=== PATIENT | male | born 1975 | race Two or more races ===

== ENCOUNTER 2020-05-06 01:51 | Inpatient (IN) | payer SELFPAY ==
[~2020-05-06] VITALS: Ht 172.7 cm; Wt 103.8 kg
[2020-05-06] VITALS (12 sets, daily range): BP systolic 104–133; BP diastolic 65–79
[2020-05-06 02:47] LABS: BASO % 0 % (0-3); EOS % 0 % (0-3); HEMATOCRIT 43.1 % (39.0-53.0); HEMOGLOBIN 14.8 g/dL (13.0-17.5); LYMPH % 6 % (24-48); MEAN CORPUSCULAR HEMOGLOBIN 30 pg (25-35); MEAN CORPUSCULAR HGB CONC 34 g/dL (31-37); MEAN CORPUSCULAR VOLUME 86 fL (79-100); MONO # 0.6 x10^3/uL (0.0-1.1); MONO % 3 % (0-9); NEUT # 15.9 x10^3/uL (1.8-7.7); NEUT % 91 % (31-73); PLATELET COUNT 344 x10^3/uL (140-400); RED BLOOD COUNT 5.02 x10^6/uL (4.30-5.70); WHITE BLOOD COUNT 17.5 x10^3/uL (4.0-11.0)
--- NOTE | 2020-05-06 02:52 | RAD ---
AP chest. HISTORY: Short of breath AP view was taken of the chest. There are bilateral hazy diffuse infiltrates. Heart is within normal limits in size. There is no definite effusion. IMPRESSION: 1. Bilateral infiltrates. Electronically signed by: Lamberto Mueller MD (05/06/2020 2:49 AM) [id number]
[2020-05-06 02:56] LABS: CALCIUM 7.9 mg/dL (8.5-10.1); CREATININE 1.2 mg/dL (0.7-1.3); GFR 65.5; POTASSIUM 4.2 mmol/L (3.5-5.1)
[2020-05-06] MEDS ORDERED: IV NORMAL SALINE 1000ML BAG 1,000 ML IV ONE (03:00)
[2020-05-06] MEDS ORDERED: AZITHRMYCN 500MG IVPB FOR OMNI 250 ML IV ONE (03:00)
[2020-05-06] MEDS ORDERED: ACETAMINOPHEN 325 MG TABLET. PO ONE (03:00)
[2020-05-06] MEDS ORDERED: cefTRIAXone IV Push 1 GM VIAL. IVP ONE (03:00)
[2020-05-06 03:01] LABS: ALBUMIN 2.5 g/dL (3.4-5.0); ALBUMIN/GLOBULIN RATIO 0.6 (1.0-1.7); TOTAL BILIRUBIN 0.4 mg/dL (0.2-1.0); TOTAL PROTEIN 6.7 g/dL (6.4-8.2)
--- NOTE | 2020-05-06 04:13 | PHYS DOC ---
General Adult EDM: Chief Complaint: SHORTNESS OF BREATH HPI: HPI: Patient is a 45 year old with no past medical history presents with a chief complaint of shortness of breath with some chest discomfort for the last several days. On arrival patient was febrile with a temperature of 100.4 he was also tachycardic with a heart rate of 104 and his oxygen saturation was in the 70s on room air. Patient is alert and oriented x4. Patient states he suspected Covid and has self isolated over the last several days. Associated cough. Fever on and off over the last several days. Patient has been taking tylenol and ibuprofen with improvement. Review of Systems: Review of Systems: Constitutional: positive fever Eyes: Denies change in visual acuity. [] HENT: Denies nasal congestion or sore throat. [] Respiratory: positive cough and shortness of breath. [] Cardiovascular: denies chest pain or edema. [] GI: Denies abdominal pain, nausea, vomiting, bloody stools or diarrhea. [] : Denies dysuria. [] Musculoskeletal: Denies back pain or joint pain. [] Integument: Denies rash. [] Neurologic: Denies headache, focal weakness or sensory changes. [] Endocrine: Denies polyuria or polydipsia. [] Lymphatic: Denies swollen glands. [] Psychiatric: Denies depression or anxiety. [] Heart Score: Risk Factors: Risk Factors: DM, Current or recent (<one month) smoker, HTN, HLP, family history of CAD, obesity. Risk Scores: Score 0 - 3: 2.5% MACE over next 6 weeks - Discharge Home Score 4 - 6: 20.3% MACE over next 6 weeks - Admit for Clinical Observation Score 7 - 10: 72.7% MACE over next 6 weeks - Early Invasive Strategies Current Medications: Current Medications Medications (Trade) Dose Ordered Sig/Shira Start Time Stop Time Status Last Admin Dose Admin Acetaminophen (Tylenol) 650 mg 1X ONCE 05/06/20 03:00 05/06/20 03:01 DC 05/06/20 03:54 650 MG Azithromycin 250 ml @ 250 mls/hr 1X ONCE 05/06/20 03:00 05/06/20 03:59 DC 05/06/20 03:00 250 MLS/HR Ceftriaxone Sodium (Rocephin) 1 gm 1X ONCE 05/06/20 03:00 05/06/20 03:01 DC 05/06/20 03:54 1 GM Sodium Chloride 1,000 ml @ 1,000 mls/hr 1X ONCE 05/06/20 03:00 05/06/20 03:59 DC 05/06/20 03:53 1,000 MLS/HR Allergies: Allergies: Allergies Coded Allergies Type Severity Reaction Last Updated Verified Unable to Assess 05/06/20 No Physical Exam: PE: Constitutional: Well developed, well nourished, no acute distress, non-toxic appearance. [] HENT: Normocephalic, atraumatic, bilateral external ears normal, oropharynx moist, no oral exudates, nose normal. [] Eyes: PERRLA, EOMI, conjunctiva normal, no discharge. [] Neck: Normal range of motion, no tenderness, supple, no stridor. [] Cardiovascular:Heart rate regular rhythm, no murmur [] Lungs & Thorax: Bilateral breath sounds clear to auscultation [] Abdomen: Bowel sounds normal, soft, no tenderness, no masses, no pulsatile masses. [] Skin: Warm, dry, no erythema, no rash. [] Back: No tenderness, no CVA tenderness. [] Extremities: No tenderness, no cyanosis, no clubbing, ROM intact, no edema. [] Neurologic: Alert and oriented X 3, normal motor function, normal sensory function, no focal deficits noted. [] Psychologic: Affect normal, judgement normal, mood normal. [] Current Patient Data: Labs: Laboratory Tests Test 05/06/20 02:30 White Blood Count 17.5 x10^3/uL (4.0-11.0) H Red Blood Count 5.02 x10^6/uL (4.30-5.70) Hemoglobin 14.8 g/dL (13.0-17.5) Hematocrit 43.1 % (39.0-53.0) Mean Corpuscular Volume 86 fL (79-100) Mean Corpuscular Hemoglobin 30 pg (25-35) Mean Corpuscular Hemoglobin Concent 34 g/dL (31-37) Red Cell Distribution Width 14.0 % (11.5-14.5) Platelet Count 344 x10^3/uL (140-400) Neutrophils (%) (Auto) 91 % (31-73) H Lymphocytes (%) (Auto) 6 % (24-48) L Monocytes (%) (Auto) 3 % (0-9) Eosinophils (%) (Auto) 0 % (0-3) Basophils (%) (Auto) 0 % (0-3) Neutrophils # (Auto) 15.9 x10^3/uL (1.8-7.7) H Lymphocytes # (Auto) 1.0 x10^3/uL (1.0-4.8) Monocytes # (Auto) 0.6 x10^3/uL (0.0-1.1) Eosinophils # (Auto) 0.0 x10^3/uL (0.0-0.7) Basophils # (Auto) 0.0 x10^3/uL (0.0-0.2) Sodium Level 141 mmol/L (136-145) Potassium Level 4.2 mmol/L (3.5-5.1) Chloride Level 102 mmol/L (98-107) Carbon Dioxide Level 30 mmol/L (21-32) Anion Gap 9 (6-14) Blood Urea Nitrogen 10 mg/dL (8-26) Creatinine 1.2 mg/dL (0.7-1.3) Estimated GFR (Cockcroft-Gault) 65.5 BUN/Creatinine Ratio 8 (6-20) Glucose Level 132 mg/dL (70-99) H Lactic Acid Level 1.4 mmol/L (0.4-2.0) Calcium Level 7.9 mg/dL (8.5-10.1) L Total Bilirubin 0.4 mg/dL (0.2-1.0) Aspartate Amino Transferase (AST) 26 U/L (15-37) Alanine Aminotransferase (ALT) 16 U/L (16-63) Alkaline Phosphatase 63 U/L (46-116) Troponin I Quantitative < 0.017 ng/mL (0.000-0.055) Total Protein 6.7 g/dL (6.4-8.2) Albumin 2.5 g/dL (3.4-5.0) L Albumin/Globulin Ratio 0.6 (1.0-1.7) L Laboratory Tests 05/06/20 02:30 Laboratory Tests 05/06/20 02:30 EKG: EKG: [] Radiology/Procedures: Radiology/Procedures: [] Impression: CXR Bilateral infiltrates Course & Med Decision Making: Course & Med Decision Making Pertinent Labs and Imaging studies reviewed. (See chart for details) [] Patient was evaluated for chief complaint. Work-up consisted of laboratory analysis and radiologic imaging. Results reviewed. Chest x-ray bilateral infiltrates. COVID test pending. Treatment included Rocephin and Zithromax. Patient was placed on 15 L nonrebreather with improvement ox saturations to the mid 90s. Patient is admitted to the hospitalist for further evaluation and treatment. Dragon Disclaimer: Dragon Disclaimer: This electronic medical record was generated, in whole or in part, using a voice recognition dictation system. Departure Departure Impression: Primary Impression: Person under investigation for COVID-19 Additional Impressions: Fever Pneumonia Disposition: ADMITTED INPATIENT Admitting Physician: KULWANT Condition: STABLE Justicifation of Admission Dx: Justifications for Admission: Justification of Admission Dx: Yes Comminuty Aquired Pneumonia: Hypoxemia SARABJIT JAY DO May 06, 2020 04:13
[2020-05-06 05:21] LABS: % BANDS 36 % (0-9); % LYMPHS 6 % (24-48); % MONOS 2 % (0-10); % SEGS 56 % (35-66); PLT ESTIMATE ADEQUATE (ADEQUATE)
[2020-05-06] MEDS ORDERED: hydrALAZINE 25 MG TABLET PO PRN (07:30)
[2020-05-06] MEDS ORDERED: NICOTINE 21MG PATCH. TD PRN (08:30)
--- NOTE | 2020-05-06 09:20 | NUR ---
Pt was escorted by this RN and Kathleen DWYER to ICU via bed, gave report to Tania, updated family.
[2020-05-06] MEDS: ACETAMINOPHEN 325 MG TABLET. PO PRN ×2 (09:30→15:51)
--- NOTE | 2020-05-06 09:30 | NUR ---
Pulmonary was consulted by this RN
[2020-05-06 09:47] LABS: C-REACTIVE PROTEIN 402.3 mg/L (0-3.3)
--- NOTE | 2020-05-06 10:00 | NUR ---
Pt transferred to ICU rm 112 via 2 floor nurses, bed, for increasing o2 requirements. Pt on 15L NRB, 02 sat 95%, does not appear to be in any acute distress, alert and following commands. Pt is primarly welsh speaking- Dr. Ventura at bedside translating, obtained PMH, confirmed pt understanding need for transfer. Assessment completed, 101.2 temp axillary- PO Tylenol given, otherwise all VSS. Pt in airborne precautions for pending Covid, will monitor
--- NOTE | 2020-05-06 10:45 | PDOC ---
PULMONARY PROGRESS NOTES Subjective full note dictated #[id number] Vitals Vital Signs Date Time Temp Pulse Resp B/P (MAP) Pulse Ox O2 Delivery O2 Flow Rate FiO2 05/06/20 08:00 Non-Rebreather 15.0 05/06/20 07:23 98.8 95 20 104/65 (78) 93 98.8 Labs Laboratory Tests Test 05/06/20 02:30 White Blood Count 17.5 x10^3/uL (4.0-11.0) Red Blood Count 5.02 x10^6/uL (4.30-5.70) Hemoglobin 14.8 g/dL (13.0-17.5) Hematocrit 43.1 % (39.0-53.0) Mean Corpuscular Volume 86 fL (79-100) Mean Corpuscular Hemoglobin 30 pg (25-35) Mean Corpuscular Hemoglobin Concent 34 g/dL (31-37) Red Cell Distribution Width 14.0 % (11.5-14.5) Platelet Count 344 x10^3/uL (140-400) Neutrophils (%) (Auto) 91 % (31-73) Lymphocytes (%) (Auto) 6 % (24-48) Monocytes (%) (Auto) 3 % (0-9) Eosinophils (%) (Auto) 0 % (0-3) Basophils (%) (Auto) 0 % (0-3) Neutrophils # (Auto) 15.9 x10^3/uL (1.8-7.7) Lymphocytes # (Auto) 1.0 x10^3/uL (1.0-4.8) Monocytes # (Auto) 0.6 x10^3/uL (0.0-1.1) Eosinophils # (Auto) 0.0 x10^3/uL (0.0-0.7) Basophils # (Auto) 0.0 x10^3/uL (0.0-0.2) Segmented Neutrophils % 56 % (35-66) Band Neutrophils % 36 % (0-9) Lymphocytes % 6 % (24-48) Monocytes % 2 % (0-10) Platelet Estimate Adequate (ADEQUATE) D-Dimer (Daphney) 0.99 ug/mlFEU (0.00-0.50) Sodium Level 141 mmol/L (136-145) Potassium Level 4.2 mmol/L (3.5-5.1) Chloride Level 102 mmol/L (98-107) Carbon Dioxide Level 30 mmol/L (21-32) Anion Gap 9 (6-14) Blood Urea Nitrogen 10 mg/dL (8-26) Creatinine 1.2 mg/dL (0.7-1.3) Estimated GFR (Cockcroft-Gault) 65.5 BUN/Creatinine Ratio 8 (6-20) Glucose Level 132 mg/dL (70-99) Lactic Acid Level 1.4 mmol/L (0.4-2.0) Calcium Level 7.9 mg/dL (8.5-10.1) Ferritin 1853 ng/mL (26-388) Total Bilirubin 0.4 mg/dL (0.2-1.0) Aspartate Amino Transf (AST/SGOT) 26 U/L (15-37) Alanine Aminotransferase (ALT/SGPT) 16 U/L (16-63) Alkaline Phosphatase 63 U/L (46-116) Troponin I Quantitative < 0.017 ng/mL (0.000-0.055) C-Reactive Protein, Quantitative 402.3 mg/L (0-3.3) Total Protein 6.7 g/dL (6.4-8.2) Albumin 2.5 g/dL (3.4-5.0) Albumin/Globulin Ratio 0.6 (1.0-1.7) Laboratory Tests Test 05/06/20 02:30 White Blood Count 17.5 x10^3/uL (4.0-11.0) Red Blood Count 5.02 x10^6/uL (4.30-5.70) Hemoglobin 14.8 g/dL (13.0-17.5) Hematocrit 43.1 % (39.0-53.0) Mean Corpuscular Volume 86 fL (79-100) Mean Corpuscular Hemoglobin 30 pg (25-35) Mean Corpuscular Hemoglobin Concent 34 g/dL (31-37) Red Cell Distribution Width 14.0 % (11.5-14.5) Platelet Count 344 x10^3/uL (140-400) Neutrophils (%) (Auto) 91 % (31-73) Lymphocytes (%) (Auto) 6 % (24-48) Monocytes (%) (Auto) 3 % (0-9) Eosinophils (%) (Auto) 0 % (0-3) Basophils (%) (Auto) 0 % (0-3) Neutrophils # (Auto) 15.9 x10^3/uL (1.8-7.7) Lymphocytes # (Auto) 1.0 x10^3/uL (1.0-4.8) Monocytes # (Auto) 0.6 x10^3/uL (0.0-1.1) Eosinophils # (Auto) 0.0 x10^3/uL (0.0-0.7) Basophils # (Auto) 0.0 x10^3/uL (0.0-0.2) Segmented Neutrophils % 56 % (35-66) Band Neutrophils % 36 % (0-9) Lymphocytes % 6 % (24-48) Monocytes % 2 % (0-10) Platelet Estimate Adequate (ADEQUATE) D-Dimer (Daphney) 0.99 ug/mlFEU (0.00-0.50) Sodium Level 141 mmol/L (136-145) Potassium Level 4.2 mmol/L (3.5-5.1) Chloride Level 102 mmol/L (98-107) Carbon Dioxide Level 30 mmol/L (21-32) Anion Gap 9 (6-14) Blood Urea Nitrogen 10 mg/dL (8-26) Creatinine 1.2 mg/dL (0.7-1.3) Estimated GFR (Cockcroft-Gault) 65.5 BUN/Creatinine Ratio 8 (6-20) Glucose Level 132 mg/dL (70-99) Lactic Acid Level 1.4 mmol/L (0.4-2.0) Calcium Level 7.9 mg/dL (8.5-10.1) Ferritin 1853 ng/mL (26-388) Total Bilirubin 0.4 mg/dL (0.2-1.0) Aspartate Amino Transf (AST/SGOT) 26 U/L (15-37) Alanine Aminotransferase (ALT/SGPT) 16 U/L (16-63) Alkaline Phosphatase 63 U/L (46-116) Troponin I Quantitative < 0.017 ng/mL (0.000-0.055) C-Reactive Protein, Quantitative 402.3 mg/L (0-3.3) Total Protein 6.7 g/dL (6.4-8.2) Albumin 2.5 g/dL (3.4-5.0) Albumin/Globulin Ratio 0.6 (1.0-1.7) Comments IMPRESSION: 1. Bilateral infiltrates. Impression . 1. Acute Hypoxic Respiratory Failure 2. Fever 3. Pneumonia, CXR positive for Bilateral patch infiltrates consistent with COV ID-19 4. elevated d-dimer 5. Tachycardia 6. Elevated CRP and ferrtin also consistent with COVID-19 infection Plan . 1. Continue supplemental oxygen to keep sats above 94%, NRB at this time obtain ABG, Vapotherm if needed 2. Tylenol for fever 3. Continue ABX 4. Monitor CXR and clinical course 5. COVID-19 test pending, continue isolation precautions-- convalescent plasma and Remdesivir 6. IV steroids 7. trend inflammatory markers DVT/GI PPX: lovenox/ pepcid D/W RN CODE:FULL CC time 55 minutes reviewing images, obtaining history and discussing case with care team. YARELY PAULSON MD May 06, 2020 10:45
--- NOTE | 2020-05-06 10:47 | PDOC1 ---
History and Physical Date of Admission Date of Admission DATE: 05/06/20 TIME: 10:36 Identification/Chief Complaint Chief Complaint cough, sob, fever Problems: (1) Person under investigation for COVID-19 (2) Pneumonia (3) Fever Source Source: Chart review, Patient History of Present Illness History of Present Illness 45 year old Male with no significant PMHx who presents with SOB, cough and intermittent fevers since 5 days. reports chest pain when he coughs. has been alternating tylenol and motrin for fever. denies any sick contacts. came to ED bc of worsening symptoms. noted fever of 100.4 in ED. also noted to be tachy. saturations 70% on RA. placed on NRB and sent to floor. chest xray shows: Bilateral infiltrates. patient admitted for further work up. Past Medical History Past Medical History none Past Surgical History Past Surgical History none Family History Family History reviewed and denies Social History Smoke: No ALCOHOL: none Drugs: None Current Medications Current Medications Current Medications Acetaminophen (Tylenol) 650 mg 1X ONCE PO Last administered on 05/06/20at 03:54; Start 05/06/20 at 03:00; Stop 05/06/20 at 03:01; Status DC Sodium Chloride 1,000 ml @ 1,000 mls/hr 1X ONCE IV Last administered on 05/06/20at 03:53; Start 05/06/20 at 03:00; Stop 05/06/20 at 03:59; Status DC Ceftriaxone Sodium (Rocephin) 1 gm 1X ONCE IVP Last administered on 05/06/20at 03:54; Start 05/06/20 at 03:00; Stop 05/06/20 at 03:01; Status DC Azithromycin 250 ml @ 250 mls/hr 1X ONCE IV Last administered on 05/06/20at 03:00; Start 05/06/20 at 03:00; Stop 05/06/20 at 03:59; Status DC Hydralazine HCl (Apresoline) 25 mg PRN TID PRN PO for SBP greater than 180; Start 05/06/20 at 07:30 Enoxaparin Sodium (Lovenox Per Pharmacy Prophylaxis Dosing) 1 each PRN DAILY PRN MC SEE COMMENTS; Start 05/06/20 at 07:30 Ceftriaxone Sodium (Rocephin) 1 gm Q24H IVP ; Start 05/07/20 at 04:00 Acetaminophen (Tylenol) 650 mg PRN Q6HRS PRN PO fever Last administered on 05/06/20at 09:30; Start 05/06/20 at 07:30 Azithromycin 500 mg/Sodium Chloride 250 ml @ 250 mls/hr Q24H IV ; Start 05/07/20 at 04:00 Enoxaparin Sodium (Lovenox 60mg Syringe) 60 mg Q12HR SQ ; Start 05/06/20 at 09:00 Nicotine (Nicoderm Cq 21mg) 1 patch PRN DAILY PRN TD SMOKING CESSATION; Start 05/06/20 at 08:30 Allergies Allergies: Coded Allergies: No Known Drug Allergies (Unverified , 05/06/20) ROS Review of System CONSTITUTIONAL: No fever or chills EYES: No recent changes SKIN: No rash or itching CARDIOVASCULAR: No chest pain, syncope, palpitations, or edema RESPIRATORY: No SOB or cough GASTROINTESTINAL: No nausea, vomiting or abdominal pain NEUROLOGICAL: No headaches or weakness ENDOCRINE: No cold or heat intolerance GENITOURINARY: No urgency or frequency of urination MUSCULOSKELETAL: No back pain or joint pain LYMPHATICS: No enlarged lymph nodes PSYCHIATRIC: No anxiety or depression Physical Exam Physical Exam GENERAL: No apparent distress. Alert and oriented. HEENT: Head normocephalic, atraumatic. NECK: Supple LUNGS: Clear to auscultation. HEART: RRR, S1, S2 present, pulses intact ABDOMEN: Soft, positive bowel sounds. EXTREMITIES: No cyanosis or edema. NEUROLOGIC: Normal speech, normal tone PSYCHIATRIC: Normal affect, normal mood. SKIN: No ulceration. Vitals Vitals Vital Signs Date Time Temp Pulse Resp B/P (MAP) Pulse Ox O2 Delivery O2 Flow Rate FiO2 05/06/20 08:00 Non-Rebreather 15.0 05/06/20 07:23 98.8 95 20 104/65 (78) 93 98.8 Labs Labs Laboratory Tests Test 05/06/20 02:30 White Blood Count 17.5 x10^3/uL (4.0-11.0) Red Blood Count 5.02 x10^6/uL (4.30-5.70) Hemoglobin 14.8 g/dL (13.0-17.5) Hematocrit 43.1 % (39.0-53.0) Mean Corpuscular Volume 86 fL (79-100) Mean Corpuscular Hemoglobin 30 pg (25-35) Mean Corpuscular Hemoglobin Concent 34 g/dL (31-37) Red Cell Distribution Width 14.0 % (11.5-14.5) Platelet Count 344 x10^3/uL (140-400) Neutrophils (%) (Auto) 91 % (31-73) Lymphocytes (%) (Auto) 6 % (24-48) Monocytes (%) (Auto) 3 % (0-9) Eosinophils (%) (Auto) 0 % (0-3) Basophils (%) (Auto) 0 % (0-3) Neutrophils # (Auto) 15.9 x10^3/uL (1.8-7.7) Lymphocytes # (Auto) 1.0 x10^3/uL (1.0-4.8) Monocytes # (Auto) 0.6 x10^3/uL (0.0-1.1) Eosinophils # (Auto) 0.0 x10^3/uL (0.0-0.7) Basophils # (Auto) 0.0 x10^3/uL (0.0-0.2) Segmented Neutrophils % 56 % (35-66) Band Neutrophils % 36 % (0-9) Lymphocytes % 6 % (24-48) Monocytes % 2 % (0-10) Platelet Estimate Adequate (ADEQUATE) D-Dimer (Daphney) 0.99 ug/mlFEU (0.00-0.50) Sodium Level 141 mmol/L (136-145) Potassium Level 4.2 mmol/L (3.5-5.1) Chloride Level 102 mmol/L (98-107) Carbon Dioxide Level 30 mmol/L (21-32) Anion Gap 9 (6-14) Blood Urea Nitrogen 10 mg/dL (8-26) Creatinine 1.2 mg/dL (0.7-1.3) Estimated GFR (Cockcroft-Gault) 65.5 BUN/Creatinine Ratio 8 (6-20) Glucose Level 132 mg/dL (70-99) Lactic Acid Level 1.4 mmol/L (0.4-2.0) Calcium Level 7.9 mg/dL (8.5-10.1) Ferritin 1853 ng/mL (26-388) Total Bilirubin 0.4 mg/dL (0.2-1.0) Aspartate Amino Transf (AST/SGOT) 26 U/L (15-37) Alanine Aminotransferase (ALT/SGPT) 16 U/L (16-63) Alkaline Phosphatase 63 U/L (46-116) Troponin I Quantitative < 0.017 ng/mL (0.000-0.055) C-Reactive Protein, Quantitative 402.3 mg/L (0-3.3) Total Protein 6.7 g/dL (6.4-8.2) Albumin 2.5 g/dL (3.4-5.0) Albumin/Globulin Ratio 0.6 (1.0-1.7) Laboratory Tests Test 05/06/20 02:30 White Blood Count 17.5 x10^3/uL (4.0-11.0) Red Blood Count 5.02 x10^6/uL (4.30-5.70) Hemoglobin 14.8 g/dL (13.0-17.5) Hematocrit 43.1 % (39.0-53.0) Mean Corpuscular Volume 86 fL (79-100) Mean Corpuscular Hemoglobin 30 pg (25-35) Mean Corpuscular Hemoglobin Concent 34 g/dL (31-37) Red Cell Distribution Width 14.0 % (11.5-14.5) Platelet Count 344 x10^3/uL (140-400) Neutrophils (%) (Auto) 91 % (31-73) Lymphocytes (%) (Auto) 6 % (24-48) Monocytes (%) (Auto) 3 % (0-9) Eosinophils (%) (Auto) 0 % (0-3) Basophils (%) (Auto) 0 % (0-3) Neutrophils # (Auto) 15.9 x10^3/uL (1.8-7.7) Lymphocytes # (Auto) 1.0 x10^3/uL (1.0-4.8) Monocytes # (Auto) 0.6 x10^3/uL (0.0-1.1) Eosinophils # (Auto) 0.0 x10^3/uL (0.0-0.7) Basophils # (Auto) 0.0 x10^3/uL (0.0-0.2) Segmented Neutrophils % 56 % (35-66) Band Neutrophils % 36 % (0-9) Lymphocytes % 6 % (24-48) Monocytes % 2 % (0-10) Platelet Estimate Adequate (ADEQUATE) D-Dimer (Daphney) 0.99 ug/mlFEU (0.00-0.50) Sodium Level 141 mmol/L (136-145) Potassium Level 4.2 mmol/L (3.5-5.1) Chloride Level 102 mmol/L (98-107) Carbon Dioxide Level 30 mmol/L (21-32) Anion Gap 9 (6-14) Blood Urea Nitrogen 10 mg/dL (8-26) Creatinine 1.2 mg/dL (0.7-1.3) Estimated GFR (Cockcroft-Gault) 65.5 BUN/Creatinine Ratio 8 (6-20) Glucose Level 132 mg/dL (70-99) Lactic Acid Level 1.4 mmol/L (0.4-2.0) Calcium Level 7.9 mg/dL (8.5-10.1) Ferritin 1853 ng/mL (26-388) Total Bilirubin 0.4 mg/dL (0.2-1.0) Aspartate Amino Transf (AST/SGOT) 26 U/L (15-37) Alanine Aminotransferase (ALT/SGPT) 16 U/L (16-63) Alkaline Phosphatase 63 U/L (46-116) Troponin I Quantitative < 0.017 ng/mL (0.000-0.055) C-Reactive Protein, Quantitative 402.3 mg/L (0-3.3) Total Protein 6.7 g/dL (6.4-8.2) Albumin 2.5 g/dL (3.4-5.0) Albumin/Globulin Ratio 0.6 (1.0-1.7) VTE Prophylaxis Ordered VTE Prophylaxis Devices: Yes VTE Pharmacological Prophylaxi: Yes Assessment/Plan Assessment/Plan ASSESSMENT Acute Hypoxic Resp Failure secondary to Suspected COVID-19 Bilateral Infiltrates on cxr elevated D dimer elevated inflammatory markers Leukocytosis PLAN transfer to ICU given 02 requirements ABG stat continue Rocephin and Azithro CTA chest given elevated d dimer and hypoxia, rule out PE follow cultures and covid screen dvt ppx: lovenox full code consider dex/remdesevir/ plasma if covid + pulm eval Justicifation of Admission Dx: Justifications for Admission: Justification of Admission Dx: Yes Comminuty Aquired Pneumonia: Hypoxemia MARILYN CONTRERAS MD May 06, 2020 10:47
[2020-05-06 11:34] LABS: BASE EXCESS ABG 3 mmol/L (-3-3); HCO3 ABG 27 mmol/L (21-28); PCO2 ABG 38 mmHg (35-46); PO2 ABG 74 mmHg (75-108); SAT O2 ABG 95 % (92-99)
--- NOTE | 2020-05-06 11:45 | CONS ---
DATE OF CONSULTATION: PULMONARY CONSULTATION ATTENDING PHYSICIAN: Dr. Crane. REASON FOR CONSULTATION: Acute hypoxic respiratory failure/suspected COVID-19 infection. HISTORY OF PRESENT ILLNESS: This is a 45-year-old male who presents to the Emergency Department overnight with complaints of shortness of breath, fever, chills for the last 4-5 days. He reports that he has been self-isolating at home and treating his fevers with Tylenol and ibuprofen without any improvement of his symptoms. Upon arrival to the Emergency Department, he was found to be hypoxic with oxygen saturations of 70%. He was placed on 15 liters nonrebreather and was admitted to the hospital for further medical evaluation and treatment. He was treated with Rocephin and azithromycin in the Emergency Department and was tested for COVID-19. No ABG was obtained in the Emergency Department. This morning, he experienced hypoxia on the nursing unit and was transferred to the intensive care unit and a Pulmonary consultation was requested at that point in time. PAST MEDICAL HISTORY: The patient denies any past medical history or chronic medication use. PAST SURGICAL HISTORY: He reports a right knee surgery for cartilage infection. SOCIAL HISTORY: He is a former smoker with a 15-plus pack-year smoking history. He is not currently smoking. He quit smoking 3 years ago. He denies any alcohol use and denies any drug use. ALLERGIES: No known drug allergies. CURRENT MEDICATIONS: Reviewed as listed in the [facility]. REVIEW OF SYSTEMS: A 12-point review of systems was reviewed with the patient that is negative except for pertinent positives discussed in the HPI. FAMILY HISTORY: Noncontributory to the respiratory system. PHYSICAL EXAMINATION: GENERAL: He is awake and alert and following commands. VITAL SIGNS: Temperature is 98.8, heart rate is 100, respiratory rate is 20, blood pressure is 104/65, pulse oximetry is 93% on 15 liters nonrebreather mask. HEENT: Sclerae nonicteric. NECK: Supple. LUNGS: Diminished throughout with some rhonchi. CARDIOVASCULAR: Regular rate and rhythm; however, noted to be tachycardic on telemetry. ABDOMEN: Soft. EXTREMITIES: Negative for cyanosis, clubbing or pitting edema. LABORATORY DATA: White blood cell count is 17.5, hemoglobin 14.8, hematocrit of 43.1, platelet count 344. D-dimer 0.99. Sodium 141, potassium 4.2, BUN of 10, creatinine of 1.2. Lactic acid of 1.4. Ferritin level of 1853. C-reactive protein is 402.3, albumin is 2.5. IMPRESSION: 1. Acute hypoxic respiratory failure, likely secondary to COVID-19 infection. 2. Fever. 3. Pneumonia. Chest x-ray positive for bilateral infiltrates consistent with COVID-19 infection. 4. Elevated D-dimer. 5. Tachycardia. 6. Elevated CRP and ferritin also consistent with COVID-19 infection. PLAN: 1. Continue supplemental oxygen to keep oxygen saturations greater than 94%, currently on nonrebreather. Awaiting ABG results. May use Vapotherm as needed for this patient. 2. Tylenol for fever. 3. Continue antibiotics, currently on Rocephin and azithromycin. 4. Monitor chest x-ray and clinical course. 5. We will add IV steroids. 6. COVID-19 test pending. Continue isolation precautions. If COVID-19 tested positive, we will proceed with convalescent plasma and remdesivir. 7. DVT and GI prophylaxis. 8. Monitor CRP, ferritin, D-dimer and sed rate. Thank you for your consultation on this patient. We will follow along. Critical care time 55 minutes reviewing images, obtaining history and discussing case with the care team. YARELY PAULSON MD DR: MARCELINA/brien JOB#: [id number] / [id number]
[2020-05-06] MEDS: methylPREDNISolone SOD SUCC PF 125 MG/2 ML VIAL. IV SCH ×2 (13:48→21:00)
[2020-05-06] MEDS: FAMOTIDINE 20 MG/2 ML VIAL IVP SCH (21:00)
[2020-05-06] MEDS ORDERED: STERILE WATER for RESP 1,000 ML BAG. INH PRN (23:30)
--- NOTE | 2020-05-06 23:40 | NUR ---
Call to respiratory. Pt sats remaining in the mid 80's. Pt laying in bed with mild shortness of breath. Vapotherm at fio2 100%. 2345 Rt here to do abgs. Will continue to monitor.
[2020-05-07] VITALS (24 sets, daily range): BP systolic 82–147; BP diastolic 46–82
[2020-05-07] MEDS ORDERED: PROPOFOL 100 ML IV PRN (00:15)
[2020-05-07] MEDS ORDERED: SUCCINYLCHOLINE 200 MG/10 ML VIAL. IV ONE (00:45)
[2020-05-07] MEDS: MIDAZOLAM 100mg/100ml NS BAG 100 ML IV PRN ×3 (00:51→10:41)
[2020-05-07] MEDS ORDERED: ETOMIDATE 20 MG/10 ML VIAL. IV ONE (00:57)
[2020-05-07] MEDS ORDERED: SUCCINYLCHOLINE 200 MG/10 ML VIAL. ONE (01:00)
[2020-05-07] MEDS ORDERED: VECURONIUM BOLUS 10 MG VIAL. IV ONE (01:15)
--- NOTE | 2020-05-07 01:40 | RAD ---
Chest one view, abdomen one view. HISTORY: Intubated CHEST: AP view was taken of the chest. Endotracheal tube is at the level the clavicles. There are diffuse bilateral infiltrates. Heart is normal in size. On the chest x-ray the NG tube extends into the stomach. Stomach is distended. ABDOMEN: Supine view was taken of the abdomen. On the abdominal film which was taken before the chest x-ray the NG tube stops near the GE junction. Stomach is distended. There is respiratory motion. IMPRESSION: 1. Endotracheal tube at the level the clavicles. 2. NG tube extends into the stomach on the chest x-ray. 3. Diffuse bilateral infiltrates. 4. Gastric distention. Electronically signed by: Lamberto Mueller MD (05/07/2020 1:37 AM) [id number]
--- NOTE | 2020-05-07 02:00 | NUR ---
Dr Lora ordered pharmacy to dose Rendesivir IV; per Vimal, pharmacist, med will be started once Covid results are back.
[2020-05-07] MEDS: NOREPINEPHRINE VIAL 8 MG in IV DEXTROSE 5% 250 ML IV PRN (02:37)
[2020-05-07 02:47] LABS: HCO3 ABG 25 mmol/L (21-28)
[2020-05-07 02:49] LABS: BASE EXCESS ABG 1 mmol/L (-3-3); HCO3 ABG 25 mmol/L (21-28); PCO2 ABG 38 mmHg (35-46); PO2 ABG 81 mmHg (75-108); SAT O2 ABG 96 % (92-99)
[2020-05-07 02:59] LABS: BASE EXCESS ABG 2 mmol/L (-3-3); FIO2 ABG 100; PCO2 ABG 36 mmHg (35-46); PO2 ABG 51 mmHg (75-108); SAT O2 ABG 87 % (92-99)
[2020-05-07 03:00] LABS: FIO2 ABG 100
[2020-05-07] MEDS: cefTRIAXone IV Push 1 GM VIAL. IVP SCH (04:08)
[2020-05-07] MEDS: AZITHROMYCIN 500 MG in IV NORMAL SALINE 250ML 250 ML IV SCH (04:08)
--- NOTE | 2020-05-07 04:41 | NUR ---
AT 0130- Noted a decrease in 02Stats. RTT here to draw ABG. ICU charge nurse called results to Dr. Lora. Orders for intubation and Sedation.
[2020-05-07 05:52] LABS: BASO % 0 % (0-3); EOS % 0 % (0-3); HEMATOCRIT 39.6 % (39.0-53.0); HEMOGLOBIN 13.3 g/dL (13.0-17.5); LYMPH # 0.6 x10^3/uL (1.0-4.8); LYMPH % 4 % (24-48); MEAN CORPUSCULAR HEMOGLOBIN 29 pg (25-35); MEAN CORPUSCULAR HGB CONC 34 g/dL (31-37); MEAN CORPUSCULAR VOLUME 87 fL (79-100); MONO # 0.8 x10^3/uL (0.0-1.1); MONO % 5 % (0-9); NEUT # 13.8 x10^3/uL (1.8-7.7); NEUT % 91 % (31-73); PLATELET COUNT 433 x10^3/uL (140-400); RED BLOOD COUNT 4.56 x10^6/uL (4.30-5.70); RED CELL DISTRIBUTION WIDTH 14.1 % (11.5-14.5); WHITE BLOOD COUNT 15.2 x10^3/uL (4.0-11.0)
[2020-05-07 05:56] LABS: CALCIUM 8.6 mg/dL (8.5-10.1); CREATININE 1.2 mg/dL (0.7-1.3); DIRECT BILIRUBIN 0.2 mg/dL (0.0-0.2); GFR 65.5; POTASSIUM 3.7 mmol/L (3.5-5.1); TOTAL BILIRUBIN 0.3 mg/dL (0.2-1.0)
[2020-05-07] MEDS: methylPREDNISolone SOD SUCC PF 125 MG/2 ML VIAL. IV SCH ×2 (06:07→14:25)
[2020-05-07 08:01] LABS: BASE EXCESS ABG -1 mmol/L (-3-3); HCO3 ABG 23 mmol/L (21-28); PCO2 ABG 38 mmHg (35-46); PO2 ABG 83 mmHg (75-108); SAT O2 ABG 96 % (92-99)
[2020-05-07 08:03] LABS: FIO2 ABG 100
[2020-05-07] MEDS ORDERED: CHLORHEXIDINE 0.12% 15 ML MOUTHWASH. MM SCH (09:00)
--- NOTE | 2020-05-07 09:20 | PDOC ---
PROGRESS NOTES History of Present Illness History of Present Illness VTE Prophylaxis Ordered VTE Prophylaxis Devices: Yes VTE Pharmacological Prophylaxi: Yes IMPRESSION FEVER PRESENT ON ADMIT Acute Hypoxic Resp Failure secondary to Suspected COVID-19 Bilateral Infiltrates on cxr elevated D dimer// elevated inflammatory markers Leukocytosis ELEVATED FERRITIN // Elevated CRP and ferrtin also consistent with COVID-19 infection PLAN VENT SUPPORT continue Rocephin and Azithro CTA chest REVIEWED follow cultures and covid screen dvt ppx: lovenox full code COVID-19 test pending, continue isolation precautions-- convalescent plasma and Remdesivir IV steroids pulm FOLLOWING The patient was evaluated during the global COVID-19 pandemic, and that diagnosis was suspected/considered upon their initial presentation. Their evaluation, treatment and testing was consistent with current guidelines for patients who present with complaints or symptoms that may be related to COVID- 19. 33 MIN CC TIME Justicifation of Admission Dx: Justicifation of Admission Dx: Justifications for Admission: Justification of Admission Dx: Yes Comminuty Aquired Pneumonia: Hypoxemia Vitals Vitals Vital Signs Date Time Temp Pulse Resp B/P (MAP) Pulse Ox O2 Delivery O2 Flow Rate FiO2 05/07/20 07:24 100 Ventilator 05/07/20 06:09 86 24 133/72 (92) 05/07/20 04:00 99.1 99.1 05/07/20 01:48 40.0 Physical Exam Physical Exam GENERAL: INTUBATED ON VENT, SEDATED HEENT: Head normocephalic, atraumatic. NECK: Supple LUNGS: Clear to auscultation. HEART: RRR, S1, S2 present, pulses intact ABDOMEN: Soft, positive bowel sounds. EXTREMITIES: No cyanosis or edema. SKIN: No ulceration. Abdomen: Soft Extremities: No cyanosis Labs LABS SPEC #: [id number] JOSEPH: 05/06/20 STATUS: RES REQ #: [id number] RECD: 05/06/[address]: SARABJIT JAY DO SOURCE: BLOOD ENTR: 05/06/20 [facility] : ANIKET: ORDERED: BCULT Procedure Result BLOOD CULTURE Preliminary NO GROWTH AFTER 1 DAY Chest one view, abdomen one view. HISTORY: Intubated CHEST: AP view was taken of the chest. Endotracheal tube is at the level the clavicles. There are diffuse bilateral infiltrates. Heart is normal in size. On the chest x-ray the NG tube extends into the stomach. Stomach is distended. ABDOMEN: Supine view was taken of the abdomen. On the abdominal film which was taken before the chest x-ray the NG tube stops near the GE junction. Stomach is distended. There is respiratory motion. IMPRESSION: 1. Endotracheal tube at the level the clavicles. 2. NG tube extends into the stomach on the chest x-ray. 3. Diffuse bilateral infiltrates. 4. Gastric distention. Electronically signed by: Lamberto Mueller MD (05/07/2020 1:37 AM) [id number] DICTATED and SIGNED BY: LAMBERTO MUELLER MD DATE: 05/07/20 0137 Laboratory Tests Test 05/06/20 11:18 05/06/20 23:44 05/07/20 02:44 05/07/20 04:45 O2 Saturation 95 % (92-99) 87 % (92-99) 96 % (92-99) Arterial Blood pH 7.46 (7.35-7.45) 7.46 (7.35-7.45) 7.44 (7.35-7.45) Arterial Blood pCO2 at Patient Temp 38 mmHg (35-46) 36 mmHg (35-46) 38 mmHg (35-46) Arterial Blood pO2 at Patient Temp 74 mmHg (75-108) 51 mmHg (75-108) 81 mmHg (75-108) Arterial Blood HCO3 27 mmol/L (21-28) 25 mmol/L (21-28) 25 mmol/L (21-28) Arterial Blood Base Excess 3 mmol/L (-3-3) 2 mmol/L (-3-3) 1 mmol/L (-3-3) FiO2 100 nrm 100 100 White Blood Count 15.2 x10^3/uL (4.0-11.0) Red Blood Count 4.56 x10^6/uL (4.30-5.70) Hemoglobin 13.3 g/dL (13.0-17.5) Hematocrit 39.6 % (39.0-53.0) Mean Corpuscular Volume 87 fL (79-100) Mean Corpuscular Hemoglobin 29 pg (25-35) Mean Corpuscular Hemoglobin Concent 34 g/dL (31-37) Red Cell Distribution Width 14.1 % (11.5-14.5) Platelet Count 433 x10^3/uL (140-400) Neutrophils (%) (Auto) 91 % (31-73) Lymphocytes (%) (Auto) 4 % (24-48) Monocytes (%) (Auto) 5 % (0-9) Eosinophils (%) (Auto) 0 % (0-3) Basophils (%) (Auto) 0 % (0-3) Neutrophils # (Auto) 13.8 x10^3/uL (1.8-7.7) Lymphocytes # (Auto) 0.6 x10^3/uL (1.0-4.8) Monocytes # (Auto) 0.8 x10^3/uL (0.0-1.1) Eosinophils # (Auto) 0.0 x10^3/uL (0.0-0.7) Basophils # (Auto) 0.0 x10^3/uL (0.0-0.2) Sodium Level 140 mmol/L (136-145) Potassium Level 3.7 mmol/L (3.5-5.1) Chloride Level 102 mmol/L (98-107) Carbon Dioxide Level 25 mmol/L (21-32) Anion Gap 13 (6-14) Blood Urea Nitrogen 20 mg/dL (8-26) Creatinine 1.2 mg/dL (0.7-1.3) Estimated GFR (Cockcroft-Gault) 65.5 Glucose Level 168 mg/dL (70-99) Calcium Level 8.6 mg/dL (8.5-10.1) Total Bilirubin 0.3 mg/dL (0.2-1.0) Direct Bilirubin 0.2 mg/dL (0.0-0.2) Aspartate Amino Transf (AST/SGOT) 30 U/L (15-37) Alanine Aminotransferase (ALT/SGPT) 9 U/L (16-63) Alkaline Phosphatase 64 U/L (46-116) Total Protein 7.0 g/dL (6.4-8.2) Albumin 2.0 g/dL (3.4-5.0) Test 05/07/20 07:58 O2 Saturation 96 % (92-99) Arterial Blood pH 7.41 (7.35-7.45) Arterial Blood pCO2 at Patient Temp 38 mmHg (35-46) Arterial Blood pO2 at Patient Temp 83 mmHg (75-108) Arterial Blood HCO3 23 mmol/L (21-28) Arterial Blood Base Excess -1 mmol/L (-3-3) FiO2 100 Comment Review of Relevant I have reviewed the following items laura (where applicable) has been applied. Labs Laboratory Tests Test 05/06/20 02:30 05/06/20 11:18 05/06/20 23:44 05/07/20 02:44 White Blood Count 17.5 x10^3/uL (4.0-11.0) Red Blood Count 5.02 x10^6/uL (4.30-5.70) Hemoglobin 14.8 g/dL (13.0-17.5) Hematocrit 43.1 % (39.0-53.0) Mean Corpuscular Volume 86 fL (79-100) Mean Corpuscular Hemoglobin 30 pg (25-35) Mean Corpuscular Hemoglobin Concent 34 g/dL (31-37) Red Cell Distribution Width 14.0 % (11.5-14.5) Platelet Count 344 x10^3/uL (140-400) Neutrophils (%) (Auto) 91 % (31-73) Lymphocytes (%) (Auto) 6 % (24-48) Monocytes (%) (Auto) 3 % (0-9) Eosinophils (%) (Auto) 0 % (0-3) Basophils (%) (Auto) 0 % (0-3) Neutrophils # (Auto) 15.9 x10^3/uL (1.8-7.7) Lymphocytes # (Auto) 1.0 x10^3/uL (1.0-4.8) Monocytes # (Auto) 0.6 x10^3/uL (0.0-1.1) Eosinophils # (Auto) 0.0 x10^3/uL (0.0-0.7) Basophils # (Auto) 0.0 x10^3/uL (0.0-0.2) Segmented Neutrophils % 56 % (35-66) Band Neutrophils % 36 % (0-9) Lymphocytes % 6 % (24-48) Monocytes % 2 % (0-10) Platelet Estimate Adequate (ADEQUATE) D-Dimer (Daphney) 0.99 ug/mlFEU (0.00-0.50) Sodium Level 141 mmol/L (136-145) Potassium Level 4.2 mmol/L (3.5-5.1) Chloride Level 102 mmol/L (98-107) Carbon Dioxide Level 30 mmol/L (21-32) Anion Gap 9 (6-14) Blood Urea Nitrogen 10 mg/dL (8-26) Creatinine 1.2 mg/dL (0.7-1.3) Estimated GFR (Cockcroft-Gault) 65.5 BUN/Creatinine Ratio 8 (6-20) Glucose Level 132 mg/dL (70-99) Lactic Acid Level 1.4 mmol/L (0.4-2.0) Calcium Level 7.9 mg/dL (8.5-10.1) Ferritin 1853 ng/mL (26-388) Total Bilirubin 0.4 mg/dL (0.2-1.0) Aspartate Amino Transf (AST/SGOT) 26 U/L (15-37) Alanine Aminotransferase (ALT/SGPT) 16 U/L (16-63) Alkaline Phosphatase 63 U/L (46-116) Troponin I Quantitative < 0.017 ng/mL (0.000-0.055) C-Reactive Protein, Quantitative 402.3 mg/L (0-3.3) Total Protein 6.7 g/dL (6.4-8.2) Albumin 2.5 g/dL (3.4-5.0) Albumin/Globulin Ratio 0.6 (1.0-1.7) O2 Saturation 95 % (92-99) 87 % (92-99) 96 % (92-99) Arterial Blood pH 7.46 (7.35-7.45) 7.46 (7.35-7.45) 7.44 (7.35-7.45) Arterial Blood pCO2 at Patient Temp 38 mmHg (35-46) 36 mmHg (35-46) 38 mmHg (35-46) Arterial Blood pO2 at Patient Temp 74 mmHg (75-108) 51 mmHg (75-108) 81 mmHg (75-108) Arterial Blood HCO3 27 mmol/L (21-28) 25 mmol/L (21-28) 25 mmol/L (21-28) Arterial Blood Base Excess 3 mmol/L (-3-3) 2 mmol/L (-3-3) 1 mmol/L (-3-3) FiO2 100 nrm 100 100 Test 05/07/20 04:45 05/07/20 07:58 White Blood Count 15.2 x10^3/uL (4.0-11.0) Red Blood Count 4.56 x10^6/uL (4.30-5.70) Hemoglobin 13.3 g/dL (13.0-17.5) Hematocrit 39.6 % (39.0-53.0) Mean Corpuscular Volume 87 fL (79-100) Mean Corpuscular Hemoglobin 29 pg (25-35) Mean Corpuscular Hemoglobin Concent 34 g/dL (31-37) Red Cell Distribution Width 14.1 % (11.5-14.5) Platelet Count 433 x10^3/uL (140-400) Neutrophils (%) (Auto) 91 % (31-73) Lymphocytes (%) (Auto) 4 % (24-48) Monocytes (%) (Auto) 5 % (0-9) Eosinophils (%) (Auto) 0 % (0-3) Basophils (%) (Auto) 0 % (0-3) Neutrophils # (Auto) 13.8 x10^3/uL (1.8-7.7) Lymphocytes # (Auto) 0.6 x10^3/uL (1.0-4.8) Monocytes # (Auto) 0.8 x10^3/uL (0.0-1.1) Eosinophils # (Auto) 0.0 x10^3/uL (0.0-0.7) Basophils # (Auto) 0.0 x10^3/uL (0.0-0.2) Sodium Level 140 mmol/L (136-145) Potassium Level 3.7 mmol/L (3.5-5.1) Chloride Level 102 mmol/L (98-107) Carbon Dioxide Level 25 mmol/L (21-32) Anion Gap 13 (6-14) Blood Urea Nitrogen 20 mg/dL (8-26) Creatinine 1.2 mg/dL (0.7-1.3) Estimated GFR (Cockcroft-Gault) 65.5 Glucose Level 168 mg/dL (70-99) Calcium Level 8.6 mg/dL (8.5-10.1) Total Bilirubin 0.3 mg/dL (0.2-1.0) Direct Bilirubin 0.2 mg/dL (0.0-0.2) Aspartate Amino Transf (AST/SGOT) 30 U/L (15-37) Alanine Aminotransferase (ALT/SGPT) 9 U/L (16-63) Alkaline Phosphatase 64 U/L (46-116) Total Protein 7.0 g/dL (6.4-8.2) Albumin 2.0 g/dL (3.4-5.0) O2 Saturation 96 % (92-99) Arterial Blood pH 7.41 (7.35-7.45) Arterial Blood pCO2 at Patient Temp 38 mmHg (35-46) Arterial Blood pO2 at Patient Temp 83 mmHg (75-108) Arterial Blood HCO3 23 mmol/L (21-28) Arterial Blood Base Excess -1 mmol/L (-3-3) FiO2 100 Laboratory Tests Test 05/06/20 11:18 05/06/20 23:44 05/07/20 02:44 05/07/20 04:45 O2 Saturation 95 % (92-99) 87 % (92-99) 96 % (92-99) Arterial Blood pH 7.46 (7.35-7.45) 7.46 (7.35-7.45) 7.44 (7.35-7.45) Arterial Blood pCO2 at Patient Temp 38 mmHg (35-46) 36 mmHg (35-46) 38 mmHg (35-46) Arterial Blood pO2 at Patient Temp 74 mmHg (75-108) 51 mmHg (75-108) 81 mmHg (75-108) Arterial Blood HCO3 27 mmol/L (21-28) 25 mmol/L (21-28) 25 mmol/L (21-28) Arterial Blood Base Excess 3 mmol/L (-3-3) 2 mmol/L (-3-3) 1 mmol/L (-3-3) FiO2 100 nrm 100 100 White Blood Count 15.2 x10^3/uL (4.0-11.0) Red Blood Count 4.56 x10^6/uL (4.30-5.70) Hemoglobin 13.3 g/dL (13.0-17.5) Hematocrit 39.6 % (39.0-53.0) Mean Corpuscular Volume 87 fL (79-100) Mean Corpuscular Hemoglobin 29 pg (25-35) Mean Corpuscular Hemoglobin Concent 34 g/dL (31-37) Red Cell Distribution Width 14.1 % (11.5-14.5) Platelet Count 433 x10^3/uL (140-400) Neutrophils (%) (Auto) 91 % (31-73) Lymphocytes (%) (Auto) 4 % (24-48) Monocytes (%) (Auto) 5 % (0-9) Eosinophils (%) (Auto) 0 % (0-3) Basophils (%) (Auto) 0 % (0-3) Neutrophils # (Auto) 13.8 x10^3/uL (1.8-7.7) Lymphocytes # (Auto) 0.6 x10^3/uL (1.0-4.8) Monocytes # (Auto) 0.8 x10^3/uL (0.0-1.1) Eosinophils # (Auto) 0.0 x10^3/uL (0.0-0.7) Basophils # (Auto) 0.0 x10^3/uL (0.0-0.2) Sodium Level 140 mmol/L (136-145) Potassium Level 3.7 mmol/L (3.5-5.1) Chloride Level 102 mmol/L (98-107) Carbon Dioxide Level 25 mmol/L (21-32) Anion Gap 13 (6-14) Blood Urea Nitrogen 20 mg/dL (8-26) Creatinine 1.2 mg/dL (0.7-1.3) Estimated GFR (Cockcroft-Gault) 65.5 Glucose Level 168 mg/dL (70-99) Calcium Level 8.6 mg/dL (8.5-10.1) Total Bilirubin 0.3 mg/dL (0.2-1.0) Direct Bilirubin 0.2 mg/dL (0.0-0.2) Aspartate Amino Transf (AST/SGOT) 30 U/L (15-37) Alanine Aminotransferase (ALT/SGPT) 9 U/L (16-63) Alkaline Phosphatase 64 U/L (46-116) Total Protein 7.0 g/dL (6.4-8.2) Albumin 2.0 g/dL (3.4-5.0) Test 05/07/20 07:58 O2 Saturation 96 % (92-99) Arterial Blood pH 7.41 (7.35-7.45) Arterial Blood pCO2 at Patient Temp 38 mmHg (35-46) Arterial Blood pO2 at Patient Temp 83 mmHg (75-108) Arterial Blood HCO3 23 mmol/L (21-28) Arterial Blood Base Excess -1 mmol/L (-3-3) FiO2 100 Microbiology 05/06/20 Blood Culture - Preliminary, Resulted NO GROWTH AFTER 1 DAY Medications Current Medications Acetaminophen (Tylenol) 650 mg 1X ONCE PO Last administered on 05/06/20at 03:54; Start 05/06/20 at 03:00; Stop 05/06/20 at 03:01; Status DC Sodium Chloride 1,000 ml @ 1,000 mls/hr 1X ONCE IV Last administered on 05/06/20at 03:53; Start 05/06/20 at 03:00; Stop 05/06/20 at 03:59; Status DC Ceftriaxone Sodium (Rocephin) 1 gm 1X ONCE IVP Last administered on 05/06/20at 03:54; Start 05/06/20 at 03:00; Stop 05/06/20 at 03:01; Status DC Azithromycin 250 ml @ 250 mls/hr 1X ONCE IV Last administered on 05/06/20at 03:00; Start 05/06/20 at 03:00; Stop 05/06/20 at 03:59; Status DC Hydralazine HCl (Apresoline) 25 mg PRN TID PRN PO for SBP greater than 180; Start 05/06/20 at 07:30 Enoxaparin Sodium (Lovenox Per Pharmacy Prophylaxis Dosing) 1 each PRN DAILY PRN MC SEE COMMENTS; Start 05/06/20 at 07:30 Ceftriaxone Sodium (Rocephin) 1 gm Q24H IVP Last administered on 05/07/20at 04:08; Start 05/07/20 at 04:00 Acetaminophen (Tylenol) 650 mg PRN Q6HRS PRN PO fever Last administered on 05/06/20at 15:51; Start 05/06/20 at 07:30 Azithromycin 500 mg/Sodium Chloride 250 ml @ 250 mls/hr Q24H IV Last administered on 05/07/20at 04:08; Start 05/07/20 at 04:00 Enoxaparin Sodium (Lovenox 60mg Syringe) 60 mg Q12HR SQ Last administered on 05/06/20at 21:01; Start 05/06/20 at 09:00 Nicotine (Nicoderm Cq 21mg) 1 patch PRN DAILY PRN TD SMOKING CESSATION; Start 05/06/20 at 08:30 Methylprednisolone Sodium Succinate (SOLU-Medrol 125MG VIAL) 60 mg Q8HRS IV Last administered on 05/07/20at 06:07; Start 05/06/20 at 14:00 Famotidine (Pepcid Vial) 20 mg BID IVP Last administered on 05/06/20at 21:00; Start 05/06/20 at 21:00 Sterile Water (WATER for RESP) 1,000 ml CONT PRN INH VIA VAPOTHERM DEVICE; Start 05/06/20 at 23:30 Fentanyl Citrate 30 ml @ 0 mls/hr CONT PRN IV SEE PROTOCOL Last administered on 05/07/20at 01:01; Start 05/07/20 at 00:30 Propofol 100 ml @ 0 mls/hr CONT PRN IV SEE PROTOCOL; Start 05/07/20 at 00:15 Chlorhexidine Gluconate (Peridex) 15 ml BID MM ; Start 05/07/20 at 09:00; Stop 05/07/20 at 07:33; Status DC Midazolam HCl 100 ml @ 0 mls/hr CONT PRN IV SEE PROTOCOL Last administered on 05/07/20at 04:46; Start 05/07/20 at 00:30 Succinylcholine Chloride (Anectine) 200 mg 1X ONCE IV Last administered on 05/07/20at 00:37; Start 05/07/20 at 00:45; Stop 05/07/20 at 00:46; Status DC Etomidate (Amidate) 20 mg STK-MED ONCE IV ; Start 05/07/20 at 00:57; Stop 05/07/20 at 00:57; Status DC Vecuronium [place] (Norcuron Bolus) 10 mg 1X ONCE IV ; Start 05/07/20 at 01:15; Stop 05/07/20 at 01:16; Status DC Norepinephrine Bitartrate 8 mg/ Dextrose 258 ml @ 19.756 mls/ hr CONT PRN IV PER PROTOCOL Last administered on 05/07/20at 02:37; Start 05/07/20 at 02:15 Succinylcholine Chloride (Anectine) 200 mg STK-MED ONCE .ROUTE ; Start 05/07/20 at 01:00; Stop 05/07/20 at 08:46; Status DC Vitals/I & O Vital Sign - Last 24 Hours 05/06/20 05/06/20 05/06/20 05/06/20 10:00 10:15 10:30 10:45 Temp 101.2 101.2 Pulse 104 108 108 106 Resp 22 22 22 26 B/P (MAP) 113/76 (88) 111/76 (88) 114/69 (84) 114/75 (88) Pulse Ox 95 95 94 95 O2 Delivery NonRebreather Mask NonRebreather Mask NonRebreather Mask NonRebreather Mask O2 Flow Rate 15.0 15.0 15.0 15.0 05/06/20 05/06/20 05/06/20 05/06/20 11:00 11:00 13:04 15:08 Temp 101.4 101.4 Pulse 104 106 Resp 24 24 B/P (MAP) 110/76 (87) 117/75 (89) Pulse Ox 94 92 O2 Delivery Non-Rebreather NonRebreather Mask Non-Rebreather NonRebreather Mask O2 Flow Rate 15.0 15.0 15.0 15.0 05/06/20 05/06/20 05/06/20 05/06/20 17:25 19:00 19:45 20:05 Temp 98.9 98.9 Pulse 100 92 Resp 20 20 B/P (MAP) 112/72 (85) 133/77 (95) Pulse Ox 92 93 91 O2 Delivery VAPOTHERM vapotherm vapotherm O2 Flow Rate 30.0 35.0 35.0 05/06/20 05/06/20 05/06/20 05/06/20 20:10 20:15 20:31 21:00 Pulse 92 B/P (MAP) 116/71 (86) Pulse Ox 87 91 93 91 O2 Delivery VAPOTHERM VAPOTHERM O2 Flow Rate 35.0 40.0 40.0 40.0 05/06/20 05/06/20 05/07/20 05/07/20 22:00 23:11 01:00 01:00 Temp 98.4 101.1 98.4 101.1 Pulse 90 95 95 Resp 25 B/P (MAP) 109/70 (83) 111/79 (90) 119/78 (92) Pulse Ox 94 91 100 O2 Delivery Ventilator Mechanical Ventilator O2 Flow Rate 40.0 40.0 05/07/20 05/07/20 05/07/20 05/07/20 01:01 01:06 01:48 02:00 Pulse 84 Resp 20 24 B/P (MAP) 85/46 (59) Pulse Ox 95 95 100 O2 Delivery Ventilator Ventilator Ventilator O2 Flow Rate 40.0 05/07/20 05/07/20 05/07/20 05/07/20 02:30 03:00 04:00 04:00 Temp 99.1 99.1 Pulse 90 82 84 Resp 24 24 24 B/P (MAP) 82/51 (61) 108/62 (77) 114/63 (80) Pulse Ox 100 100 100 O2 Delivery Ventilator Ventilator Ventilator Mechanical Ventilator 05/07/20 05/07/20 05/07/20 05/07/20 04:33 05:00 06:09 07:24 Pulse 84 86 Resp 22 24 B/P (MAP) 136/76 (96) 133/72 (92) Pulse Ox 95 100 100 100 O2 Delivery Ventilator Ventilator Ventilator Ventilator Intake and Output 05/06/20 05/06/20 05/07/20 15:00 23:00 07:00 Intake Total 0 ml 384 ml Output Total 400 ml 450 ml 675 ml Balance -400 ml -450 ml -291 ml BRAD DEL CASTILLO MD May 07, 2020 09:20
[2020-05-07] MEDS: FAMOTIDINE 20 MG/2 ML VIAL IVP SCH ×2 (09:48→21:01)
--- NOTE | 2020-05-07 11:02 | NUR ---
SS following for discharge planning. SS reviewed pt chart and discussed with pt RN. Pt is self pay pt. Pt is from home with spouse and is currently on the vent. Pt on IV Rocephin and Azithromycin. Pt COVID19 pending. SS will continue to follow for discharge planning.
--- NOTE | 2020-05-07 12:24 | PDOC ---
PULMONARY PROGRESS NOTES Subjective Patient worsened overnight intubated now on 100% FiO2 Vitals Vital Signs Date Time Temp Pulse Resp B/P (MAP) Pulse Ox O2 Delivery O2 Flow Rate FiO2 05/07/20 11:47 100 Ventilator 05/07/20 10:15 20 05/07/20 10:00 76 147/82 (103) 05/07/20 08:00 98.7 98.7 05/07/20 01:48 40.0 Cardiovascular: S1, S2 Abdomen: Soft Extremities: No Edema Skin: Warm Labs Laboratory Tests Test 05/06/20 02:30 05/06/20 11:18 05/06/20 23:44 05/07/20 02:44 White Blood Count 17.5 x10^3/uL (4.0-11.0) Red Blood Count 5.02 x10^6/uL (4.30-5.70) Hemoglobin 14.8 g/dL (13.0-17.5) Hematocrit 43.1 % (39.0-53.0) Mean Corpuscular Volume 86 fL (79-100) Mean Corpuscular Hemoglobin 30 pg (25-35) Mean Corpuscular Hemoglobin Concent 34 g/dL (31-37) Red Cell Distribution Width 14.0 % (11.5-14.5) Platelet Count 344 x10^3/uL (140-400) Neutrophils (%) (Auto) 91 % (31-73) Lymphocytes (%) (Auto) 6 % (24-48) Monocytes (%) (Auto) 3 % (0-9) Eosinophils (%) (Auto) 0 % (0-3) Basophils (%) (Auto) 0 % (0-3) Neutrophils # (Auto) 15.9 x10^3/uL (1.8-7.7) Lymphocytes # (Auto) 1.0 x10^3/uL (1.0-4.8) Monocytes # (Auto) 0.6 x10^3/uL (0.0-1.1) Eosinophils # (Auto) 0.0 x10^3/uL (0.0-0.7) Basophils # (Auto) 0.0 x10^3/uL (0.0-0.2) Segmented Neutrophils % 56 % (35-66) Band Neutrophils % 36 % (0-9) Lymphocytes % 6 % (24-48) Monocytes % 2 % (0-10) Platelet Estimate Adequate (ADEQUATE) D-Dimer (Daphney) 0.99 ug/mlFEU (0.00-0.50) Sodium Level 141 mmol/L (136-145) Potassium Level 4.2 mmol/L (3.5-5.1) Chloride Level 102 mmol/L (98-107) Carbon Dioxide Level 30 mmol/L (21-32) Anion Gap 9 (6-14) Blood Urea Nitrogen 10 mg/dL (8-26) Creatinine 1.2 mg/dL (0.7-1.3) Estimated GFR (Cockcroft-Gault) 65.5 BUN/Creatinine Ratio 8 (6-20) Glucose Level 132 mg/dL (70-99) Lactic Acid Level 1.4 mmol/L (0.4-2.0) Calcium Level 7.9 mg/dL (8.5-10.1) Ferritin 1853 ng/mL (26-388) Total Bilirubin 0.4 mg/dL (0.2-1.0) Aspartate Amino Transf (AST/SGOT) 26 U/L (15-37) Alanine Aminotransferase (ALT/SGPT) 16 U/L (16-63) Alkaline Phosphatase 63 U/L (46-116) Troponin I Quantitative < 0.017 ng/mL (0.000-0.055) C-Reactive Protein, Quantitative 402.3 mg/L (0-3.3) Total Protein 6.7 g/dL (6.4-8.2) Albumin 2.5 g/dL (3.4-5.0) Albumin/Globulin Ratio 0.6 (1.0-1.7) O2 Saturation 95 % (92-99) 87 % (92-99) 96 % (92-99) Arterial Blood pH 7.46 (7.35-7.45) 7.46 (7.35-7.45) 7.44 (7.35-7.45) Arterial Blood pCO2 at Patient Temp 38 mmHg (35-46) 36 mmHg (35-46) 38 mmHg (35-46) Arterial Blood pO2 at Patient Temp 74 mmHg (75-108) 51 mmHg (75-108) 81 mmHg (75-108) Arterial Blood HCO3 27 mmol/L (21-28) 25 mmol/L (21-28) 25 mmol/L (21-28) Arterial Blood Base Excess 3 mmol/L (-3-3) 2 mmol/L (-3-3) 1 mmol/L (-3-3) FiO2 100 nrm 100 100 Test 05/07/20 04:45 05/07/20 07:58 White Blood Count 15.2 x10^3/uL (4.0-11.0) Red Blood Count 4.56 x10^6/uL (4.30-5.70) Hemoglobin 13.3 g/dL (13.0-17.5) Hematocrit 39.6 % (39.0-53.0) Mean Corpuscular Volume 87 fL (79-100) Mean Corpuscular Hemoglobin 29 pg (25-35) Mean Corpuscular Hemoglobin Concent 34 g/dL (31-37) Red Cell Distribution Width 14.1 % (11.5-14.5) Platelet Count 433 x10^3/uL (140-400) Neutrophils (%) (Auto) 91 % (31-73) Lymphocytes (%) (Auto) 4 % (24-48) Monocytes (%) (Auto) 5 % (0-9) Eosinophils (%) (Auto) 0 % (0-3) Basophils (%) (Auto) 0 % (0-3) Neutrophils # (Auto) 13.8 x10^3/uL (1.8-7.7) Lymphocytes # (Auto) 0.6 x10^3/uL (1.0-4.8) Monocytes # (Auto) 0.8 x10^3/uL (0.0-1.1) Eosinophils # (Auto) 0.0 x10^3/uL (0.0-0.7) Basophils # (Auto) 0.0 x10^3/uL (0.0-0.2) Sodium Level 140 mmol/L (136-145) Potassium Level 3.7 mmol/L (3.5-5.1) Chloride Level 102 mmol/L (98-107) Carbon Dioxide Level 25 mmol/L (21-32) Anion Gap 13 (6-14) Blood Urea Nitrogen 20 mg/dL (8-26) Creatinine 1.2 mg/dL (0.7-1.3) Estimated GFR (Cockcroft-Gault) 65.5 Glucose Level 168 mg/dL (70-99) Calcium Level 8.6 mg/dL (8.5-10.1) Total Bilirubin 0.3 mg/dL (0.2-1.0) Direct Bilirubin 0.2 mg/dL (0.0-0.2) Aspartate Amino Transf (AST/SGOT) 30 U/L (15-37) Alanine Aminotransferase (ALT/SGPT) 9 U/L (16-63) Alkaline Phosphatase 64 U/L (46-116) Total Protein 7.0 g/dL (6.4-8.2) Albumin 2.0 g/dL (3.4-5.0) O2 Saturation 96 % (92-99) Arterial Blood pH 7.41 (7.35-7.45) Arterial Blood pCO2 at Patient Temp 38 mmHg (35-46) Arterial Blood pO2 at Patient Temp 83 mmHg (75-108) Arterial Blood HCO3 23 mmol/L (21-28) Arterial Blood Base Excess -1 mmol/L (-3-3) FiO2 100 Laboratory Tests Test 05/06/20 23:44 05/07/20 02:44 05/07/20 04:45 05/07/20 07:58 O2 Saturation 87 % (92-99) 96 % (92-99) 96 % (92-99) Arterial Blood pH 7.46 (7.35-7.45) 7.44 (7.35-7.45) 7.41 (7.35-7.45) Arterial Blood pCO2 at Patient Temp 36 mmHg (35-46) 38 mmHg (35-46) 38 mmHg (35-46) Arterial Blood pO2 at Patient Temp 51 mmHg (75-108) 81 mmHg (75-108) 83 mmHg (75-108) Arterial Blood HCO3 25 mmol/L (21-28) 25 mmol/L (21-28) 23 mmol/L (21-28) Arterial Blood Base Excess 2 mmol/L (-3-3) 1 mmol/L (-3-3) -1 mmol/L (-3-3) FiO2 100 100 100 White Blood Count 15.2 x10^3/uL (4.0-11.0) Red Blood Count 4.56 x10^6/uL (4.30-5.70) Hemoglobin 13.3 g/dL (13.0-17.5) Hematocrit 39.6 % (39.0-53.0) Mean Corpuscular Volume 87 fL (79-100) Mean Corpuscular Hemoglobin 29 pg (25-35) Mean Corpuscular Hemoglobin Concent 34 g/dL (31-37) Red Cell Distribution Width 14.1 % (11.5-14.5) Platelet Count 433 x10^3/uL (140-400) Neutrophils (%) (Auto) 91 % (31-73) Lymphocytes (%) (Auto) 4 % (24-48) Monocytes (%) (Auto) 5 % (0-9) Eosinophils (%) (Auto) 0 % (0-3) Basophils (%) (Auto) 0 % (0-3) Neutrophils # (Auto) 13.8 x10^3/uL (1.8-7.7) Lymphocytes # (Auto) 0.6 x10^3/uL (1.0-4.8) Monocytes # (Auto) 0.8 x10^3/uL (0.0-1.1) Eosinophils # (Auto) 0.0 x10^3/uL (0.0-0.7) Basophils # (Auto) 0.0 x10^3/uL (0.0-0.2) Sodium Level 140 mmol/L (136-145) Potassium Level 3.7 mmol/L (3.5-5.1) Chloride Level 102 mmol/L (98-107) Carbon Dioxide Level 25 mmol/L (21-32) Anion Gap 13 (6-14) Blood Urea Nitrogen 20 mg/dL (8-26) Creatinine 1.2 mg/dL (0.7-1.3) Estimated GFR (Cockcroft-Gault) 65.5 Glucose Level 168 mg/dL (70-99) Calcium Level 8.6 mg/dL (8.5-10.1) Total Bilirubin 0.3 mg/dL (0.2-1.0) Direct Bilirubin 0.2 mg/dL (0.0-0.2) Aspartate Amino Transf (AST/SGOT) 30 U/L (15-37) Alanine Aminotransferase (ALT/SGPT) 9 U/L (16-63) Alkaline Phosphatase 64 U/L (46-116) Total Protein 7.0 g/dL (6.4-8.2) Albumin 2.0 g/dL (3.4-5.0) Comments IMPRESSION: 1. Bilateral infiltrates. Impression . 1. Acute Hypoxic Respiratory Failure 2. Fever 3. Pneumonia, CXR positive for Bilateral patch infiltrates consistent with COVID-19 4. elevated d-dimer, will repeat 5. Tachycardia 6. Elevated CRP and ferrtin also consistent with COVID-19 infection 7. COVID-19 viral pneumonia Plan . Patient intubated continue assist control ventilation Initiate Remdesivir Follow-up on SARS-CoV-2 Steroids DVT prophylaxis Initiate tube feeding Total cumulative critical care time of 35 minutes reviewing data, labs, chest x- ray, spoke with pharmacy YARELY PAULSON MD May 07, 2020 12:23
[2020-05-07] MEDS ORDERED: NON FORMULARY ITEM 1 EA in IV NORMAL SALINE 250ML 210 ML IV ONE (15:00)
--- NOTE | 2020-05-07 16:00 | NUR ---
Spoke with brother, Anthony Tipton for consent to give patient convalescent plasma if COVID results come back as positive. Brother is in agreeance with administering the plasma.
[2020-05-08] VITALS (27 sets, daily range): BP systolic 91–114; BP diastolic 51–71
[2020-05-08] MEDS: methylPREDNISolone SOD SUCC PF 125 MG/2 ML VIAL. IV SCH ×4 (00:45→21:13)
[2020-05-08] MEDS: MIDAZOLAM 100mg/100ml NS BAG 100 ML IV PRN ×2 (00:47→13:30)
[2020-05-08] MEDS: cefTRIAXone IV Push 1 GM VIAL. IVP SCH (03:44)
[2020-05-08] MEDS: AZITHROMYCIN 500 MG in IV NORMAL SALINE 250ML 250 ML IV SCH (03:45)
[2020-05-08 06:09] LABS: BASO % 0 % (0-3); EOS % 0 % (0-3); HEMATOCRIT 38.2 % (39.0-53.0); LYMPH # 0.8 x10^3/uL (1.0-4.8); LYMPH % 7 % (24-48); MEAN CORPUSCULAR HEMOGLOBIN 30 pg (25-35); MEAN CORPUSCULAR HGB CONC 34 g/dL (31-37); MEAN CORPUSCULAR VOLUME 87 fL (79-100); MONO # 0.7 x10^3/uL (0.0-1.1); MONO % 6 % (0-9); NEUT # 10.1 x10^3/uL (1.8-7.7); NEUT % 87 % (31-73); PLATELET COUNT 423 x10^3/uL (140-400); RED CELL DISTRIBUTION WIDTH 13.8 % (11.5-14.5); WHITE BLOOD COUNT 11.7 x10^3/uL (4.0-11.0)
[2020-05-08 06:29] LABS: ALBUMIN 1.8 g/dL (3.4-5.0); ALBUMIN/GLOBULIN RATIO 0.4 (1.0-1.7); CALCIUM 8.7 mg/dL (8.5-10.1); CREATININE 0.9 mg/dL (0.7-1.3); GFR 91.3; POTASSIUM 3.9 mmol/L (3.5-5.1); TOTAL BILIRUBIN 0.2 mg/dL (0.2-1.0); TOTAL PROTEIN 6.4 g/dL (6.4-8.2)
--- NOTE | 2020-05-08 06:52 | NUR ---
CHANGES NOTED IN EKG. OFF LEVOPHED. BRADYCARDIA WITH ADEQUATE BP. TROPONIN AND EKG ORDERED TO RULE OUT POSSIBLE STEMI. WILL CONTINUE TO MONITOR.
--- NOTE | 2020-05-08 08:11 | PDOC ---
PULMONARY PROGRESS NOTES Subjective Patient worsened overnight intubated now on 90% FiO2 Vitals Vital Signs Date Time Temp Pulse Resp B/P (MAP) Pulse Ox O2 Delivery O2 Flow Rate FiO2 05/08/20 07:30 100 Ventilator 05/08/20 06:00 50 20 97/63 (74) 05/08/20 04:46 40.0 05/08/20 04:00 98.2 98.2 Cardiovascular: S1, S2 Abdomen: Soft Extremities: No Edema Skin: Warm Labs Laboratory Tests Test 05/06/20 11:18 05/06/20 23:44 05/07/20 02:44 05/07/20 04:45 O2 Saturation 95 % (92-99) 87 % (92-99) 96 % (92-99) Arterial Blood pH 7.46 (7.35-7.45) 7.46 (7.35-7.45) 7.44 (7.35-7.45) Arterial Blood pCO2 at Patient Temp 38 mmHg (35-46) 36 mmHg (35-46) 38 mmHg (35-46) Arterial Blood pO2 at Patient Temp 74 mmHg (75-108) 51 mmHg (75-108) 81 mmHg (75-108) Arterial Blood HCO3 27 mmol/L (21-28) 25 mmol/L (21-28) 25 mmol/L (21-28) Arterial Blood Base Excess 3 mmol/L (-3-3) 2 mmol/L (-3-3) 1 mmol/L (-3-3) FiO2 100 nrm 100 100 White Blood Count 15.2 x10^3/uL (4.0-11.0) Red Blood Count 4.56 x10^6/uL (4.30-5.70) Hemoglobin 13.3 g/dL (13.0-17.5) Hematocrit 39.6 % (39.0-53.0) Mean Corpuscular Volume 87 fL (79-100) Mean Corpuscular Hemoglobin 29 pg (25-35) Mean Corpuscular Hemoglobin Concent 34 g/dL (31-37) Red Cell Distribution Width 14.1 % (11.5-14.5) Platelet Count 433 x10^3/uL (140-400) Neutrophils (%) (Auto) 91 % (31-73) Lymphocytes (%) (Auto) 4 % (24-48) Monocytes (%) (Auto) 5 % (0-9) Eosinophils (%) (Auto) 0 % (0-3) Basophils (%) (Auto) 0 % (0-3) Neutrophils # (Auto) 13.8 x10^3/uL (1.8-7.7) Lymphocytes # (Auto) 0.6 x10^3/uL (1.0-4.8) Monocytes # (Auto) 0.8 x10^3/uL (0.0-1.1) Eosinophils # (Auto) 0.0 x10^3/uL (0.0-0.7) Basophils # (Auto) 0.0 x10^3/uL (0.0-0.2) Sodium Level 140 mmol/L (136-145) Potassium Level 3.7 mmol/L (3.5-5.1) Chloride Level 102 mmol/L (98-107) Carbon Dioxide Level 25 mmol/L (21-32) Anion Gap 13 (6-14) Blood Urea Nitrogen 20 mg/dL (8-26) Creatinine 1.2 mg/dL (0.7-1.3) Estimated GFR (Cockcroft-Gault) 65.5 Glucose Level 168 mg/dL (70-99) Calcium Level 8.6 mg/dL (8.5-10.1) Total Bilirubin 0.3 mg/dL (0.2-1.0) Direct Bilirubin 0.2 mg/dL (0.0-0.2) Aspartate Amino Transf (AST/SGOT) 30 U/L (15-37) Alanine Aminotransferase (ALT/SGPT) 9 U/L (16-63) Alkaline Phosphatase 64 U/L (46-116) Total Protein 7.0 g/dL (6.4-8.2) Albumin 2.0 g/dL (3.4-5.0) Test 05/07/20 07:58 05/07/20 15:40 05/07/20 15:42 05/08/20 05:20 O2 Saturation 96 % (92-99) Arterial Blood pH 7.41 (7.35-7.45) Arterial Blood pCO2 at Patient Temp 38 mmHg (35-46) Arterial Blood pO2 at Patient Temp 83 mmHg (75-108) Arterial Blood HCO3 23 mmol/L (21-28) Arterial Blood Base Excess -1 mmol/L (-3-3) FiO2 100 Ferritin 2194 ng/mL (26-388) D-Dimer (Daphney) 0.63 ug/mlFEU (0.00-0.50) 0.75 ug/mlFEU (0.00-0.50) White Blood Count 11.7 x10^3/uL (4.0-11.0) Red Blood Count 4.40 x10^6/uL (4.30-5.70) Hemoglobin 13.0 g/dL (13.0-17.5) Hematocrit 38.2 % (39.0-53.0) Mean Corpuscular Volume 87 fL (79-100) Mean Corpuscular Hemoglobin 30 pg (25-35) Mean Corpuscular Hemoglobin Concent 34 g/dL (31-37) Red Cell Distribution Width 13.8 % (11.5-14.5) Platelet Count 423 x10^3/uL (140-400) Neutrophils (%) (Auto) 87 % (31-73) Lymphocytes (%) (Auto) 7 % (24-48) Monocytes (%) (Auto) 6 % (0-9) Eosinophils (%) (Auto) 0 % (0-3) Basophils (%) (Auto) 0 % (0-3) Neutrophils # (Auto) 10.1 x10^3/uL (1.8-7.7) Lymphocytes # (Auto) 0.8 x10^3/uL (1.0-4.8) Monocytes # (Auto) 0.7 x10^3/uL (0.0-1.1) Eosinophils # (Auto) 0.0 x10^3/uL (0.0-0.7) Basophils # (Auto) 0.0 x10^3/uL (0.0-0.2) Sodium Level 146 mmol/L (136-145) Potassium Level 3.9 mmol/L (3.5-5.1) Chloride Level 109 mmol/L (98-107) Carbon Dioxide Level 28 mmol/L (21-32) Anion Gap 9 (6-14) Blood Urea Nitrogen 26 mg/dL (8-26) Creatinine 0.9 mg/dL (0.7-1.3) Estimated GFR (Cockcroft-Gault) 91.3 BUN/Creatinine Ratio 29 (6-20) Glucose Level 182 mg/dL (70-99) Calcium Level 8.7 mg/dL (8.5-10.1) Total Bilirubin 0.2 mg/dL (0.2-1.0) Aspartate Amino Transf (AST/SGOT) 16 U/L (15-37) Alanine Aminotransferase (ALT/SGPT) 8 U/L (16-63) Alkaline Phosphatase 78 U/L (46-116) Troponin I Quantitative < 0.017 ng/mL (0.000-0.055) Total Protein 6.4 g/dL (6.4-8.2) Albumin 1.8 g/dL (3.4-5.0) Albumin/Globulin Ratio 0.4 (1.0-1.7) Laboratory Tests Test 05/07/20 15:40 05/07/20 15:42 05/08/20 05:20 Ferritin 2194 ng/mL (26-388) D-Dimer (Daphney) 0.63 ug/mlFEU (0.00-0.50) 0.75 ug/mlFEU (0.00-0.50) White Blood Count 11.7 x10^3/uL (4.0-11.0) Red Blood Count 4.40 x10^6/uL (4.30-5.70) Hemoglobin 13.0 g/dL (13.0-17.5) Hematocrit 38.2 % (39.0-53.0) Mean Corpuscular Volume 87 fL (79-100) Mean Corpuscular Hemoglobin 30 pg (25-35) Mean Corpuscular Hemoglobin Concent 34 g/dL (31-37) Red Cell Distribution Width 13.8 % (11.5-14.5) Platelet Count 423 x10^3/uL (140-400) Neutrophils (%) (Auto) 87 % (31-73) Lymphocytes (%) (Auto) 7 % (24-48) Monocytes (%) (Auto) 6 % (0-9) Eosinophils (%) (Auto) 0 % (0-3) Basophils (%) (Auto) 0 % (0-3) Neutrophils # (Auto) 10.1 x10^3/uL (1.8-7.7) Lymphocytes # (Auto) 0.8 x10^3/uL (1.0-4.8) Monocytes # (Auto) 0.7 x10^3/uL (0.0-1.1) Eosinophils # (Auto) 0.0 x10^3/uL (0.0-0.7) Basophils # (Auto) 0.0 x10^3/uL (0.0-0.2) Sodium Level 146 mmol/L (136-145) Potassium Level 3.9 mmol/L (3.5-5.1) Chloride Level 109 mmol/L (98-107) Carbon Dioxide Level 28 mmol/L (21-32) Anion Gap 9 (6-14) Blood Urea Nitrogen 26 mg/dL (8-26) Creatinine 0.9 mg/dL (0.7-1.3) Estimated GFR (Cockcroft-Gault) 91.3 BUN/Creatinine Ratio 29 (6-20) Glucose Level 182 mg/dL (70-99) Calcium Level 8.7 mg/dL (8.5-10.1) Total Bilirubin 0.2 mg/dL (0.2-1.0) Aspartate Amino Transf (AST/SGOT) 16 U/L (15-37) Alanine Aminotransferase (ALT/SGPT) 8 U/L (16-63) Alkaline Phosphatase 78 U/L (46-116) Troponin I Quantitative < 0.017 ng/mL (0.000-0.055) Total Protein 6.4 g/dL (6.4-8.2) Albumin 1.8 g/dL (3.4-5.0) Albumin/Globulin Ratio 0.4 (1.0-1.7) Comments IMPRESSION: 1. Bilateral infiltrates. Impression . 1. Acute Hypoxic Respiratory Failure 2. Fever 3. Pneumonia, CXR positive for Bilateral patch infiltrates consistent with COVID-19 4. elevated d-dimer, will repeat 5. Tachycardia 6. Elevated CRP and ferrtin also consistent with COVID-19 infection 7. COVID-19 viral pneumonia 8. COVID-19 sepsis Plan . Status post convalescent serum Patient intubated continue assist control ventilation Initiate Remdesivir Follow-up on SARS-CoV-2, positive Steroids DVT prophylaxis Initiate tube feeding Total cumulative critical care time of 35 minutes reviewing data, labs, chest x- ray, spoke with pharmacy YARELY PAULSON MD May 08, 2020 08:11
[2020-05-08 08:12] LABS: BASE EXCESS ABG 2 mmol/L (-3-3); HCO3 ABG 26 mmol/L (21-28); PCO2 ABG 39 mmHg (35-46); PO2 ABG 93 mmHg (75-108); SAT O2 ABG 97 % (92-99)
[2020-05-08 08:14] LABS: FIO2 ABG 100% + PEEP 10
[2020-05-08] MEDS: FAMOTIDINE 20 MG/2 ML VIAL IVP SCH ×2 (08:15→21:13)
[2020-05-08 08:16] LABS: C-REACTIVE PROTEIN 179.4 mg/L (0-3.3)
--- NOTE | 2020-05-08 09:30 | RAD ---
Examination: PORTABLE CHEST 1V History: Reason: ETT PLACEMENT / Spl. Instructions: / History: Comparison/Correlation: 05/07/2020 portable frontal view of the chest Findings: Tracheal tube terminates 2.5 cm from the mattie. Enteric tube is in place. Heart size normal. Pulmonary vasculature is congested. Decreased interstitial edema and infiltrates and interval noted. No pneumothorax identified. Right upper quadrant surgical clips noted. Impression: Decreased gallbladder vasculature congestion. Improved pulmonary aeration with decrease in interstitial edema and/or infiltrates. Electronically signed by: Andrew Plascencia MD (05/08/2020 9:27 AM) [id number]
[2020-05-08] MEDS: NON FORMULARY ITEM 1 EA in IV NORMAL SALINE 250ML 230 ML IV SCH (09:32)
--- NOTE | 2020-05-08 09:36 | NUR ---
Spoke with brother this AM. Updated on pt condition. Decreased FiO2 to 90%. Will give plasma later today once verified. All questions answered.
--- NOTE | 2020-05-08 09:38 | PDOC ---
PROGRESS NOTES History of Present Illness History of Present Illness VTE Prophylaxis Ordered VTE Prophylaxis Devices: Yes VTE Pharmacological Prophylaxi: Yes IMPRESSION FEVER PRESENT ON ADMIT Acute Hypoxic Resp Failure secondary to Suspected COVID-19 Bilateral Infiltrates on cxr elevated D dimer// elevated inflammatory markers Leukocytosis ELEVATED FERRITIN // Elevated CRP and ferrtin also consistent with COVID-19 infection mild hypernatremia Procedure Result BLOOD CULTURE Preliminary NO GROWTH AFTER 2 DAYS PLAN VENT SUPPORT continue Rocephin and Azithro CTA chest REVIEWED follow cultures and covid screen dvt ppx: lovenox full code COVID-19 test pending, continue isolation precautions-- convalescent plasma and Remdesivir IV steroids pulm FOLLOWING d51/4 ns at 75 cc/hr The patient was evaluated during the global COVID-19 pandemic, and that diagnosis was suspected/considered upon their initial presentation. Their evaluation, treatment and testing was consistent with current guidelines for patients who present with complaints or symptoms that may be related to COVID- 19. 37 MIN CC TIME Justicifation of Admission Dx: Justicifation of Admission Dx: Justifications for Admission: Justification of Admission Dx: Yes Comminuty Aquired Pneumonia: Hypoxemia Vitals Vitals Vital Signs Date Time Temp Pulse Resp B/P (MAP) Pulse Ox O2 Delivery O2 Flow Rate FiO2 05/08/20 08:00 97.5 50 20 102/67 (79) 100 97.5 05/08/20 07:30 Ventilator 05/08/20 04:46 40.0 Physical Exam Physical Exam GENERAL: INTUBATED ON VENT, SEDATED HEENT: Head normocephalic, atraumatic. NECK: Supple LUNGS: Clear to auscultation. HEART: RRR, S1, S2 present, pulses intact ABDOMEN: Soft, positive bowel sounds. EXTREMITIES: No cyanosis or edema. SKIN: No ulceration. General: No acute distress Abdomen: Soft Extremities: No cyanosis Labs LABS Chest one view, abdomen one view. HISTORY: Intubated CHEST: AP view was taken of the chest. Endotracheal tube is at the level the clavicles. There are diffuse bilateral infiltrates. Heart is normal in size. On the chest x-ray the NG tube extends into the stomach. Stomach is distended. ABDOMEN: Supine view was taken of the abdomen. On the abdominal film which was taken before the chest x-ray the NG tube stops near the GE junction. Stomach is distended. There is respiratory motion. IMPRESSION: 1. Endotracheal tube at the level the clavicles. 2. NG tube extends into the stomach on the chest x-ray. 3. Diffuse bilateral infiltrates. 4. Gastric distention. Electronically signed by: Lamberto Mueller MD (05/07/2020 1:37 AM) [id number] Procedure Result BLOOD CULTURE Preliminary NO GROWTH AFTER 2 DAYS Examination: PORTABLE CHEST 1V History: Reason: ETT PLACEMENT / Spl. Instructions: / History: Comparison/Correlation: 05/07/2020 portable frontal view of the chest Findings: Tracheal tube terminates 2.5 cm from the mattie. Enteric tube is in place. Heart size normal. Pulmonary vasculature is congested. Decreased interstitial edema and infiltrates and interval noted. No pneumothorax identified. Right upper quadrant surgical clips noted. Impression: Decreased pulmonary vasculature congestion. Improved pulmonary aeration with decrease in interstitial edema and/or infiltrates. Electronically signed by: Andrew Plascencia MD (05/08/2020 9:27 AM) [id number] Laboratory Tests Test 05/07/20 15:40 05/07/20 15:42 05/08/20 05:20 05/08/20 08:10 Ferritin 2194 ng/mL (26-388) 1993 ng/mL (26-388) D-Dimer (Daphney) 0.63 ug/mlFEU (0.00-0.50) 0.75 ug/mlFEU (0.00-0.50) White Blood Count 11.7 x10^3/uL (4.0-11.0) Red Blood Count 4.40 x10^6/uL (4.30-5.70) Hemoglobin 13.0 g/dL (13.0-17.5) Hematocrit 38.2 % (39.0-53.0) Mean Corpuscular Volume 87 fL (79-100) Mean Corpuscular Hemoglobin 30 pg (25-35) Mean Corpuscular Hemoglobin Concent 34 g/dL (31-37) Red Cell Distribution Width 13.8 % (11.5-14.5) Platelet Count 423 x10^3/uL (140-400) Neutrophils (%) (Auto) 87 % (31-73) Lymphocytes (%) (Auto) 7 % (24-48) Monocytes (%) (Auto) 6 % (0-9) Eosinophils (%) (Auto) 0 % (0-3) Basophils (%) (Auto) 0 % (0-3) Neutrophils # (Auto) 10.1 x10^3/uL (1.8-7.7) Lymphocytes # (Auto) 0.8 x10^3/uL (1.0-4.8) Monocytes # (Auto) 0.7 x10^3/uL (0.0-1.1) Eosinophils # (Auto) 0.0 x10^3/uL (0.0-0.7) Basophils # (Auto) 0.0 x10^3/uL (0.0-0.2) Sodium Level 146 mmol/L (136-145) Potassium Level 3.9 mmol/L (3.5-5.1) Chloride Level 109 mmol/L (98-107) Carbon Dioxide Level 28 mmol/L (21-32) Anion Gap 9 (6-14) Blood Urea Nitrogen 26 mg/dL (8-26) Creatinine 0.9 mg/dL (0.7-1.3) Estimated GFR (Cockcroft-Gault) 91.3 BUN/Creatinine Ratio 29 (6-20) Glucose Level 182 mg/dL (70-99) Calcium Level 8.7 mg/dL (8.5-10.1) Total Bilirubin 0.2 mg/dL (0.2-1.0) Aspartate Amino Transf (AST/SGOT) 16 U/L (15-37) Alanine Aminotransferase (ALT/SGPT) 8 U/L (16-63) Alkaline Phosphatase 78 U/L (46-116) Troponin I Quantitative < 0.017 ng/mL (0.000-0.055) C-Reactive Protein, Quantitative 179.4 mg/L (0-3.3) Total Protein 6.4 g/dL (6.4-8.2) Albumin 1.8 g/dL (3.4-5.0) Albumin/Globulin Ratio 0.4 (1.0-1.7) O2 Saturation 97 % (92-99) Arterial Blood pH 7.44 (7.35-7.45) Arterial Blood pCO2 at Patient Temp 39 mmHg (35-46) Arterial Blood pO2 at Patient Temp 93 mmHg (75-108) Arterial Blood HCO3 26 mmol/L (21-28) Arterial Blood Base Excess 2 mmol/L (-3-3) FiO2 100% + peep 10 Comment Review of Relevant I have reviewed the following items laura (where applicable) has been applied. Labs Laboratory Tests Test 05/06/20 11:18 05/06/20 23:44 05/07/20 02:44 05/07/20 04:45 O2 Saturation 95 % (92-99) 87 % (92-99) 96 % (92-99) Arterial Blood pH 7.46 (7.35-7.45) 7.46 (7.35-7.45) 7.44 (7.35-7.45) Arterial Blood pCO2 at Patient Temp 38 mmHg (35-46) 36 mmHg (35-46) 38 mmHg (35-46) Arterial Blood pO2 at Patient Temp 74 mmHg (75-108) 51 mmHg (75-108) 81 mmHg (75-108) Arterial Blood HCO3 27 mmol/L (21-28) 25 mmol/L (21-28) 25 mmol/L (21-28) Arterial Blood Base Excess 3 mmol/L (-3-3) 2 mmol/L (-3-3) 1 mmol/L (-3-3) FiO2 100 nrm 100 100 White Blood Count 15.2 x10^3/uL (4.0-11.0) Red Blood Count 4.56 x10^6/uL (4.30-5.70) Hemoglobin 13.3 g/dL (13.0-17.5) Hematocrit 39.6 % (39.0-53.0) Mean Corpuscular Volume 87 fL (79-100) Mean Corpuscular Hemoglobin 29 pg (25-35) Mean Corpuscular Hemoglobin Concent 34 g/dL (31-37) Red Cell Distribution Width 14.1 % (11.5-14.5) Platelet Count 433 x10^3/uL (140-400) Neutrophils (%) (Auto) 91 % (31-73) Lymphocytes (%) (Auto) 4 % (24-48) Monocytes (%) (Auto) 5 % (0-9) Eosinophils (%) (Auto) 0 % (0-3) Basophils (%) (Auto) 0 % (0-3) Neutrophils # (Auto) 13.8 x10^3/uL (1.8-7.7) Lymphocytes # (Auto) 0.6 x10^3/uL (1.0-4.8) Monocytes # (Auto) 0.8 x10^3/uL (0.0-1.1) Eosinophils # (Auto) 0.0 x10^3/uL (0.0-0.7) Basophils # (Auto) 0.0 x10^3/uL (0.0-0.2) Sodium Level 140 mmol/L (136-145) Potassium Level 3.7 mmol/L (3.5-5.1) Chloride Level 102 mmol/L (98-107) Carbon Dioxide Level 25 mmol/L (21-32) Anion Gap 13 (6-14) Blood Urea Nitrogen 20 mg/dL (8-26) Creatinine 1.2 mg/dL (0.7-1.3) Estimated GFR (Cockcroft-Gault) 65.5 Glucose Level 168 mg/dL (70-99) Calcium Level 8.6 mg/dL (8.5-10.1) Total Bilirubin 0.3 mg/dL (0.2-1.0) Direct Bilirubin 0.2 mg/dL (0.0-0.2) Aspartate Amino Transf (AST/SGOT) 30 U/L (15-37) Alanine Aminotransferase (ALT/SGPT) 9 U/L (16-63) Alkaline Phosphatase 64 U/L (46-116) Total Protein 7.0 g/dL (6.4-8.2) Albumin 2.0 g/dL (3.4-5.0) Test 05/07/20 07:58 05/07/20 15:40 05/07/20 15:42 05/08/20 05:20 O2 Saturation 96 % (92-99) Arterial Blood pH 7.41 (7.35-7.45) Arterial Blood pCO2 at Patient Temp 38 mmHg (35-46) Arterial Blood pO2 at Patient Temp 83 mmHg (75-108) Arterial Blood HCO3 23 mmol/L (21-28) Arterial Blood Base Excess -1 mmol/L (-3-3) FiO2 100 Ferritin 2194 ng/mL (26-388) 1993 ng/mL (26-388) D-Dimer (Daphney) 0.63 ug/mlFEU (0.00-0.50) 0.75 ug/mlFEU (0.00-0.50) White Blood Count 11.7 x10^3/uL (4.0-11.0) Red Blood Count 4.40 x10^6/uL (4.30-5.70) Hemoglobin 13.0 g/dL (13.0-17.5) Hematocrit 38.2 % (39.0-53.0) Mean Corpuscular Volume 87 fL (79-100) Mean Corpuscular Hemoglobin 30 pg (25-35) Mean Corpuscular Hemoglobin Concent 34 g/dL (31-37) Red Cell Distribution Width 13.8 % (11.5-14.5) Platelet Count 423 x10^3/uL (140-400) Neutrophils (%) (Auto) 87 % (31-73) Lymphocytes (%) (Auto) 7 % (24-48) Monocytes (%) (Auto) 6 % (0-9) Eosinophils (%) (Auto) 0 % (0-3) Basophils (%) (Auto) 0 % (0-3) Neutrophils # (Auto) 10.1 x10^3/uL (1.8-7.7) Lymphocytes # (Auto) 0.8 x10^3/uL (1.0-4.8) Monocytes # (Auto) 0.7 x10^3/uL (0.0-1.1) Eosinophils # (Auto) 0.0 x10^3/uL (0.0-0.7) Basophils # (Auto) 0.0 x10^3/uL (0.0-0.2) Sodium Level 146 mmol/L (136-145) Potassium Level 3.9 mmol/L (3.5-5.1) Chloride Level 109 mmol/L (98-107) Carbon Dioxide Level 28 mmol/L (21-32) Anion Gap 9 (6-14) Blood Urea Nitrogen 26 mg/dL (8-26) Creatinine 0.9 mg/dL (0.7-1.3) Estimated GFR (Cockcroft-Gault) 91.3 BUN/Creatinine Ratio 29 (6-20) Glucose Level 182 mg/dL (70-99) Calcium Level 8.7 mg/dL (8.5-10.1) Total Bilirubin 0.2 mg/dL (0.2-1.0) Aspartate Amino Transf (AST/SGOT) 16 U/L (15-37) Alanine Aminotransferase (ALT/SGPT) 8 U/L (16-63) Alkaline Phosphatase 78 U/L (46-116) Troponin I Quantitative < 0.017 ng/mL (0.000-0.055) C-Reactive Protein, Quantitative 179.4 mg/L (0-3.3) Total Protein 6.4 g/dL (6.4-8.2) Albumin 1.8 g/dL (3.4-5.0) Albumin/Globulin Ratio 0.4 (1.0-1.7) Test 05/08/20 08:10 O2 Saturation 97 % (92-99) Arterial Blood pH 7.44 (7.35-7.45) Arterial Blood pCO2 at Patient Temp 39 mmHg (35-46) Arterial Blood pO2 at Patient Temp 93 mmHg (75-108) Arterial Blood HCO3 26 mmol/L (21-28) Arterial Blood Base Excess 2 mmol/L (-3-3) FiO2 100% + peep 10 Laboratory Tests Test 05/07/20 15:40 05/07/20 15:42 05/08/20 05:20 05/08/20 08:10 Ferritin 2194 ng/mL (26-388) 1993 ng/mL (26-388) D-Dimer (Daphney) 0.63 ug/mlFEU (0.00-0.50) 0.75 ug/mlFEU (0.00-0.50) White Blood Count 11.7 x10^3/uL (4.0-11.0) Red Blood Count 4.40 x10^6/uL (4.30-5.70) Hemoglobin 13.0 g/dL (13.0-17.5) Hematocrit 38.2 % (39.0-53.0) Mean Corpuscular Volume 87 fL (79-100) Mean Corpuscular Hemoglobin 30 pg (25-35) Mean Corpuscular Hemoglobin Concent 34 g/dL (31-37) Red Cell Distribution Width 13.8 % (11.5-14.5) Platelet Count 423 x10^3/uL (140-400) Neutrophils (%) (Auto) 87 % (31-73) Lymphocytes (%) (Auto) 7 % (24-48) Monocytes (%) (Auto) 6 % (0-9) Eosinophils (%) (Auto) 0 % (0-3) Basophils (%) (Auto) 0 % (0-3) Neutrophils # (Auto) 10.1 x10^3/uL (1.8-7.7) Lymphocytes # (Auto) 0.8 x10^3/uL (1.0-4.8) Monocytes # (Auto) 0.7 x10^3/uL (0.0-1.1) Eosinophils # (Auto) 0.0 x10^3/uL (0.0-0.7) Basophils # (Auto) 0.0 x10^3/uL (0.0-0.2) Sodium Level 146 mmol/L (136-145) Potassium Level 3.9 mmol/L (3.5-5.1) Chloride Level 109 mmol/L (98-107) Carbon Dioxide Level 28 mmol/L (21-32) Anion Gap 9 (6-14) Blood Urea Nitrogen 26 mg/dL (8-26) Creatinine 0.9 mg/dL (0.7-1.3) Estimated GFR (Cockcroft-Gault) 91.3 BUN/Creatinine Ratio 29 (6-20) Glucose Level 182 mg/dL (70-99) Calcium Level 8.7 mg/dL (8.5-10.1) Total Bilirubin 0.2 mg/dL (0.2-1.0) Aspartate Amino Transf (AST/SGOT) 16 U/L (15-37) Alanine Aminotransferase (ALT/SGPT) 8 U/L (16-63) Alkaline Phosphatase 78 U/L (46-116) Troponin I Quantitative < 0.017 ng/mL (0.000-0.055) C-Reactive Protein, Quantitative 179.4 mg/L (0-3.3) Total Protein 6.4 g/dL (6.4-8.2) Albumin 1.8 g/dL (3.4-5.0) Albumin/Globulin Ratio 0.4 (1.0-1.7) O2 Saturation 97 % (92-99) Arterial Blood pH 7.44 (7.35-7.45) Arterial Blood pCO2 at Patient Temp 39 mmHg (35-46) Arterial Blood pO2 at Patient Temp 93 mmHg (75-108) Arterial Blood HCO3 26 mmol/L (21-28) Arterial Blood Base Excess 2 mmol/L (-3-3) FiO2 100% + peep 10 Microbiology 05/06/20 Blood Culture - Preliminary, Resulted NO GROWTH AFTER 2 DAYS Medications Current Medications Acetaminophen (Tylenol) 650 mg 1X ONCE PO Last administered on 05/06/20at 03:54; Start 05/06/20 at 03:00; Stop 05/06/20 at 03:01; Status DC Sodium Chloride 1,000 ml @ 1,000 mls/hr 1X ONCE IV Last administered on 05/06/20at 03:53; Start 05/06/20 at 03:00; Stop 05/06/20 at 03:59; Status DC Ceftriaxone Sodium (Rocephin) 1 gm 1X ONCE IVP Last administered on 05/06/20at 03:54; Start 05/06/20 at 03:00; Stop 05/06/20 at 03:01; Status DC Azithromycin 250 ml @ 250 mls/hr 1X ONCE IV Last administered on 05/06/20at 03:00; Start 05/06/20 at 03:00; Stop 05/06/20 at 03:59; Status DC Hydralazine HCl (Apresoline) 25 mg PRN TID PRN PO for SBP greater than 180; Start 05/06/20 at 07:30 Enoxaparin Sodium (Lovenox Per Pharmacy Prophylaxis Dosing) 1 each PRN DAILY PRN MC SEE COMMENTS; Start 05/06/20 at 07:30 Ceftriaxone Sodium (Rocephin) 1 gm Q24H IVP Last administered on 05/08/20at 03:44; Start 05/07/20 at 04:00 Acetaminophen (Tylenol) 650 mg PRN Q6HRS PRN PO fever Last administered on 05/06/20at 15:51; Start 05/06/20 at 07:30 Azithromycin 500 mg/Sodium Chloride 250 ml @ 250 mls/hr Q24H IV Last administered on 05/08/20at 03:45; Start 05/07/20 at 04:00 Enoxaparin Sodium (Lovenox 60mg Syringe) 60 mg Q12HR SQ Last administered on 05/08/20at 08:16; Start 05/06/20 at 09:00 Nicotine (Nicoderm Cq 21mg) 1 patch PRN DAILY PRN TD SMOKING CESSATION; Start 05/06/20 at 08:30 Methylprednisolone Sodium Succinate (SOLU-Medrol 125MG VIAL) 60 mg Q8HRS IV Last administered on 05/08/20at 06:32; Start 05/06/20 at 14:00 Famotidine (Pepcid Vial) 20 mg BID IVP Last administered on 05/08/20at 08:15; Start 05/06/20 at 21:00 Sterile Water (WATER for RESP) 1,000 ml CONT PRN INH VIA VAPOTHERM DEVICE; Start 05/06/20 at 23:30; Stop 05/07/20 at 11:27; Status DC Fentanyl Citrate 30 ml @ 0 mls/hr CONT PRN IV SEE PROTOCOL Last administered on 05/08/20at 04:16; Start 05/07/20 at 00:30 Propofol 100 ml @ 0 mls/hr CONT PRN IV SEE PROTOCOL; Start 05/07/20 at 00:15 Chlorhexidine Gluconate (Peridex) 15 ml BID MM ; Start 05/07/20 at 09:00; Stop 05/07/20 at 07:33; Status DC Midazolam HCl 100 ml @ 0 mls/hr CONT PRN IV SEE PROTOCOL Last administered on 05/08/20at 00:47; Start 05/07/20 at 00:30 Succinylcholine Chloride (Anectine) 200 mg 1X ONCE IV Last administered on 05/07/20at 00:37; Start 05/07/20 at 00:45; Stop 05/07/20 at 00:46; Status DC Etomidate (Amidate) 20 mg STK-MED ONCE IV ; Start 05/07/20 at 00:57; Stop 05/07/20 at 00:57; Status DC Vecuronium Sunspot (Norcuron Bolus) 10 mg 1X ONCE IV ; Start 05/07/20 at 01:15; Stop 05/07/20 at 01:16; Status DC Norepinephrine Bitartrate 8 mg/ Dextrose 258 ml @ 19.756 mls/ hr CONT PRN IV PER PROTOCOL Last administered on 05/07/20at 02:37; Start 05/07/20 at 02:15 Succinylcholine Chloride (Anectine) 200 mg STK-MED ONCE .ROUTE ; Start 05/07/20 at 01:00; Stop 05/07/20 at 08:46; Status DC Non-Formulary Medication 1 ea/ Sodium Chloride 210 ml @ 420 mls/hr 1X ONCE IV Last administered on 05/07/20at 15:07; Start 05/07/20 at 15:00; Stop 05/07/20 at 15:29; Status DC Non-Formulary Medication 1 ea/ Sodium Chloride 230 ml @ 460 mls/hr Q24H IV Last administered on 05/08/20at 09:32; Start 05/08/20 at 09:00; Stop 05/16/20 at 09:29 Vitals/I & O Vital Sign - Last 24 Hours 05/07/20 05/07/20 05/07/20 05/07/20 09:45 10:00 10:15 11:00 Pulse 76 72 Resp 20 20 20 20 B/P (MAP) 147/82 (103) 131/75 (93) Pulse Ox 100 100 O2 Delivery Ventilator Ventilator Ventilator Ventilator 05/07/20 05/07/20 05/07/20 05/07/20 11:47 12:00 12:00 13:00 Temp 98.7 98.7 Pulse 70 70 Resp 20 20 B/P (MAP) 131/73 (92) 122/71 (88) Pulse Ox 100 100 100 O2 Delivery Ventilator Ventilator Mechanical Ventilator Ventilator 05/07/20 05/07/20 05/07/20 05/07/20 14:00 15:00 15:56 16:00 Temp 98.4 98.4 Pulse 68 72 68 Resp 20 20 20 B/P (MAP) 130/72 (91) 105/54 (71) 84/53 (63) Pulse Ox 100 100 100 100 O2 Delivery Ventilator Ventilator Ventilator Ventilator 05/07/20 05/07/20 05/07/20 05/07/20 16:00 17:00 18:00 19:00 Pulse 65 65 65 Resp 20 20 20 B/P (MAP) 101/64 (76) 100/61 (74) 99/62 (74) Pulse Ox 100 100 100 O2 Delivery Mechanical Ventilator Ventilator Ventilator Ventilator 05/07/20 05/07/20 05/07/20/29/20 19:00 20:00 20:05 21:00 Temp 98.3 98.3 Pulse 65 64 Resp 20 20 B/P (MAP) 96/60 (72) 97/60 (72) Pulse Ox 100 100 100 O2 Delivery Mechanical Ventilator Ventilator Ventilator Ventilator 05/07/20 05/07/20 05/07/20 05/07/20 21:04 21:34 22:00 23:00 Pulse 64 63 Resp 20 20 20 20 B/P (MAP) 91/61 (71) 114/70 (85) Pulse Ox 100 100 100 100 O2 Delivery Ventilator Ventilator Ventilator Ventilator O2 Flow Rate 40.0 40.0 05/07/20 05/07/20 05/08/20 05/08/20 23:47 23:59 00:01 01:00 Temp 98.7 98.7 Pulse 60 60 Resp 20 20 B/P (MAP) 111/71 (84) 110/68 (82) Pulse Ox 100 100 100 O2 Delivery Ventilator Mechanical Ventilator Ventilator Ventilator 05/08/20 05/08/20 05/08/20 05/08/20 02:00 03:00 04:00 04:00 Temp 98.2 98.2 Pulse 56 55 52 Resp 20 20 20 B/P (MAP) 99/62 (74) 105/68 (80) 103/66 (78) Pulse Ox 99 100 100 O2 Delivery Ventilator Ventilator Ventilator Mechanical Ventilator 05/08/20 05/08/20 05/08/20 05/08/20 04:03 04:16 04:46 05:00 Pulse 53 Resp 20 20 B/P (MAP) 100/67 (78) Pulse Ox 100 100 100 100 O2 Delivery Ventilator Ventilator Ventilator O2 Flow Rate 40.0 40.0 05/08/20 05/08/20 05/08/20 06:00 07:30 08:00 Temp 97.5 97.5 Pulse 50 50 Resp 20 20 B/P (MAP) 97/63 (74) 102/67 (79) Pulse Ox 100 100 100 O2 Delivery Ventilator Ventilator Intake and Output 05/07/20 05/07/20 05/08/20 15:00 23:00 07:00 Intake Total 0 ml 612.72 ml 428.5 ml Output Total 600 ml 630 ml 350 ml Balance -600 ml -17.28 ml 78.5 ml BRAD DEL CASTILLO MD May 08, 2020 09:38
--- NOTE | 2020-05-08 11:26 | NUR ---
SS following up with discharge planning. SS reviewed pt chart and discussed with RNYael. Pt COVID19 positive and remains on the vent at this time. Pt on IV Azithromycin and Rocephin. SS will continue to follow for discharge planning.
--- NOTE | 2020-05-08 12:15 | EKG ---
[facility] [address] [place] [address] Test Date: 2020-05-08 Test Time: 12:07:26 Pat Name: OMAR SOW Department: Room: 112 1 Gender: M Singing Messenger: PRAKASH : 1975 Requested By: UMESH MORENO Order Number: [id number] Reading MD: Measurements Intervals [place] Rate: 55 P: 29 NH: 166 QRS: 20 QRSD: 78 T: -7 QT: 454 QTc: 437 Interpretive Statements SINUS RHYTHM ST & T ABNORMALITY, CONSIDER RECENT INFERIOR MYOCARDIAL OR PERICARDIAL DAMAGE ABNORMAL ECG RI6.02 No previous ECG available for comparison
[2020-05-08] MEDS ORDERED: DEXTROSE 50% 25 GM / 50ML DISP.SYRIN. IV PRN (12:45)
[2020-05-08] MEDS: IV DEXTROSE 5 %-0.2 % NACL 1,000 ML IV SCH (13:04)
[2020-05-08 13:39] LABS: BILIRUBIN,URINE NEGATIVE (NEG); CLARITY,URINE CLOUDY; COLOR,URINE YELLOW; NITRITE,URINE NEGATIVE (NEG); PH,URINE 5.5 (<5.0-8.0); PROTEIN,URINE NEGATIVE (NEG-TRACE); UROBILINOGEN,URINE 0.2 mg/dL (0.2 mg/dL)
[2020-05-08 13:46] LABS: AMPHETAMINE/METHAMPHETAMINE NEG (NEG); BARBITURATES NEG (NEG); BENZODIAZEPINES POS (NEG); CANNABINOIDS NEG (NEG); COCAINE NEG (NEG); METHADONE NEG (NEG); OPIATES NEG (NEG); PHENCYCLIDINE NEG (NEG)
[2020-05-08 13:59] LABS: SQUAMOUS EPITHELIAL CELL,UR FEW /LPF
[2020-05-08 14:00] LABS: AMORPHOUS SEDIMENT,UR PRESENT /HPF; BACTERIA,URINE FEW /HPF (0-FEW)
--- NOTE | 2020-05-08 14:24 | PDOC2 ---
CARDIAC CONSULT DATE OF CONSULT Date of Consult DATE: 05/08/20 TIME: 14:07 REASON FOR CONSULT Reason for Consult: Abnormal EKG REFERRING PHYSICIAN Referring Physician: Fullbright SOURCE Source: Chart review HISTORY OF PRESENT ILLNESS HISTORY OF PRESENT ILLNESS This is a 45 yo male admitted for complains of shortness of breath. He has been having fever and have been tachycardic. Further tests confirmed that he has Covi d-19 and currently on a ventilator. Has been started on remdesivir and s/p convalescent plasma. Consult is for abnormal EKG. Trop is nml. No prior complains of chest pain but notable for CHF. Per chart review no hx of CAD or any arrhythmias. PAST MEDICAL HISTORY Past Medical History No pertinent history PAST SURGICAL HISTORY Past Surgical History: Arthroscopy (knee) FAMILY HISTORY Family History: Family History Unknown SOCIAL HISTORY Smoke: Quit ALCOHOL: none Drugs: None Lives: with Family CURRENT MEDICATIONS CURRENT MEDICATIONS Current Medications Medications (Trade) Dose Ordered Sig/Shira Route PRN Reason Start Time Stop Time Status Last Admin Dose Admin Non-Formulary Medication 1 ea/ Sodium Chloride 210 ml @ 420 mls/hr 1X ONCE IV 05/07/20 15:00 05/07/20 15:29 DC 05/07/20 15:07 Non-Formulary Medication 1 ea/ Sodium Chloride 230 ml @ 460 mls/hr Q24H IV 05/08/20 09:00 05/16/20 09:29 05/08/20 09:32 Dextrose/Sodium Chloride 1,000 ml @ 75 mls/hr [id number] IV 05/08/20 12:30 05/08/20 13:04 ALLERGIES ALLERGIES: Coded Allergies: No Known Drug Allergies (Unverified , 05/06/20) ROS Review of System unobtainable, on vent PHYSICAL EXAM General: Other (sedated) HEENT: Atraumatic Lungs: Other (intubated with vent) Abdomen: Other (obese) Extremities: No cyanosis Skin: No breakdown Psych/Mental Status: Other (edated) MUSCULOSKELETAL: Osteoarthritic changes both hands VITALS/I&O VITALS/I&O: Vital Signs Date Time Temp Pulse Resp B/P (MAP) Pulse Ox O2 Delivery O2 Flow Rate FiO2 05/08/20 13:00 54 19 91/57 (68) 100 Ventilator 05/08/20 12:00 97.6 97.6 05/08/20 04:46 40.0 I & O 05/07/20 05/07/20 05/08/20 15:00 23:00 07:00 Intake Total 0 ml 612.72 ml 428.5 ml Output Total 600 ml 630 ml 350 ml Balance -600 ml -17.28 ml 78.5 ml LABS Lab: Laboratory Tests Test 05/07/20 15:40 05/07/20 15:42 05/08/20 05:20 05/08/20 08:10 Ferritin 2194 ng/mL (26-388) H 1993 ng/mL (26-388) H D-Dimer (Daphney) 0.63 ug/mlFEU (0.00-0.50) H 0.75 ug/mlFEU (0.00-0.50) H White Blood Count 11.7 x10^3/uL (4.0-11.0) H Red Blood Count 4.40 x10^6/uL (4.30-5.70) Hemoglobin 13.0 g/dL (13.0-17.5) Hematocrit 38.2 % (39.0-53.0) L Mean Corpuscular Volume 87 fL (79-100) Mean Corpuscular Hemoglobin 30 pg (25-35) Mean Corpuscular Hemoglobin Concent 34 g/dL (31-37) Red Cell Distribution Width 13.8 % (11.5-14.5) Platelet Count 423 x10^3/uL (140-400) H Neutrophils (%) (Auto) 87 % (31-73) H Lymphocytes (%) (Auto) 7 % (24-48) L Monocytes (%) (Auto) 6 % (0-9) Eosinophils (%) (Auto) 0 % (0-3) Basophils (%) (Auto) 0 % (0-3) Neutrophils # (Auto) 10.1 x10^3/uL (1.8-7.7) H Lymphocytes # (Auto) 0.8 x10^3/uL (1.0-4.8) L Monocytes # (Auto) 0.7 x10^3/uL (0.0-1.1) Eosinophils # (Auto) 0.0 x10^3/uL (0.0-0.7) Basophils # (Auto) 0.0 x10^3/uL (0.0-0.2) Sodium Level 146 mmol/L (136-145) H Potassium Level 3.9 mmol/L (3.5-5.1) Chloride Level 109 mmol/L (98-107) H Carbon Dioxide Level 28 mmol/L (21-32) Anion Gap 9 (6-14) Blood Urea Nitrogen 26 mg/dL (8-26) Creatinine 0.9 mg/dL (0.7-1.3) Estimated GFR (Cockcroft-Gault) 91.3 BUN/Creatinine Ratio 29 (6-20) H Glucose Level 182 mg/dL (70-99) H Calcium Level 8.7 mg/dL (8.5-10.1) Total Bilirubin 0.2 mg/dL (0.2-1.0) Aspartate Amino Transferase (AST) 16 U/L (15-37) Alanine Aminotransferase (ALT) 8 U/L (16-63) L Alkaline Phosphatase 78 U/L (46-116) Troponin I Quantitative < 0.017 ng/mL (0.000-0.055) C-Reactive Protein, Quantitative 179.4 mg/L (0-3.3) H Total Protein 6.4 g/dL (6.4-8.2) Albumin 1.8 g/dL (3.4-5.0) L Albumin/Globulin Ratio 0.4 (1.0-1.7) L O2 Saturation 97 % (92-99) Arterial Blood pH 7.44 (7.35-7.45) Arterial Blood pCO2 at Patient Temp 39 mmHg (35-46) Arterial Blood pO2 at Patient Temp 93 mmHg (75-108) Arterial Blood HCO3 26 mmol/L (21-28) Arterial Blood Base Excess 2 mmol/L (-3-3) FiO2 100% + peep 10 Test 05/08/20 13:00 Urine Collection Type U cath Urine Color Yellow Urine Clarity Cloudy Urine pH 5.5 (<5.0-8.0) Urine Specific [place] >=1.030 (1.000-1.030) Urine Protein Negative mg/dL (NEG-TRACE) Urine Glucose (UA) Negative mg/dL (NEG) Urine Ketones (Stick) Negative mg/dL (NEG) Urine Blood Negative (NEG) Urine Nitrite Negative (NEG) Urine Bilirubin Negative (NEG) Urine Urobilinogen Dipstick 0.2 mg/dL (0.2 mg/dL) Urine Leukocyte Esterase Negative (NEG) Urine RBC 1-2 /HPF (0-2) Urine WBC 5-10 /HPF (0-4) Urine Squamous Epithelial Cells Few /LPF Urine Amorphous Sediment Present /HPF Urine Bacteria Few /HPF (0-FEW) Urine Mucus Marked /LPF Urine Opiates Screen Neg (NEG) Urine Methadone Screen Neg (NEG) Urine Barbiturates Neg (NEG) Urine Phencyclidine Screen Neg (NEG) Urine Amphetamine/Methamphetamine Neg (NEG) Urine Benzodiazepines Screen Pos (NEG) Urine Cocaine Screen Neg (NEG) Urine Cannabinoids Screen Neg (NEG) Urine Ethyl Alcohol Neg (NEG) Laboratory Tests 05/08/20 05:20 Laboratory Tests 05/08/20 05:20 ASSESSMENT/PLAN ASSESSMENT/PLAN 1. Acute hypoxic respiratory failure with Covid-19 PNA and CHF. Intubated 2. Acute diastolic CHF: due to above 3. Abnormal EKG: possible pericarditis QTc 437. trop nml 4. Sinus bradycardia: BP stable. lowest mid40, no pauses Recommendations 1. Repeat EKG. No AV nelly blocking agents 2. Continue COvid-19 regimen per pulmonary 3. Currently on solumedrol 4. Renal function stabe, good UOP. Lasix PRN. Supportive care TATIANA EVANS [employer]IENT [employer]UTIONS MANAGER May 08, 2020 14:24
[2020-05-08 15:21] LABS: CHOLESTEROL/HDL RATIO 7.1
--- NOTE | 2020-05-08 16:52 | EKG ---
[facility] [address] [place] [address] Test Date: 2020-05-08 Test Time: 16:44:35 Pat Name: OMAR SOW Department: Room: 112 1 Gender: M [employer] Operator: PRAKASH : 1975 Requested By: TATIANA EVANS Order Number: [id number] Reading MD: Measurements Intervals [place] Rate: 54 P: 36 AL: 160 QRS: 22 QRSD: 80 T: -4 QT: 440 QTc: 419 Interpretive Statements SINUS RHYTHM OTHERWISE NORMAL ECG RI6.02 Compared to ECG 05/08/2020 12:07:26 T-wave abnormality no longer present
[2020-05-08] MEDS: INSULIN LISPRO 300 UNITS/3 ML VIAL. SQ SCH ×2 (18:02→23:54)
[2020-05-08] MEDS: ENOXAPARIN 40 MG/0.4 ML SYRINGE. SQ SCH (21:13)
[2020-05-09] VITALS (23 sets, daily range): BP systolic 105–123; BP diastolic 58–72
[2020-05-09] MEDS: IV DEXTROSE 5 %-0.2 % NACL 1,000 ML IV SCH ×2 (00:40→18:25)
[2020-05-09] MEDS: MIDAZOLAM 100mg/100ml NS BAG 100 ML IV PRN ×2 (01:13→16:13)
[2020-05-09 03:02] LABS: BASO % 0 % (0-3); EOS % 0 % (0-3); HEMOGLOBIN 12.6 g/dL (13.0-17.5); LYMPH # 0.6 x10^3/uL (1.0-4.8); LYMPH % 5 % (24-48); MEAN CORPUSCULAR HEMOGLOBIN 29 pg (25-35); MEAN CORPUSCULAR HGB CONC 33 g/dL (31-37); MEAN CORPUSCULAR VOLUME 87 fL (79-100); MONO % 9 % (0-9); NEUT # 9.8 x10^3/uL (1.8-7.7); NEUT % 86 % (31-73); PLATELET COUNT 425 x10^3/uL (140-400); RED BLOOD COUNT 4.35 x10^6/uL (4.30-5.70); RED CELL DISTRIBUTION WIDTH 14.2 % (11.5-14.5); WHITE BLOOD COUNT 11.3 x10^3/uL (4.0-11.0)
[2020-05-09 03:37] LABS: ALBUMIN 1.9 g/dL (3.4-5.0); ALBUMIN/GLOBULIN RATIO 0.5 (1.0-1.7); CALCIUM 8.6 mg/dL (8.5-10.1); CREATININE 0.9 mg/dL (0.7-1.3); GFR 91.3; TOTAL BILIRUBIN 0.2 mg/dL (0.2-1.0)
[2020-05-09] MEDS: AZITHROMYCIN 500 MG in IV NORMAL SALINE 250ML 250 ML IV SCH (03:51)
[2020-05-09] MEDS: cefTRIAXone IV Push 1 GM VIAL. IVP SCH (03:52)
[2020-05-09] MEDS: methylPREDNISolone SOD SUCC PF 125 MG/2 ML VIAL. IV SCH ×3 (06:05→21:47)
[2020-05-09] MEDS: INSULIN LISPRO 300 UNITS/3 ML VIAL. SQ SCH ×4 (06:09→23:45)
[2020-05-09 08:26] LABS: BASE EXCESS ABG 2 mmol/L (-3-3); HCO3 ABG 27 mmol/L (21-28); PCO2 ABG 40 mmHg (35-46); PO2 ABG 105 mmHg (75-108); SAT O2 ABG 97 % (92-99)
[2020-05-09 08:29] LABS: FIO2 ABG 90% +10 PEEP
--- NOTE | 2020-05-09 08:35 | PDOC ---
PULMONARY PROGRESS NOTES Subjective Assist-control ventilation with high PEEP Vitals Vital Signs Date Time Temp Pulse Resp B/P (MAP) Pulse Ox O2 Delivery O2 Flow Rate FiO2 05/09/20 08:04 100 Ventilator 05/09/20 07:00 62 20 119/65 (83) 05/09/20 04:52 40.0 05/09/20 04:00 98.5 98.5 Comments Patient seen doing the pandemic, visual examination no respiratory distress in sync with the ventilator no significant edema Labs Laboratory Tests Test 05/07/20 15:40 05/07/20 15:42 05/08/20 05:20 05/08/20 08:10 Ferritin 2194 ng/mL (26-388) 1993 ng/mL (26-388) D-Dimer (Daphney) 0.63 ug/mlFEU (0.00-0.50) 0.75 ug/mlFEU (0.00-0.50) White Blood Count 11.7 x10^3/uL (4.0-11.0) Red Blood Count 4.40 x10^6/uL (4.30-5.70) Hemoglobin 13.0 g/dL (13.0-17.5) Hematocrit 38.2 % (39.0-53.0) Mean Corpuscular Volume 87 fL (79-100) Mean Corpuscular Hemoglobin 30 pg (25-35) Mean Corpuscular Hemoglobin Concent 34 g/dL (31-37) Red Cell Distribution Width 13.8 % (11.5-14.5) Platelet Count 423 x10^3/uL (140-400) Neutrophils (%) (Auto) 87 % (31-73) Lymphocytes (%) (Auto) 7 % (24-48) Monocytes (%) (Auto) 6 % (0-9) Eosinophils (%) (Auto) 0 % (0-3) Basophils (%) (Auto) 0 % (0-3) Neutrophils # (Auto) 10.1 x10^3/uL (1.8-7.7) Lymphocytes # (Auto) 0.8 x10^3/uL (1.0-4.8) Monocytes # (Auto) 0.7 x10^3/uL (0.0-1.1) Eosinophils # (Auto) 0.0 x10^3/uL (0.0-0.7) Basophils # (Auto) 0.0 x10^3/uL (0.0-0.2) Sodium Level 146 mmol/L (136-145) Potassium Level 3.9 mmol/L (3.5-5.1) Chloride Level 109 mmol/L (98-107) Carbon Dioxide Level 28 mmol/L (21-32) Anion Gap 9 (6-14) Blood Urea Nitrogen 26 mg/dL (8-26) Creatinine 0.9 mg/dL (0.7-1.3) Estimated GFR (Cockcroft-Gault) 91.3 BUN/Creatinine Ratio 29 (6-20) Glucose Level 182 mg/dL (70-99) Calcium Level 8.7 mg/dL (8.5-10.1) Total Bilirubin 0.2 mg/dL (0.2-1.0) Aspartate Amino Transf (AST/SGOT) 16 U/L (15-37) Alanine Aminotransferase (ALT/SGPT) 8 U/L (16-63) Alkaline Phosphatase 78 U/L (46-116) Troponin I Quantitative < 0.017 ng/mL (0.000-0.055) C-Reactive Protein, Quantitative 179.4 mg/L (0-3.3) Total Protein 6.4 g/dL (6.4-8.2) Albumin 1.8 g/dL (3.4-5.0) Albumin/Globulin Ratio 0.4 (1.0-1.7) Triglycerides Level 170 mg/dL (0-150) Cholesterol Level 127 mg/dL (0-200) LDL Cholesterol, Calculated 75 mg/dL (0-100) VLDL Cholesterol, Calculated 34 mg/dL (0-40) Non-HDL Cholesterol Calculated 109 mg/dL (0-129) HDL Cholesterol 18 mg/dL (40-60) Cholesterol/HDL Ratio 7.1 O2 Saturation 97 % (92-99) Arterial Blood pH 7.44 (7.35-7.45) Arterial Blood pCO2 at Patient Temp 39 mmHg (35-46) Arterial Blood pO2 at Patient Temp 93 mmHg (75-108) Arterial Blood HCO3 26 mmol/L (21-28) Arterial Blood Base Excess 2 mmol/L (-3-3) FiO2 100% + peep 10 Test 05/08/20 13:00 05/08/20 17:54 05/08/20 23:46 05/09/20 02:52 Urine Collection Type U cath Urine Color Yellow Urine Clarity Cloudy Urine pH 5.5 (<5.0-8.0) Urine Specific [place] >=1.030 (1.000-1.030) Urine Protein Negative mg/dL (NEG-TRACE) Urine Glucose (UA) Negative mg/dL (NEG) Urine Ketones (Stick) Negative mg/dL (NEG) Urine Blood Negative (NEG) Urine Nitrite Negative (NEG) Urine Bilirubin Negative (NEG) Urine Urobilinogen Dipstick 0.2 mg/dL (0.2 mg/dL) Urine Leukocyte Esterase Negative (NEG) Urine RBC 1-2 /HPF (0-2) Urine WBC 5-10 /HPF (0-4) Urine Squamous Epithelial Cells Few /LPF Urine Amorphous Sediment Present /HPF Urine Bacteria Few /HPF (0-FEW) Urine Mucus Marked /LPF Urine Opiates Screen Neg (NEG) Urine Methadone Screen Neg (NEG) Urine Barbiturates Neg (NEG) Urine Phencyclidine Screen Neg (NEG) Urine Amphetamine/Methamphetamine Neg (NEG) Urine Benzodiazepines Screen Pos (NEG) Urine Cocaine Screen Neg (NEG) Urine Cannabinoids Screen Neg (NEG) Urine Ethyl Alcohol Neg (NEG) Glucose (Fingerstick) 170 mg/dL (70-99) 182 mg/dL (70-99) White Blood Count 11.3 x10^3/uL (4.0-11.0) Red Blood Count 4.35 x10^6/uL (4.30-5.70) Hemoglobin 12.6 g/dL (13.0-17.5) Hematocrit 38.0 % (39.0-53.0) Mean Corpuscular Volume 87 fL (79-100) Mean Corpuscular Hemoglobin 29 pg (25-35) Mean Corpuscular Hemoglobin Concent 33 g/dL (31-37) Red Cell Distribution Width 14.2 % (11.5-14.5) Platelet Count 425 x10^3/uL (140-400) Neutrophils (%) (Auto) 86 % (31-73) Lymphocytes (%) (Auto) 5 % (24-48) Monocytes (%) (Auto) 9 % (0-9) Eosinophils (%) (Auto) 0 % (0-3) Basophils (%) (Auto) 0 % (0-3) Neutrophils # (Auto) 9.8 x10^3/uL (1.8-7.7) Lymphocytes # (Auto) 0.6 x10^3/uL (1.0-4.8) Monocytes # (Auto) 1.0 x10^3/uL (0.0-1.1) Eosinophils # (Auto) 0.0 x10^3/uL (0.0-0.7) Basophils # (Auto) 0.0 x10^3/uL (0.0-0.2) Sodium Level 146 mmol/L (136-145) Potassium Level 4.0 mmol/L (3.5-5.1) Chloride Level 110 mmol/L (98-107) Carbon Dioxide Level 29 mmol/L (21-32) Anion Gap 7 (6-14) Blood Urea Nitrogen 29 mg/dL (8-26) Creatinine 0.9 mg/dL (0.7-1.3) Estimated GFR (Cockcroft-Gault) 91.3 BUN/Creatinine Ratio 32 (6-20) Glucose Level 192 mg/dL (70-99) Calcium Level 8.6 mg/dL (8.5-10.1) Total Bilirubin 0.2 mg/dL (0.2-1.0) Aspartate Amino Transf (AST/SGOT) 10 U/L (15-37) Alanine Aminotransferase (ALT/SGPT) 7 U/L (16-63) Alkaline Phosphatase 44 U/L (46-116) Total Protein 6.0 g/dL (6.4-8.2) Albumin 1.9 g/dL (3.4-5.0) Albumin/Globulin Ratio 0.5 (1.0-1.7) Test 05/09/20 06:07 05/09/20 08:15 Glucose (Fingerstick) 181 mg/dL (70-99) O2 Saturation 97 % (92-99) Arterial Blood pH 7.44 (7.35-7.45) Arterial Blood pCO2 at Patient Temp 40 mmHg (35-46) Arterial Blood pO2 at Patient Temp 105 mmHg (75-108) Arterial Blood HCO3 27 mmol/L (21-28) Arterial Blood Base Excess 2 mmol/L (-3-3) FiO2 90% +10 peep Laboratory Tests Test 05/08/20 13:00 6/30/20 17:54 05/08/20 23:46 05/09/20 02:52 Urine Collection Type U cath Urine Color Yellow Urine Clarity Cloudy Urine pH 5.5 (<5.0-8.0) Urine Specific [place] >=1.030 (1.000-1.030) Urine Protein Negative mg/dL (NEG-TRACE) Urine Glucose (UA) Negative mg/dL (NEG) Urine Ketones (Stick) Negative mg/dL (NEG) Urine Blood Negative (NEG) Urine Nitrite Negative (NEG) Urine Bilirubin Negative (NEG) Urine Urobilinogen Dipstick 0.2 mg/dL (0.2 mg/dL) Urine Leukocyte Esterase Negative (NEG) Urine RBC 1-2 /HPF (0-2) Urine WBC 5-10 /HPF (0-4) Urine Squamous Epithelial Cells Few /LPF Urine Amorphous Sediment Present /HPF Urine Bacteria Few /HPF (0-FEW) Urine Mucus Marked /LPF Urine Opiates Screen Neg (NEG) Urine Methadone Screen Neg (NEG) Urine Barbiturates Neg (NEG) Urine Phencyclidine Screen Neg (NEG) Urine Amphetamine/Methamphetamine Neg (NEG) Urine Benzodiazepines Screen Pos (NEG) Urine Cocaine Screen Neg (NEG) Urine Cannabinoids Screen Neg (NEG) Urine Ethyl Alcohol Neg (NEG) Glucose (Fingerstick) 170 mg/dL (70-99) 182 mg/dL (70-99) White Blood Count 11.3 x10^3/uL (4.0-11.0) Red Blood Count 4.35 x10^6/uL (4.30-5.70) Hemoglobin 12.6 g/dL (13.0-17.5) Hematocrit 38.0 % (39.0-53.0) Mean Corpuscular Volume 87 fL (79-100) Mean Corpuscular Hemoglobin 29 pg (25-35) Mean Corpuscular Hemoglobin Concent 33 g/dL (31-37) Red Cell Distribution Width 14.2 % (11.5-14.5) Platelet Count 425 x10^3/uL (140-400) Neutrophils (%) (Auto) 86 % (31-73) Lymphocytes (%) (Auto) 5 % (24-48) Monocytes (%) (Auto) 9 % (0-9) Eosinophils (%) (Auto) 0 % (0-3) Basophils (%) (Auto) 0 % (0-3) Neutrophils # (Auto) 9.8 x10^3/uL (1.8-7.7) Lymphocytes # (Auto) 0.6 x10^3/uL (1.0-4.8) Monocytes # (Auto) 1.0 x10^3/uL (0.0-1.1) Eosinophils # (Auto) 0.0 x10^3/uL (0.0-0.7) Basophils # (Auto) 0.0 x10^3/uL (0.0-0.2) Sodium Level 146 mmol/L (136-145) Potassium Level 4.0 mmol/L (3.5-5.1) Chloride Level 110 mmol/L (98-107) Carbon Dioxide Level 29 mmol/L (21-32) Anion Gap 7 (6-14) Blood Urea Nitrogen 29 mg/dL (8-26) Creatinine 0.9 mg/dL (0.7-1.3) Estimated GFR (Cockcroft-Gault) 91.3 BUN/Creatinine Ratio 32 (6-20) Glucose Level 192 mg/dL (70-99) Calcium Level 8.6 mg/dL (8.5-10.1) Total Bilirubin 0.2 mg/dL (0.2-1.0) Aspartate Amino Transf (AST/SGOT) 10 U/L (15-37) Alanine Aminotransferase (ALT/SGPT) 7 U/L (16-63) Alkaline Phosphatase 44 U/L (46-116) Total Protein 6.0 g/dL (6.4-8.2) Albumin 1.9 g/dL (3.4-5.0) Albumin/Globulin Ratio 0.5 (1.0-1.7) Test 05/09/20 06:07 05/09/20 08:15 Glucose (Fingerstick) 181 mg/dL (70-99) O2 Saturation 97 % (92-99) Arterial Blood pH 7.44 (7.35-7.45) Arterial Blood pCO2 at Patient Temp 40 mmHg (35-46) Arterial Blood pO2 at Patient Temp 105 mmHg (75-108) Arterial Blood HCO3 27 mmol/L (21-28) Arterial Blood Base Excess 2 mmol/L (-3-3) FiO2 90% +10 peep Comments IMPRESSION: 1. Bilateral infiltrates. Impression . 1. Acute Hypoxic Respiratory Failure 2. Fever 3. Pneumonia, CXR positive for Bilateral patch infiltrates consistent with COVI D-19 4. elevated d-dimer, will repeat 5. Tachycardia 6. Elevated CRP and ferrtin also consistent with COVID-19 infection 7. COVID-19 viral pneumonia 8. COVID-19 sepsis Plan . Appears to be oxygenating better, I am hopeful that he will recover Status post convalescent serum Patient intubated continue assist control ventilation Initiate Remdesivir Follow-up on SARS-CoV-2, positive Steroids DVT prophylaxis Initiate tube feeding Total cumulative critical care time of 35 minutes reviewing data, labs, chest x- ray, spoke with pharmacy YARELY PAULSON MD May 09, 2020 08:35
[2020-05-09] MEDS: ENOXAPARIN 40 MG/0.4 ML SYRINGE. SQ SCH ×2 (08:44→21:47)
[2020-05-09] MEDS: FAMOTIDINE 20 MG/2 ML VIAL IVP SCH ×2 (08:44→21:46)
[2020-05-09] MEDS: NON FORMULARY ITEM 1 EA in IV NORMAL SALINE 250ML 230 ML IV SCH (09:24)
--- NOTE | 2020-05-09 14:16 | PDOC ---
CARDIO Progress Notes Date and Time Date of Service 05/09/2020 Time of Evaluation 1145 Subjective Subjective: Other (intubated) Vitals Vitals Vital Signs Date Time Temp Pulse Resp B/P (MAP) Pulse Ox O2 Delivery O2 Flow Rate FiO2 05/09/20 12:20 100 Ventilator 05/09/20 11:00 61 20 123/69 (87) 05/09/20 08:00 98.6 98.6 05/09/20 04:52 40.0 Weight Weight [ ] Input and Output Intake and Output l Intake and Output 05/09/20 07:00 Intake Total 4278 ml Output Total 1717 ml Balance 2561 ml IV Total 1876 ml Tube Feeding 1827 ml Blood Product IV Normal Saline Flush 50 ml Other 525 ml Output Urine Total 1697 ml Gastric Drainage Total 20 ml Laboratory Labs Laboratory Tests Test 05/08/20 17:54 05/08/20 23:46 05/09/20 02:52 05/09/20 06:07 Glucose (Fingerstick) 170 mg/dL (70-99) 182 mg/dL (70-99) 181 mg/dL (70-99) White Blood Count 11.3 x10^3/uL (4.0-11.0) Red Blood Count 4.35 x10^6/uL (4.30-5.70) Hemoglobin 12.6 g/dL (13.0-17.5) Hematocrit 38.0 % (39.0-53.0) Mean Corpuscular Volume 87 fL (79-100) Mean Corpuscular Hemoglobin 29 pg (25-35) Mean Corpuscular Hemoglobin Concent 33 g/dL (31-37) Red Cell Distribution Width 14.2 % (11.5-14.5) Platelet Count 425 x10^3/uL (140-400) Neutrophils (%) (Auto) 86 % (31-73) Lymphocytes (%) (Auto) 5 % (24-48) Monocytes (%) (Auto) 9 % (0-9) Eosinophils (%) (Auto) 0 % (0-3) Basophils (%) (Auto) 0 % (0-3) Neutrophils # (Auto) 9.8 x10^3/uL (1.8-7.7) Lymphocytes # (Auto) 0.6 x10^3/uL (1.0-4.8) Monocytes # (Auto) 1.0 x10^3/uL (0.0-1.1) Eosinophils # (Auto) 0.0 x10^3/uL (0.0-0.7) Basophils # (Auto) 0.0 x10^3/uL (0.0-0.2) Sodium Level 146 mmol/L (136-145) Potassium Level 4.0 mmol/L (3.5-5.1) Chloride Level 110 mmol/L (98-107) Carbon Dioxide Level 29 mmol/L (21-32) Anion Gap 7 (6-14) Blood Urea Nitrogen 29 mg/dL (8-26) Creatinine 0.9 mg/dL (0.7-1.3) Estimated GFR (Cockcroft-Gault) 91.3 BUN/Creatinine Ratio 32 (6-20) Glucose Level 192 mg/dL (70-99) Calcium Level 8.6 mg/dL (8.5-10.1) Total Bilirubin 0.2 mg/dL (0.2-1.0) Aspartate Amino Transf (AST/SGOT) 10 U/L (15-37) Alanine Aminotransferase (ALT/SGPT) 7 U/L (16-63) Alkaline Phosphatase 44 U/L (46-116) Total Protein 6.0 g/dL (6.4-8.2) Albumin 1.9 g/dL (3.4-5.0) Albumin/Globulin Ratio 0.5 (1.0-1.7) Test 05/09/20 08:15 05/09/20 12:45 O2 Saturation 97 % (92-99) Arterial Blood pH 7.44 (7.35-7.45) Arterial Blood pCO2 at Patient Temp 40 mmHg (35-46) Arterial Blood pO2 at Patient Temp 105 mmHg (75-108) Arterial Blood HCO3 27 mmol/L (21-28) Arterial Blood Base Excess 2 mmol/L (-3-3) FiO2 90% +10 peep Glucose (Fingerstick) 172 mg/dL (70-99) Microbiology Micro Microbiology 05/08/20 Urine Culture - Final, Complete 05/06/20 Blood Culture - Preliminary, Resulted NO GROWTH AFTER 3 DAYS Physical Exam Chest: Symmetric LUNGS: Other (intubated with vent) Heart: RRR (SR) Neurology: other (sedated) Other Exams visual exam, discussed with RN, good UOP Assessment Assessment 1. Acute hypoxic respiratory failure with Covid-19 PNA and CHF. Intubated 2. Acute diastolic CHF: due to above 3. Abnormal EKG: possible pericarditis QTc 437. trop nml 4. Sinus bradycardia: BP stable. lowest mid40, no pause. No further bradycardia overnight mean at 60s Recommendations 1. No AV nelly blocking agents 2. Continue COvid-19 regimen per pulmonary 3. Currently on solumedrol 4. Renal function stabe, good UOP. Lasix PRN. Supportive care Justicifation of Admission Dx: Justifications for Admission: Justification of Admission Dx: Yes Comminuty Aquired Pneumonia: Hypoxemia TATIANA EVANS [employer] May 09, 2020 14:16
--- NOTE | 2020-05-09 14:19 | PDOC ---
PROGRESS NOTES Chief Complaint Chief Complaint Acute Hypoxic Resp Failure secondary to Suspected COVID-19 Bilateral Infiltrates on cxr elevated D dimer// elevated inflammatory markers Leukocytosis ELEVATED FERRITIN // Elevated CRP and ferrtin also consistent with COVID-19 infection mild hypernatremia History of Present Illness History of Present Illness cont on VENT SUPPORT IV Rocephin and Azithro CTA chest REVIEWED follow cultures and covid screen dvt ppx: lovenox full code COVID-19 test pending, continue isolation precautions-- convalescent plasma and Remdesivir IV steroids pulm FOLLOWING d51/4 ns at 75 cc/hr The patient was evaluated during the global COVID-19 pandemic, and that diagnosis was suspected/considered upon their initial presentation. Vitals Vitals Vital Signs Date Time Temp Pulse Resp B/P (MAP) Pulse Ox O2 Delivery O2 Flow Rate FiO2 05/09/20 12:20 100 Ventilator 05/09/20 11:00 61 20 123/69 (87) 05/09/20 08:00 98.6 98.6 05/09/20 04:52 40.0 Physical Exam Physical Exam GENERAL: INTUBATED ON VENT, SEDATED HEENT: Head normocephalic, atraumatic. NECK: Supple LUNGS: Clear to auscultation. HEART: RRR, S1, S2 present, pulses intact ABDOMEN: Soft, positive bowel sounds. EXTREMITIES: No cyanosis or edema. SKIN: No ulceration. General: Other (sedated) Abdomen: Other (obese) Extremities: No cyanosis Skin: No breakdown Labs LABS Laboratory Tests Test 05/08/20 17:54 05/08/20 23:46 05/09/20 02:52 05/09/20 06:07 Glucose (Fingerstick) 170 mg/dL (70-99) 182 mg/dL (70-99) 181 mg/dL (70-99) White Blood Count 11.3 x10^3/uL (4.0-11.0) Red Blood Count 4.35 x10^6/uL (4.30-5.70) Hemoglobin 12.6 g/dL (13.0-17.5) Hematocrit 38.0 % (39.0-53.0) Mean Corpuscular Volume 87 fL (79-100) Mean Corpuscular Hemoglobin 29 pg (25-35) Mean Corpuscular Hemoglobin Concent 33 g/dL (31-37) Red Cell Distribution Width 14.2 % (11.5-14.5) Platelet Count 425 x10^3/uL (140-400) Neutrophils (%) (Auto) 86 % (31-73) Lymphocytes (%) (Auto) 5 % (24-48) Monocytes (%) (Auto) 9 % (0-9) Eosinophils (%) (Auto) 0 % (0-3) Basophils (%) (Auto) 0 % (0-3) Neutrophils # (Auto) 9.8 x10^3/uL (1.8-7.7) Lymphocytes # (Auto) 0.6 x10^3/uL (1.0-4.8) Monocytes # (Auto) 1.0 x10^3/uL (0.0-1.1) Eosinophils # (Auto) 0.0 x10^3/uL (0.0-0.7) Basophils # (Auto) 0.0 x10^3/uL (0.0-0.2) Sodium Level 146 mmol/L (136-145) Potassium Level 4.0 mmol/L (3.5-5.1) Chloride Level 110 mmol/L (98-107) Carbon Dioxide Level 29 mmol/L (21-32) Anion Gap 7 (6-14) Blood Urea Nitrogen 29 mg/dL (8-26) Creatinine 0.9 mg/dL (0.7-1.3) Estimated GFR (Cockcroft-Gault) 91.3 BUN/Creatinine Ratio 32 (6-20) Glucose Level 192 mg/dL (70-99) Calcium Level 8.6 mg/dL (8.5-10.1) Total Bilirubin 0.2 mg/dL (0.2-1.0) Aspartate Amino Transf (AST/SGOT) 10 U/L (15-37) Alanine Aminotransferase (ALT/SGPT) 7 U/L (16-63) Alkaline Phosphatase 44 U/L (46-116) Total Protein 6.0 g/dL (6.4-8.2) Albumin 1.9 g/dL (3.4-5.0) Albumin/Globulin Ratio 0.5 (1.0-1.7) Test 05/09/20 08:15 05/09/20 12:45 O2 Saturation 97 % (92-99) Arterial Blood pH 7.44 (7.35-7.45) Arterial Blood pCO2 at Patient Temp 40 mmHg (35-46) Arterial Blood pO2 at Patient Temp 105 mmHg (75-108) Arterial Blood HCO3 27 mmol/L (21-28) Arterial Blood Base Excess 2 mmol/L (-3-3) FiO2 90% +10 peep Glucose (Fingerstick) 172 mg/dL (70-99) Comment Review of Relevant I have reviewed the following items laura (where applicable) has been applied. Labs Laboratory Tests Test 05/07/20 15:40 05/07/20 15:42 05/08/20 05:20 05/08/20 08:10 Ferritin 2194 ng/mL (26-388) 1993 ng/mL (26-388) D-Dimer (Daphney) 0.63 ug/mlFEU (0.00-0.50) 0.75 ug/mlFEU (0.00-0.50) White Blood Count 11.7 x10^3/uL (4.0-11.0) Red Blood Count 4.40 x10^6/uL (4.30-5.70) Hemoglobin 13.0 g/dL (13.0-17.5) Hematocrit 38.2 % (39.0-53.0) Mean Corpuscular Volume 87 fL (79-100) Mean Corpuscular Hemoglobin 30 pg (25-35) Mean Corpuscular Hemoglobin Concent 34 g/dL (31-37) Red Cell Distribution Width 13.8 % (11.5-14.5) Platelet Count 423 x10^3/uL (140-400) Neutrophils (%) (Auto) 87 % (31-73) Lymphocytes (%) (Auto) 7 % (24-48) Monocytes (%) (Auto) 6 % (0-9) Eosinophils (%) (Auto) 0 % (0-3) Basophils (%) (Auto) 0 % (0-3) Neutrophils # (Auto) 10.1 x10^3/uL (1.8-7.7) Lymphocytes # (Auto) 0.8 x10^3/uL (1.0-4.8) Monocytes # (Auto) 0.7 x10^3/uL (0.0-1.1) Eosinophils # (Auto) 0.0 x10^3/uL (0.0-0.7) Basophils # (Auto) 0.0 x10^3/uL (0.0-0.2) Sodium Level 146 mmol/L (136-145) Potassium Level 3.9 mmol/L (3.5-5.1) Chloride Level 109 mmol/L (98-107) Carbon Dioxide Level 28 mmol/L (21-32) Anion Gap 9 (6-14) Blood Urea Nitrogen 26 mg/dL (8-26) Creatinine 0.9 mg/dL (0.7-1.3) Estimated GFR (Cockcroft-Gault) 91.3 BUN/Creatinine Ratio 29 (6-20) Glucose Level 182 mg/dL (70-99) Calcium Level 8.7 mg/dL (8.5-10.1) Total Bilirubin 0.2 mg/dL (0.2-1.0) Aspartate Amino Transf (AST/SGOT) 16 U/L (15-37) Alanine Aminotransferase (ALT/SGPT) 8 U/L (16-63) Alkaline Phosphatase 78 U/L (46-116) Troponin I Quantitative < 0.017 ng/mL (0.000-0.055) C-Reactive Protein, Quantitative 179.4 mg/L (0-3.3) Total Protein 6.4 g/dL (6.4-8.2) Albumin 1.8 g/dL (3.4-5.0) Albumin/Globulin Ratio 0.4 (1.0-1.7) Triglycerides Level 170 mg/dL (0-150) Cholesterol Level 127 mg/dL (0-200) LDL Cholesterol, Calculated 75 mg/dL (0-100) VLDL Cholesterol, Calculated 34 mg/dL (0-40) Non-HDL Cholesterol Calculated 109 mg/dL (0-129) HDL Cholesterol 18 mg/dL (40-60) Cholesterol/HDL Ratio 7.1 O2 Saturation 97 % (92-99) Arterial Blood pH 7.44 (7.35-7.45) Arterial Blood pCO2 at Patient Temp 39 mmHg (35-46) Arterial Blood pO2 at Patient Temp 93 mmHg (75-108) Arterial Blood HCO3 26 mmol/L (21-28) Arterial Blood Base Excess 2 mmol/L (-3-3) FiO2 100% + peep 10 Test 05/08/20 13:00 05/08/20 17:54 05/08/20 23:46 05/09/20 02:52 Urine Collection Type U cath Urine Color Yellow Urine Clarity Cloudy Urine pH 5.5 (<5.0-8.0) Urine Specific [place] >=1.030 (1.000-1.030) Urine Protein Negative mg/dL (NEG-TRACE) Urine Glucose (UA) Negative mg/dL (NEG) Urine Ketones (Stick) Negative mg/dL (NEG) Urine Blood Negative (NEG) Urine Nitrite Negative (NEG) Urine Bilirubin Negative (NEG) Urine Urobilinogen Dipstick 0.2 mg/dL (0.2 mg/dL) Urine Leukocyte Esterase Negative (NEG) Urine RBC 1-2 /HPF (0-2) Urine WBC 5-10 /HPF (0-4) Urine Squamous Epithelial Cells Few /LPF Urine Amorphous Sediment Present /HPF Urine Bacteria Few /HPF (0-FEW) Urine Mucus Marked /LPF Urine Opiates Screen Neg (NEG) Urine Methadone Screen Neg (NEG) Urine Barbiturates Neg (NEG) Urine Phencyclidine Screen Neg (NEG) Urine Amphetamine/Methamphetamine Neg (NEG) Urine Benzodiazepines Screen Pos (NEG) Urine Cocaine Screen Neg (NEG) Urine Cannabinoids Screen Neg (NEG) Urine Ethyl Alcohol Neg (NEG) Glucose (Fingerstick) 170 mg/dL (70-99) 182 mg/dL (70-99) White Blood Count 11.3 x10^3/uL (4.0-11.0) Red Blood Count 4.35 x10^6/uL (4.30-5.70) Hemoglobin 12.6 g/dL (13.0-17.5) Hematocrit 38.0 % (39.0-53.0) Mean Corpuscular Volume 87 fL (79-100) Mean Corpuscular Hemoglobin 29 pg (25-35) Mean Corpuscular Hemoglobin Concent 33 g/dL (31-37) Red Cell Distribution Width 14.2 % (11.5-14.5) Platelet Count 425 x10^3/uL (140-400) Neutrophils (%) (Auto) 86 % (31-73) Lymphocytes (%) (Auto) 5 % (24-48) Monocytes (%) (Auto) 9 % (0-9) Eosinophils (%) (Auto) 0 % (0-3) Basophils (%) (Auto) 0 % (0-3) Neutrophils # (Auto) 9.8 x10^3/uL (1.8-7.7) Lymphocytes # (Auto) 0.6 x10^3/uL (1.0-4.8) Monocytes # (Auto) 1.0 x10^3/uL (0.0-1.1) Eosinophils # (Auto) 0.0 x10^3/uL (0.0-0.7) Basophils # (Auto) 0.0 x10^3/uL (0.0-0.2) Sodium Level 146 mmol/L (136-145) Potassium Level 4.0 mmol/L (3.5-5.1) Chloride Level 110 mmol/L (98-107) Carbon Dioxide Level 29 mmol/L (21-32) Anion Gap 7 (6-14) Blood Urea Nitrogen 29 mg/dL (8-26) Creatinine 0.9 mg/dL (0.7-1.3) Estimated GFR (Cockcroft-Gault) 91.3 BUN/Creatinine Ratio 32 (6-20) Glucose Level 192 mg/dL (70-99) Calcium Level 8.6 mg/dL (8.5-10.1) Total Bilirubin 0.2 mg/dL (0.2-1.0) Aspartate Amino Transf (AST/SGOT) 10 U/L (15-37) Alanine Aminotransferase (ALT/SGPT) 7 U/L (16-63) Alkaline Phosphatase 44 U/L (46-116) Total Protein 6.0 g/dL (6.4-8.2) Albumin 1.9 g/dL (3.4-5.0) Albumin/Globulin Ratio 0.5 (1.0-1.7) Test 05/09/20 06:07 05/09/20 08:15 05/09/20 12:45 Glucose (Fingerstick) 181 mg/dL (70-99) 172 mg/dL (70-99) O2 Saturation 97 % (92-99) Arterial Blood pH 7.44 (7.35-7.45) Arterial Blood pCO2 at Patient Temp 40 mmHg (35-46) Arterial Blood pO2 at Patient Temp 105 mmHg (75-108) Arterial Blood HCO3 27 mmol/L (21-28) Arterial Blood Base Excess 2 mmol/L (-3-3) FiO2 90% +10 peep Laboratory Tests Test 05/08/20 17:54 05/08/20 23:46 05/09/20 02:52 05/09/20 06:07 Glucose (Fingerstick) 170 mg/dL (70-99) 182 mg/dL (70-99) 181 mg/dL (70-99) White Blood Count 11.3 x10^3/uL (4.0-11.0) Red Blood Count 4.35 x10^6/uL (4.30-5.70) Hemoglobin 12.6 g/dL (13.0-17.5) Hematocrit 38.0 % (39.0-53.0) Mean Corpuscular Volume 87 fL (79-100) Mean Corpuscular Hemoglobin 29 pg (25-35) Mean Corpuscular Hemoglobin Concent 33 g/dL (31-37) Red Cell Distribution Width 14.2 % (11.5-14.5) Platelet Count 425 x10^3/uL (140-400) Neutrophils (%) (Auto) 86 % (31-73) Lymphocytes (%) (Auto) 5 % (24-48) Monocytes (%) (Auto) 9 % (0-9) Eosinophils (%) (Auto) 0 % (0-3) Basophils (%) (Auto) 0 % (0-3) Neutrophils # (Auto) 9.8 x10^3/uL (1.8-7.7) Lymphocytes # (Auto) 0.6 x10^3/uL (1.0-4.8) Monocytes # (Auto) 1.0 x10^3/uL (0.0-1.1) Eosinophils # (Auto) 0.0 x10^3/uL (0.0-0.7) Basophils # (Auto) 0.0 x10^3/uL (0.0-0.2) Sodium Level 146 mmol/L (136-145) Potassium Level 4.0 mmol/L (3.5-5.1) Chloride Level 110 mmol/L (98-107) Carbon Dioxide Level 29 mmol/L (21-32) Anion Gap 7 (6-14) Blood Urea Nitrogen 29 mg/dL (8-26) Creatinine 0.9 mg/dL (0.7-1.3) Estimated GFR (Cockcroft-Gault) 91.3 BUN/Creatinine Ratio 32 (-20) Glucose Level 192 mg/dL (70-99) Calcium Level 8.6 mg/dL (8.5-10.1) Total Bilirubin 0.2 mg/dL (0.2-1.0) Aspartate Amino Transf (AST/SGOT) 10 U/L (15-37) Alanine Aminotransferase (ALT/SGPT) 7 U/L (16-63) Alkaline Phosphatase 44 U/L (46-116) Total Protein 6.0 g/dL (6.4-8.2) Albumin 1.9 g/dL (3.4-5.0) Albumin/Globulin Ratio 0.5 (1.0-1.7) Test 05/09/20 08:15 05/09/20 12:45 O2 Saturation 97 % (92-99) Arterial Blood pH 7.44 (7.35-7.45) Arterial Blood pCO2 at Patient Temp 40 mmHg (35-46) Arterial Blood pO2 at Patient Temp 105 mmHg (75-108) Arterial Blood HCO3 27 mmol/L (21-28) Arterial Blood Base Excess 2 mmol/L (-3-3) FiO2 90% +10 peep Glucose (Fingerstick) 172 mg/dL (70-99) Microbiology 05/08/20 Urine Culture - Final, Complete 05/06/20 Blood Culture - Preliminary, Resulted NO GROWTH AFTER 3 DAYS Medications Current Medications Acetaminophen (Tylenol) 650 mg 1X ONCE PO Last administered on 05/06/20at 03:54; Start 05/06/20 at 03:00; Stop 05/06/20 at 03:01; Status DC Sodium Chloride 1,000 ml @ 1,000 mls/hr 1X ONCE IV Last administered on 05/06/20at 03:53; Start 05/06/20 at 03:00; Stop 05/06/20 at 03:59; Status DC Ceftriaxone Sodium (Rocephin) 1 gm 1X ONCE IVP Last administered on 05/06/20at 03:54; Start 05/06/20 at 03:00; Stop 05/06/20 at 03:01; Status DC Azithromycin 250 ml @ 250 mls/hr 1X ONCE IV Last administered on 05/06/20at 03:00; Start 05/06/20 at 03:00; Stop 05/06/20 at 03:59; Status DC Hydralazine HCl (Apresoline) 25 mg PRN TID PRN PO for SBP greater than 180; Start 05/06/20 at 07:30 Enoxaparin Sodium (Lovenox Per Pharmacy Prophylaxis Dosing) 1 each PRN DAILY PRN MC SEE COMMENTS; Start 05/06/20 at 07:30 Ceftriaxone Sodium (Rocephin) 1 gm Q24H IVP Last administered on 05/09/20at 03:52; Start 05/07/20 at 04:00 Acetaminophen (Tylenol) 650 mg PRN Q6HRS PRN PO fever Last administered on 05/06/20at 15:51; Start 05/06/20 at 07:30 Azithromycin 500 mg/Sodium Chloride 250 ml @ 250 mls/hr Q24H IV Last administered on 05/09/20at 03:51; Start 05/07/20 at 04:00 Enoxaparin Sodium (Lovenox 60mg Syringe) 60 mg Q12HR SQ Last administered on 05/08/20at 08:16; Start 05/06/20 at 09:00; Stop 05/08/20 at 14:36; Status DC Nicotine (Nicoderm Cq 21mg) 1 patch PRN DAILY PRN TD SMOKING CESSATION; Start 05/06/20 at 08:30 Methylprednisolone Sodium Succinate (SOLU-Medrol 125MG VIAL) 60 mg Q8HRS IV Last administered on 05/09/20at 06:05; Start 05/06/20 at 14:00 Famotidine (Pepcid Vial) 20 mg BID IVP Last administered on 05/08/20at 08:15; Start 05/06/20 at 21:00; Stop 05/08/20 at 12:35; Status DC Sterile Water (WATER for RESP) 1,000 ml CONT PRN INH VIA VAPOTHERM DEVICE; Start 05/06/20 at 23:30; Stop 05/07/20 at 11:27; Status DC Fentanyl Citrate 30 ml @ 0 mls/hr CONT PRN IV SEE PROTOCOL Last administered on 05/09/20at 12:20; Start 05/07/20 at 00:30 Propofol 100 ml @ 0 mls/hr CONT PRN IV SEE PROTOCOL; Start 05/07/20 at 00:15 Chlorhexidine Gluconate (Peridex) 15 ml BID MM ; Start 05/07/20 at 09:00; Stop 05/07/20 at 07:33; Status DC Midazolam HCl 100 ml @ 0 mls/hr CONT PRN IV SEE PROTOCOL Last administered on 05/09/20at 01:13; Start 05/07/20 at 00:30 Succinylcholine Chloride (Anectine) 200 mg 1X ONCE IV Last administered on 05/07/20at 00:37; Start 05/07/20 at 00:45; Stop 05/07/20 at 00:46; Status DC Etomidate (Amidate) 20 mg STK-MED ONCE IV ; Start 05/07/20 at 00:57; Stop 05/07/20 at 00:57; Status DC Vecuronium [place] (Norcuron Bolus) 10 mg 1X ONCE IV ; Start 05/07/20 at 01:15; Stop 05/07/20 at 01:16; Status DC Norepinephrine Bitartrate 8 mg/ Dextrose 258 ml @ 19.756 mls/ hr CONT PRN IV PER PROTOCOL Last administered on 05/07/20at 02:37; Start 05/07/20 at 02:15 Succinylcholine Chloride (Anectine) 200 mg STK-MED ONCE .ROUTE ; Start 05/07/20 at 01:00; Stop 05/07/20 at 08:46; Status DC Non-Formulary Medication 1 ea/ Sodium Chloride 210 ml @ 420 mls/hr 1X ONCE IV Last administered on 05/07/20at 15:07; Start 05/07/20 at 15:00; Stop 05/07/20 at 15:29; Status DC Non-Formulary Medication 1 ea/ Sodium Chloride 230 ml @ 460 mls/hr Q24H IV Last administered on 05/09/20at 09:24; Start 05/08/20 at 09:00; Stop 05/16/20 at 09:29 Dextrose/Sodium Chloride 1,000 ml @ 75 mls/hr [id number] IV Last administered on 05/09/20at 00:40; Start 05/08/20 at 12:30 Famotidine (Pepcid Vial) 20 mg BID IVP Last administered on 05/09/20at 08:44; Start 05/08/20 at 21:00 Insulin Human Lispro (HumaLOG) 0-5 UNITS Q6HRS SQ Last administered on 05/09/20at 12:51; Start 05/08/20 at 18:00 Dextrose (Dextrose 50%-Water Syringe) 12.5 gm PRN Q15MIN PRN IV SEE COMMENTS; Start 05/08/20 at 12:45 Enoxaparin Sodium (Lovenox 40mg Syringe) 40 mg BID SQ Last administered on 05/09/20at 08:44; Start 05/08/20 at 21:00 Vitals/I & O Vital Sign - Last 24 Hours 05/08/20 05/08/20 05/08/20 05/08/20 15:00 15:31 16:00 16:00 Temp 98.0 98.0 Pulse 56 54 Resp 20 20 B/P (MAP) 98/60 (73) 92/52 (65) Pulse Ox 100 100 99 O2 Delivery Ventilator Ventilator Ventilator Mechanical Ventilator 05/08/20 05/08/20 05/08/20 05/08/20 17:00 18:00 19:00 19:25 Pulse 54 55 57 Resp 21 20 19 B/P (MAP) 92/51 (65) 104/60 (75) 103/59 (74) Pulse Ox 99 99 98 99 O2 Delivery Ventilator Ventilator Ventilator O2 Flow Rate 40.0 05/08/20 05/08/20 05/08/20 05/08/20 20:00 20:00 20:01 21:00 Temp 98.1 98.1 Pulse 62 59 Resp 19 19 B/P (MAP) 105/60 (75) 103/58 (73) Pulse Ox 98 98 98 O2 Delivery Mechanical Ventilator Ventilator Ventilator Ventilator 05/08/20 05/08/20 05/08/20 05/08/20 21:12 22:00 22:15 23:00 Pulse 56 60 Resp 22 19 B/P (MAP) 114/55 (74) 106/61 (76) Pulse Ox 98 98 99 100 O2 Delivery Ventilator Ventilator Ventilator O2 Flow Rate 40.0 05/08/20 05/08/20 05/09/20 05/09/20 23:59 23:59 00:55 01:00 Temp 98.1 98.1 Pulse 58 59 Resp 19 20 B/P (MAP) 100/58 (72) 108/60 (76) Pulse Ox 100 100 100 O2 Delivery Ventilator Mechanical Ventilator Ventilator Ventilator 7/1/05/09/20 05/09/20 05/09/20 02:00 03:00 03:00 03:57 Pulse 67 59 Resp 20 B/P (MAP) 108/65 (79) 105/64 (78) Pulse Ox 100 100 100 100 O2 Delivery Ventilator Ventilator Ventilator O2 Flow Rate 40.0 05/09/20 05/09/20 05/09/20 05/09/20 04:00 04:00 04:52 05:00 Temp 98.5 98.5 Pulse 59 62 Resp 20 19 B/P (MAP) 115/64 (81) 117/59 (78) Pulse Ox 100 100 100 O2 Delivery Ventilator Mechanical Ventilator Ventilator O2 Flow Rate 40.0 05/09/20 05/09/20 05/09/20 05/09/20 06:09 07:00 08:00 08:00 Temp 98.6 98.6 Pulse 61 62 60 Resp 20 20 B/P (MAP) 118/63 (81) 119/65 (83) 120/66 (84) Pulse Ox 100 100 100 O2 Delivery Ventilator Ventilator Ventilator Mechanical Ventilator 05/09/20 05/09/20 05/09/20 05/09/20 08:04 09:00 10:00 11:00 Pulse 62 61 61 Resp 20 20 B/P (MAP) 118/66 (83) 120/67 (84) 123/69 (87) Pulse Ox 100 99 100 100 O2 Delivery Ventilator Ventilator Ventilator Ventilator 05/09/20 05/09/20 11:56 12:20 Pulse Ox 100 100 O2 Delivery Ventilator Ventilator Intake and Output 05/08/20 05/08/20 05/09/20 15:00 23:00 07:00 Intake Total 630 ml 1199 ml 2449 ml Output Total 532 ml 575 ml 610 ml Balance 98 ml 624 ml 1839 ml GAUTAM FRITZ MD May 09, 2020 14:19
--- NOTE | 2020-05-09 14:32 | NUR ---
SS following up with discharge planning. SS reviewed pt chart and discussed with RN. No new changes today. Pt COVID19 positive and remains on the vent at this time. Pt on IV Azithromycin and Rocephin. SS will continue to follow for discharge planning.
[2020-05-10] VITALS (24 sets, daily range): BP systolic 85–122; BP diastolic 44–72
[2020-05-10] MEDS: AZITHROMYCIN 500 MG in IV NORMAL SALINE 250ML 250 ML IV SCH (03:45)
[2020-05-10] MEDS: cefTRIAXone IV Push 1 GM VIAL. IVP SCH (03:49)
[2020-05-10] MEDS: MIDAZOLAM 100mg/100ml NS BAG 100 ML IV PRN ×2 (04:19→18:05)
[2020-05-10 04:46] LABS: ALBUMIN 1.8 g/dL (3.4-5.0); ALBUMIN/GLOBULIN RATIO 0.5 (1.0-1.7); CALCIUM 8.6 mg/dL (8.5-10.1); CREATININE 0.9 mg/dL (0.7-1.3); GFR 91.3; POTASSIUM 3.7 mmol/L (3.5-5.1); TOTAL BILIRUBIN 0.4 mg/dL (0.2-1.0); TOTAL PROTEIN 5.8 g/dL (6.4-8.2)
[2020-05-10] MEDS: methylPREDNISolone SOD SUCC PF 125 MG/2 ML VIAL. IV SCH ×3 (05:36→21:23)
[2020-05-10] MEDS: INSULIN LISPRO 300 UNITS/3 ML VIAL. SQ SCH ×3 (05:38→16:54)
[2020-05-10 08:07] LABS: BASE EXCESS ABG 4 mmol/L (-3-3); HCO3 ABG 28 mmol/L (21-28); PCO2 ABG 43 mmHg (35-46); PO2 ABG 85 mmHg (75-108); SAT O2 ABG 96 % (92-99)
[2020-05-10 08:10] LABS: FIO2 ABG 70
[2020-05-10] MEDS: FAMOTIDINE 20 MG/2 ML VIAL IVP SCH ×2 (08:50→21:22)
[2020-05-10] MEDS: ENOXAPARIN 40 MG/0.4 ML SYRINGE. SQ SCH (08:50)
[2020-05-10] MEDS: IV DEXTROSE 5 %-0.2 % NACL 1,000 ML IV SCH ×3 (08:50→21:45)
--- NOTE | 2020-05-10 09:32 | PDOC ---
PULMONARY PROGRESS NOTES Subjective Assist-control ventilation with high PEEP Vitals Vital Signs Date Time Temp Pulse Resp B/P (MAP) Pulse Ox O2 Delivery O2 Flow Rate FiO2 05/10/20 09:28 99 Ventilator 05/10/20 09:00 68 20 120/65 (83) 05/10/20 08:00 98.8 98.8 Comments Patient seen doing the pandemic, visual examination no respiratory distress in sync with the ventilator no significant edema Labs Laboratory Tests Test 05/08/20 13:00 05/08/20 17:54 05/08/20 23:46 05/09/20 02:52 Urine Collection Type U cath Urine Color Yellow Urine Clarity Cloudy Urine pH 5.5 (<5.0-8.0) Urine Specific [place] >=1.030 (1.000-1.030) Urine Protein Negative mg/dL (NEG-TRACE) Urine Glucose (UA) Negative mg/dL (NEG) Urine Ketones (Stick) Negative mg/dL (NEG) Urine Blood Negative (NEG) Urine Nitrite Negative (NEG) Urine Bilirubin Negative (NEG) Urine Urobilinogen Dipstick 0.2 mg/dL (0.2 mg/dL) Urine Leukocyte Esterase Negative (NEG) Urine RBC 1-2 /HPF (0-2) Urine WBC 5-10 /HPF (0-4) Urine Squamous Epithelial Cells Few /LPF Urine Amorphous Sediment Present /HPF Urine Bacteria Few /HPF (0-FEW) Urine Mucus Marked /LPF Urine Opiates Screen Neg (NEG) Urine Methadone Screen Neg (NEG) Urine Barbiturates Neg (NEG) Urine Phencyclidine Screen Neg (NEG) Urine Amphetamine/Methamphetamine Neg (NEG) Urine Benzodiazepines Screen Pos (NEG) Urine Cocaine Screen Neg (NEG) Urine Cannabinoids Screen Neg (NEG) Urine Ethyl Alcohol Neg (NEG) Glucose (Fingerstick) 170 mg/dL (70-99) 182 mg/dL (70-99) White Blood Count 11.3 x10^3/uL (4.0-11.0) Red Blood Count 4.35 x10^6/uL (4.30-5.70) Hemoglobin 12.6 g/dL (13.0-17.5) Hematocrit 38.0 % (39.0-53.0) Mean Corpuscular Volume 87 fL (79-100) Mean Corpuscular Hemoglobin 29 pg (25-35) Mean Corpuscular Hemoglobin Concent 33 g/dL (31-37) Red Cell Distribution Width 14.2 % (11.5-14.5) Platelet Count 425 x10^3/uL (140-400) Neutrophils (%) (Auto) 86 % (31-73) Lymphocytes (%) (Auto) 5 % (24-48) Monocytes (%) (Auto) 9 % (0-9) Eosinophils (%) (Auto) 0 % (0-3) Basophils (%) (Auto) 0 % (0-3) Neutrophils # (Auto) 9.8 x10^3/uL (1.8-7.7) Lymphocytes # (Auto) 0.6 x10^3/uL (1.0-4.8) Monocytes # (Auto) 1.0 x10^3/uL (0.0-1.1) Eosinophils # (Auto) 0.0 x10^3/uL (0.0-0.7) Basophils # (Auto) 0.0 x10^3/uL (0.0-0.2) Sodium Level 146 mmol/L (136-145) Potassium Level 4.0 mmol/L (3.5-5.1) Chloride Level 110 mmol/L (98-107) Carbon Dioxide Level 29 mmol/L (21-32) Anion Gap 7 (6-14) Blood Urea Nitrogen 29 mg/dL (8-26) Creatinine 0.9 mg/dL (0.7-1.3) Estimated GFR (Cockcroft-Gault) 91.3 BUN/Creatinine Ratio 32 (6-20) Glucose Level 192 mg/dL (70-99) Calcium Level 8.6 mg/dL (8.5-10.1) Total Bilirubin 0.2 mg/dL (0.2-1.0) Aspartate Amino Transf (AST/SGOT) 10 U/L (15-37) Alanine Aminotransferase (ALT/SGPT) 7 U/L (16-63) Alkaline Phosphatase 44 U/L (46-116) Total Protein 6.0 g/dL (6.4-8.2) Albumin 1.9 g/dL (3.4-5.0) Albumin/Globulin Ratio 0.5 (1.0-1.7) Test 05/09/20 06:07 05/09/20 08:15 05/09/20 12:45 05/09/20 18:06 Glucose (Fingerstick) 181 mg/dL (70-99) 172 mg/dL (70-99) 180 mg/dL (70-99) O2 Saturation 97 % (92-99) Arterial Blood pH 7.44 (7.35-7.45) Arterial Blood pCO2 at Patient Temp 40 mmHg (35-46) Arterial Blood pO2 at Patient Temp 105 mmHg (75-108) Arterial Blood HCO3 27 mmol/L (21-28) Arterial Blood Base Excess 2 mmol/L (-3-3) FiO2 90% +10 peep Test 05/09/20 23:41 05/10/20 03:55 05/10/20 08:00 Glucose (Fingerstick) 181 mg/dL (70-99) Sodium Level 143 mmol/L (136-145) Potassium Level 3.7 mmol/L (3.5-5.1) Chloride Level 108 mmol/L (98-107) Carbon Dioxide Level 31 mmol/L (21-32) Anion Gap 4 (6-14) Blood Urea Nitrogen 25 mg/dL (8-26) Creatinine 0.9 mg/dL (0.7-1.3) Estimated GFR (Cockcroft-Gault) 91.3 BUN/Creatinine Ratio 28 (6-20) Glucose Level 227 mg/dL (70-99) Calcium Level 8.6 mg/dL (8.5-10.1) Total Bilirubin 0.4 mg/dL (0.2-1.0) Aspartate Amino Transf (AST/SGOT) 36 U/L (15-37) Alanine Aminotransferase (ALT/SGPT) 28 U/L (16-63) Alkaline Phosphatase 45 U/L (46-116) Total Protein 5.8 g/dL (6.4-8.2) Albumin 1.8 g/dL (3.4-5.0) Albumin/Globulin Ratio 0.5 (1.0-1.7) O2 Saturation 96 % (92-99) Arterial Blood pH 7.43 (7.35-7.45) Arterial Blood pCO2 at Patient Temp 43 mmHg (35-46) Arterial Blood pO2 at Patient Temp 85 mmHg (75-108) Arterial Blood HCO3 28 mmol/L (21-28) Arterial Blood Base Excess 4 mmol/L (-3-3) FiO2 70 Laboratory Tests Test 05/09/20 12:45 05/09/20 18:06 05/09/20 23:41 05/10/20 03:55 Glucose (Fingerstick) 172 mg/dL (70-99) 180 mg/dL (70-99) 181 mg/dL (70-99) Sodium Level 143 mmol/L (136-145) Potassium Level 3.7 mmol/L (3.5-5.1) Chloride Level 108 mmol/L (98-107) Carbon Dioxide Level 31 mmol/L (21-32) Anion Gap 4 (6-14) Blood Urea Nitrogen 25 mg/dL (8-26) Creatinine 0.9 mg/dL (0.7-1.3) Estimated GFR (Cockcroft-Gault) 91.3 BUN/Creatinine Ratio 28 (6-20) Glucose Level 227 mg/dL (70-99) Calcium Level 8.6 mg/dL (8.5-10.1) Total Bilirubin 0.4 mg/dL (0.2-1.0) Aspartate Amino Transf (AST/SGOT) 36 U/L (15-37) Alanine Aminotransferase (ALT/SGPT) 28 U/L (16-63) Alkaline Phosphatase 45 U/L (46-116) Total Protein 5.8 g/dL (6.4-8.2) Albumin 1.8 g/dL (3.4-5.0) Albumin/Globulin Ratio 0.5 (1.0-1.7) Test 05/10/20 08:00 O2 Saturation 96 % (92-99) Arterial Blood pH 7.43 (7.35-7.45) Arterial Blood pCO2 at Patient Temp 43 mmHg (35-46) Arterial Blood pO2 at Patient Temp 85 mmHg (75-108) Arterial Blood HCO3 28 mmol/L (21-28) Arterial Blood Base Excess 4 mmol/L (-3-3) FiO2 70 Comments IMPRESSION: 1. Bilateral infiltrates. Impression . 1. Acute Hypoxic Respiratory Failure 2. Fever 3. Pneumonia, CXR positive for Bilateral patch infiltrates consistent with COVID-19 4. elevated d-dimer, will repeat 5. Tachycardia 6. Elevated CRP and ferrtin also consistent with COVID-19 infection 7. COVID-19 viral pneumonia 8. COVID-19 sepsis Plan . Appears to be oxygenating better, I am hopeful that he will recover, currently on 70% FiO2 Status post convalescent serum Patient intubated continue assist control ventilation Initiate Remdesivir Follow-up on SARS-CoV-2, positive Steroids DVT prophylaxis Initiate tube feeding Total cumulative critical care time of 35 minutes reviewing data, labs, chest x-ray, spoke with pharmacy YARELY PAULSON MD May 10, 2020 09:32
--- NOTE | 2020-05-10 10:30 | NUR ---
SS following up with discharge planning. SS reviewed pt chart and discussed with pt RN. No new changes today. Pt COVID19 positive. Pt remains on the vent at this time. Pt on IV Azithromycin and Rocephin. Pt COVID19 positive. SS will continue to follow for discharge planning.
[2020-05-10] MEDS: NON FORMULARY ITEM 1 EA in IV NORMAL SALINE 250ML 230 ML IV SCH (12:13)
--- NOTE | 2020-05-10 15:44 | PDOC ---
PROGRESS NOTES Chief Complaint Chief Complaint Acute Hypoxic Resp Failure secondary to Suspected COVID-19 Bilateral Infiltrates on cxr elevated D dimer// elevated inflammatory markers Leukocytosis ELEVATED FERRITIN // Elevated CRP and ferrtin also consistent with COVID-19 infection mild hypernatremia History of Present Illness History of Present Illness cont on VENT SUPPORT IV Rocephin and Azithro CTA chest REVIEWED follow cultures and covid screen dvt ppx: lovenox full code COVID-19 test pending, continue isolation precautions-- convalescent plasma and Remdesivir IV steroids pulm FOLLOWING d51/4 ns at 75 cc/hr The patient was evaluated during the global COVID-19 pandemic, and that diagnosis was suspected/considered upon their initial presentation. Vitals Vitals Vital Signs Date Time Temp Pulse Resp B/P (MAP) Pulse Ox O2 Delivery O2 Flow Rate FiO2 05/10/20 15:00 63 20 104/58 (73) 100 Ventilator 05/10/20 12:44 40.0 05/10/20 12:00 98.9 98.9 Physical Exam Physical Exam GENERAL: INTUBATED ON VENT, SEDATED HEENT: Head normocephalic, atraumatic. NECK: Supple LUNGS: Clear to auscultation. HEART: RRR, S1, S2 present, pulses intact ABDOMEN: Soft, positive bowel sounds. EXTREMITIES: No cyanosis or edema. SKIN: No ulceration. General: Other (sedated) Abdomen: Other (obese) Extremities: No cyanosis Skin: No breakdown Labs LABS Laboratory Tests Test 05/09/20 18:06 05/09/20 23:41 05/10/20 03:55 05/10/20 08:00 Glucose (Fingerstick) 180 mg/dL (70-99) 181 mg/dL (70-99) Sodium Level 143 mmol/L (136-145) Potassium Level 3.7 mmol/L (3.5-5.1) Chloride Level 108 mmol/L (98-107) Carbon Dioxide Level 31 mmol/L (21-32) Anion Gap 4 (6-14) Blood Urea Nitrogen 25 mg/dL (8-26) Creatinine 0.9 mg/dL (0.7-1.3) Estimated GFR (Cockcroft-Gault) 91.3 BUN/Creatinine Ratio 28 (6-20) Glucose Level 227 mg/dL (70-99) Calcium Level 8.6 mg/dL (8.5-10.1) Total Bilirubin 0.4 mg/dL (0.2-1.0) Aspartate Amino Transf (AST/SGOT) 36 U/L (15-37) Alanine Aminotransferase (ALT/SGPT) 28 U/L (16-63) Alkaline Phosphatase 45 U/L (46-116) Total Protein 5.8 g/dL (6.4-8.2) Albumin 1.8 g/dL (3.4-5.0) Albumin/Globulin Ratio 0.5 (1.0-1.7) O2 Saturation 96 % (92-99) Arterial Blood pH 7.43 (7.35-7.45) Arterial Blood pCO2 at Patient Temp 43 mmHg (35-46) Arterial Blood pO2 at Patient Temp 85 mmHg (75-108) Arterial Blood HCO3 28 mmol/L (21-28) Arterial Blood Base Excess 4 mmol/L (-3-3) FiO2 70 Test 05/10/20 14:45 D-Dimer (Daphney) 2.51 ug/mlFEU (0.00-0.50) Comment Review of Relevant I have reviewed the following items laura (where applicable) has been applied. Labs Laboratory Tests Test 05/08/20 17:54 05/08/20 23:46 05/09/20 02:52 05/09/20 06:07 Glucose (Fingerstick) 170 mg/dL (70-99) 182 mg/dL (70-99) 181 mg/dL (70-99) White Blood Count 11.3 x10^3/uL (4.0-11.0) Red Blood Count 4.35 x10^6/uL (4.30-5.70) Hemoglobin 12.6 g/dL (13.0-17.5) Hematocrit 38.0 % (39.0-53.0) Mean Corpuscular Volume 87 fL (79-100) Mean Corpuscular Hemoglobin 29 pg (25-35) Mean Corpuscular Hemoglobin Concent 33 g/dL (31-37) Red Cell Distribution Width 14.2 % (11.5-14.5) Platelet Count 425 x10^3/uL (140-400) Neutrophils (%) (Auto) 86 % (31-73) Lymphocytes (%) (Auto) 5 % (24-48) Monocytes (%) (Auto) 9 % (0-9) Eosinophils (%) (Auto) 0 % (0-3) Basophils (%) (Auto) 0 % (0-3) Neutrophils # (Auto) 9.8 x10^3/uL (1.8-7.7) Lymphocytes # (Auto) 0.6 x10^3/uL (1.0-4.8) Monocytes # (Auto) 1.0 x10^3/uL (0.0-1.1) Eosinophils # (Auto) 0.0 x10^3/uL (0.0-0.7) Basophils # (Auto) 0.0 x10^3/uL (0.0-0.2) Sodium Level 146 mmol/L (136-145) Potassium Level 4.0 mmol/L (3.5-5.1) Chloride Level 110 mmol/L (98-107) Carbon Dioxide Level 29 mmol/L (21-32) Anion Gap 7 (6-14) Blood Urea Nitrogen 29 mg/dL (8-26) Creatinine 0.9 mg/dL (0.7-1.3) Estimated GFR (Cockcroft-Gault) 91.3 BUN/Creatinine Ratio 32 (6-20) Glucose Level 192 mg/dL (70-99) Calcium Level 8.6 mg/dL (8.5-10.1) Total Bilirubin 0.2 mg/dL (0.2-1.0) Aspartate Amino Transf (AST/SGOT) 10 U/L (15-37) Alanine Aminotransferase (ALT/SGPT) 7 U/L (16-63) Alkaline Phosphatase 44 U/L (46-116) Total Protein 6.0 g/dL (6.4-8.2) Albumin 1.9 g/dL (3.4-5.0) Albumin/Globulin Ratio 0.5 (1.0-1.7) Test 05/09/20 08:15 05/09/20 12:45 05/09/20 18:06 05/09/20 23:41 O2 Saturation 97 % (92-99) Arterial Blood pH 7.44 (7.35-7.45) Arterial Blood pCO2 at Patient Temp 40 mmHg (35-46) Arterial Blood pO2 at Patient Temp 105 mmHg (75-108) Arterial Blood HCO3 27 mmol/L (21-28) Arterial Blood Base Excess 2 mmol/L (-3-3) FiO2 90% +10 peep Glucose (Fingerstick) 172 mg/dL (70-99) 180 mg/dL (70-99) 181 mg/dL (70-99) Test 05/10/20 03:55 05/10/20 08:00 05/10/20 14:45 Sodium Level 143 mmol/L (136-145) Potassium Level 3.7 mmol/L (3.5-5.1) Chloride Level 108 mmol/L (98-107) Carbon Dioxide Level 31 mmol/L (21-32) Anion Gap 4 (6-14) Blood Urea Nitrogen 25 mg/dL (8-26) Creatinine 0.9 mg/dL (0.7-1.3) Estimated GFR (Cockcroft-Gault) 91.3 BUN/Creatinine Ratio 28 (6-20) Glucose Level 227 mg/dL (70-99) Calcium Level 8.6 mg/dL (8.5-10.1) Total Bilirubin 0.4 mg/dL (0.2-1.0) Aspartate Amino Transf (AST/SGOT) 36 U/L (15-37) Alanine Aminotransferase (ALT/SGPT) 28 U/L (16-63) Alkaline Phosphatase 45 U/L (46-116) Total Protein 5.8 g/dL (6.4-8.2) Albumin 1.8 g/dL (3.4-5.0) Albumin/Globulin Ratio 0.5 (1.0-1.7) O2 Saturation 96 % (92-99) Arterial Blood pH 7.43 (7.35-7.45) Arterial Blood pCO2 at Patient Temp 43 mmHg (35-46) Arterial Blood pO2 at Patient Temp 85 mmHg (75-108) Arterial Blood HCO3 28 mmol/L (21-28) Arterial Blood Base Excess 4 mmol/L (-3-3) FiO2 70 D-Dimer (Daphney) 2.51 ug/mlFEU (0.00-0.50) Laboratory Tests Test 05/09/20 18:06 05/09/20 23:41 05/10/20 03:55 05/10/20 08:00 Glucose (Fingerstick) 180 mg/dL (70-99) 181 mg/dL (70-99) Sodium Level 143 mmol/L (136-145) Potassium Level 3.7 mmol/L (3.5-5.1) Chloride Level 108 mmol/L (98-107) Carbon Dioxide Level 31 mmol/L (21-32) Anion Gap 4 (6-14) Blood Urea Nitrogen 25 mg/dL (8-26) Creatinine 0.9 mg/dL (0.7-1.3) Estimated GFR (Cockcroft-Gault) 91.3 BUN/Creatinine Ratio 28 (6-20) Glucose Level 227 mg/dL (70-99) Calcium Level 8.6 mg/dL (8.5-10.1) Total Bilirubin 0.4 mg/dL (0.2-1.0) Aspartate Amino Transf (AST/SGOT) 36 U/L (15-37) Alanine Aminotransferase (ALT/SGPT) 28 U/L (16-63) Alkaline Phosphatase 45 U/L (46-116) Total Protein 5.8 g/dL (6.4-8.2) Albumin 1.8 g/dL (3.4-5.0) Albumin/Globulin Ratio 0.5 (1.0-1.7) O2 Saturation 96 % (92-99) Arterial Blood pH 7.43 (7.35-7.45) Arterial Blood pCO2 at Patient Temp 43 mmHg (35-46) Arterial Blood pO2 at Patient Temp 85 mmHg (75-108) Arterial Blood HCO3 28 mmol/L (21-28) Arterial Blood Base Excess 4 mmol/L (-3-3) FiO2 70 Test 05/10/20 14:45 D-Dimer (Daphney) 2.51 ug/mlFEU (0.00-0.50) Microbiology 05/08/20 Urine Culture - Final, Complete 05/06/20 Blood Culture - Preliminary, Resulted NO GROWTH AFTER 4 DAYS Medications Current Medications Acetaminophen (Tylenol) 650 mg 1X ONCE PO Last administered on 05/06/20at 03:54; Start 05/06/20 at 03:00; Stop 05/06/20 at 03:01; Status DC Sodium Chloride 1,000 ml @ 1,000 mls/hr 1X ONCE IV Last administered on 05/06at 03:53; Start 05/06/20 at 03:00; Stop 05/06/20 at 03:59; Status DC Ceftriaxone Sodium (Rocephin) 1 gm 1X ONCE IVP Last administered on 05/06/20at 03:54; Start 05/06/20 at 03:00; Stop 05/06/20 at 03:01; Status DC Azithromycin 250 ml @ 250 mls/hr 1X ONCE IV Last administered on 05/06/20at 03:00; Start 05/06/20 at 03:00; Stop 05/06/20 at 03:59; Status DC Hydralazine HCl (Apresoline) 25 mg PRN TID PRN PO for SBP greater than 180; Start 05/06/20 at 07:30 Enoxaparin Sodium (Lovenox Per Pharmacy Prophylaxis Dosing) 1 each PRN DAILY PRN MC SEE COMMENTS; Start 05/06/20 at 07:30 Ceftriaxone Sodium (Rocephin) 1 gm Q24H IVP Last administered on 05/10/20at 03:49; Start 05/07/20 at 04:00 Acetaminophen (Tylenol) 650 mg PRN Q6HRS PRN PO fever Last administered on 05/06/20at 15:51; Start 05/06/20 at 07:30 Azithromycin 500 mg/Sodium Chloride 250 ml @ 250 mls/hr Q24H IV Last administered on 05/10/20at 03:45; Start 05/07/20 at 04:00 Enoxaparin Sodium (Lovenox 60mg Syringe) 60 mg Q12HR SQ Last administered on 05/08/20at 08:16; Start 05/06/20 at 09:00; Stop 05/08/20 at 14:36; Status DC Nicotine (Nicoderm Cq 21mg) 1 patch PRN DAILY PRN TD SMOKING CESSATION; Start 05/06/20 at 08:30 Methylprednisolone Sodium Succinate (SOLU-Medrol 125MG VIAL) 60 mg Q8HRS IV Last administered on 05/10/20at 15:35; Start 05/06/20 at 14:00 Famotidine (Pepcid Vial) 20 mg BID IVP Last administered on 05/08/20at 08:15; Start 05/06/20 at 21:00; Stop 05/08/20 at 12:35; Status DC Sterile Water (WATER for RESP) 1,000 ml CONT PRN INH VIA VAPOTHERM DEVICE; Start 05/06/20 at 23:30; Stop 05/07/20 at 11:27; Status DC Fentanyl Citrate 30 ml @ 0 mls/hr CONT PRN IV SEE PROTOCOL Last administered on 05/10/20at 12:14; Start 05/07/20 at 00:30 Propofol 100 ml @ 0 mls/hr CONT PRN IV SEE PROTOCOL; Start 05/07/20 at 00:15 Chlorhexidine Gluconate (Peridex) 15 ml BID MM ; Start 05/07/20 at 09:00; Stop 05/07/20 at 07:33; Status DC Midazolam HCl 100 ml @ 0 mls/hr CONT PRN IV SEE PROTOCOL Last administered on 05/10/20at 04:19; Start 05/07/20 at 00:30 Succinylcholine Chloride (Anectine) 200 mg 1X ONCE IV Last administered on 05/07/20at 00:37; Start 05/07/20 at 00:45; Stop 05/07/20 at 00:46; Status DC Etomidate (Amidate) 20 mg STK-MED ONCE IV ; Start 05/07/20 at 00:57; Stop 05/07/20 at 00:57; Status DC Vecuronium [place] (Norcuron Bolus) 10 mg 1X ONCE IV ; Start 05/07/20 at 01:15; Stop 05/07/20 at 01:16; Status DC Norepinephrine Bitartrate 8 mg/ Dextrose 258 ml @ 19.756 mls/ hr CONT PRN IV PER PROTOCOL Last administered on 05/07/20at 02:37; Start 05/07/20 at 02:15 Succinylcholine Chloride (Anectine) 200 mg STK-MED ONCE .ROUTE ; Start 05/07/20 at 01:00; Stop 05/07/20 at 08:46; Status DC Non-Formulary Medication 1 ea/ Sodium Chloride 210 ml @ 420 mls/hr 1X ONCE IV Last administered on 05/07/20at 15:07; Start 05/07/20 at 15:00; Stop 05/07/20 at 15:29; Status DC Non-Formulary Medication 1 ea/ Sodium Chloride 230 ml @ 460 mls/hr Q24H IV Last administered on 05/10/20at 12:13; Start 05/08/20 at 09:00; Stop 05/16/20 at 09:29 Dextrose/Sodium Chloride 1,000 ml @ 75 mls/hr [id number] IV Last administered on 05/10/20at 08:50; Start 05/08/20 at 12:30 Famotidine (Pepcid Vial) 20 mg BID IVP Last administered on 05/10/20at 08:50; Start 05/08/20 at 21:00 Insulin Human Lispro (HumaLOG) 0-5 UNITS Q6HRS SQ Last administered on 05/10/20at 12:00; Start 05/08/20 at 18:00 Dextrose (Dextrose 50%-Water Syringe) 12.5 gm PRN Q15MIN PRN IV SEE COMMENTS; Start 05/08/20 at 12:45 Enoxaparin Sodium (Lovenox 40mg Syringe) 40 mg BID SQ Last administered on 05/10/20at 08:50; Start 05/08/20 at 21:00 Vitals/I & O Vital Sign - Last 24 Hours 05/09/20 05/09/20 05/09/20 05/09/20 16:00 16:00 16:01 17:00 Temp 98.5 98.5 Pulse 64 63 Resp 20 20 B/P (MAP) 121/67 (85) 118/67 (84) Pulse Ox 97 100 96 O2 Delivery Mechanical Ventilator Ventilator Ventilator Ventilator 05/09/20 05/09/20 05/09/20 05/09/20 18:00 19:00 20:00 20:00 Temp 98.6 98.6 Pulse 69 66 68 Resp 20 20 20 B/P (MAP) 112/61 (78) 116/64 (81) 116/66 (83) Pulse Ox 97 98 98 O2 Delivery Ventilator Ventilator Mechanical Ventilator Ventilator 05/09/20 05/09/20 05/09/20 05/09/20 20:30 20:41 21:00 21:15 Pulse 66 Resp 20 20 20 B/P (MAP) 118/62 (80) Pulse Ox 100 97 O2 Delivery Ventilator Ventilator Ventilator Ventilator 05/09/20 05/09/20 05/09/20 05/10/20 22:00 23:00 23:08 00:00 Pulse 68 65 Resp 20 20 B/P (MAP) 113/58 (76) 112/60 (77) Pulse Ox 97 98 98 O2 Delivery Ventilator Ventilator Ventilator Mechanical Ventilator 05/10/20 05/10/20 05/10/20 05/10/20 00:00 01:00 02:00 03:00 Temp 98.4 98.4 Pulse 64 61 60 64 Resp 20 20 20 20 B/P (MAP) 120/70 (87) 118/68 (85) 119/72 (88) 121/69 (86) Pulse Ox 99 99 100 100 O2 Delivery Ventilator Ventilator Ventilator Ventilator 05/10/20 05/10/20 05/10/20 05/10/20 03:50 04:00 04:00 04:21 Temp 98.3 98.3 Pulse 64 Resp 20 20 B/P (MAP) 118/71 (87) Pulse Ox 98 100 O2 Delivery Ventilator Ventilator Mechanical Ventilator Ventilator 05/10/20 05/10/20 05/10/20 05/10/20 05:00 05:00 06:00 07:00 Pulse 71 66 67 Resp 20 20 20 20 B/P (MAP) 118/67 (84) 118/67 (84) 115/64 (81) Pulse Ox 100 99 99 O2 Delivery Ventilator Ventilator Ventilator Ventilator 05/10/20 05/10/20 05/10/20 05/10/20 07:45 08:00 08:00 09:00 Temp 98.8 98.8 Pulse 66 68 Resp 20 20 B/P (MAP) 114/64 (81) 120/65 (83) Pulse Ox 99 100 99 O2 Delivery Ventilator Ventilator Mechanical Ventilator Ventilator 05/10/20 05/10/20 05/10/20 05/10/20 09:28 10:00 11:00 11:16 Pulse 63 62 Resp 20 20 B/P (MAP) 120/63 (82) 122/64 (83) Pulse Ox 99 99 99 100 O2 Delivery Ventilator Ventilator Ventilator Ventilator 05/10/20 05/10/20 05/10/20 05/10/20 12:00 12:00 12:14 12:27 Temp 98.9 98.9 Pulse 67 Resp 20 B/P (MAP) 114/59 (77) Pulse Ox 99 100 99 O2 Delivery Ventilator Mechanical Ventilator Ventilator O2 Flow Rate 40.0 05/10/20 05/10/20 05/10/20 05/10/20 12:44 13:00 14:00 15:00 Pulse 74 63 63 Resp 20 20 20 B/P (MAP) 85/44 (58) 106/58 (74) 104/58 (73) Pulse Ox 100 100 100 100 O2 Delivery Ventilator Ventilator Ventilator O2 Flow Rate 40.0 Intake and Output 05/09/20 05/09/20 05/10/20 15:00 23:00 07:00 Intake Total 350 ml 2561 ml 2665 ml Output Total 510 ml 590 ml 565 ml Balance -160 ml 1971 ml 2100 ml Justicifation of Admission Dx: Justifications for Admission: Justification of Admission Dx: Yes Comminuty Aquired Pneumonia: Hypoxemia GAUTAM FRITZ MD May 10, 2020 15:44
[2020-05-10] MEDS ORDERED: HEPARIN for IV BOLUS 10,000 UNIT/10 ML VIAL. IV PRN ×2 (21:00)
[2020-05-10] MEDS ORDERED: HEPARIN for IV BOLUS 10,000 UNIT/10 ML VIAL. IV ONE (21:00)
[2020-05-10] MEDS: HEPARIN 25,000UTS/250ML PREMIX 250 ML IV PRN (21:23)
[2020-05-10 21:43] LABS: PROTHROMBIN TIME PATIENT 15.1 SEC (11.7-14.0)
[2020-05-11] VITALS (24 sets, daily range): BP systolic 102–144; BP diastolic 61–81
[2020-05-11] MEDS: INSULIN LISPRO 300 UNITS/3 ML VIAL. SQ SCH ×4 (00:34→16:53)
[2020-05-11 03:46] LABS: ALBUMIN 1.7 g/dL (3.4-5.0); ALBUMIN/GLOBULIN RATIO 0.4 (1.0-1.7); CALCIUM 8.1 mg/dL (8.5-10.1); CREATININE 0.9 mg/dL (0.7-1.3); GFR 91.3; POTASSIUM 3.7 mmol/L (3.5-5.1); TOTAL BILIRUBIN 0.4 mg/dL (0.2-1.0); TOTAL PROTEIN 5.6 g/dL (6.4-8.2)
[2020-05-11] MEDS: cefTRIAXone IV Push 1 GM VIAL. IVP SCH (04:08)
[2020-05-11] MEDS: AZITHROMYCIN 500 MG in IV NORMAL SALINE 250ML 250 ML IV SCH (04:08)
--- NOTE | 2020-05-11 05:38 | RAD ---
AP chest. HISTORY: NG placement, congestion AP view was taken of the chest. There is an NG tube looped at the fundus of the stomach. Endotracheal tube is unchanged. There are bilateral hazy infiltrates with little change. IMPRESSION: 1. NG tube extends into the stomach. 2. Endotracheal tube remains in good position. 3. Persistent infiltrates. Electronically signed by: Lamberto Mueller MD (05/11/2020 5:35 AM) [id number]
[2020-05-11] MEDS: methylPREDNISolone SOD SUCC PF 125 MG/2 ML VIAL. IV SCH ×3 (06:12→22:23)
[2020-05-11] MEDS: MIDAZOLAM 100mg/100ml NS BAG 100 ML IV PRN ×2 (08:21→18:20)
[2020-05-11 08:36] LABS: BASE EXCESS ABG 1 mmol/L (-3-3); HCO3 ABG 26 mmol/L (21-28); PCO2 ABG 40 mmHg (35-46); PO2 ABG 80 mmHg (75-108); SAT O2 ABG 95 % (92-99)
[2020-05-11 08:41] LABS: FIO2 ABG 70
[2020-05-11] MEDS: FAMOTIDINE 20 MG/2 ML VIAL IVP SCH ×2 (08:41→21:24)
--- NOTE | 2020-05-11 08:57 | PDOC ---
PULMONARY PROGRESS NOTES Subjective Assist-control ventilation with high PEEP Vitals Vital Signs Date Time Temp Pulse Resp B/P (MAP) Pulse Ox O2 Delivery O2 Flow Rate FiO2 05/11/20 08:21 100 Ventilator 05/11/20 07:00 48 20 113/68 (83) 05/11/20 04:00 97.3 97.3 05/10/20 12:44 40.0 Comments Patient seen doing the , visual examination no respiratory distress in sync with the ventilator no significant edema Labs Laboratory Tests Test 05/09/20 12:45 05/09/20 18:06 05/09/20 23:41 05/10/20 03:55 Glucose (Fingerstick) 172 mg/dL (70-99) 180 mg/dL (70-99) 181 mg/dL (70-99) Sodium Level 143 mmol/L (136-145) Potassium Level 3.7 mmol/L (3.5-5.1) Chloride Level 108 mmol/L (98-107) Carbon Dioxide Level 31 mmol/L (21-32) Anion Gap 4 (6-14) Blood Urea Nitrogen 25 mg/dL (8-26) Creatinine 0.9 mg/dL (0.7-1.3) Estimated GFR (Cockcroft-Gault) 91.3 BUN/Creatinine Ratio 28 (6-20) Glucose Level 227 mg/dL (70-99) Calcium Level 8.6 mg/dL (8.5-10.1) Total Bilirubin 0.4 mg/dL (0.2-1.0) Aspartate Amino Transf (AST/SGOT) 36 U/L (15-37) Alanine Aminotransferase (ALT/SGPT) 28 U/L (16-63) Alkaline Phosphatase 45 U/L (46-116) Total Protein 5.8 g/dL (6.4-8.2) Albumin 1.8 g/dL (3.4-5.0) Albumin/Globulin Ratio 0.5 (1.0-1.7) Test 05/10/20 08:00 05/10/20 12:24 05/10/20 14:45 05/10/20 16:34 O2 Saturation 96 % (92-99) Arterial Blood pH 7.43 (7.35-7.45) Arterial Blood pCO2 at Patient Temp 43 mmHg (35-46) Arterial Blood pO2 at Patient Temp 85 mmHg (75-108) Arterial Blood HCO3 28 mmol/L (21-28) Arterial Blood Base Excess 4 mmol/L (-3-3) FiO2 70 Glucose (Fingerstick) 196 mg/dL (70-99) 188 mg/dL (70-99) D-Dimer (Daphney) 2.51 ug/mlFEU (0.00-0.50) Test 05/10/20 21:15 05/11/20 00:21 05/11/20 03:25 05/11/20 05:47 Prothrombin Time 15.1 SEC (11.7-14.0) Prothromb Time International Ratio 1.2 (0.8-1.1) Activated Partial Thromboplast Time 25 SEC (24-38) Glucose (Fingerstick) 235 mg/dL (70-99) 191 mg/dL (70-99) Heparin Anti-Xa Act, Unfractionated > 1.10 IU/mL (0.30-0.70) Sodium Level 138 mmol/L (136-145) Potassium Level 3.7 mmol/L (3.5-5.1) Chloride Level 103 mmol/L (98-107) Carbon Dioxide Level 31 mmol/L (21-32) Anion Gap 4 (6-14) Blood Urea Nitrogen 20 mg/dL (8-26) Creatinine 0.9 mg/dL (0.7-1.3) Estimated GFR (Cockcroft-Gault) 91.3 BUN/Creatinine Ratio 22 (6-20) Glucose Level 272 mg/dL (70-99) Calcium Level 8.1 mg/dL (8.5-10.1) Magnesium Level 2.2 mg/dL (1.8-2.4) Total Bilirubin 0.4 mg/dL (0.2-1.0) Aspartate Amino Transf (AST/SGOT) 20 U/L (15-37) Alanine Aminotransferase (ALT/SGPT) 29 U/L (16-63) Alkaline Phosphatase 50 U/L (46-116) Total Protein 5.6 g/dL (6.4-8.2) Albumin 1.7 g/dL (3.4-5.0) Albumin/Globulin Ratio 0.4 (1.0-1.7) Test 05/11/20 08:30 O2 Saturation 95 % (92-99) Arterial Blood pH 7.42 (7.35-7.45) Arterial Blood pCO2 at Patient Temp 40 mmHg (35-46) Arterial Blood pO2 at Patient Temp 80 mmHg (75-108) Arterial Blood HCO3 26 mmol/L (21-28) Arterial Blood Base Excess 1 mmol/L (-3-3) FiO2 70 Laboratory Tests Test 05/10/20 12:24 05/10/20 14:45 05/10/20 16:34 05/10/20 21:15 Glucose (Fingerstick) 196 mg/dL (70-99) 188 mg/dL (70-99) D-Dimer (Daphney) 2.51 ug/mlFEU (0.00-0.50) Prothrombin Time 15.1 SEC (11.7-14.0) Prothromb Time International Ratio 1.2 (0.8-1.1) Activated Partial Thromboplast Time 25 SEC (24-38) Test 05/11/20 00:21 05/11/20 03:25 05/11/20 05:47 05/11/20 08:30 Glucose (Fingerstick) 235 mg/dL (70-99) 191 mg/dL (70-99) Heparin Anti-Xa Act, Unfractionated > 1.10 IU/mL (0.30-0.70) Sodium Level 138 mmol/L (136-145) Potassium Level 3.7 mmol/L (3.5-5.1) Chloride Level 103 mmol/L (98-107) Carbon Dioxide Level 31 mmol/L (21-32) Anion Gap 4 (6-14) Blood Urea Nitrogen 20 mg/dL (8-26) Creatinine 0.9 mg/dL (0.7-1.3) Estimated GFR (Cockcroft-Gault) 91.3 BUN/Creatinine Ratio 22 (6-20) Glucose Level 272 mg/dL (70-99) Calcium Level 8.1 mg/dL (8.5-10.1) Magnesium Level 2.2 mg/dL (1.8-2.4) Total Bilirubin 0.4 mg/dL (0.2-1.0) Aspartate Amino Transf (AST/SGOT) 20 U/L (15-37) Alanine Aminotransferase (ALT/SGPT) 29 U/L (16-63) Alkaline Phosphatase 50 U/L (46-116) Total Protein 5.6 g/dL (6.4-8.2) Albumin 1.7 g/dL (3.4-5.0) Albumin/Globulin Ratio 0.4 (1.0-1.7) O2 Saturation 95 % (92-99) Arterial Blood pH 7.42 (7.35-7.45) Arterial Blood pCO2 at Patient Temp 40 mmHg (35-46) Arterial Blood pO2 at Patient Temp 80 mmHg (75-108) Arterial Blood HCO3 26 mmol/L (21-28) Arterial Blood Base Excess 1 mmol/L (-3-3) FiO2 70 Comments IMPRESSION: 1. Bilateral infiltrates. Impression . 1. Acute Hypoxic Respiratory Failure 2. Fever 3. Pneumonia, CXR positive for Bilateral patch infiltrates consistent with C OVID-19 4. elevated d-dimer, presumptive thromboembolic disease 5. Tachycardia 6. Elevated CRP and ferrtin also consistent with COVID-19 infection 7. COVID-19 viral pneumonia 8. COVID-19 sepsis Plan . Appears to be oxygenating better, will continue to decrease FiO2 D-dimer continues to rise, started on full dose heparin, for presumptive thrombo embolic disease Status post convalescent serum continue assist control ventilation Status post Remdesivir Steroids DVT prophylaxis Initiate tube feeding Total cumulative critical care time of 35 minutes reviewing data, labs, chest x- ray, spoke with pharmacy YARELY PAULSON MD May 11, 2020 08:57
[2020-05-11] MEDS: NON FORMULARY ITEM 1 EA in IV NORMAL SALINE 250ML 230 ML IV SCH (09:12)
--- NOTE | 2020-05-11 16:32 | PDOC ---
PROGRESS NOTES Chief Complaint Chief Complaint Acute Hypoxic Resp Failure secondary to Suspected COVID-19 Bilateral Infiltrates on cxr elevated D dimer// elevated inflammatory markers Leukocytosis ELEVATED FERRITIN // Elevated CRP and ferrtin also consistent with COVID-19 infection mild hypernatremia History of Present Illness History of Present Illness cont on vent IV abxm pulm following IV Rocephin and Azithro The patient was evaluated during the global COVID-19 pandemic, and that diagnosis was suspected/considered upon their initial presentation. Vitals Vitals Vital Signs Date Time Temp Pulse Resp B/P (MAP) Pulse Ox O2 Delivery O2 Flow Rate FiO2 05/11/20 15:23 100 Ventilator 05/11/20 15:00 49 20 116/73 (87) 05/11/20 12:02 40.0 05/11/20 12:00 98.0 98.0 Physical Exam Physical Exam GENERAL: INTUBATED ON VENT, SEDATED HEENT: Head normocephalic, atraumatic. NECK: Supple LUNGS: Clear to auscultation. HEART: RRR, S1, S2 present, pulses intact ABDOMEN: Soft, positive bowel sounds. EXTREMITIES: No cyanosis or edema. SKIN: No ulceration. General: Other (sedated) Abdomen: Other (obese) Extremities: No cyanosis Skin: No breakdown Labs LABS Laboratory Tests Test 05/10/20 16:34 05/10/20 21:15 05/11/20 00:21 05/11/20 03:25 Glucose (Fingerstick) 188 mg/dL (70-99) 235 mg/dL (70-99) Prothrombin Time 15.1 SEC (11.7-14.0) Prothromb Time International Ratio 1.2 (0.8-1.1) Activated Partial Thromboplast Time 25 SEC (24-38) Heparin Anti-Xa Act, Unfractionated > 1.10 IU/mL (0.30-0.70) Sodium Level 138 mmol/L (136-145) Potassium Level 3.7 mmol/L (3.5-5.1) Chloride Level 103 mmol/L (98-107) Carbon Dioxide Level 31 mmol/L (21-32) Anion Gap 4 (6-14) Blood Urea Nitrogen 20 mg/dL (8-26) Creatinine 0.9 mg/dL (0.7-1.3) Estimated GFR (Cockcroft-Gault) 91.3 BUN/Creatinine Ratio 22 (6-20) Glucose Level 272 mg/dL (70-99) Calcium Level 8.1 mg/dL (8.5-10.1) Magnesium Level 2.2 mg/dL (1.8-2.4) Total Bilirubin 0.4 mg/dL (0.2-1.0) Aspartate Amino Transf (AST/SGOT) 20 U/L (15-37) Alanine Aminotransferase (ALT/SGPT) 29 U/L (16-63) Alkaline Phosphatase 50 U/L (46-116) Total Protein 5.6 g/dL (6.4-8.2) Albumin 1.7 g/dL (3.4-5.0) Albumin/Globulin Ratio 0.4 (1.0-1.7) Test 05/11/20 05:47 05/11/20 08:30 05/11/20 11:10 05/11/20 13:18 Glucose (Fingerstick) 191 mg/dL (70-99) 226 mg/dL (70-99) O2 Saturation 95 % (92-99) Arterial Blood pH 7.42 (7.35-7.45) Arterial Blood pCO2 at Patient Temp 40 mmHg (35-46) Arterial Blood pO2 at Patient Temp 80 mmHg (75-108) Arterial Blood HCO3 26 mmol/L (21-28) Arterial Blood Base Excess 1 mmol/L (-3-3) FiO2 70 Heparin Anti-Xa Act, Unfractionated 0.40 IU/mL (0.30-0.70) Comment Review of Relevant I have reviewed the following items laura (where applicable) has been applied. Labs Laboratory Tests Test 05/09/20 18:06 05/09/20 23:41 05/10/20 03:55 05/10/20 08:00 Glucose (Fingerstick) 180 mg/dL (70-99) 181 mg/dL (70-99) Sodium Level 143 mmol/L (136-145) Potassium Level 3.7 mmol/L (3.5-5.1) Chloride Level 108 mmol/L (98-107) Carbon Dioxide Level 31 mmol/L (21-32) Anion Gap 4 (6-14) Blood Urea Nitrogen 25 mg/dL (8-26) Creatinine 0.9 mg/dL (0.7-1.3) Estimated GFR (Cockcroft-Gault) 91.3 BUN/Creatinine Ratio 28 (6-20) Glucose Level 227 mg/dL (70-99) Calcium Level 8.6 mg/dL (8.5-10.1) Total Bilirubin 0.4 mg/dL (0.2-1.0) Aspartate Amino Transf (AST/SGOT) 36 U/L (15-37) Alanine Aminotransferase (ALT/SGPT) 28 U/L (16-63) Alkaline Phosphatase 45 U/L (46-116) Total Protein 5.8 g/dL (6.4-8.2) Albumin 1.8 g/dL (3.4-5.0) Albumin/Globulin Ratio 0.5 (1.0-1.7) O2 Saturation 96 % (92-99) Arterial Blood pH 7.43 (7.35-7.45) Arterial Blood pCO2 at Patient Temp 43 mmHg (35-46) Arterial Blood pO2 at Patient Temp 85 mmHg (75-108) Arterial Blood HCO3 28 mmol/L (21-28) Arterial Blood Base Excess 4 mmol/L (-3-3) FiO2 70 Test 05/10/20 12:24 05/10/20 14:45 05/10/20 16:34 05/10/20 21:15 Glucose (Fingerstick) 196 mg/dL (70-99) 188 mg/dL (70-99) D-Dimer (Daphney) 2.51 ug/mlFEU (0.00-0.50) Prothrombin Time 15.1 SEC (11.7-14.0) Prothromb Time International Ratio 1.2 (0.8-1.1) Activated Partial Thromboplast Time 25 SEC (24-38) Test 05/11/20 00:21 05/11/20 03:25 05/11/20 05:47 05/11/20 08:30 Glucose (Fingerstick) 235 mg/dL (70-99) 191 mg/dL (70-99) Heparin Anti-Xa Act, Unfractionated > 1.10 IU/mL (0.30-0.70) Sodium Level 138 mmol/L (136-145) Potassium Level 3.7 mmol/L (3.5-5.1) Chloride Level 103 mmol/L (98-107) Carbon Dioxide Level 31 mmol/L (21-32) Anion Gap 4 (6-14) Blood Urea Nitrogen 20 mg/dL (8-26) Creatinine 0.9 mg/dL (0.7-1.3) Estimated GFR (Cockcroft-Gault) 91.3 BUN/Creatinine Ratio 22 (6-20) Glucose Level 272 mg/dL (70-99) Calcium Level 8.1 mg/dL (8.5-10.1) Magnesium Level 2.2 mg/dL (1.8-2.4) Total Bilirubin 0.4 mg/dL (0.2-1.0) Aspartate Amino Transf (AST/SGOT) 20 U/L (15-37) Alanine Aminotransferase (ALT/SGPT) 29 U/L (16-63) Alkaline Phosphatase 50 U/L (46-116) Total Protein 5.6 g/dL (6.4-8.2) Albumin 1.7 g/dL (3.4-5.0) Albumin/Globulin Ratio 0.4 (1.0-1.7) O2 Saturation 95 % (92-99) Arterial Blood pH 7.42 (7.35-7.45) Arterial Blood pCO2 at Patient Temp 40 mmHg (35-46) Arterial Blood pO2 at Patient Temp 80 mmHg (75-108) Arterial Blood HCO3 26 mmol/L (21-28) Arterial Blood Base Excess 1 mmol/L (-3-3) FiO2 70 Test 05/11/20 11:10 05/11/20 13:18 Heparin Anti-Xa Act, Unfractionated 0.40 IU/mL (0.30-0.70) Glucose (Fingerstick) 226 mg/dL (70-99) Laboratory Tests Test 05/10/20 16:34 05/10/20 21:15 05/11/20 00:21 05/11/20 03:25 Glucose (Fingerstick) 188 mg/dL (70-99) 235 mg/dL (70-99) Prothrombin Time 15.1 SEC (11.7-14.0) Prothromb Time International Ratio 1.2 (0.8-1.1) Activated Partial Thromboplast Time 25 SEC (24-38) Heparin Anti-Xa Act, Unfractionated > 1.10 IU/mL (0.30-0.70) Sodium Level 138 mmol/L (136-145) Potassium Level 3.7 mmol/L (3.5-5.1) Chloride Level 103 mmol/L (98-107) Carbon Dioxide Level 31 mmol/L (21-32) Anion Gap 4 (6-14) Blood Urea Nitrogen 20 mg/dL (8-26) Creatinine 0.9 mg/dL (0.7-1.3) Estimated GFR (Cockcroft-Gault) 91.3 BUN/Creatinine Ratio 22 (6-20) Glucose Level 272 mg/dL (70-99) Calcium Level 8.1 mg/dL (8.5-10.1) Magnesium Level 2.2 mg/dL (1.8-2.4) Total Bilirubin 0.4 mg/dL (0.2-1.0) Aspartate Amino Transf (AST/SGOT) 20 U/L (15-37) Alanine Aminotransferase (ALT/SGPT) 29 U/L (16-63) Alkaline Phosphatase 50 U/L (46-116) Total Protein 5.6 g/dL (6.4-8.2) Albumin 1.7 g/dL (3.4-5.0) Albumin/Globulin Ratio 0.4 (1.0-1.7) Test 05/11/20 05:47 05/11/20 08:30 05/11/20 11:10 05/11/20 13:18 Glucose (Fingerstick) 191 mg/dL (70-99) 226 mg/dL (70-99) O2 Saturation 95 % (92-99) Arterial Blood pH 7.42 (7.35-7.45) Arterial Blood pCO2 at Patient Temp 40 mmHg (35-46) Arterial Blood pO2 at Patient Temp 80 mmHg (75-108) Arterial Blood HCO3 26 mmol/L (21-28) Arterial Blood Base Excess 1 mmol/L (-3-3) FiO2 70 Heparin Anti-Xa Act, Unfractionated 0.40 IU/mL (0.30-0.70) Microbiology 05/08/20 Urine Culture - Final, Complete 05/06/20 Blood Culture - Final, Complete NO GROWTH AFTER 5 DAYS Medications Current Medications Acetaminophen (Tylenol) 650 mg 1X ONCE PO Last administered on 05/06/20at 03:54; Start 05/06/20 at 03:00; Stop 05/06/20 at 03:01; Status DC Sodium Chloride 1,000 ml @ 1,000 mls/hr 1X ONCE IV Last administered on 05/06/20at 03:53; Start 05/06/20 at 03:00; Stop 05/06/20 at 03:59; Status DC Ceftriaxone Sodium (Rocephin) 1 gm 1X ONCE IVP Last administered on 05/06/20at 03:54; Start 05/06/20 at 03:00; Stop 05/06/20 at 03:01; Status DC Azithromycin 250 ml @ 250 mls/hr 1X ONCE IV Last administered on 05/06/20at 03:00; Start 05/06/20 at 03:00; Stop 05/06/20 at 03:59; Status DC Hydralazine HCl (Apresoline) 25 mg PRN TID PRN PO for SBP greater than 180; Start 05/06/20 at 07:30 Enoxaparin Sodium (Lovenox Per Pharmacy Prophylaxis Dosing) 1 each PRN DAILY PRN MC SEE COMMENTS; Start 05/06/20 at 07:30; Stop 05/10/20 at 20:59; Status DC Ceftriaxone Sodium (Rocephin) 1 gm Q24H IVP Last administered on 05/11/20at 04:08; Start 05/07/20 at 04:00 Acetaminophen (Tylenol) 650 mg PRN Q6HRS PRN PO fever Last administered on 05/06/20at 15:51; Start 05/06/20 at 07:30 Azithromycin 500 mg/Sodium Chloride 250 ml @ 250 mls/hr Q24H IV Last administered on 05/11/20at 04:08; Start 05/07/20 at 04:00 Enoxaparin Sodium (Lovenox 60mg Syringe) 60 mg Q12HR SQ Last administered on 05/08/20at 08:16; Start 05/06/20 at 09:00; Stop 05/08/20 at 14:36; Status DC Nicotine (Nicoderm Cq 21mg) 1 patch PRN DAILY PRN TD SMOKING CESSATION; Start 05/06/20 at 08:30 Methylprednisolone Sodium Succinate (SOLU-Medrol 125MG VIAL) 60 mg Q8HRS IV Last administered on 05/11/20at 13:15; Start 05/06/20 at 14:00 Famotidine (Pepcid Vial) 20 mg BID IVP Last administered on 05/08/20at 08:15; Start 05/06/20 at 21:00; Stop 05/08/20 at 12:35; Status DC Sterile Water (WATER for RESP) 1,000 ml CONT PRN INH VIA VAPOTHERM DEVICE; Start 05/06/20 at 23:30; Stop 05/07/20 at 11:27; Status DC Fentanyl Citrate 30 ml @ 0 mls/hr CONT PRN IV SEE PROTOCOL Last administered on 05/11/20at 11:32; Start 05/07/20 at 00:30 Propofol 100 ml @ 0 mls/hr CONT PRN IV SEE PROTOCOL; Start 05/07/20 at 00:15 Chlorhexidine Gluconate (Peridex) 15 ml BID MM ; Start 05/07/20 at 09:00; Stop 05/07/20 at 07:33; Status DC Midazolam HCl 100 ml @ 0 mls/hr CONT PRN IV SEE PROTOCOL Last administered on 05/11/20at 08:21; Start 05/07/20 at 00:30 Succinylcholine Chloride (Anectine) 200 mg 1X ONCE IV Last administered on 05/07/20at 00:37; Start 05/07/20 at 00:45; Stop 05/07/20 at 00:46; Status DC Etomidate (Amidate) 20 mg STK-MED ONCE IV ; Start 05/07/20 at 00:57; Stop 05/07/20 at 00:57; Status DC Vecuronium [place] (Norcuron Bolus) 10 mg 1X ONCE IV ; Start 05/07/20 at 01:15; Stop 05/07/20 at 01:16; Status DC Norepinephrine Bitartrate 8 mg/ Dextrose 258 ml @ 19.756 mls/ hr CONT PRN IV PER PROTOCOL Last administered on 05/07/20at 02:37; Start 05/07/20 at 02:15 Succinylcholine Chloride (Anectine) 200 mg STK-MED ONCE .ROUTE ; Start 05/07/20 at 01:00; Stop 05/07/20 at 08:46; Status DC Non-Formulary Medication 1 ea/ Sodium Chloride 210 ml @ 420 mls/hr 1X ONCE IV Last administered on 05/07/20at 15:07; Start 05/07/20 at 15:00; Stop 05/07/20 at 15:29; Status DC Non-Formulary Medication 1 ea/ Sodium Chloride 230 ml @ 460 mls/hr Q24H IV Last administered on 05/11/20at 09:12; Start 05/08/20 at 09:00; Stop 05/16/20 at 09:29 Dextrose/Sodium Chloride 1,000 ml @ 75 mls/hr [id number] IV Last administered on 05/10/20at 21:45; Start 05/08/20 at 12:30 Famotidine (Pepcid Vial) 20 mg BID IVP Last administered on 05/11/20at 08:41; Start 05/08/20 at 21:00 Insulin Human Lispro (HumaLOG) 0-5 UNITS Q6HRS SQ Last administered on 05/11/20at 13:31; Start 05/08/20 at 18:00 Dextrose (Dextrose 50%-Water Syringe) 12.5 gm PRN Q15MIN PRN IV SEE COMMENTS; Start 05/08/20 at 12:45 Enoxaparin Sodium (Lovenox 40mg Syringe) 40 mg BID SQ Last administered on 05/10/20at 08:50; Start 05/08/20 at 21:00; Stop 05/10/20 at 20:59; Status DC Heparin Sodium (Porcine) (Heparin Sodium) 8,000 unit 1X ONCE IV Last administered on 05/10/20at 21:22; Start 05/10/20 at 21:00; Stop 05/10/20 at 21:02; Status DC Heparin Sodium/ Dextrose 250 ml @ 16 mls/hr CONT PRN IV PER PROTOCOL Last administered on 05/10/20at 21:23; Start 05/10/20 at 21:00 Heparin Sodium (Porcine) (Heparin Sodium) 3,000 unit PRN Q6HRS PRN IV FOR UFH LEVEL LESS THAN 0.2; Start 05/10/20 at 21:00 Heparin Sodium (Porcine) (Heparin Sodium) 1,500 unit PRN Q6HRS PRN IV FOR UFH LEVEL 0.2 - 0.29; Start 05/10/20 at 21:00 Vitals/I & O Vital Sign - Last 24 Hours 05/10/20 05/10/20 05/10/20 05/10/20 17:00 17:21 18:00 19:00 Pulse 63 63 61 Resp 20 20 20 B/P (MAP) 107/60 (76) 113/65 (81) 112/60 (77) Pulse Ox 99 98 100 100 O2 Delivery Ventilator Ventilator Ventilator Ventilator 05/10/20 05/10/20 05/10/20 05/10/20 20:00 20:00 20:30 21:00 Temp 99.0 99.0 Pulse 62 Resp 20 20 B/P (MAP) 109/59 (76) 112/62 (79) Pulse Ox 100 98 100 O2 Delivery Mechanical Ventilator Ventilator Ventilator Ventilator 05/10/20 05/10/20 05/11/20 05/11/20 22:00 23:00 00:00 00:00 Temp 98.6 98.6 Pulse 62 Resp 20 20 20 B/P (MAP) 112/63 (79) 108/61 (77) 110/61 (77) Pulse Ox 100 100 100 O2 Delivery Ventilator Ventilator Mechanical Ventilator Ventilator 05/11/20 05/11/20 05/11/20 05/11/20 00:34 01:00 02:00 03:00 Pulse 60 53 56 Resp 20 20 20 B/P (MAP) 126/68 (87) 137/78 (97) 135/75 (95) Pulse Ox 100 100 100 100 O2 Delivery Ventilator Ventilator Ventilator Ventilator 05/11/20 05/11/20 05/11/20 05/11/20 04:00 04:00 04:49 05:00 Temp 97.3 97.3 Pulse 63 60 Resp 20 20 B/P (MAP) 130/66 (87) 144/81 (102) Pulse Ox 100 100 100 O2 Delivery Ventilator Mechanical Ventilator Ventilator Ventilator 05/11/20 05/11/20 05/11/20 05/11/20 06:00 07:00 08:00 08:00 Temp 98.3 98.3 Pulse 52 48 50 Resp 20 20 20 B/P (MAP) 117/74 (88) 113/68 (83) 105/62 (76) Pulse Ox 100 100 100 O2 Delivery Ventilator Ventilator Ventilator Mechanical Ventilator 05/11/20 05/11/20 05/11/20 05/11/20 08:21 09:00 10:00 11:00 Pulse 52 53 52 Resp 20 20 20 B/P (MAP) 117/72 (87) 111/66 (81) 111/63 (79) Pulse Ox 100 100 100 100 O2 Delivery Ventilator Ventilator Ventilator Ventilator 05/11/20 05/11/20 05/11/20 05/11/20 11:26 11:32 12:00 12:00 Temp 98.0 98.0 Pulse 50 Resp 20 B/P (MAP) 110/68 (82) Pulse Ox 100 100 100 O2 Delivery Ventilator Ventilator Mechanical Ventilator O2 Flow Rate 40.0 05/11/20 05/11/20 05/11/20 05/11/20 12:02 13:00 14:00 15:00 Pulse 48 52 49 Resp 20 20 20 B/P (MAP) 109/67 (81) 118/70 (86) 116/73 (87) Pulse Ox 100 100 100 100 O2 Delivery Ventilator Ventilator Ventilator O2 Flow Rate 40.0 05/11/20 15:23 Pulse Ox 100 O2 Delivery Ventilator Intake and Output 05/10/20 05/10/20 05/11/20 15:00 23:00 07:00 Intake Total 350 ml 1616 ml 2395.21 ml Output Total 475 ml 700 ml 675 ml Balance -125 ml 916 ml 1720.21 ml Justicifation of Admission Dx: Justifications for Admission: Justification of Admission Dx: Yes Comminuty Aquired Pneumonia: Hypoxemia GAUTAM FRITZ MD May 11, 2020 16:32
[2020-05-11] MEDS: HEPARIN 25,000UTS/250ML PREMIX 250 ML IV PRN (16:48)
[2020-05-11] MEDS: IV DEXTROSE 5 %-0.2 % NACL 1,000 ML IV SCH (20:30)
[2020-05-12] VITALS (25 sets, daily range): BP systolic 93–149; BP diastolic 52–98
[2020-05-12] MEDS: INSULIN LISPRO 300 UNITS/3 ML VIAL. SQ SCH ×5 (00:46→23:51)
[2020-05-12] MEDS: IV DEXTROSE 5 %-0.2 % NACL 1,000 ML IV SCH (02:33)
[2020-05-12] MEDS: cefTRIAXone IV Push 1 GM VIAL. IVP SCH (04:05)
[2020-05-12] MEDS: AZITHROMYCIN 500 MG in IV NORMAL SALINE 250ML 250 ML IV SCH (04:05)
[2020-05-12 06:06] LABS: HEMATOCRIT 45.9 % (39.0-53.0); HEMOGLOBIN 15.2 g/dL (13.0-17.5); RED BLOOD COUNT 5.26 x10^6/uL (4.30-5.70); RED CELL DISTRIBUTION WIDTH 13.8 % (11.5-14.5); WHITE BLOOD COUNT 15.5 x10^3/uL (4.0-11.0)
[2020-05-12 06:26] LABS: ALBUMIN 1.9 g/dL (3.4-5.0); ALBUMIN/GLOBULIN RATIO 0.5 (1.0-1.7); CALCIUM 7.9 mg/dL (8.5-10.1); CREATININE 0.9 mg/dL (0.7-1.3); GFR 91.3; POTASSIUM 3.3 mmol/L (3.5-5.1); TOTAL BILIRUBIN 0.6 mg/dL (0.2-1.0)
[2020-05-12] MEDS: methylPREDNISolone SOD SUCC PF 125 MG/2 ML VIAL. IV SCH ×3 (06:32→21:32)
[2020-05-12] MEDS: MIDAZOLAM 100mg/100ml NS BAG 100 ML IV PRN ×2 (07:24→14:59)
--- NOTE | 2020-05-12 07:49 | PDOC ---
PULMONARY PROGRESS NOTES Subjective Continues on assist control FiO2 60% and a PEEP of 10 Sedated, afebrile overnight No other concerns from nursing overnight Vitals Vital Signs Date Time Temp Pulse Resp B/P (MAP) Pulse Ox O2 Delivery O2 Flow Rate FiO2 05/12/20 06:00 65 20 93/58 (70) 100 Ventilator 05/12/20 04:00 97.5 97.5 05/11/20 12:02 40.0 Comments Patient seen doing the , visual examination no respiratory distress in sync with the ventilator no significant edema Labs Laboratory Tests Test 05/10/20 08:00 05/10/20 12:24 05/10/20 14:45 05/10/20 16:34 O2 Saturation 96 % (92-99) Arterial Blood pH 7.43 (7.35-7.45) Arterial Blood pCO2 at Patient Temp 43 mmHg (35-46) Arterial Blood pO2 at Patient Temp 85 mmHg (75-108) Arterial Blood HCO3 28 mmol/L (21-28) Arterial Blood Base Excess 4 mmol/L (-3-3) FiO2 70 Glucose (Fingerstick) 196 mg/dL (70-99) 188 mg/dL (70-99) D-Dimer (Daphney) 2.51 ug/mlFEU (0.00-0.50) Test 05/10/20 21:15 05/11/20 00:21 05/11/20 03:25 05/11/20 05:47 Prothrombin Time 15.1 SEC (11.7-14.0) Prothromb Time International Ratio 1.2 (0.8-1.1) Activated Partial Thromboplast Time 25 SEC (24-38) Glucose (Fingerstick) 235 mg/dL (70-99) 191 mg/dL (70-99) Heparin Anti-Xa Act, Unfractionated > 1.10 IU/mL (0.30-0.70) Sodium Level 138 mmol/L (136-145) Potassium Level 3.7 mmol/L (3.5-5.1) Chloride Level 103 mmol/L (98-107) Carbon Dioxide Level 31 mmol/L (21-32) Anion Gap 4 (6-14) Blood Urea Nitrogen 20 mg/dL (8-26) Creatinine 0.9 mg/dL (0.7-1.3) Estimated GFR (Cockcroft-Gault) 91.3 BUN/Creatinine Ratio 22 (6-20) Glucose Level 272 mg/dL (70-99) Calcium Level 8.1 mg/dL (8.5-10.1) Magnesium Level 2.2 mg/dL (1.8-2.4) Total Bilirubin 0.4 mg/dL (0.2-1.0) Aspartate Amino Transf (AST/SGOT) 20 U/L (15-37) Alanine Aminotransferase (ALT/SGPT) 29 U/L (16-63) Alkaline Phosphatase 50 U/L (46-116) Total Protein 5.6 g/dL (6.4-8.2) Albumin 1.7 g/dL (3.4-5.0) Albumin/Globulin Ratio 0.4 (1.0-1.7) Test 05/11/20 08:30 05/11/20 11:10 05/11/20 13:18 05/11/20 16:51 O2 Saturation 95 % (92-99) Arterial Blood pH 7.42 (7.35-7.45) Arterial Blood pCO2 at Patient Temp 40 mmHg (35-46) Arterial Blood pO2 at Patient Temp 80 mmHg (75-108) Arterial Blood HCO3 26 mmol/L (21-28) Arterial Blood Base Excess 1 mmol/L (-3-3) FiO2 70 Heparin Anti-Xa Act, Unfractionated 0.40 IU/mL (0.30-0.70) Glucose (Fingerstick) 226 mg/dL (70-99) 212 mg/dL (70-99) Test 05/11/20 17:00 05/12/20 00:38 05/12/20 05:45 05/12/20 06:20 Heparin Anti-Xa Act, Unfractionated 0.39 IU/mL (0.30-0.70) 0.47 IU/mL (0.30-0.70) Glucose (Fingerstick) 224 mg/dL (70-99) 223 mg/dL (70-99) White Blood Count 15.5 x10^3/uL (4.0-11.0) Red Blood Count 5.26 x10^6/uL (4.30-5.70) Hemoglobin 15.2 g/dL (13.0-17.5) Hematocrit 45.9 % (39.0-53.0) Mean Corpuscular Volume 87 fL (79-100) Mean Corpuscular Hemoglobin 29 pg (25-35) Mean Corpuscular Hemoglobin Concent 33 g/dL (31-37) Red Cell Distribution Width 13.8 % (11.5-14.5) Platelet Count 530 x10^3/uL (140-400) Sodium Level 136 mmol/L (136-145) Potassium Level 3.3 mmol/L (3.5-5.1) Chloride Level 101 mmol/L (98-107) Carbon Dioxide Level 30 mmol/L (21-32) Anion Gap 5 (6-14) Blood Urea Nitrogen 19 mg/dL (8-26) Creatinine 0.9 mg/dL (0.7-1.3) Estimated GFR (Cockcroft-Gault) 91.3 BUN/Creatinine Ratio 21 (6-20) Glucose Level 262 mg/dL (70-99) Calcium Level 7.9 mg/dL (8.5-10.1) Total Bilirubin 0.6 mg/dL (0.2-1.0) Aspartate Amino Transf (AST/SGOT) 49 U/L (15-37) Alanine Aminotransferase (ALT/SGPT) 41 U/L (16-63) Alkaline Phosphatase 64 U/L (46-116) Total Protein 6.0 g/dL (6.4-8.2) Albumin 1.9 g/dL (3.4-5.0) Albumin/Globulin Ratio 0.5 (1.0-1.7) Laboratory Tests Test 05/11/20 08:30 05/11/20 11:10 05/11/20 13:18 05/11/20 16:51 O2 Saturation 95 % (92-99) Arterial Blood pH 7.42 (7.35-7.45) Arterial Blood pCO2 at Patient Temp 40 mmHg (35-46) Arterial Blood pO2 at Patient Temp 80 mmHg (75-108) Arterial Blood HCO3 26 mmol/L (21-28) Arterial Blood Base Excess 1 mmol/L (-3-3) FiO2 70 Heparin Anti-Xa Act, Unfractionated 0.40 IU/mL (0.30-0.70) Glucose (Fingerstick) 226 mg/dL (70-99) 212 mg/dL (70-99) Test 05/11/20 17:00 7/20 00:38 05/12/20 05:45 05/12/20 06:20 Heparin Anti-Xa Act, Unfractionated 0.39 IU/mL (0.30-0.70) 0.47 IU/mL (0.30-0.70) Glucose (Fingerstick) 224 mg/dL (70-99) 223 mg/dL (70-99) White Blood Count 15.5 x10^3/uL (4.0-11.0) Red Blood Count 5.26 x10^6/uL (4.30-5.70) Hemoglobin 15.2 g/dL (13.0-17.5) Hematocrit 45.9 % (39.0-53.0) Mean Corpuscular Volume 87 fL (79-100) Mean Corpuscular Hemoglobin 29 pg (25-35) Mean Corpuscular Hemoglobin Concent 33 g/dL (31-37) Red Cell Distribution Width 13.8 % (11.5-14.5) Platelet Count 530 x10^3/uL (140-400) Sodium Level 136 mmol/L (136-145) Potassium Level 3.3 mmol/L (3.5-5.1) Chloride Level 101 mmol/L (98-107) Carbon Dioxide Level 30 mmol/L (21-32) Anion Gap 5 (6-14) Blood Urea Nitrogen 19 mg/dL (8-26) Creatinine 0.9 mg/dL (0.7-1.3) Estimated GFR (Cockcroft-Gault) 91.3 BUN/Creatinine Ratio 21 (6-20) Glucose Level 262 mg/dL (70-99) Calcium Level 7.9 mg/dL (8.5-10.1) Total Bilirubin 0.6 mg/dL (0.2-1.0) Aspartate Amino Transf (AST/SGOT) 49 U/L (15-37) Alanine Aminotransferase (ALT/SGPT) 41 U/L (16-63) Alkaline Phosphatase 64 U/L (46-116) Total Protein 6.0 g/dL (6.4-8.2) Albumin 1.9 g/dL (3.4-5.0) Albumin/Globulin Ratio 0.5 (1.0-1.7) Comments IMPRESSION: 1. Bilateral infiltrates. Impression . 1. Acute Hypoxic Respiratory Failure 2. Fever--resolved 3. Pneumonia, CXR positive for Bilateral patch infiltrates consistent with COVID-19 4. elevated d-dimer, presumptive thromboembolic disease 5. Tachycardia 6. Elevated CRP and ferrtin also consistent with COVID-19 infection 7. COVID-19 viral pneumonia 8. COVID-19 sepsis Plan . Continue current ventilatory support with an FiO2 of 60% and a PEEP of 10 and assist control mode, follow chest x-ray and ABG make changes as appropriate Continue heparin drip for presumptive thromboembolic disease Status post convalescent serum on 05/08 Status post Remdesivir Steroids Continue tube feeding for nutritional support GI/DVT prophylaxis Discussed with RN and RT Total cumulative critical care time of 35 minutes reviewing data, labs, chest x- ray, YARELY PAULSON MD May 12, 2020 07:49
[2020-05-12 07:55] LABS: BASE EXCESS ABG 2 mmol/L (-3-3); HCO3 ABG 27 mmol/L (21-28); PCO2 ABG 43 mmHg (35-46); PO2 ABG 70 mmHg (75-108); SAT O2 ABG 93 % (92-99)
[2020-05-12 08:28] LABS: FIO2 ABG 55
[2020-05-12] MEDS: NON FORMULARY ITEM 1 EA in IV NORMAL SALINE 250ML 230 ML IV SCH (09:20)
[2020-05-12] MEDS: FAMOTIDINE 20 MG/2 ML VIAL IVP SCH ×2 (09:20→21:32)
[2020-05-12] MEDS: HEPARIN 25,000UTS/250ML PREMIX 250 ML IV PRN (10:49)
--- NOTE | 2020-05-12 13:30 | PDOC ---
PROGRESS NOTES Chief Complaint Chief Complaint Acute Hypoxic Resp Failure secondary to Suspected COVID-19 Bilateral Infiltrates on cxr elevated D dimer// elevated inflammatory markers Leukocytosis ELEVATED FERRITIN // Elevated CRP and ferrtin also consistent with COVID-19 infection mild hypernatremia History of Present Illness History of Present Illness cont on vent, imrpoved today, down to 55% and 10 PEEP, resp following closely IV abxm pulm following IV Rocephin and Azithro The patient was evaluated during the global COVID-19 pandemic, and that diagnosis was suspected/considered upon their initial presentation. Vitals Vitals Vital Signs Date Time Temp Pulse Resp B/P (MAP) Pulse Ox O2 Delivery O2 Flow Rate FiO2 05/12/20 11:27 98 Ventilator 05/12/20 10:48 21 05/12/20 10:00 52 124/78 (93) 05/12/20 08:00 98.2 98.2 05/11/20 12:02 40.0 Physical Exam Physical Exam GENERAL: INTUBATED ON VENT, SEDATED HEENT: Head normocephalic, atraumatic. NECK: Supple LUNGS: Clear to auscultation. HEART: RRR, S1, S2 present, pulses intact ABDOMEN: Soft, positive bowel sounds. EXTREMITIES: No cyanosis or edema. SKIN: No ulceration. General: Other (sedated) Abdomen: Other (obese) Extremities: No cyanosis Skin: No breakdown Labs LABS Laboratory Tests Test 05/11/20 16:51 05/11/20 17:00 05/12/20 00:38 05/12/20 05:45 Glucose (Fingerstick) 212 mg/dL (70-99) 224 mg/dL (70-99) Heparin Anti-Xa Act, Unfractionated 0.39 IU/mL (0.30-0.70) 0.47 IU/mL (0.30-0.70) White Blood Count 15.5 x10^3/uL (4.0-11.0) Red Blood Count 5.26 x10^6/uL (4.30-5.70) Hemoglobin 15.2 g/dL (13.0-17.5) Hematocrit 45.9 % (39.0-53.0) Mean Corpuscular Volume 87 fL (79-100) Mean Corpuscular Hemoglobin 29 pg (25-35) Mean Corpuscular Hemoglobin Concent 33 g/dL (31-37) Red Cell Distribution Width 13.8 % (11.5-14.5) Platelet Count 530 x10^3/uL (140-400) Sodium Level 136 mmol/L (136-145) Potassium Level 3.3 mmol/L (3.5-5.1) Chloride Level 101 mmol/L (98-107) Carbon Dioxide Level 30 mmol/L (21-32) Anion Gap 5 (6-14) Blood Urea Nitrogen 19 mg/dL (8-26) Creatinine 0.9 mg/dL (0.7-1.3) Estimated GFR (Cockcroft-Gault) 91.3 BUN/Creatinine Ratio 21 (6-20) Glucose Level 262 mg/dL (70-99) Calcium Level 7.9 mg/dL (8.5-10.1) Total Bilirubin 0.6 mg/dL (0.2-1.0) Aspartate Amino Transf (AST/SGOT) 49 U/L (15-37) Alanine Aminotransferase (ALT/SGPT) 41 U/L (16-63) Alkaline Phosphatase 64 U/L (46-116) Total Protein 6.0 g/dL (6.4-8.2) Albumin 1.9 g/dL (3.4-5.0) Albumin/Globulin Ratio 0.5 (1.0-1.7) Test 05/12/20 06:20 05/12/20 07:45 05/12/20 12:59 Glucose (Fingerstick) 223 mg/dL (70-99) 216 mg/dL (70-99) O2 Saturation 93 % (92-99) Arterial Blood pH 7.42 (7.35-7.45) Arterial Blood pCO2 at Patient Temp 43 mmHg (35-46) Arterial Blood pO2 at Patient Temp 70 mmHg (75-108) Arterial Blood HCO3 27 mmol/L (21-28) Arterial Blood Base Excess 2 mmol/L (-3-3) FiO2 55 Comment Review of Relevant I have reviewed the following items laura (where applicable) has been applied. Labs Laboratory Tests Test 05/10/20 14:45 05/10/20 16:34 05/10/20 21:15 05/11/20 00:21 D-Dimer (Daphney) 2.51 ug/mlFEU (0.00-0.50) Glucose (Fingerstick) 188 mg/dL (70-99) 235 mg/dL (70-99) Prothrombin Time 15.1 SEC (11.7-14.0) Prothromb Time International Ratio 1.2 (0.8-1.1) Activated Partial Thromboplast Time 25 SEC (24-38) Test 05/11/20 03:25 05/11/20 05:47 05/11/20 08:30 05/11/20 11:10 Heparin Anti-Xa Act, Unfractionated > 1.10 IU/mL (0.30-0.70) 0.40 IU/mL (0.30-0.70) Sodium Level 138 mmol/L (136-145) Potassium Level 3.7 mmol/L (3.5-5.1) Chloride Level 103 mmol/L (98-107) Carbon Dioxide Level 31 mmol/L (21-32) Anion Gap 4 (6-14) Blood Urea Nitrogen 20 mg/dL (8-26) Creatinine 0.9 mg/dL (0.7-1.3) Estimated GFR (Cockcroft-Gault) 91.3 BUN/Creatinine Ratio 22 (6-20) Glucose Level 272 mg/dL (70-99) Calcium Level 8.1 mg/dL (8.5-10.1) Magnesium Level 2.2 mg/dL (1.8-2.4) Total Bilirubin 0.4 mg/dL (0.2-1.0) Aspartate Amino Transf (AST/SGOT) 20 U/L (15-37) Alanine Aminotransferase (ALT/SGPT) 29 U/L (16-63) Alkaline Phosphatase 50 U/L (46-116) Total Protein 5.6 g/dL (6.4-8.2) Albumin 1.7 g/dL (3.4-5.0) Albumin/Globulin Ratio 0.4 (1.0-1.7) Glucose (Fingerstick) 191 mg/dL (70-99) O2 Saturation 95 % (92-99) Arterial Blood pH 7.42 (7.35-7.45) Arterial Blood pCO2 at Patient Temp 40 mmHg (35-46) Arterial Blood pO2 at Patient Temp 80 mmHg (75-108) Arterial Blood HCO3 26 mmol/L (21-28) Arterial Blood Base Excess 1 mmol/L (-3-3) FiO2 70 Test 05/11/20 13:18 05/11/20 16:51 05/11/20 17:00 05/12/20 00:38 Glucose (Fingerstick) 226 mg/dL (70-99) 212 mg/dL (70-99) 224 mg/dL (70-99) Heparin Anti-Xa Act, Unfractionated 0.39 IU/mL (0.30-0.70) Test 05/12/20 05:45 05/12/20 06:20 05/12/20 07:45 05/12/20 12:59 White Blood Count 15.5 x10^3/uL (4.0-11.0) Red Blood Count 5.26 x10^6/uL (4.30-5.70) Hemoglobin 15.2 g/dL (13.0-17.5) Hematocrit 45.9 % (39.0-53.0) Mean Corpuscular Volume 87 fL (79-100) Mean Corpuscular Hemoglobin 29 pg (25-35) Mean Corpuscular Hemoglobin Concent 33 g/dL (31-37) Red Cell Distribution Width 13.8 % (11.5-14.5) Platelet Count 530 x10^3/uL (140-400) Heparin Anti-Xa Act, Unfractionated 0.47 IU/mL (0.30-0.70) Sodium Level 136 mmol/L (136-145) Potassium Level 3.3 mmol/L (3.5-5.1) Chloride Level 101 mmol/L (98-107) Carbon Dioxide Level 30 mmol/L (21-32) Anion Gap 5 (6-14) Blood Urea Nitrogen 19 mg/dL (8-26) Creatinine 0.9 mg/dL (0.7-1.3) Estimated GFR (Cockcroft-Gault) 91.3 BUN/Creatinine Ratio 21 (6-20) Glucose Level 262 mg/dL (70-99) Calcium Level 7.9 mg/dL (8.5-10.1) Total Bilirubin 0.6 mg/dL (0.2-1.0) Aspartate Amino Transf (AST/SGOT) 49 U/L (15-37) Alanine Aminotransferase (ALT/SGPT) 41 U/L (16-63) Alkaline Phosphatase 64 U/L (46-116) Total Protein 6.0 g/dL (6.4-8.2) Albumin 1.9 g/dL (3.4-5.0) Albumin/Globulin Ratio 0.5 (1.0-1.7) Glucose (Fingerstick) 223 mg/dL (70-99) 216 mg/dL (70-99) O2 Saturation 93 % (92-99) Arterial Blood pH 7.42 (7.35-7.45) Arterial Blood pCO2 at Patient Temp 43 mmHg (35-46) Arterial Blood pO2 at Patient Temp 70 mmHg (75-108) Arterial Blood HCO3 27 mmol/L (21-28) Arterial Blood Base Excess 2 mmol/L (-3-3) FiO2 55 Laboratory Tests Test 05/11/20 16:51 05/11/20 17:00 05/12/20 00:38 05/12/20 05:45 Glucose (Fingerstick) 212 mg/dL (70-99) 224 mg/dL (70-99) Heparin Anti-Xa Act, Unfractionated 0.39 IU/mL (0.30-0.70) 0.47 IU/mL (0.30-0.70) White Blood Count 15.5 x10^3/uL (4.0-11.0) Red Blood Count 5.26 x10^6/uL (4.30-5.70) Hemoglobin 15.2 g/dL (13.0-17.5) Hematocrit 45.9 % (39.0-53.0) Mean Corpuscular Volume 87 fL (79-100) Mean Corpuscular Hemoglobin 29 pg (25-35) Mean Corpuscular Hemoglobin Concent 33 g/dL (31-37) Red Cell Distribution Width 13.8 % (11.5-14.5) Platelet Count 530 x10^3/uL (140-400) Sodium Level 136 mmol/L (136-145) Potassium Level 3.3 mmol/L (3.5-5.1) Chloride Level 101 mmol/L (98-107) Carbon Dioxide Level 30 mmol/L (21-32) Anion Gap 5 (6-14) Blood Urea Nitrogen 19 mg/dL (8-26) Creatinine 0.9 mg/dL (0.7-1.3) Estimated GFR (Cockcroft-Gault) 91.3 BUN/Creatinine Ratio 21 (-20) Glucose Level 262 mg/dL (70-99) Calcium Level 7.9 mg/dL (8.5-10.1) Total Bilirubin 0.6 mg/dL (0.2-1.0) Aspartate Amino Transf (AST/SGOT) 49 U/L (15-37) Alanine Aminotransferase (ALT/SGPT) 41 U/L (16-63) Alkaline Phosphatase 64 U/L (46-116) Total Protein 6.0 g/dL (6.4-8.2) Albumin 1.9 g/dL (3.4-5.0) Albumin/Globulin Ratio 0.5 (1.0-1.7) Test 05/12/20 06:20 05/12/20 07:45 05/12/20 12:59 Glucose (Fingerstick) 223 mg/dL (70-99) 216 mg/dL (70-99) O2 Saturation 93 % (92-99) Arterial Blood pH 7.42 (7.35-7.45) Arterial Blood pCO2 at Patient Temp 43 mmHg (35-46) Arterial Blood pO2 at Patient Temp 70 mmHg (75-108) Arterial Blood HCO3 27 mmol/L (21-28) Arterial Blood Base Excess 2 mmol/L (-3-3) FiO2 55 Microbiology 05/08/20 Urine Culture - Final, Complete 05/06/20 Blood Culture - Final, Complete NO GROWTH AFTER 5 DAYS Medications Current Medications Acetaminophen (Tylenol) 650 mg 1X ONCE PO Last administered on 05/06/20at 03:5 4; Start 05/06/20 at 03:00; Stop 05/06/20 at 03:01; Status DC Sodium Chloride 1,000 ml @ 1,000 mls/hr 1X ONCE IV Last administered on 05/06/20at 03:53; Start 05/06/20 at 03:00; Stop 05/06/20 at 03:59; Status DC Ceftriaxone Sodium (Rocephin) 1 gm 1X ONCE IVP Last administered on 05/06/20at 03:54; Start 05/06/20 at 03:00; Stop 05/06/20 at 03:01; Status DC Azithromycin 250 ml @ 250 mls/hr 1X ONCE IV Last administered on 05/06/20at 03:00; Start 05/06/20 at 03:00; Stop 05/06/20 at 03:59; Status DC Hydralazine HCl (Apresoline) 25 mg PRN TID PRN PO for SBP greater than 180; Start 05/06/20 at 07:30 Enoxaparin Sodium (Lovenox Per Pharmacy Prophylaxis Dosing) 1 each PRN DAILY PRN MC SEE COMMENTS; Start 05/06/20 at 07:30; Stop 05/10/20 at 20:59; Status DC Ceftriaxone Sodium (Rocephin) 1 gm Q24H IVP Last administered on 05/12/20at 04:05; Start 05/07/20 at 04:00 Acetaminophen (Tylenol) 650 mg PRN Q6HRS PRN PO fever Last administered on 05/06/20at 15:51; Start 05/06/20 at 07:30 Azithromycin 500 mg/Sodium Chloride 250 ml @ 250 mls/hr Q24H IV Last administered on 05/12/20at 04:05; Start 05/07/20 at 04:00 Enoxaparin Sodium (Lovenox 60mg Syringe) 60 mg Q12HR SQ Last administered on 05/08/20at 08:16; Start 05/06/20 at 09:00; Stop 05/08/20 at 14:36; Status DC Nicotine (Nicoderm Cq 21mg) 1 patch PRN DAILY PRN TD SMOKING CESSATION; Start 05/06/20 at 08:30 Methylprednisolone Sodium Succinate (SOLU-Medrol 125MG VIAL) 60 mg Q8HRS IV Last administered on 05/12/20at 06:32; Start 05/06/20 at 14:00 Famotidine (Pepcid Vial) 20 mg BID IVP Last administered on 05/08/20at 08:15; Start 05/06/20 at 21:00; Stop 05/08/20 at 12:35; Status DC Sterile Water (WATER for RESP) 1,000 ml CONT PRN INH VIA VAPOTHERM DEVICE; Start 05/06/20 at 23:30; Stop 05/07/20 at 11:27; Status DC Fentanyl Citrate 30 ml @ 0 mls/hr CONT PRN IV SEE PROTOCOL Last administered on 05/12/20at 10:48; Start 05/07/20 at 00:30 Propofol 100 ml @ 0 mls/hr CONT PRN IV SEE PROTOCOL; Start 05/07/20 at 00:15 Chlorhexidine Gluconate (Peridex) 15 ml BID MM ; Start 05/07/20 at 09:00; Stop 05/07/20 at 07:33; Status DC Midazolam HCl 100 ml @ 0 mls/hr CONT PRN IV SEE PROTOCOL Last administered on 05/12/20at 07:24; Start 05/07/20 at 00:30 Succinylcholine Chloride (Anectine) 200 mg 1X ONCE IV Last administered on 05/07/20at 00:37; Start 05/07/20 at 00:45; Stop 05/07/20 at 00:46; Status DC Etomidate (Amidate) 20 mg STK-MED ONCE IV ; Start 05/07/20 at 00:57; Stop 05/07/20 at 00:57; Status DC Vecuronium Coy (Norcuron Bolus) 10 mg 1X ONCE IV ; Start 05/07/20 at 01:15; Stop 05/07/20 at 01:16; Status DC Norepinephrine Bitartrate 8 mg/ Dextrose 258 ml @ 19.756 mls/ hr CONT PRN IV PER PROTOCOL Last administered on 05/07/20at 02:37; Start 05/07/20 at 02:15 Succinylcholine Chloride (Anectine) 200 mg STK-MED ONCE .ROUTE ; Start 05/07/20 at 01:00; Stop 05/07/20 at 08:46; Status DC Non-Formulary Medication 1 ea/ Sodium Chloride 210 ml @ 420 mls/hr 1X ONCE IV Last administered on 05/07/20at 15:07; Start 05/07/20 at 15:00; Stop 05/07/20 at 15:29; Status DC Non-Formulary Medication 1 ea/ Sodium Chloride 230 ml @ 460 mls/hr Q24H IV Last administered on 05/12/20at 09:20; Start 05/08/20 at 09:00; Stop 05/16/20 at 09:29 Dextrose/Sodium Chloride 1,000 ml @ 75 mls/hr [id number] IV Last administered on 05/12/20at 02:33; Start 05/08/20 at 12:30 Famotidine (Pepcid Vial) 20 mg BID IVP Last administered on 05/12/20at 09:20; Start 05/08/20 at 21:00 Insulin Human Lispro (HumaLOG) 0-5 UNITS Q6HRS SQ Last administered on 05/12/20at 13:03; Start 05/08/20 at 18:00 Dextrose (Dextrose 50%-Water Syringe) 12.5 gm PRN Q15MIN PRN IV SEE COMMENTS; Start 05/08/20 at 12:45 Enoxaparin Sodium (Lovenox 40mg Syringe) 40 mg BID SQ Last administered on 05/10/20at 08:50; Start 05/08/20 at 21:00; Stop 05/10/20 at 20:59; Status DC Heparin Sodium (Porcine) (Heparin Sodium) 8,000 unit 1X ONCE IV Last administered on 05/10/20at 21:22; Start 05/10/20 at 21:00; Stop 05/10/20 at 21:02; Status DC Heparin Sodium/ Dextrose 250 ml @ 16 mls/hr CONT PRN IV PER PROTOCOL Last administered on 05/12/20at 10:49; Start 05/10/20 at 21:00 Heparin Sodium (Porcine) (Heparin Sodium) 3,000 unit PRN Q6HRS PRN IV FOR UFH LEVEL LESS THAN 0.2; Start 05/10/20 at 21:00 Heparin Sodium (Porcine) (Heparin Sodium) 1,500 unit PRN Q6HRS PRN IV FOR UFH LEVEL 0.2 - 0.29; Start 05/10/20 at 21:00 Vitals/I & O Vital Sign - Last 24 Hours 05/11/20 05/11/20 05/11/20 05/11/20 14:00 15:00 15:23 16:00 Temp 98.4 98.4 Pulse 52 49 46 Resp 20 20 20 B/P (MAP) 118/70 (86) 116/73 (87) 109/68 (82) Pulse Ox 100 100 100 100 O2 Delivery Ventilator Ventilator Ventilator Ventilator 05/11/20 05/11/20 05/11/20 05/11/20 16:00 17:00 18:00 19:00 Pulse 49 44 42 Resp 20 20 20 B/P (MAP) 120/78 (92) 107/70 (82) 105/68 (80) Pulse Ox 100 100 100 O2 Delivery Mechanical Ventilator Ventilator Ventilator Ventilator 05/11/20 05/11/20 05/11/20 05/11/20 20:00 20:00 20:05 21:00 Temp 97.7 97.7 Pulse 48 47 Resp 20 B/P (MAP) 102/64 (77) 133/80 (97) Pulse Ox 100 100 100 O2 Delivery Mechanical Ventilator Ventilator Ventilator Ventilator 05/11/20 05/11/20 05/11/20 05/12/20 22:00 23:00 23:53 00:00 Pulse 42 44 Resp 20 B/P (MAP) 115/69 (84) 133/78 (96) Pulse Ox 100 100 100 O2 Delivery Ventilator Ventilator Ventilator Mechanical Ventilator 05/12/20 05/12/20 05/12/20 05/12/20 00:00 01:00 02:00 03:00 Temp 97.9 97.9 Pulse 46 48 44 46 Resp 20 20 B/P (MAP) 120/67 (84) 149/98 (115) 129/74 (92) 139/85 (103) Pulse Ox 100 100 100 100 O2 Delivery Ventilator Ventilator Ventilator Ventilator 05/12/20 05/12/20 05/12/20 05/12/20 04:00 04:00 04:02 05:00 Temp 97.5 97.5 Pulse 44 94 Resp 20 B/P (MAP) 130/78 (95) 123/84 (97) Pulse Ox 100 100 100 O2 Delivery Ventilator Mechanical Ventilator Ventilator Ventilator 05/12/20 05/12/20 05/12/20 05/12/20 06:00 07:00 07:39 08:00 Temp 98.2 98.2 Pulse 65 55 54 Resp 21 B/P (MAP) 93/58 (70) 93/61 (72) 104/67 (79) Pulse Ox 100 92 94 93 O2 Delivery Ventilator Ventilator Ventilator Ventilator 05/12/20 05/12/20 05/12/20 05/12/20 08:00 09:00 10:00 10:48 Pulse 57 52 Resp 21 B/P (MAP) 105/81 (89) 124/78 (93) Pulse Ox 95 97 98 O2 Delivery Mechanical Ventilator Ventilator Ventilator BiPAP/CPAP 05/12/20 11:27 Pulse Ox 98 O2 Delivery Ventilator Intake and Output 05/11/20 05/11/20 05/12/20 15:00 23:00 07:00 Intake Total 350 ml 1987.4 ml 1776.3 ml Output Total 825 ml 775 ml 825 ml Balance -475 ml 1212.4 ml 951.3 ml Justicifation of Admission Dx: Justifications for Admission: Justification of Admission Dx: Yes Comminuty Aquired Pneumonia: Hypoxemia GAUTAM FRITZ MD May 12, 2020 13:30
[2020-05-12] MEDS ORDERED: ERYTHROMYCIN LACT 125 MG in IV NORMAL SALINE 100ML 100 ML IV SCH (18:00)
[2020-05-12] MEDS: ERYTHROMYCIN LACT 125 MG in IV NORMAL SALINE 100ML 100 ML IV SCH (19:15)
[2020-05-13] VITALS (24 sets, daily range): BP systolic 90–111; BP diastolic 50–76
[2020-05-13] MEDS: MIDAZOLAM 100mg/100ml NS BAG 100 ML IV PRN ×3 (00:06→21:03)
[2020-05-13] MEDS: ERYTHROMYCIN LACT 125 MG in IV NORMAL SALINE 100ML 100 ML IV SCH ×2 (00:09→06:00)
[2020-05-13] MEDS: cefTRIAXone IV Push 1 GM VIAL. IVP SCH (03:46)
[2020-05-13] MEDS: AZITHROMYCIN 500 MG in IV NORMAL SALINE 250ML 250 ML IV SCH (03:46)
[2020-05-13] MEDS: HEPARIN 25,000UTS/250ML PREMIX 250 ML IV PRN ×2 (03:51→22:29)
[2020-05-13] MEDS: INSULIN LISPRO 300 UNITS/3 ML VIAL. SQ SCH ×3 (05:39→18:17)
[2020-05-13] MEDS: methylPREDNISolone SOD SUCC PF 125 MG/2 ML VIAL. IV SCH (06:00)
[2020-05-13 06:10] LABS: ALBUMIN 1.5 g/dL (3.4-5.0); ALBUMIN/GLOBULIN RATIO 0.5 (1.0-1.7); CALCIUM 7.8 mg/dL (8.5-10.1); CREATININE 0.8 mg/dL (0.7-1.3); GFR 104.5; POTASSIUM 3.5 mmol/L (3.5-5.1); TOTAL BILIRUBIN 0.4 mg/dL (0.2-1.0); TOTAL PROTEIN 4.8 g/dL (6.4-8.2)
--- NOTE | 2020-05-13 07:06 | RAD ---
PORTABLE CHEST 1V INDICATION: Reason: ETT PLACEMENT / Spl. Instructions: / History: . COMPARISON STUDY: 06/07/2020. FINDINGS: Life Support Devices: Endotracheal tube terminates 5 cm above the mattie. Enteric tube courses into the stomach and beyond the inferior [id number]. Lungs: Low lung volume. Stable patchy bilateral opacities. Normal pulmonary vasculature. Pleura: No pleural effusion or pneumothorax. Heart and Mediastinum: Stable cardiomediastinal silhouette and great vessels. IMPRESSION: 1. Stable patchy bilateral opacities. 2. Life support devices as above. Electronically signed by: Antelmo Blackwood MD (05/13/2020 7:03 AM) [facility]
[2020-05-13] MEDS: FAMOTIDINE 20 MG/2 ML VIAL IVP SCH ×2 (08:27→21:02)
[2020-05-13] MEDS: NON FORMULARY ITEM 1 EA in IV NORMAL SALINE 250ML 230 ML IV SCH (08:59)
[2020-05-13 09:08] LABS: BASE EXCESS ABG 3 mmol/L (-3-3); HCO3 ABG 27 mmol/L (21-28); PCO2 ABG 37 mmHg (35-46); PO2 ABG 111 mmHg (75-108); SAT O2 ABG 98 % (92-99)
[2020-05-13 09:10] LABS: FIO2 ABG 55
--- NOTE | 2020-05-13 09:39 | PDOC ---
PULMONARY PROGRESS NOTES Subjective Continues on assist control FiO2 50% and a PEEP of 9 Sedated, remains on heparin gtt No other concerns from nursing overnight Vitals Vital Signs Date Time Temp Pulse Resp B/P (MAP) Pulse Ox O2 Delivery O2 Flow Rate FiO2 05/13/20 09:00 51 19 111/75 (87) 99 Ventilator 05/13/20 08:00 97.8 97.8 05/13/20 06:55 40.0 Comments Patient seen doing the , visual examination no respiratory distress in sync with the ventilator no significant edema Labs Laboratory Tests Test 05/11/20 11:10 05/11/20 13:18 05/11/20 16:51 05/11/20 17:00 Heparin Anti-Xa Act, Unfractionated 0.40 IU/mL (0.30-0.70) 0.39 IU/mL (0.30-0.70) Glucose (Fingerstick) 226 mg/dL (70-99) 212 mg/dL (70-99) Test 05/12/20 00:38 05/12/20 05:45 05/12/20 06:20 05/12/20 07:45 Glucose (Fingerstick) 224 mg/dL (70-99) 223 mg/dL (70-99) White Blood Count 15.5 x10^3/uL (4.0-11.0) Red Blood Count 5.26 x10^6/uL (4.30-5.70) Hemoglobin 15.2 g/dL (13.0-17.5) Hematocrit 45.9 % (39.0-53.0) Mean Corpuscular Volume 87 fL (79-100) Mean Corpuscular Hemoglobin 29 pg (25-35) Mean Corpuscular Hemoglobin Concent 33 g/dL (31-37) Red Cell Distribution Width 13.8 % (11.5-14.5) Platelet Count 530 x10^3/uL (140-400) Heparin Anti-Xa Act, Unfractionated 0.47 IU/mL (0.30-0.70) Sodium Level 136 mmol/L (136-145) Potassium Level 3.3 mmol/L (3.5-5.1) Chloride Level 101 mmol/L (98-107) Carbon Dioxide Level 30 mmol/L (21-32) Anion Gap 5 (6-14) Blood Urea Nitrogen 19 mg/dL (8-26) Creatinine 0.9 mg/dL (0.7-1.3) Estimated GFR (Cockcroft-Gault) 91.3 BUN/Creatinine Ratio 21 (6-20) Glucose Level 262 mg/dL (70-99) Calcium Level 7.9 mg/dL (8.5-10.1) Total Bilirubin 0.6 mg/dL (0.2-1.0) Aspartate Amino Transf (AST/SGOT) 49 U/L (15-37) Alanine Aminotransferase (ALT/SGPT) 41 U/L (16-63) Alkaline Phosphatase 64 U/L (46-116) Total Protein 6.0 g/dL (6.4-8.2) Albumin 1.9 g/dL (3.4-5.0) Albumin/Globulin Ratio 0.5 (1.0-1.7) O2 Saturation 93 % (92-99) Arterial Blood pH 7.42 (7.35-7.45) Arterial Blood pCO2 at Patient Temp 43 mmHg (35-46) Arterial Blood pO2 at Patient Temp 70 mmHg (75-108) Arterial Blood HCO3 27 mmol/L (21-28) Arterial Blood Base Excess 2 mmol/L (-3-3) FiO2 55 Test 05/12/20 12:59 05/12/20 18:16 05/12/20 23:46 05/13/20 04:55 Glucose (Fingerstick) 216 mg/dL (70-99) 209 mg/dL (70-99) 225 mg/dL (70-99) 200 mg/dL (70-99) Test 05/13/20 05:00 05/13/20 09:08 Heparin Anti-Xa Act, Unfractionated 0.27 IU/mL (0.30-0.70) Sodium Level 138 mmol/L (136-145) Potassium Level 3.5 mmol/L (3.5-5.1) Chloride Level 104 mmol/L (98-107) Carbon Dioxide Level 28 mmol/L (21-32) Anion Gap 6 (6-14) Blood Urea Nitrogen 19 mg/dL (8-26) Creatinine 0.8 mg/dL (0.7-1.3) Estimated GFR (Cockcroft-Gault) 104.5 BUN/Creatinine Ratio 24 (6-20) Glucose Level 221 mg/dL (70-99) Calcium Level 7.8 mg/dL (8.5-10.1) Total Bilirubin 0.4 mg/dL (0.2-1.0) Aspartate Amino Transf (AST/SGOT) 19 U/L (15-37) Alanine Aminotransferase (ALT/SGPT) 25 U/L (16-63) Alkaline Phosphatase 47 U/L (46-116) Total Protein 4.8 g/dL (6.4-8.2) Albumin 1.5 g/dL (3.4-5.0) Albumin/Globulin Ratio 0.5 (1.0-1.7) O2 Saturation 98 % (92-99) Arterial Blood pH 7.47 (7.35-7.45) Arterial Blood pCO2 at Patient Temp 37 mmHg (35-46) Arterial Blood pO2 at Patient Temp 111 mmHg (75-108) Arterial Blood HCO3 27 mmol/L (21-28) Arterial Blood Base Excess 3 mmol/L (-3-3) FiO2 55 Laboratory Tests Test 05/12/20 12:59 05/12/20 18:16 05/12/20 23:46 05/13/20 04:55 Glucose (Fingerstick) 216 mg/dL (70-99) 209 mg/dL (70-99) 225 mg/dL (70-99) 200 mg/dL (70-99) Test 05/13/20 05:00 05/13/20 09:08 Heparin Anti-Xa Act, Unfractionated 0.27 IU/mL (0.30-0.70) Sodium Level 138 mmol/L (136-145) Potassium Level 3.5 mmol/L (3.5-5.1) Chloride Level 104 mmol/L (98-107) Carbon Dioxide Level 28 mmol/L (21-32) Anion Gap 6 (6-14) Blood Urea Nitrogen 19 mg/dL (8-26) Creatinine 0.8 mg/dL (0.7-1.3) Estimated GFR (Cockcroft-Gault) 104.5 BUN/Creatinine Ratio 24 (6-20) Glucose Level 221 mg/dL (70-99) Calcium Level 7.8 mg/dL (8.5-10.1) Total Bilirubin 0.4 mg/dL (0.2-1.0) Aspartate Amino Transf (AST/SGOT) 19 U/L (15-37) Alanine Aminotransferase (ALT/SGPT) 25 U/L (16-63) Alkaline Phosphatase 47 U/L (46-116) Total Protein 4.8 g/dL (6.4-8.2) Albumin 1.5 g/dL (3.4-5.0) Albumin/Globulin Ratio 0.5 (1.0-1.7) O2 Saturation 98 % (92-99) Arterial Blood pH 7.47 (7.35-7.45) Arterial Blood pCO2 at Patient Temp 37 mmHg (35-46) Arterial Blood pO2 at Patient Temp 111 mmHg (75-108) Arterial Blood HCO3 27 mmol/L (21-28) Arterial Blood Base Excess 3 mmol/L (-3-3) FiO2 55 Comments CXR 05/13/2020 IMPRESSION: 1. Stable patchy bilateral opacities. 2. Life support devices as above. Impression . 1. Acute Hypoxic Respiratory Failure 2. Fever--resolved 3. Pneumonia, CXR positive for Bilateral patch infiltrates consistent with COVID-19 4. elevated d-dimer, presumptive thromboembolic disease-- on heparin gtt 5. Tachycardia 6. Elevated CRP and ferrtin also consistent with COVID-19 infection 7. COVID-19 viral pneumonia 8. COVID-19 sepsis-- improved Plan . Case discussed with [employer], oxygenating better. Discussed with RT, possible trial within the next 24 to 48 hours continue current ventilatory support with an FiO2 of 50% and a PEEP of 9 and assist control mode, follow chest x-ray and ABG make changes as appropriate-- reduced PEEP and Fi02 today Continue heparin drip for presumptive thromboembolic disease Status post convalescent serum on 05/08 Status post Remdesivir Cont Steroids Continue tube feeding for nutritional support GI/DVT prophylaxis Discussed with RN and RT CODE:FULL Total cumulative critical care time of 30 minutes reviewing data, labs, chest x- ray, YARELY PAULSON MD May 13, 2020 09:39
[2020-05-13] MEDS: methylPREDNISolone SOD SUCC PF 40 MG/ML VIAL. IV SCH ×3 (09:58→21:31)
[2020-05-13] MEDS: METOCLOPRAMIDE HCL 10 MG/2 ML VIAL. IVP SCH ×3 (12:09→21:02)
[2020-05-13] MEDS: IV NORMAL SALINE 1000ML BAG 1,000 ML IV SCH (15:57)
[2020-05-13] MEDS ORDERED: POTASSIUM CHLORIDE 20 MEQ TABLET.ER. PO ONE (16:00)
--- NOTE | 2020-05-13 16:21 | PDOC ---
PROGRESS NOTES Chief Complaint Chief Complaint Acute Hypoxic Resp Failure secondary to Suspected COVID-19 Bilateral Infiltrates on cxr elevated D dimer// elevated inflammatory markers Leukocytosis ELEVATED FERRITIN // Elevated CRP and ferrtin also consistent with COVID-19 infection mild hypernatremia History of Present Illness History of Present Illness cont on vent, imrpoved today, down on settings a little will give sq lantus x1, blood sugar high, change IV fluid, to NS IV abxm pulm following IV Rocephin and Azithro The patient was evaluated during the global COVID-19 pandemic, and that diagnosis was suspected/considered upon their initial presentation. Vitals Vitals Vital Signs Date Time Temp Pulse Resp B/P (MAP) Pulse Ox O2 Delivery O2 Flow Rate FiO2 05/13/20 15:03 96 Ventilator 05/13/20 15:00 49 20 99/65 (76) 05/13/20 12:00 97.8 97.8 05/13/20 06:55 40.0 Physical Exam Physical Exam GENERAL: INTUBATED ON VENT, SEDATED HEENT: Head normocephalic, atraumatic. NECK: Supple LUNGS: Clear to auscultation. HEART: RRR, S1, S2 present, pulses intact ABDOMEN: Soft, positive bowel sounds. EXTREMITIES: No cyanosis or edema. SKIN: No ulceration. General: Other (sedated) Abdomen: Other (obese) Extremities: No cyanosis Skin: No breakdown Labs LABS Laboratory Tests Test 05/12/20 18:16 05/12/20 23:46 05/13/20 04:55 05/13/20 05:00 Glucose (Fingerstick) 209 mg/dL (70-99) 225 mg/dL (70-99) 200 mg/dL (70-99) Heparin Anti-Xa Act, Unfractionated 0.27 IU/mL (0.30-0.70) Sodium Level 138 mmol/L (136-145) Potassium Level 3.5 mmol/L (3.5-5.1) Chloride Level 104 mmol/L (98-107) Carbon Dioxide Level 28 mmol/L (21-32) Anion Gap 6 (6-14) Blood Urea Nitrogen 19 mg/dL (8-26) Creatinine 0.8 mg/dL (0.7-1.3) Estimated GFR (Cockcroft-Gault) 104.5 BUN/Creatinine Ratio 24 (6-20) Glucose Level 221 mg/dL (70-99) Calcium Level 7.8 mg/dL (8.5-10.1) Total Bilirubin 0.4 mg/dL (0.2-1.0) Aspartate Amino Transf (AST/SGOT) 19 U/L (15-37) Alanine Aminotransferase (ALT/SGPT) 25 U/L (16-63) Alkaline Phosphatase 47 U/L (46-116) Total Protein 4.8 g/dL (6.4-8.2) Albumin 1.5 g/dL (3.4-5.0) Albumin/Globulin Ratio 0.5 (1.0-1.7) Test 05/13/20 09:08 05/13/20 14:10 O2 Saturation 98 % (92-99) Arterial Blood pH 7.47 (7.35-7.45) Arterial Blood pCO2 at Patient Temp 37 mmHg (35-46) Arterial Blood pO2 at Patient Temp 111 mmHg (75-108) Arterial Blood HCO3 27 mmol/L (21-28) Arterial Blood Base Excess 3 mmol/L (-3-3) FiO2 55 Heparin Anti-Xa Act, Unfractionated 0.69 IU/mL (0.30-0.70) Comment Review of Relevant I have reviewed the following items laura (where applicable) has been applied. Labs Laboratory Tests Test 05/11/20 16:51 05/11/20 17:00 05/12/20 00:38 05/12/20 05:45 Glucose (Fingerstick) 212 mg/dL (70-99) 224 mg/dL (70-99) Heparin Anti-Xa Act, Unfractionated 0.39 IU/mL (0.30-0.70) 0.47 IU/mL (0.30-0.70) White Blood Count 15.5 x10^3/uL (4.0-11.0) Red Blood Count 5.26 x10^6/uL (4.30-5.70) Hemoglobin 15.2 g/dL (13.0-17.5) Hematocrit 45.9 % (39.0-53.0) Mean Corpuscular Volume 87 fL (79-100) Mean Corpuscular Hemoglobin 29 pg (25-35) Mean Corpuscular Hemoglobin Concent 33 g/dL (31-37) Red Cell Distribution Width 13.8 % (11.5-14.5) Platelet Count 530 x10^3/uL (140-400) Sodium Level 136 mmol/L (136-145) Potassium Level 3.3 mmol/L (3.5-5.1) Chloride Level 101 mmol/L (98-107) Carbon Dioxide Level 30 mmol/L (21-32) Anion Gap 5 (6-14) Blood Urea Nitrogen 19 mg/dL (8-26) Creatinine 0.9 mg/dL (0.7-1.3) Estimated GFR (Cockcroft-Gault) 91.3 BUN/Creatinine Ratio 21 (6-20) Glucose Level 262 mg/dL (70-99) Calcium Level 7.9 mg/dL (8.5-10.1) Total Bilirubin 0.6 mg/dL (0.2-1.0) Aspartate Amino Transf (AST/SGOT) 49 U/L (15-37) Alanine Aminotransferase (ALT/SGPT) 41 U/L (16-63) Alkaline Phosphatase 64 U/L (46-116) Total Protein 6.0 g/dL (6.4-8.2) Albumin 1.9 g/dL (3.4-5.0) Albumin/Globulin Ratio 0.5 (1.0-1.7) Test 05/12/20 06:20 05/12/20 07:45 05/12/20 12:59 05/12/20 18:16 Glucose (Fingerstick) 223 mg/dL (70-99) 216 mg/dL (70-99) 209 mg/dL (70-99) O2 Saturation 93 % (92-99) Arterial Blood pH 7.42 (7.35-7.45) Arterial Blood pCO2 at Patient Temp 43 mmHg (35-46) Arterial Blood pO2 at Patient Temp 70 mmHg (75-108) Arterial Blood HCO3 27 mmol/L (21-28) Arterial Blood Base Excess 2 mmol/L (-3-3) FiO2 55 Test 05/12/20 23:46 05/13/20 04:55 05/13/20 05:00 05/13/20 09:08 Glucose (Fingerstick) 225 mg/dL (70-99) 200 mg/dL (70-99) Heparin Anti-Xa Act, Unfractionated 0.27 IU/mL (0.30-0.70) Sodium Level 138 mmol/L (136-145) Potassium Level 3.5 mmol/L (3.5-5.1) Chloride Level 104 mmol/L (98-107) Carbon Dioxide Level 28 mmol/L (21-32) Anion Gap 6 (6-14) Blood Urea Nitrogen 19 mg/dL (8-26) Creatinine 0.8 mg/dL (0.7-1.3) Estimated GFR (Cockcroft-Gault) 104.5 BUN/Creatinine Ratio 24 (6-20) Glucose Level 221 mg/dL (70-99) Calcium Level 7.8 mg/dL (8.5-10.1) Total Bilirubin 0.4 mg/dL (0.2-1.0) Aspartate Amino Transf (AST/SGOT) 19 U/L (15-37) Alanine Aminotransferase (ALT/SGPT) 25 U/L (16-63) Alkaline Phosphatase 47 U/L (46-116) Total Protein 4.8 g/dL (6.4-8.2) Albumin 1.5 g/dL (3.4-5.0) Albumin/Globulin Ratio 0.5 (1.0-1.7) O2 Saturation 98 % (92-99) Arterial Blood pH 7.47 (7.35-7.45) Arterial Blood pCO2 at Patient Temp 37 mmHg (35-46) Arterial Blood pO2 at Patient Temp 111 mmHg (75-108) Arterial Blood HCO3 27 mmol/L (21-28) Arterial Blood Base Excess 3 mmol/L (-3-3) FiO2 55 Test 05/13/20 14:10 Heparin Anti-Xa Act, Unfractionated 0.69 IU/mL (0.30-0.70) Laboratory Tests Test 05/12/20 18:16 05/12/20 23:46 05/13/20 04:55 05/13/20 05:00 Glucose (Fingerstick) 209 mg/dL (70-99) 225 mg/dL (70-99) 200 mg/dL (70-99) Heparin Anti-Xa Act, Unfractionated 0.27 IU/mL (0.30-0.70) Sodium Level 138 mmol/L (136-145) Potassium Level 3.5 mmol/L (3.5-5.1) Chloride Level 104 mmol/L (98-107) Carbon Dioxide Level 28 mmol/L (21-32) Anion Gap 6 (6-14) Blood Urea Nitrogen 19 mg/dL (8-26) Creatinine 0.8 mg/dL (0.7-1.3) Estimated GFR (Cockcroft-Gault) 104.5 BUN/Creatinine Ratio 24 (6-20) Glucose Level 221 mg/dL (70-99) Calcium Level 7.8 mg/dL (8.5-10.1) Total Bilirubin 0.4 mg/dL (0.2-1.0) Aspartate Amino Transf (AST/SGOT) 19 U/L (15-37) Alanine Aminotransferase (ALT/SGPT) 25 U/L (16-63) Alkaline Phosphatase 47 U/L (46-116) Total Protein 4.8 g/dL (6.4-8.2) Albumin 1.5 g/dL (3.4-5.0) Albumin/Globulin Ratio 0.5 (1.0-1.7) Test 05/13/20 09:08 05/13/20 14:10 O2 Saturation 98 % (92-99) Arterial Blood pH 7.47 (7.35-7.45) Arterial Blood pCO2 at Patient Temp 37 mmHg (35-46) Arterial Blood pO2 at Patient Temp 111 mmHg (75-108) Arterial Blood HCO3 27 mmol/L (21-28) Arterial Blood Base Excess 3 mmol/L (-3-3) FiO2 55 Heparin Anti-Xa Act, Unfractionated 0.69 IU/mL (0.30-0.70) Microbiology 05/08/20 Urine Culture - Final, Complete 05/06/20 Blood Culture - Final, Complete NO GROWTH AFTER 5 DAYS Medications Current Medications Acetaminophen (Tylenol) 650 mg 1X ONCE PO Last administered on 05/06/20at 03:54; Start 05/06/20 at 03:00; Stop 05/06/20 at 03:01; Status DC Sodium Chloride 1,000 ml @ 1,000 mls/hr 1X ONCE IV Last administered on 05/06/20at 03:53; Start 05/06/20 at 03:00; Stop 05/06/20 at 03:59; Status DC Ceftriaxone Sodium (Rocephin) 1 gm 1X ONCE IVP Last administered on 05/06/20at 03:54; Start 05/06/20 at 03:00; Stop 05/06/20 at 03:01; Status DC Azithromycin 250 ml @ 250 mls/hr 1X ONCE IV Last administered on 05/06/20at 03:00; Start 05/06/20 at 03:00; Stop 05/06/20 at 03:59; Status DC Hydralazine HCl (Apresoline) 25 mg PRN TID PRN PO for SBP greater than 180; Start 05/06/20 at 07:30 Enoxaparin Sodium (Lovenox Per Pharmacy Prophylaxis Dosing) 1 each PRN DAILY PRN MC SEE COMMENTS; Start 05/06/20 at 07:30; Stop 05/10/20 at 20:59; Status DC Ceftriaxone Sodium (Rocephin) 1 gm Q24H IVP Last administered on 05/13/20at 03:46; Start 05/07/20 at 04:00 Acetaminophen (Tylenol) 650 mg PRN Q6HRS PRN PO fever Last administered on 05/06/20at 15:51; Start 05/06/20 at 07:30 Azithromycin 500 mg/Sodium Chloride 250 ml @ 250 mls/hr Q24H IV Last administered on 05/13/20at 03:46; Start 05/07/20 at 04:00 Enoxaparin Sodium (Lovenox 60mg Syringe) 60 mg Q12HR SQ Last administered on 05/08/20at 08:16; Start 05/06/20 at 09:00; Stop 05/08/20 at 14:36; Status DC Nicotine (Nicoderm Cq 21mg) 1 patch PRN DAILY PRN TD SMOKING CESSATION; Start 05/06/20 at 08:30 Methylprednisolone Sodium Succinate (SOLU-Medrol 125MG VIAL) 60 mg Q8HRS IV Last administered on 05/13/20at 06:00; Start 05/06/20 at 14:00; Stop 05/13/20 at 09:37; Status DC Famotidine (Pepcid Vial) 20 mg BID IVP Last administered on 05/08/20at 08:15; Start 05/06/20 at 21:00; Stop 05/08/20 at 12:35; Status DC Sterile Water (WATER for RESP) 1,000 ml CONT PRN INH VIA VAPOTHERM DEVICE; Start 05/06/20 at 23:30; Stop 05/07/20 at 11:27; Status DC Fentanyl Citrate 30 ml @ 0 mls/hr CONT PRN IV SEE PROTOCOL Last administered on 05/13/20at 06:02; Start 05/07/20 at 00:30 Propofol 100 ml @ 0 mls/hr CONT PRN IV SEE PROTOCOL; Start 05/07/20 at 00:15 Chlorhexidine Gluconate (Peridex) 15 ml BID MM ; Start 05/07/20 at 09:00; Stop 05/07/20 at 07:33; Status DC Midazolam HCl 100 ml @ 0 mls/hr CONT PRN IV SEE PROTOCOL Last administered on 05/13/20at 11:52; Start 05/07/20 at 00:30 Succinylcholine Chloride (Anectine) 200 mg 1X ONCE IV Last administered on 05/07/20at 00:37; Start 05/07/20 at 00:45; Stop 05/07/20 at 00:46; Status DC Etomidate (Amidate) 20 mg STK-MED ONCE IV ; Start 05/07/20 at 00:57; Stop 05/07/20 at 00:57; Status DC Vecuronium [place] (Norcuron Bolus) 10 mg 1X ONCE IV ; Start 05/07/20 at 01:15; Stop 05/07/20 at 01:16; Status DC Norepinephrine Bitartrate 8 mg/ Dextrose 258 ml @ 19.756 mls/ hr CONT PRN IV PER PROTOCOL Last administered on 05/07/20at 02:37; Start 05/07/20 at 02:15 Succinylcholine Chloride (Anectine) 200 mg STK-MED ONCE .ROUTE ; Start 05/07/20 at 01:00; Stop 05/07/20 at 08:46; Status DC Non-Formulary Medication 1 ea/ Sodium Chloride 210 ml @ 420 mls/hr 1X ONCE IV Last administered on 05/07/20at 15:07; Start 05/07/20 at 15:00; Stop 05/07/20 at 15:29; Status DC Non-Formulary Medication 1 ea/ Sodium Chloride 230 ml @ 460 mls/hr Q24H IV Last administered on 05/13/20at 08:59; Start 05/08/20 at 09:00; Stop 05/16/20 at 09:29 Dextrose/Sodium Chloride 1,000 ml @ 75 mls/hr [id number] IV Last administered on 05/12/20at 02:33; Start 05/08/20 at 12:30; Stop 05/13/20 at 15:52; Status DC Famotidine (Pepcid Vial) 20 mg BID IVP Last administered on 05/13/20at 08:27; Start 05/08/20 at 21:00 Insulin Human Lispro (HumaLOG) 0-5 UNITS Q6HRS SQ Last administered on 05/13/20at 12:08; Start 05/08/20 at 18:00 Dextrose (Dextrose 50%-Water Syringe) 12.5 gm PRN Q15MIN PRN IV SEE COMMENTS; Start 05/08/20 at 12:45 Enoxaparin Sodium (Lovenox 40mg Syringe) 40 mg BID SQ Last administered on 05/10/20at 08:50; Start 05/08/20 at 21:00; Stop 05/10/20 at 20:59; Status DC Heparin Sodium (Porcine) (Heparin Sodium) 8,000 unit 1X ONCE IV Last administered on 05/10/20at 21:22; Start 05/10/20 at 21:00; Stop 05/10/20 at 21:02; Status DC Heparin Sodium/ Dextrose 250 ml @ 16 mls/hr CONT PRN IV PER PROTOCOL Last administered on 05/13/20at 03:51; Start 05/10/20 at 21:00 Heparin Sodium (Porcine) (Heparin Sodium) 3,000 unit PRN Q6HRS PRN IV FOR UFH LEVEL LESS THAN 0.2; Start 05/10/20 at 21:00 Heparin Sodium (Porcine) (Heparin Sodium) 1,500 unit PRN Q6HRS PRN IV FOR UFH LEVEL 0.2 - 0.29; Start 05/10/20 at 21:00 Erythromycin Lactobionate 125 mg/Sodium Chloride 100 ml @ 100 mls/hr Q6HRS IV ; Start 05/12/20 at 18:00; Stop 05/12/20 at 18:40; Status DC Erythromycin Lactobionate 125 mg/Sodium Chloride 100 ml @ 100 mls/hr Q6HRS IV ; Start 05/13/20 at 20:00; Stop 05/12/20 at 18:41; Status DC Erythromycin Lactobionate 125 mg/Sodium Chloride 100 ml @ 100 mls/hr Q6HRS IV Last administered on 05/13/20 06:00; Start 05/12/20 at 19:30; Stop 05/13/20 at 09:41; Status DC Methylprednisolone Sodium Succinate (SOLU-Medrol 40MG VIAL) 40 mg Q8HRS IV Last administered on 05/13/20at 13:38; Start 05/13/20 at 09:45 Metoclopramide HCl (Reglan Vial) 10 mg QID IVP Last administered on 05/13/20 16:14; Start 05/13/20 at 13:00 Sodium Chloride 1,000 ml @ 75 mls/hr [id number] IV Last administered on 05/13/20 15:57; Start 05/13/20 at 16:00 Potassium Chloride (Klor-Con) 20 meq 1X ONCE PO ; Start 05/13/20 at 16:00; Stop 05/13/20 at 16:01; Status Cancel Insulin Glargine (Lantus Syringe) 12 unit 1X ONCE SQ Last administered on 05/13/20at 16:14; Start 05/13/20 at 16:30; Stop 05/13/20 at 16:31 Potassium Bicarbonate (Potassium Effervescent Tablet) 20 meq 1X ONCE PO Last administered on 05/13/20 16:13; Start 05/13/20 at 16:30; Stop 05/13/20 at 16:31 Vitals/I & O Vital Sign - Last 24 Hours 05/12/20 05/12/20 05/12/20 05/12/20 17:00 18:00 19:00 20:00 Pulse 48 50 52 Resp 19 20 20 B/P (MAP) 116/81 (93) 104/71 (82) 127/72 (90) Pulse Ox 97 97 97 O2 Delivery Ventilator Ventilator Ventilator Mechanical Ventilator 05/12/20 05/12/20 05/12/20 05/12/20 20:00 20:30 20:45 21:00 Temp 97.6 97.6 Pulse 50 49 Resp 20 19 B/P (MAP) 134/57 (82) 102/68 (79) Pulse Ox 97 97 97 97 O2 Delivery Ventilator Ventilator Ventilator O2 Flow Rate 40.0 05/12/20 05/12/20 05/12/20 05/12/20 21:29 22:00 23:00 23:59 Temp 98.1 98.1 Pulse 47 48 52 Resp 18 18 19 B/P (MAP) 98/64 (75) 105/52 (69) 102/55 (71) Pulse Ox 97 97 97 98 O2 Delivery Ventilator Ventilator Ventilator O2 Flow Rate 40.0 05/12/20 05/13/20 05/13/20 05/13/20 23:59 00:02 01:00 02:00 Pulse 55 50 Resp 18 19 B/P (MAP) 110/76 (87) 94/63 (73) Pulse Ox 98 99 99 O2 Delivery Mechanical Ventilator Ventilator Ventilator Ventilator 05/13/20 05/13/20 05/13/20 05/13/20 03:00 04:00 04:00 04:22 Temp 98.4 98.4 Pulse 48 52 Resp 19 19 B/P (MAP) 98/62 (74) 99/69 (79) Pulse Ox 99 99 98 O2 Delivery Ventilator Mechanical Ventilator Ventilator Ventilator 05/13/20 05/13/20 05/13/20 05/13/20 05:00 06:02 06:06 06:55 Pulse 48 52 Resp 20 20 B/P (MAP) 105/76 (86) 101/68 (79) Pulse Ox 98 98 98 98 O2 Delivery Ventilator Ventilator O2 Flow Rate 40.0 40.0 05/13/20 05/13/20 05/13/20 05/13/20 07:00 08:00 08:00 08:53 Temp 97.8 97.8 Pulse 51 49 Resp 18 18 B/P (MAP) 107/71 (83) 101/65 (77) Pulse Ox 98 98 98 O2 Delivery Ventilator Ventilator Mechanical Ventilator Ventilator 05/13/20 05/13/20 05/13/20 05/13/20 09:00 09:45 10:00 11:00 Pulse 51 47 48 Resp 19 20 21 B/P (MAP) 111/75 (87) 96/64 (75) 101/64 (76) Pulse Ox 99 98 98 98 O2 Delivery Ventilator Ventilator Ventilator Ventilator 05/13/20 05/13/20 05/13/20 05/13/20 11:13 12:00 12:00 13:00 Temp 97.8 97.8 Pulse 50 50 Resp 19 20 B/P (MAP) 100/64 (76) 95/61 (72) Pulse Ox 98 98 98 O2 Delivery Ventilator Ventilator Mechanical Ventilator Ventilator 05/13/20 05/13/20 05/13/20 05/13/20 13:28 14:00 15:00 15:03 Pulse 51 49 Resp 19 20 B/P (MAP) 103/65 (78) 99/65 (76) Pulse Ox 98 95 95 96 O2 Delivery Ventilator Ventilator Ventilator Ventilator Intake and Output 05/12/20 05/12/20 05/13/20 15:00 23:00 07:00 Intake Total 580 ml 1551 ml 787 ml Output Total 1725 ml 725 ml 995 ml Balance -1145 ml 826 ml -208 ml Justicifation of Admission Dx: Justifications for Admission: Justification of Admission Dx: Yes Comminuty Aquired Pneumonia: Hypoxemia GAUTAM FRITZ MD May 13, 2020 16:21
[2020-05-13] MEDS ORDERED: POTASSIUM BICARB 20 MEQ EFFERVESCENT TABLET. PO ONE (16:30)
[2020-05-13] MEDS ORDERED: INSULIN GLARGINE SYRINGE. SQ ONE (16:30)
[2020-05-13] MEDS ORDERED: ERYTHROMYCIN LACT 125 MG in IV NORMAL SALINE 100ML 100 ML IV SCH (20:00)
[2020-05-14] VITALS (24 sets, daily range): BP systolic 73–126; BP diastolic 38–85
[2020-05-14 02:06] LABS: HEMATOCRIT 38.8 % (39.0-53.0); HEMOGLOBIN 12.8 g/dL (13.0-17.5); RED BLOOD COUNT 4.42 x10^6/uL (4.30-5.70); WHITE BLOOD COUNT 21.4 x10^3/uL (4.0-11.0)
[2020-05-14] MEDS: IV NORMAL SALINE 1000ML BAG 1,000 ML IV SCH ×2 (03:37→19:08)
[2020-05-14] MEDS: cefTRIAXone IV Push 1 GM VIAL. IVP SCH (03:39)
[2020-05-14] MEDS: AZITHROMYCIN 500 MG in IV NORMAL SALINE 250ML 250 ML IV SCH (03:39)
[2020-05-14 03:47] LABS: ALBUMIN 1.5 g/dL (3.4-5.0); ALBUMIN/GLOBULIN RATIO 0.6 (1.0-1.7); CREATININE 0.8 mg/dL (0.7-1.3); GFR 104.5; POTASSIUM 3.6 mmol/L (3.5-5.1); TOTAL BILIRUBIN 0.4 mg/dL (0.2-1.0); TOTAL PROTEIN 4.2 g/dL (6.4-8.2)
[2020-05-14] MEDS: methylPREDNISolone SOD SUCC PF 40 MG/ML VIAL. IV SCH ×3 (05:47→21:49)
[2020-05-14] MEDS: INSULIN LISPRO 300 UNITS/3 ML VIAL. SQ SCH ×5 (05:47→23:33)
[2020-05-14 08:20] LABS: BASE EXCESS ABG 5 mmol/L (-3-3); HCO3 ABG 30 mmol/L (21-28); PCO2 ABG 44 mmHg (35-46); PO2 ABG 68 mmHg (75-108); SAT O2 ABG 93 % (92-99)
[2020-05-14] MEDS: METOCLOPRAMIDE HCL 10 MG/2 ML VIAL. IVP SCH ×4 (08:31→21:49)
[2020-05-14] MEDS: FAMOTIDINE 20 MG/2 ML VIAL IVP SCH ×2 (08:31→21:49)
[2020-05-14] MEDS: NON FORMULARY ITEM 1 EA in IV NORMAL SALINE 250ML 230 ML IV SCH (09:01)
--- NOTE | 2020-05-14 09:01 | PDOC ---
PULMONARY PROGRESS NOTES Subjective Oxygenating better, sedated on assist control ventilation Vitals Vital Signs Date Time Temp Pulse Resp B/P (MAP) Pulse Ox O2 Delivery O2 Flow Rate FiO2 05/14/20 06:00 59 22 98/56 (70) 96 Ventilator 05/14/20 05:21 40.0 05/14/20 04:00 98.1 98.1 Comments Patient seen doing the , visual examination no respiratory distress in sync with the ventilator no significant edema Labs Laboratory Tests Test 05/12/20 12:59 05/12/20 18:16 05/12/20 23:46 05/13/20 04:55 Glucose (Fingerstick) 216 mg/dL (70-99) 209 mg/dL (70-99) 225 mg/dL (70-99) 200 mg/dL (70-99) Test 05/13/20 05:00 05/13/20 09:08 05/13/20 14:10 05/13/20 18:09 Heparin Anti-Xa Act, Unfractionated 0.27 IU/mL (0.30-0.70) 0.69 IU/mL (0.30-0.70) Sodium Level 138 mmol/L (136-145) Potassium Level 3.5 mmol/L (3.5-5.1) Chloride Level 104 mmol/L (98-107) Carbon Dioxide Level 28 mmol/L (21-32) Anion Gap 6 (6-14) Blood Urea Nitrogen 19 mg/dL (8-26) Creatinine 0.8 mg/dL (0.7-1.3) Estimated GFR (Cockcroft-Gault) 104.5 BUN/Creatinine Ratio 24 (6-20) Glucose Level 221 mg/dL (70-99) Calcium Level 7.8 mg/dL (8.5-10.1) Total Bilirubin 0.4 mg/dL (0.2-1.0) Aspartate Amino Transf (AST/SGOT) 19 U/L (15-37) Alanine Aminotransferase (ALT/SGPT) 25 U/L (16-63) Alkaline Phosphatase 47 U/L (46-116) Total Protein 4.8 g/dL (6.4-8.2) Albumin 1.5 g/dL (3.4-5.0) Albumin/Globulin Ratio 0.5 (1.0-1.7) O2 Saturation 98 % (92-99) Arterial Blood pH 7.47 (7.35-7.45) Arterial Blood pCO2 at Patient Temp 37 mmHg (35-46) Arterial Blood pO2 at Patient Temp 111 mmHg (75-108) Arterial Blood HCO3 27 mmol/L (21-28) Arterial Blood Base Excess 3 mmol/L (-3-3) FiO2 55 Glucose (Fingerstick) 237 mg/dL (70-99) Test 05/13/20 19:25 05/13/20 23:55 05/14/20 01:45 05/14/20 05:41 Heparin Anti-Xa Act, Unfractionated 0.79 IU/mL (0.30-0.70) 0.69 IU/mL (0.30-0.70) Glucose (Fingerstick) 236 mg/dL (70-99) 227 mg/dL (70-99) White Blood Count 21.4 x10^3/uL (4.0-11.0) Red Blood Count 4.42 x10^6/uL (4.30-5.70) Hemoglobin 12.8 g/dL (13.0-17.5) Hematocrit 38.8 % (39.0-53.0) Mean Corpuscular Volume 88 fL (79-100) Mean Corpuscular Hemoglobin 29 pg (25-35) Mean Corpuscular Hemoglobin Concent 33 g/dL (31-37) Red Cell Distribution Width 14.0 % (11.5-14.5) Platelet Count 439 x10^3/uL (140-400) Sodium Level 141 mmol/L (136-145) Potassium Level 3.6 mmol/L (3.5-5.1) Chloride Level 104 mmol/L (98-107) Carbon Dioxide Level 30 mmol/L (21-32) Anion Gap 7 (6-14) Blood Urea Nitrogen 23 mg/dL (8-26) Creatinine 0.8 mg/dL (0.7-1.3) Estimated GFR (Cockcroft-Gault) 104.5 BUN/Creatinine Ratio 29 (6-20) Glucose Level 225 mg/dL (70-99) Calcium Level 7.0 mg/dL (8.5-10.1) Total Bilirubin 0.4 mg/dL (0.2-1.0) Aspartate Amino Transf (AST/SGOT) 13 U/L (15-37) Alanine Aminotransferase (ALT/SGPT) 23 U/L (16-63) Alkaline Phosphatase 55 U/L (46-116) Total Protein 4.2 g/dL (6.4-8.2) Albumin 1.5 g/dL (3.4-5.0) Albumin/Globulin Ratio 0.6 (1.0-1.7) Laboratory Tests Test 05/13/20 09:08 05/13/20 14:10 05/13/20 18:09 05/13/20 19:25 O2 Saturation 98 % (92-99) Arterial Blood pH 7.47 (7.35-7.45) Arterial Blood pCO2 at Patient Temp 37 mmHg (35-46) Arterial Blood pO2 at Patient Temp 111 mmHg (75-108) Arterial Blood HCO3 27 mmol/L (21-28) Arterial Blood Base Excess 3 mmol/L (-3-3) FiO2 55 Heparin Anti-Xa Act, Unfractionated 0.69 IU/mL (0.30-0.70) 0.79 IU/mL (0.30-0.70) Glucose (Fingerstick) 237 mg/dL (70-99) Test 05/13/20 23:55 05/14/20 01:45 05/14/20 05:41 Glucose (Fingerstick) 236 mg/dL (70-99) 227 mg/dL (70-99) White Blood Count 21.4 x10^3/uL (4.0-11.0) Red Blood Count 4.42 x10^6/uL (4.30-5.70) Hemoglobin 12.8 g/dL (13.0-17.5) Hematocrit 38.8 % (39.0-53.0) Mean Corpuscular Volume 88 fL (79-100) Mean Corpuscular Hemoglobin 29 pg (25-35) Mean Corpuscular Hemoglobin Concent 33 g/dL (31-37) Red Cell Distribution Width 14.0 % (11.5-14.5) Platelet Count 439 x10^3/uL (140-400) Heparin Anti-Xa Act, Unfractionated 0.69 IU/mL (0.30-0.70) Sodium Level 141 mmol/L (136-145) Potassium Level 3.6 mmol/L (3.5-5.1) Chloride Level 104 mmol/L (98-107) Carbon Dioxide Level 30 mmol/L (21-32) Anion Gap 7 (6-14) Blood Urea Nitrogen 23 mg/dL (8-26) Creatinine 0.8 mg/dL (0.7-1.3) Estimated GFR (Cockcroft-Gault) 104.5 BUN/Creatinine Ratio 29 (6-20) Glucose Level 225 mg/dL (70-99) Calcium Level 7.0 mg/dL (8.5-10.1) Total Bilirubin 0.4 mg/dL (0.2-1.0) Aspartate Amino Transf (AST/SGOT) 13 U/L (15-37) Alanine Aminotransferase (ALT/SGPT) 23 U/L (16-63) Alkaline Phosphatase 55 U/L (46-116) Total Protein 4.2 g/dL (6.4-8.2) Albumin 1.5 g/dL (3.4-5.0) Albumin/Globulin Ratio 0.6 (1.0-1.7) Comments CXR 05/13/2020 IMPRESSION: 1. Stable patchy bilateral opacities. 2. Life support devices as above. Impression . 1. Acute Hypoxic Respiratory Failure 2. Fever--resolved 3. Pneumonia, CXR positive for Bilateral patch infiltrates consistent with COVID-19 4. elevated d-dimer, presumptive thromboembolic disease-- on heparin gtt 5. Tachycardia 6. Elevated CRP and ferrtin also consistent with COVID-19 infection 7. COVID-19 viral pneumonia 8. COVID-19 sepsis-- improved Plan . Discussed with RN, try Precedex We will attempt weaning this week Continue heparin drip for presumptive thromboembolic disease Status post convalescent serum on 05/08 Status post Remdesivir Cont Steroids Continue tube feeding for nutritional support GI/DVT prophylaxis Discussed with RN and RT CODE:FULL Total cumulative critical care time of 30 minutes reviewing data, labs, chest x- ray, YARELY PAULSON MD May 14, 2020 09:01
[2020-05-14 11:30] LABS: FIO2 ABG 50
--- NOTE | 2020-05-14 11:50 | NUR ---
SS following up with discharge planning. SS reviewed pt chart and discussed with pt RN. Pt COVID19 positive. Pt remains on the vent at this time. Pt on IV Azithromycin and Rocephin. Pt is self pay pt. SS will continue to follow for discharge planning.
[2020-05-14] MEDS: MIDAZOLAM 100mg/100ml NS BAG 100 ML IV PRN ×2 (13:19→19:15)
[2020-05-14] MEDS ORDERED: IV NORMAL SALINE 1000ML BAG 1,000 ML IV ONE (13:30)
[2020-05-14] MEDS ORDERED: ATROPINE 0.5 MG/5 ML DISP.SYRINGE. IV PRN (16:15)
[2020-05-14] MEDS ORDERED: IV NORMAL SALINE 500ML BAG 500 ML IV PRN (16:15)
[2020-05-14] MEDS: DEXMEDETOMIDINE 400 MCG in IV NORMAL SALINE 100ML 96 ML IV PRN (17:14)
[2020-05-14] MEDS: HEPARIN 25,000UTS/250ML PREMIX 250 ML IV PRN (17:49)
[2020-05-15] VITALS (23 sets, daily range): BP systolic 96–146; BP diastolic 51–80
[2020-05-15] MEDS: DEXMEDETOMIDINE 400 MCG in IV NORMAL SALINE 100ML 96 ML IV PRN ×4 (00:21→22:17)
[2020-05-15] MEDS: cefTRIAXone IV Push 1 GM VIAL. IVP SCH (03:44)
[2020-05-15] MEDS: AZITHROMYCIN 500 MG in IV NORMAL SALINE 250ML 250 ML IV SCH (03:44)
[2020-05-15] MEDS: INSULIN LISPRO 300 UNITS/3 ML VIAL. SQ SCH ×4 (05:35→23:49)
[2020-05-15] MEDS: methylPREDNISolone SOD SUCC PF 40 MG/ML VIAL. IV SCH ×3 (05:36→22:11)
[2020-05-15 06:05] LABS: HEMATOCRIT 39.6 % (39.0-53.0); HEMOGLOBIN 13.2 g/dL (13.0-17.5); RED BLOOD COUNT 4.55 x10^6/uL (4.30-5.70); RED CELL DISTRIBUTION WIDTH 14.2 % (11.5-14.5); WHITE BLOOD COUNT 20.6 x10^3/uL (4.0-11.0)
[2020-05-15 06:22] LABS: ALBUMIN 1.4 g/dL (3.4-5.0); ALBUMIN/GLOBULIN RATIO 0.4 (1.0-1.7); CALCIUM 7.1 mg/dL (8.5-10.1); CREATININE 0.8 mg/dL (0.7-1.3); GFR 104.5; POTASSIUM 3.7 mmol/L (3.5-5.1); TOTAL BILIRUBIN 0.4 mg/dL (0.2-1.0); TOTAL PROTEIN 4.6 g/dL (6.4-8.2)
[2020-05-15] MEDS: METOCLOPRAMIDE HCL 10 MG/2 ML VIAL. IVP SCH ×4 (08:08→21:01)
[2020-05-15] MEDS: FAMOTIDINE 20 MG/2 ML VIAL IVP SCH ×2 (08:08→21:01)
[2020-05-15] MEDS: IV NORMAL SALINE 1000ML BAG 1,000 ML IV SCH ×2 (08:10→23:52)
[2020-05-15 08:28] LABS: BASE EXCESS ABG 3 mmol/L (-3-3); HCO3 ABG 26 mmol/L (21-28); PCO2 ABG 37 mmHg (35-46); PO2 ABG 73 mmHg (75-108); SAT O2 ABG 94 % (92-99)
--- NOTE | 2020-05-15 08:45 | PDOC ---
PULMONARY PROGRESS NOTES Subjective Oxygenating better, sedated on assist control ventilation Vitals Vital Signs Date Time Temp Pulse Resp B/P (MAP) Pulse Ox O2 Delivery O2 Flow Rate FiO2 05/15/20 06:00 62 26 121/74 (90) 98 Ventilator 05/15/20 04:00 97.6 97.6 05/15/20 03:16 40.0 Comments Patient seen doing the , visual examination no respiratory distress in sync with the ventilator no significant edema Labs Laboratory Tests Test 05/13/20 09:08 05/13/20 14:10 05/13/20 18:09 05/13/20 19:25 O2 Saturation 98 % (92-99) Arterial Blood pH 7.47 (7.35-7.45) Arterial Blood pCO2 at Patient Temp 37 mmHg (35-46) Arterial Blood pO2 at Patient Temp 111 mmHg (75-108) Arterial Blood HCO3 27 mmol/L (21-28) Arterial Blood Base Excess 3 mmol/L (-3-3) FiO2 55 Heparin Anti-Xa Act, Unfractionated 0.69 IU/mL (0.30-0.70) 0.79 IU/mL (0.30-0.70) Glucose (Fingerstick) 237 mg/dL (70-99) Test 05/13/20 23:55 05/14/20 01:45 05/14/20 05:41 05/14/20 08:10 Glucose (Fingerstick) 236 mg/dL (70-99) 227 mg/dL (70-99) White Blood Count 21.4 x10^3/uL (4.0-11.0) Red Blood Count 4.42 x10^6/uL (4.30-5.70) Hemoglobin 12.8 g/dL (13.0-17.5) Hematocrit 38.8 % (39.0-53.0) Mean Corpuscular Volume 88 fL (79-100) Mean Corpuscular Hemoglobin 29 pg (25-35) Mean Corpuscular Hemoglobin Concent 33 g/dL (31-37) Red Cell Distribution Width 14.0 % (11.5-14.5) Platelet Count 439 x10^3/uL (140-400) Heparin Anti-Xa Act, Unfractionated 0.69 IU/mL (0.30-0.70) Sodium Level 141 mmol/L (136-145) Potassium Level 3.6 mmol/L (3.5-5.1) Chloride Level 104 mmol/L (98-107) Carbon Dioxide Level 30 mmol/L (21-32) Anion Gap 7 (6-14) Blood Urea Nitrogen 23 mg/dL (8-26) Creatinine 0.8 mg/dL (0.7-1.3) Estimated GFR (Cockcroft-Gault) 104.5 BUN/Creatinine Ratio 29 (6-20) Glucose Level 225 mg/dL (70-99) Calcium Level 7.0 mg/dL (8.5-10.1) Total Bilirubin 0.4 mg/dL (0.2-1.0) Aspartate Amino Transf (AST/SGOT) 13 U/L (15-37) Alanine Aminotransferase (ALT/SGPT) 23 U/L (16-63) Alkaline Phosphatase 55 U/L (46-116) Total Protein 4.2 g/dL (6.4-8.2) Albumin 1.5 g/dL (3.4-5.0) Albumin/Globulin Ratio 0.6 (1.0-1.7) O2 Saturation 93 % (92-99) Arterial Blood pH 7.45 (7.35-7.45) Arterial Blood pCO2 at Patient Temp 44 mmHg (35-46) Arterial Blood pO2 at Patient Temp 68 mmHg (75-108) Arterial Blood HCO3 30 mmol/L (21-28) Arterial Blood Base Excess 5 mmol/L (-3-3) FiO2 50 Test 05/14/20 10:00 05/14/20 13:41 05/14/20 17:29 05/14/20 23:06 Heparin Anti-Xa Act, Unfractionated 0.68 IU/mL (0.30-0.70) Glucose (Fingerstick) 216 mg/dL (70-99) 221 mg/dL (70-99) 210 mg/dL (70-99) Test 05/15/20 05:17 05/15/20 05:20 05/15/20 05:25 Glucose (Fingerstick) 192 mg/dL (70-99) Heparin Anti-Xa Act, Unfractionated 0.35 IU/mL (0.30-0.70) White Blood Count 20.6 x10^3/uL (4.0-11.0) Red Blood Count 4.55 x10^6/uL (4.30-5.70) Hemoglobin 13.2 g/dL (13.0-17.5) Hematocrit 39.6 % (39.0-53.0) Mean Corpuscular Volume 87 fL (79-100) Mean Corpuscular Hemoglobin 29 pg (25-35) Mean Corpuscular Hemoglobin Concent 33 g/dL (31-37) Red Cell Distribution Width 14.2 % (11.5-14.5) Platelet Count 381 x10^3/uL (140-400) Sodium Level 142 mmol/L (136-145) Potassium Level 3.7 mmol/L (3.5-5.1) Chloride Level 107 mmol/L (98-107) Carbon Dioxide Level 29 mmol/L (21-32) Anion Gap 6 (6-14) Blood Urea Nitrogen 21 mg/dL (8-26) Creatinine 0.8 mg/dL (0.7-1.3) Estimated GFR (Cockcroft-Gault) 104.5 BUN/Creatinine Ratio 26 (6-20) Glucose Level 222 mg/dL (70-99) Calcium Level 7.1 mg/dL (8.5-10.1) Total Bilirubin 0.4 mg/dL (0.2-1.0) Aspartate Amino Transf (AST/SGOT) 12 U/L (15-37) Alanine Aminotransferase (ALT/SGPT) 18 U/L (16-63) Alkaline Phosphatase 53 U/L (46-116) Total Protein 4.6 g/dL (6.4-8.2) Albumin 1.4 g/dL (3.4-5.0) Albumin/Globulin Ratio 0.4 (1.0-1.7) Laboratory Tests Test 05/14/20 10:00 05/14/20 13:41 05/14/20 17:29 05/14/20 23:06 Heparin Anti-Xa Act, Unfractionated 0.68 IU/mL (0.30-0.70) Glucose (Fingerstick) 216 mg/dL (70-99) 221 mg/dL (70-99) 210 mg/dL (70-99) Test 05/15/20 05:17 05/15/20 05:20 05/15/20 05:25 Glucose (Fingerstick) 192 mg/dL (70-99) Heparin Anti-Xa Act, Unfractionated 0.35 IU/mL (0.30-0.70) White Blood Count 20.6 x10^3/uL (4.0-11.0) Red Blood Count 4.55 x10^6/uL (4.30-5.70) Hemoglobin 13.2 g/dL (13.0-17.5) Hematocrit 39.6 % (39.0-53.0) Mean Corpuscular Volume 87 fL (79-100) Mean Corpuscular Hemoglobin 29 pg (25-35) Mean Corpuscular Hemoglobin Concent 33 g/dL (31-37) Red Cell Distribution Width 14.2 % (11.5-14.5) Platelet Count 381 x10^3/uL (140-400) Sodium Level 142 mmol/L (136-145) Potassium Level 3.7 mmol/L (3.5-5.1) Chloride Level 107 mmol/L (98-107) Carbon Dioxide Level 29 mmol/L (21-32) Anion Gap 6 (6-14) Blood Urea Nitrogen 21 mg/dL (8-26) Creatinine 0.8 mg/dL (0.7-1.3) Estimated GFR (Cockcroft-Gault) 104.5 BUN/Creatinine Ratio 26 (6-20) Glucose Level 222 mg/dL (70-99) Calcium Level 7.1 mg/dL (8.5-10.1) Total Bilirubin 0.4 mg/dL (0.2-1.0) Aspartate Amino Transf (AST/SGOT) 12 U/L (15-37) Alanine Aminotransferase (ALT/SGPT) 18 U/L (16-63) Alkaline Phosphatase 53 U/L (46-116) Total Protein 4.6 g/dL (6.4-8.2) Albumin 1.4 g/dL (3.4-5.0) Albumin/Globulin Ratio 0.4 (1.0-1.7) Comments CXR 05/13/2020 IMPRESSION: 1. Stable patchy bilateral opacities. 2. Life support devices as above. Impression . 1. Acute Hypoxic Respiratory Failure 2. Fever--resolved 3. Pneumonia, CXR positive for Bilateral patch infiltrates consistent with COVID-19 4. elevated d-dimer, presumptive thromboembolic disease-- on heparin gtt 5. Tachycardia 6. Elevated CRP and ferrtin also consistent with COVID-19 infection 7. COVID-19 viral pneumonia 8. COVID-19 sepsis-- improved Plan . Patient seen in person today, spoke to him in [place], follows directions Discussed with RT, will attempt pressure support ventilation Discussed with RN, avoid sedation Continue heparin drip for presumptive thromboembolic disease Status post convalescent serum on 05/08 Status post Remdesivir Cont Steroids Continue tube feeding for nutritional support GI/DVT prophylaxis Discussed with RN and RT CODE:FULL Total cumulative critical care time of 30 minutes reviewing data, labs, chest x- ray, YARELY PAULSON MD May 15, 2020 08:45
[2020-05-15 08:46] LABS: FIO2 ABG 50
--- NOTE | 2020-05-15 09:03 | PDOC ---
PROGRESS NOTES Chief Complaint Chief Complaint LATE ENTRY, pt seen 7.6, minoo, discussed with RN, then computer went down Acute Hypoxic Resp Failure secondary to Suspected COVID-19 Bilateral Infiltrates on cxr elevated D dimer// elevated inflammatory markers Leukocytosis ELEVATED FERRITIN // Elevated CRP and ferrtin also consistent with COVID-19 infection mild hypernatremia History of Present Illness History of Present Illness cont on vent, imrpoved today, down on settings a little will give sq lantus x1, blood sugar high, change IV fluid, to NS IV abxm pulm following IV Rocephin and Azithro The patient was evaluated during the global COVID-19 pandemic, and that diagnosis was suspected/considered upon their initial presentation. Vitals Vitals Vital Signs Date Time Temp Pulse Resp B/P (MAP) Pulse Ox O2 Delivery O2 Flow Rate FiO2 05/15/20 06:00 62 26 121/74 (90) 98 Ventilator 05/15/20 04:00 97.6 97.6 05/15/20 03:16 40.0 Physical Exam Physical Exam GENERAL: INTUBATED ON VENT, SEDATED HEENT: Head normocephalic, atraumatic. NECK: Supple LUNGS: Clear to auscultation. HEART: RRR, S1, S2 present, pulses intact ABDOMEN: Soft, positive bowel sounds. EXTREMITIES: No cyanosis or edema. SKIN: No ulceration. General: Other (sedated) Abdomen: Other (obese) Extremities: No cyanosis Skin: No breakdown Labs LABS Laboratory Tests Test 05/14/20 10:00 05/14/20 13:41 05/14/20 17:29 05/14/20 23:06 Heparin Anti-Xa Act, Unfractionated 0.68 IU/mL (0.30-0.70) Glucose (Fingerstick) 216 mg/dL (70-99) 221 mg/dL (70-99) 210 mg/dL (70-99) Test 05/15/20 05:17 05/15/20 05:20 05/15/20 05:25 05/15/20 07:45 Glucose (Fingerstick) 192 mg/dL (70-99) Heparin Anti-Xa Act, Unfractionated 0.35 IU/mL (0.30-0.70) White Blood Count 20.6 x10^3/uL (4.0-11.0) Red Blood Count 4.55 x10^6/uL (4.30-5.70) Hemoglobin 13.2 g/dL (13.0-17.5) Hematocrit 39.6 % (39.0-53.0) Mean Corpuscular Volume 87 fL (79-100) Mean Corpuscular Hemoglobin 29 pg (25-35) Mean Corpuscular Hemoglobin Concent 33 g/dL (31-37) Red Cell Distribution Width 14.2 % (11.5-14.5) Platelet Count 381 x10^3/uL (140-400) Sodium Level 142 mmol/L (136-145) Potassium Level 3.7 mmol/L (3.5-5.1) Chloride Level 107 mmol/L (98-107) Carbon Dioxide Level 29 mmol/L (21-32) Anion Gap 6 (6-14) Blood Urea Nitrogen 21 mg/dL (8-26) Creatinine 0.8 mg/dL (0.7-1.3) Estimated GFR (Cockcroft-Gault) 104.5 BUN/Creatinine Ratio 26 (6-20) Glucose Level 222 mg/dL (70-99) Calcium Level 7.1 mg/dL (8.5-10.1) Total Bilirubin 0.4 mg/dL (0.2-1.0) Aspartate Amino Transf (AST/SGOT) 12 U/L (15-37) Alanine Aminotransferase (ALT/SGPT) 18 U/L (16-63) Alkaline Phosphatase 53 U/L (46-116) Total Protein 4.6 g/dL (6.4-8.2) Albumin 1.4 g/dL (3.4-5.0) Albumin/Globulin Ratio 0.4 (1.0-1.7) O2 Saturation 94 % (92-99) Arterial Blood pH 7.46 (7.35-7.45) Arterial Blood pCO2 at Patient Temp 37 mmHg (35-46) Arterial Blood pO2 at Patient Temp 73 mmHg (75-108) Arterial Blood HCO3 26 mmol/L (21-28) Arterial Blood Base Excess 3 mmol/L (-3-3) FiO2 50 Comment Review of Relevant I have reviewed the following items laura (where applicable) has been applied. Labs Laboratory Tests Test 05/13/20 09:08 05/13/20 14:10 05/13/20 18:09 05/13/20 19:25 O2 Saturation 98 % (92-99) Arterial Blood pH 7.47 (7.35-7.45) Arterial Blood pCO2 at Patient Temp 37 mmHg (35-46) Arterial Blood pO2 at Patient Temp 111 mmHg (75-108) Arterial Blood HCO3 27 mmol/L (21-28) Arterial Blood Base Excess 3 mmol/L (-3-3) FiO2 55 Heparin Anti-Xa Act, Unfractionated 0.69 IU/mL (0.30-0.70) 0.79 IU/mL (0.30-0.70) Glucose (Fingerstick) 237 mg/dL (70-99) Test 05/13/20 23:55 05/14/20 01:45 05/14/20 05:41 05/14/20 08:10 Glucose (Fingerstick) 236 mg/dL (70-99) 227 mg/dL (70-99) White Blood Count 21.4 x10^3/uL (4.0-11.0) Red Blood Count 4.42 x10^6/uL (4.30-5.70) Hemoglobin 12.8 g/dL (13.0-17.5) Hematocrit 38.8 % (39.0-53.0) Mean Corpuscular Volume 88 fL (79-100) Mean Corpuscular Hemoglobin 29 pg (25-35) Mean Corpuscular Hemoglobin Concent 33 g/dL (31-37) Red Cell Distribution Width 14.0 % (11.5-14.5) Platelet Count 439 x10^3/uL (140-400) Heparin Anti-Xa Act, Unfractionated 0.69 IU/mL (0.30-0.70) Sodium Level 141 mmol/L (136-145) Potassium Level 3.6 mmol/L (3.5-5.1) Chloride Level 104 mmol/L (98-107) Carbon Dioxide Level 30 mmol/L (21-32) Anion Gap 7 (6-14) Blood Urea Nitrogen 23 mg/dL (8-26) Creatinine 0.8 mg/dL (0.7-1.3) Estimated GFR (Cockcroft-Gault) 104.5 BUN/Creatinine Ratio 29 (6-20) Glucose Level 225 mg/dL (70-99) Calcium Level 7.0 mg/dL (8.5-10.1) Total Bilirubin 0.4 mg/dL (0.2-1.0) Aspartate Amino Transf (AST/SGOT) 13 U/L (15-37) Alanine Aminotransferase (ALT/SGPT) 23 U/L (16-63) Alkaline Phosphatase 55 U/L (46-116) Total Protein 4.2 g/dL (6.4-8.2) Albumin 1.5 g/dL (3.4-5.0) Albumin/Globulin Ratio 0.6 (1.0-1.7) O2 Saturation 93 % (92-99) Arterial Blood pH 7.45 (7.35-7.45) Arterial Blood pCO2 at Patient Temp 44 mmHg (35-46) Arterial Blood pO2 at Patient Temp 68 mmHg (75-108) Arterial Blood HCO3 30 mmol/L (21-28) Arterial Blood Base Excess 5 mmol/L (-3-3) FiO2 50 Test 05/14/20 10:00 05/14/20 13:41 05/14/20 17:29 05/14/20 23:06 Heparin Anti-Xa Act, Unfractionated 0.68 IU/mL (0.30-0.70) Glucose (Fingerstick) 216 mg/dL (70-99) 221 mg/dL (70-99) 210 mg/dL (70-99) Test 05/15/20 05:17 05/15/20 05:20 05/15/20 05:25 05/15/20 07:45 Glucose (Fingerstick) 192 mg/dL (70-99) Heparin Anti-Xa Act, Unfractionated 0.35 IU/mL (0.30-0.70) White Blood Count 20.6 x10^3/uL (4.0-11.0) Red Blood Count 4.55 x10^6/uL (4.30-5.70) Hemoglobin 13.2 g/dL (13.0-17.5) Hematocrit 39.6 % (39.0-53.0) Mean Corpuscular Volume 87 fL (79-100) Mean Corpuscular Hemoglobin 29 pg (25-35) Mean Corpuscular Hemoglobin Concent 33 g/dL (31-37) Red Cell Distribution Width 14.2 % (11.5-14.5) Platelet Count 381 x10^3/uL (140-400) Sodium Level 142 mmol/L (136-145) Potassium Level 3.7 mmol/L (3.5-5.1) Chloride Level 107 mmol/L (98-107) Carbon Dioxide Level 29 mmol/L (21-32) Anion Gap 6 (6-14) Blood Urea Nitrogen 21 mg/dL (8-26) Creatinine 0.8 mg/dL (0.7-1.3) Estimated GFR (Cockcroft-Gault) 104.5 BUN/Creatinine Ratio 26 (6-20) Glucose Level 222 mg/dL (70-99) Calcium Level 7.1 mg/dL (8.5-10.1) Total Bilirubin 0.4 mg/dL (0.2-1.0) Aspartate Amino Transf (AST/SGOT) 12 U/L (15-37) Alanine Aminotransferase (ALT/SGPT) 18 U/L (16-63) Alkaline Phosphatase 53 U/L (46-116) Total Protein 4.6 g/dL (6.4-8.2) Albumin 1.4 g/dL (3.4-5.0) Albumin/Globulin Ratio 0.4 (1.0-1.7) O2 Saturation 94 % (92-99) Arterial Blood pH 7.46 (7.35-7.45) Arterial Blood pCO2 at Patient Temp 37 mmHg (35-46) Arterial Blood pO2 at Patient Temp 73 mmHg (75-108) Arterial Blood HCO3 26 mmol/L (21-28) Arterial Blood Base Excess 3 mmol/L (-3-3) FiO2 50 Laboratory Tests Test 05/14/20 10:00 05/14/20 13:41 05/14/20 17:29 05/14/20 23:06 Heparin Anti-Xa Act, Unfractionated 0.68 IU/mL (0.30-0.70) Glucose (Fingerstick) 216 mg/dL (70-99) 221 mg/dL (70-99) 210 mg/dL (70-99) Test 05/15/20 05:17 05/15/20 05:20 05/15/20 05:25 05/15/20 07:45 Glucose (Fingerstick) 192 mg/dL (70-99) Heparin Anti-Xa Act, Unfractionated 0.35 IU/mL (0.30-0.70) White Blood Count 20.6 x10^3/uL (4.0-11.0) Red Blood Count 4.55 x10^6/uL (4.30-5.70) Hemoglobin 13.2 g/dL (13.0-17.5) Hematocrit 39.6 % (39.0-53.0) Mean Corpuscular Volume 87 fL (79-100) Mean Corpuscular Hemoglobin 29 pg (25-35) Mean Corpuscular Hemoglobin Concent 33 g/dL (31-37) Red Cell Distribution Width 14.2 % (11.5-14.5) Platelet Count 381 x10^3/uL (140-400) Sodium Level 142 mmol/L (136-145) Potassium Level 3.7 mmol/L (3.5-5.1) Chloride Level 107 mmol/L (98-107) Carbon Dioxide Level 29 mmol/L (21-32) Anion Gap 6 (6-14) Blood Urea Nitrogen 21 mg/dL (8-26) Creatinine 0.8 mg/dL (0.7-1.3) Estimated GFR (Cockcroft-Gault) 104.5 BUN/Creatinine Ratio 26 (6-20) Glucose Level 222 mg/dL (70-99) Calcium Level 7.1 mg/dL (8.5-10.1) Total Bilirubin 0.4 mg/dL (0.2-1.0) Aspartate Amino Transf (AST/SGOT) 12 U/L (15-37) Alanine Aminotransferase (ALT/SGPT) 18 U/L (16-63) Alkaline Phosphatase 53 U/L (46-116) Total Protein 4.6 g/dL (6.4-8.2) Albumin 1.4 g/dL (3.4-5.0) Albumin/Globulin Ratio 0.4 (1.0-1.7) O2 Saturation 94 % (92-99) Arterial Blood pH 7.46 (7.35-7.45) Arterial Blood pCO2 at Patient Temp 37 mmHg (35-46) Arterial Blood pO2 at Patient Temp 73 mmHg (75-108) Arterial Blood HCO3 26 mmol/L (21-28) Arterial Blood Base Excess 3 mmol/L (-3-3) FiO2 50 Microbiology 05/08/20 Urine Culture - Final, Complete 05/06/20 Blood Culture - Final, Complete NO GROWTH AFTER 5 DAYS Medications Current Medications Acetaminophen (Tylenol) 650 mg 1X ONCE PO Last administered on 05/06/20at 03:54; Start 05/06/20 at 03:00; Stop 05/06/20 at 03:01; Status DC Sodium Chloride 1,000 ml @ 1,000 mls/hr 1X ONCE IV Last administered on 05/06/20at 03:53; Start 05/06/20 at 03:00; Stop 05/06/20 at 03:59; Status DC Ceftriaxone Sodium (Rocephin) 1 gm 1X ONCE IVP Last administered on 05/06/20at 03:54; Start 05/06/20 at 03:00; Stop 05/06/20 at 03:01; Status DC Azithromycin 250 ml @ 250 mls/hr 1X ONCE IV Last administered on 05/06/20at 03:00; Start 05/06/20 at 03:00; Stop 05/06/20 at 03:59; Status DC Hydralazine HCl (Apresoline) 25 mg PRN TID PRN PO for SBP greater than 180; Start 05/06/20 at 07:30 Enoxaparin Sodium (Lovenox Per Pharmacy Prophylaxis Dosing) 1 each PRN DAILY PRN MC SEE COMMENTS; Start 05/06/20 at 07:30; Stop 05/10/20 at 20:59; Status DC Ceftriaxone Sodium (Rocephin) 1 gm Q24H IVP Last administered on 05/15/20at 03:44; Start 05/07/20 at 04:00 Acetaminophen (Tylenol) 650 mg PRN Q6HRS PRN PO fever Last administered on 05/06/20at 15:51; Start 05/06/20 at 07:30 Azithromycin 500 mg/Sodium Chloride 250 ml @ 250 mls/hr Q24H IV Last administered on 05/15/20at 03:44; Start 05/07/20 at 04:00 Enoxaparin Sodium (Lovenox 60mg Syringe) 60 mg Q12HR SQ Last administered on 05/08/20at 08:16; Start 05/06/20 at 09:00; Stop 05/08/20 at 14:36; Status DC Nicotine (Nicoderm Cq 21mg) 1 patch PRN DAILY PRN TD SMOKING CESSATION; Start 05/06/20 at 08:30 Methylprednisolone Sodium Succinate (SOLU-Medrol 125MG VIAL) 60 mg Q8HRS IV Last administered on 05/13/20at 06:00; Start 05/06/20 at 14:00; Stop 05/13/20 at 09:37; Status DC Famotidine (Pepcid Vial) 20 mg BID IVP Last administered on 05/08/20at 08:15; Start 05/06/20 at 21:00; Stop 05/08/20 at 12:35; Status DC Sterile Water (WATER for RESP) 1,000 ml CONT PRN INH VIA VAPOTHERM DEVICE; Start 05/06/20 at 23:30; Stop 05/07/20 at 11:27; Status DC Fentanyl Citrate 30 ml @ 0 mls/hr CONT PRN IV SEE PROTOCOL Last administered on 05/15/20at 02:02; Start 05/07/20 at 00:30 Propofol 100 ml @ 0 mls/hr CONT PRN IV SEE PROTOCOL; Start 05/07/20 at 00:15 Chlorhexidine Gluconate (Peridex) 15 ml BID MM ; Start 05/07/20 at 09:00; Stop 05/07/20 at 07:33; Status DC Midazolam HCl 100 ml @ 0 mls/hr CONT PRN IV SEE PROTOCOL Last administered on 05/14/20at 19:15; Start 05/07/20 at 00:30 Succinylcholine Chloride (Anectine) 200 mg 1X ONCE IV Last administered on 05/07/20at 00:37; Start 05/07/20 at 00:45; Stop 05/07/20 at 00:46; Status DC Etomidate (Amidate) 20 mg STK-MED ONCE IV ; Start 05/07/20 at 00:57; Stop 05/07/20 at 00:57; Status DC Vecuronium [place] (Norcuron Bolus) 10 mg 1X ONCE IV ; Start 05/07/20 at 01:15; Stop 05/07/20 at 01:16; Status DC Norepinephrine Bitartrate 8 mg/ Dextrose 258 ml @ 19.756 mls/ hr CONT PRN IV PER PROTOCOL Last administered on 05/07/20at 02:37; Start 05/07/20 at 02:15 Succinylcholine Chloride (Anectine) 200 mg STK-MED ONCE .ROUTE ; Start 05/07/20 at 01:00; Stop 05/07/20 at 08:46; Status DC Non-Formulary Medication 1 ea/ Sodium Chloride 210 ml @ 420 mls/hr 1X ONCE IV Last administered on 05/07/20at 15:07; Start 05/07/20 at 15:00; Stop 05/07/20 at 15:29; Status DC Non-Formulary Medication 1 ea/ Sodium Chloride 230 ml @ 460 mls/hr Q24H IV Last administered on 05/14/20at 09:01; Start 05/08/20 at 09:00; Stop 05/16/20 at 09:29 Dextrose/Sodium Chloride 1,000 ml @ 75 mls/hr [id number] IV Last administered on 05/12/20at 02:33; Start 05/08/20 at 12:30; Stop 05/13/20 at 15:52; Status DC Famotidine (Pepcid Vial) 20 mg BID IVP Last administered on 05/15/20at 08:08; Start 05/08/20 at 21:00 Insulin Human Lispro (HumaLOG) 0-5 UNITS Q6HRS SQ Last administered on 05/15/20at 05:35; Start 05/08/20 at 18:00 Dextrose (Dextrose 50%-Water Syringe) 12.5 gm PRN Q15MIN PRN IV SEE COMMENTS; Start 05/08/20 at 12:45 Enoxaparin Sodium (Lovenox 40mg Syringe) 40 mg BID SQ Last administered on 05/10/20at 08:50; Start 05/08/20 at 21:00; Stop 05/10/20 at 20:59; Status DC Heparin Sodium (Porcine) (Heparin Sodium) 8,000 unit 1X ONCE IV Last administered on 05/10/20at 21:22; Start 05/10/20 at 21:00; Stop 05/10/20 at 21:02; Status DC Heparin Sodium/ Dextrose 250 ml @ 16 mls/hr CONT PRN IV PER PROTOCOL Last administered on 05/14/20at 17:49; Start 05/10/20 at 21:00 Heparin Sodium (Porcine) (Heparin Sodium) 3,000 unit PRN Q6HRS PRN IV FOR UFH LEVEL LESS THAN 0.2; Start 05/10/20 at 21:00 Heparin Sodium (Porcine) (Heparin Sodium) 1,500 unit PRN Q6HRS PRN IV FOR UFH LEVEL 0.2 - 0.29; Start 05/10/20 at 21:00 Erythromycin Lactobionate 125 mg/Sodium Chloride 100 ml @ 100 mls/hr Q6HRS IV ; Start 05/12/20 at 18:00; Stop 05/12/20 at 18:40; Status DC Erythromycin Lactobionate 125 mg/Sodium Chloride 100 ml @ 100 mls/hr Q6HRS IV ; Start 05/13/20 at 20:00; Stop 05/12/20 at 18:41; Status DC Erythromycin Lactobionate 125 mg/Sodium Chloride 100 ml @ 100 mls/hr Q6HRS IV Last administered on 05/13/20at 06:00; Start 05/12/20 at 19:30; Stop 05/13/20 at 09:41; Status DC Methylprednisolone Sodium Succinate (SOLU-Medrol 40MG VIAL) 40 mg Q8HRS IV Last administered on 05/15/20at 05:36; Start 05/13/20 at 09:45 Metoclopramide HCl (Reglan Vial) 10 mg QID IVP Last administered on 05/15/20at 08:08; Start 05/13/20 at 13:00 Sodium Chloride 1,000 ml @ 75 mls/hr [id number] IV Last administered on 05/15/20at 08:10; Start 05/13/20 at 16:00 Potassium Chloride (Klor-Con) 20 meq 1X ONCE PO ; Start 05/13/20 at 16:00; Stop 05/13/20 at 16:01; Status Cancel Insulin Glargine (Lantus Syringe) 12 unit 1X ONCE SQ Last administered on 05/13/20at 16:14; Start 05/13/20 at 16:30; Stop 05/13/20 at 16:31; Status DC Potassium Bicarbonate (Potassium Effervescent Tablet) 20 meq 1X ONCE PO Last administered on 05/13/20at 16:13; Start 05/13/20 at 16:30; Stop 05/13/20 at 16:31; Status DC Sodium Chloride 1,000 ml @ 1,000 mls/hr 1X ONCE IV Last administered on 05/14/20at 13:25; Start 05/14/20 at 13:30; Stop 05/14/20 at 14:29; Status DC Dexmedetomidine HCl 400 mcg/ Sodium Chloride 100 ml @ 0 mls/hr CONT PRN IV sedation Last administered on 05/15/20at 00:21; Start 05/14/20 at 16:15 Sodium Chloride 500 ml @ 500 mls/hr 1X PRN PRN IV hypotention; Start 05/14/20 at 16:15 Atropine Sulfate (ATROPINE 0.5mg SYRINGE) 0.5 mg PRN Q5MIN PRN IV SEE COMMENTS; Start 05/14/20 at 16:15 Vitals/I & O Vital Sign - Last 24 Hours 05/14/20 05/14/20 05/14/20 05/14/20 10:00 11:00 12:00 12:00 Temp 98.2 98.2 Pulse 130 76 72 Resp 38 27 38 B/P (MAP) 120/85 (97) 73/38 (50) 98/54 (69) Pulse Ox 95 92 96 O2 Delivery Ventilator Ventilator Ventilator Mechanical Ventilator 05/14/20 05/14/20 05/14/20 05/14/20 12:24 13:00 14:00 15:00 Pulse 70 80 72 Resp 22 20 20 B/P (MAP) 93/47 (62) 109/60 (76) 98/54 (69) Pulse Ox 96 91 92 91 O2 Delivery Ventilator Ventilator Ventilator Ventilator 05/14/20 05/14/20 05/14/20 05/14/20 15:26 15:59 16:00 16:00 Pulse 72 Resp 20 B/P (MAP) 105/56 (72) Pulse Ox 96 93 93 O2 Delivery Ventilator Mechanical Ventilator Ventilator O2 Flow Rate 40.0 05/14/20 05/14/20 05/14/20 05/14/20 17:00 18:00 19:00 19:38 Temp 98.5 98.5 Pulse 76 67 65 Resp 20 20 22 B/P (MAP) 110/56 (74) 111/64 (80) 115/64 (81) Pulse Ox 93 94 94 95 O2 Delivery Ventilator Ventilator Ventilator Ventilator 05/14/20 05/14/20 05/14/20 05/14/20 20:00 20:00 21:00 22:00 Temp 98.7 98.7 Pulse 66 67 66 Resp 26 28 26 B/P (MAP) 113/61 (78) 112/59 (76) 118/66 (83) Pulse Ox 96 95 95 O2 Delivery Mechanical Ventilator Ventilator Ventilator Ventilator 05/14/20 05/14/20 05/14/20 05/14/20 23:00 23:04 23:59 23:59 Temp 98.3 98.3 Pulse 70 66 Resp 24 28 B/P (MAP) 109/61 (77) 126/73 (90) Pulse Ox 95 95 96 O2 Delivery Ventilator Ventilator Ventilator Mechanical Ventilator 05/15/20 05/15/20 05/15/20 05/15/20 01:00 02:00 02:02 03:00 Pulse 68 65 65 Resp 22 26 28 B/P (MAP) 117/58 (77) 113/64 (80) 115/63 (80) Pulse Ox 95 96 95 97 O2 Delivery Ventilator Ventilator Ventilator O2 Flow Rate 40.0 05/15/20 05/15/20 05/15/20 05/15/20 03:04 03:16 04:00 04:00 Temp 97.6 97.6 Pulse 63 Resp 27 B/P (MAP) 123/73 (90) Pulse Ox 96 96 96 O2 Delivery Ventilator Ventilator Mechanical Ventilator O2 Flow Rate 40.0 05/15/20 05/15/20 05:00 06:00 Pulse 65 62 Resp 28 26 B/P (MAP) 121/74 (90) 121/74 (90) Pulse Ox 99 98 O2 Delivery Ventilator Ventilator Intake and Output 05/14/20 05/14/20 05/15/20 15:00 23:00 07:00 Intake Total 1580 ml 2825 ml 2523 ml Output Total 550 ml 525 ml 750 ml Balance 1030 ml 2300 ml 1773 ml Justicifation of Admission Dx: Justifications for Admission: Justification of Admission Dx: Yes Comminuty Aquired Pneumonia: Hypoxemia GAUTAM FRITZ MD May 15, 2020 09:03
[2020-05-15] MEDS: NON FORMULARY ITEM 1 EA in IV NORMAL SALINE 250ML 230 ML IV SCH (09:35)
--- NOTE | 2020-05-15 11:20 | NUR ---
SS following for discharge planning. SS reviewed pt chart and discussed with pt RN. Pt remains on the vent at this time. Pt on Heparin drip, IV Azithromycin, and IV Rocephin. Pt COVID19 positive and self pay pt. SS will continue to follow for discharge planning.
[2020-05-15] MEDS: HEPARIN 25,000UTS/250ML PREMIX 250 ML IV PRN (13:28)
--- NOTE | 2020-05-15 14:15 | PDOC ---
PROGRESS NOTES Chief Complaint Chief Complaint Acute Hypoxic Resp Failure secondary to COVID-19 Bilateral Infiltrates on cxr elevated D dimer// elevated inflammatory markers Leukocytosis ELEVATED FERRITIN // Elevated CRP and ferrtin also consistent with COVID-19 infection mild hypernatremia History of Present Illness History of Present Illness 05/15 cont on vent, imrpoved today, we are trying to wake him up today, wean vent, will try to trail, he is fighting the vent as he wakes will give sq lantus x1, blood sugar high, change IV fluid, to NS IV abxm pulm following IV Rocephin and Azithro The patient was evaluated during the global COVID-19 pandemic, and that diagnosis was suspected/considered upon their initial presentation. Vitals Vitals Vital Signs Date Time Temp Pulse Resp B/P (MAP) Pulse Ox O2 Delivery O2 Flow Rate FiO2 05/15/20 12:00 Mechanical Ventilator 05/15/20 11:45 96 05/15/20 11:00 64 20 110/64 (79) 05/15/20 08:00 98.4 98.4 05/15/20 03:16 40.0 Physical Exam Physical Exam GENERAL: INTUBATED ON VENT, SEDATED HEENT: Head normocephalic, atraumatic. NECK: Supple LUNGS: Clear to auscultation. HEART: RRR, S1, S2 present, pulses intact ABDOMEN: Soft, positive bowel sounds. EXTREMITIES: No cyanosis or edema. SKIN: No ulceration. General: Other (sedated) Abdomen: Other (obese) Extremities: No cyanosis Skin: No breakdown Labs LABS Laboratory Tests Test 05/14/20 17:29 05/14/20 23:06 05/15/20 05:17 05/15/20 05:20 Glucose (Fingerstick) 221 mg/dL (70-99) 210 mg/dL (70-99) 192 mg/dL (70-99) Heparin Anti-Xa Act, Unfractionated 0.35 IU/mL (0.30-0.70) Test 05/15/20 05:25 05/15/20 07:45 05/15/20 12:38 White Blood Count 20.6 x10^3/uL (4.0-11.0) Red Blood Count 4.55 x10^6/uL (4.30-5.70) Hemoglobin 13.2 g/dL (13.0-17.5) Hematocrit 39.6 % (39.0-53.0) Mean Corpuscular Volume 87 fL (79-100) Mean Corpuscular Hemoglobin 29 pg (25-35) Mean Corpuscular Hemoglobin Concent 33 g/dL (31-37) Red Cell Distribution Width 14.2 % (11.5-14.5) Platelet Count 381 x10^3/uL (140-400) Sodium Level 142 mmol/L (136-145) Potassium Level 3.7 mmol/L (3.5-5.1) Chloride Level 107 mmol/L (98-107) Carbon Dioxide Level 29 mmol/L (21-32) Anion Gap 6 (6-14) Blood Urea Nitrogen 21 mg/dL (8-26) Creatinine 0.8 mg/dL (0.7-1.3) Estimated GFR (Cockcroft-Gault) 104.5 BUN/Creatinine Ratio 26 (6-20) Glucose Level 222 mg/dL (70-99) Calcium Level 7.1 mg/dL (8.5-10.1) Total Bilirubin 0.4 mg/dL (0.2-1.0) Aspartate Amino Transf (AST/SGOT) 12 U/L (15-37) Alanine Aminotransferase (ALT/SGPT) 18 U/L (16-63) Alkaline Phosphatase 53 U/L (46-116) Total Protein 4.6 g/dL (6.4-8.2) Albumin 1.4 g/dL (3.4-5.0) Albumin/Globulin Ratio 0.4 (1.0-1.7) O2 Saturation 94 % (92-99) Arterial Blood pH 7.46 (7.35-7.45) Arterial Blood pCO2 at Patient Temp 37 mmHg (35-46) Arterial Blood pO2 at Patient Temp 73 mmHg (75-108) Arterial Blood HCO3 26 mmol/L (21-28) Arterial Blood Base Excess 3 mmol/L (-3-3) FiO2 50 Glucose (Fingerstick) 231 mg/dL (70-99) Comment Review of Relevant I have reviewed the following items laura (where applicable) has been applied. Labs Laboratory Tests Test 05/13/20 18:09 05/13/20 19:25 05/13/20 23:55 05/14/20 01:45 Glucose (Fingerstick) 237 mg/dL (70-99) 236 mg/dL (70-99) Heparin Anti-Xa Act, Unfractionated 0.79 IU/mL (0.30-0.70) 0.69 IU/mL (0.30-0.70) White Blood Count 21.4 x10^3/uL (4.0-11.0) Red Blood Count 4.42 x10^6/uL (4.30-5.70) Hemoglobin 12.8 g/dL (13.0-17.5) Hematocrit 38.8 % (39.0-53.0) Mean Corpuscular Volume 88 fL (79-100) Mean Corpuscular Hemoglobin 29 pg (25-35) Mean Corpuscular Hemoglobin Concent 33 g/dL (31-37) Red Cell Distribution Width 14.0 % (11.5-14.5) Platelet Count 439 x10^3/uL (140-400) Sodium Level 141 mmol/L (136-145) Potassium Level 3.6 mmol/L (3.5-5.1) Chloride Level 104 mmol/L (98-107) Carbon Dioxide Level 30 mmol/L (21-32) Anion Gap 7 (6-14) Blood Urea Nitrogen 23 mg/dL (8-26) Creatinine 0.8 mg/dL (0.7-1.3) Estimated GFR (Cockcroft-Gault) 104.5 BUN/Creatinine Ratio 29 (6-20) Glucose Level 225 mg/dL (70-99) Calcium Level 7.0 mg/dL (8.5-10.1) Total Bilirubin 0.4 mg/dL (0.2-1.0) Aspartate Amino Transf (AST/SGOT) 13 U/L (15-37) Alanine Aminotransferase (ALT/SGPT) 23 U/L (16-63) Alkaline Phosphatase 55 U/L (46-116) Total Protein 4.2 g/dL (6.4-8.2) Albumin 1.5 g/dL (3.4-5.0) Albumin/Globulin Ratio 0.6 (1.0-1.7) Test 05/14/20 05:41 05/14/20 08:10 05/14/20 10:00 05/14/20 13:41 Glucose (Fingerstick) 227 mg/dL (70-99) 216 mg/dL (70-99) O2 Saturation 93 % (92-99) Arterial Blood pH 7.45 (7.35-7.45) Arterial Blood pCO2 at Patient Temp 44 mmHg (35-46) Arterial Blood pO2 at Patient Temp 68 mmHg (75-108) Arterial Blood HCO3 30 mmol/L (21-28) Arterial Blood Base Excess 5 mmol/L (-3-3) FiO2 50 Heparin Anti-Xa Act, Unfractionated 0.68 IU/mL (0.30-0.70) Test 05/14/20 17:29 05/14/20 23:06 05/15/20 05:17 05/15/20 05:20 Glucose (Fingerstick) 221 mg/dL (70-99) 210 mg/dL (70-99) 192 mg/dL (70-99) Heparin Anti-Xa Act, Unfractionated 0.35 IU/mL (0.30-0.70) Test 05/15/20 05:25 05/15/20 07:45 05/15/20 12:38 White Blood Count 20.6 x10^3/uL (4.0-11.0) Red Blood Count 4.55 x10^6/uL (4.30-5.70) Hemoglobin 13.2 g/dL (13.0-17.5) Hematocrit 39.6 % (39.0-53.0) Mean Corpuscular Volume 87 fL (79-100) Mean Corpuscular Hemoglobin 29 pg (25-35) Mean Corpuscular Hemoglobin Concent 33 g/dL (31-37) Red Cell Distribution Width 14.2 % (11.5-14.5) Platelet Count 381 x10^3/uL (140-400) Sodium Level 142 mmol/L (136-145) Potassium Level 3.7 mmol/L (3.5-5.1) Chloride Level 107 mmol/L (98-107) Carbon Dioxide Level 29 mmol/L (21-32) Anion Gap 6 (6-14) Blood Urea Nitrogen 21 mg/dL (8-26) Creatinine 0.8 mg/dL (0.7-1.3) Estimated GFR (Cockcroft-Gault) 104.5 BUN/Creatinine Ratio 26 (6-20) Glucose Level 222 mg/dL (70-99) Calcium Level 7.1 mg/dL (8.5-10.1) Total Bilirubin 0.4 mg/dL (0.2-1.0) Aspartate Amino Transf (AST/SGOT) 12 U/L (15-37) Alanine Aminotransferase (ALT/SGPT) 18 U/L (16-63) Alkaline Phosphatase 53 U/L (46-116) Total Protein 4.6 g/dL (6.4-8.2) Albumin 1.4 g/dL (3.4-5.0) Albumin/Globulin Ratio 0.4 (1.0-1.7) O2 Saturation 94 % (92-99) Arterial Blood pH 7.46 (7.35-7.45) Arterial Blood pCO2 at Patient Temp 37 mmHg (35-46) Arterial Blood pO2 at Patient Temp 73 mmHg (75-108) Arterial Blood HCO3 26 mmol/L (21-28) Arterial Blood Base Excess 3 mmol/L (-3-3) FiO2 50 Glucose (Fingerstick) 231 mg/dL (70-99) Laboratory Tests Test 05/14/20 17:29 05/14/20 23:06 05/15/20 05:17 05/15/20 05:20 Glucose (Fingerstick) 221 mg/dL (70-99) 210 mg/dL (70-99) 192 mg/dL (70-99) Heparin Anti-Xa Act, Unfractionated 0.35 IU/mL (0.30-0.70) Test 05/15/20 05:25 05/15/20 07:45 05/15/20 12:38 White Blood Count 20.6 x10^3/uL (4.0-11.0) Red Blood Count 4.55 x10^6/uL (4.30-5.70) Hemoglobin 13.2 g/dL (13.0-17.5) Hematocrit 39.6 % (39.0-53.0) Mean Corpuscular Volume 87 fL (79-100) Mean Corpuscular Hemoglobin 29 pg (25-35) Mean Corpuscular Hemoglobin Concent 33 g/dL (31-37) Red Cell Distribution Width 14.2 % (11.5-14.5) Platelet Count 381 x10^3/uL (140-400) Sodium Level 142 mmol/L (136-145) Potassium Level 3.7 mmol/L (3.5-5.1) Chloride Level 107 mmol/L (98-107) Carbon Dioxide Level 29 mmol/L (21-32) Anion Gap 6 (6-14) Blood Urea Nitrogen 21 mg/dL (8-26) Creatinine 0.8 mg/dL (0.7-1.3) Estimated GFR (Cockcroft-Gault) 104.5 BUN/Creatinine Ratio 26 (6-20) Glucose Level 222 mg/dL (70-99) Calcium Level 7.1 mg/dL (8.5-10.1) Total Bilirubin 0.4 mg/dL (0.2-1.0) Aspartate Amino Transf (AST/SGOT) 12 U/L (15-37) Alanine Aminotransferase (ALT/SGPT) 18 U/L (16-63) Alkaline Phosphatase 53 U/L (46-116) Total Protein 4.6 g/dL (6.4-8.2) Albumin 1.4 g/dL (3.4-5.0) Albumin/Globulin Ratio 0.4 (1.0-1.7) O2 Saturation 94 % (92-99) Arterial Blood pH 7.46 (7.35-7.45) Arterial Blood pCO2 at Patient Temp 37 mmHg (35-46) Arterial Blood pO2 at Patient Temp 73 mmHg (75-108) Arterial Blood HCO3 26 mmol/L (21-28) Arterial Blood Base Excess 3 mmol/L (-3-3) FiO2 50 Glucose (Fingerstick) 231 mg/dL (70-99) Microbiology 05/08/20 Urine Culture - Final, Complete 05/06/20 Blood Culture - Final, Complete NO GROWTH AFTER 5 DAYS Medications Current Medications Acetaminophen (Tylenol) 650 mg 1X ONCE PO Last administered on 05/06/20at 03:54; Start 05/06/20 at 03:00; Stop 05/06/20 at 03:01; Status DC Sodium Chloride 1,000 ml @ 1,000 mls/hr 1X ONCE IV Last administered on 05/06/20at 03:53; Start 05/06/20 at 03:00; Stop 05/06/20 at 03:59; Status DC Ceftriaxone Sodium (Rocephin) 1 gm 1X ONCE IVP Last administered on 05/06/20at 03:54; Start 05/06/20 at 03:00; Stop 05/06/20 at 03:01; Status DC Azithromycin 250 ml @ 250 mls/hr 1X ONCE IV Last administered on 05/06/20at 03:00; Start 05/06/20 at 03:00; Stop 05/06/20 at 03:59; Status DC Hydralazine HCl (Apresoline) 25 mg PRN TID PRN PO for SBP greater than 180; Start 05/06/20 at 07:30 Enoxaparin Sodium (Lovenox Per Pharmacy Prophylaxis Dosing) 1 each PRN DAILY PRN MC SEE COMMENTS; Start 05/06/20 at 07:30; Stop 05/10/20 at 20:59; Status DC Ceftriaxone Sodium (Rocephin) 1 gm Q24H IVP Last administered on 05/15/20at 03:44; Start 05/07/20 at 04:00 Acetaminophen (Tylenol) 650 mg PRN Q6HRS PRN PO fever Last administered on 05/06/20at 15:51; Start 05/06/20 at 07:30 Azithromycin 500 mg/Sodium Chloride 250 ml @ 250 mls/hr Q24H IV Last administered on 05/15/20at 03:44; Start 05/07/20 at 04:00 Enoxaparin Sodium (Lovenox 60mg Syringe) 60 mg Q12HR SQ Last administered on 05/08/20at 08:16; Start 05/06/20 at 09:00; Stop 05/08/20 at 14:36; Status DC Nicotine (Nicoderm Cq 21mg) 1 patch PRN DAILY PRN TD SMOKING CESSATION; Start 05/06/20 at 08:30 Methylprednisolone Sodium Succinate (SOLU-Medrol 125MG VIAL) 60 mg Q8HRS IV Last administered on 05/13/20at 06:00; Start 05/06/20 at 14:00; Stop 05/13/20 at 09:37; Status DC Famotidine (Pepcid Vial) 20 mg BID IVP Last administered on 05/08/20at 08:15; Start 05/06/20 at 21:00; Stop 05/08/20 at 12:35; Status DC Sterile Water (WATER for RESP) 1,000 ml CONT PRN INH VIA VAPOTHERM DEVICE; Start 05/06/20 at 23:30; Stop 05/07/20 at 11:27; Status DC Fentanyl Citrate 30 ml @ 0 mls/hr CONT PRN IV SEE PROTOCOL Last administered on 05/15/20at 02:02; Start 05/07/20 at 00:30 Propofol 100 ml @ 0 mls/hr CONT PRN IV SEE PROTOCOL; Start 05/07/20 at 00:15 Chlorhexidine Gluconate (Peridex) 15 ml BID MM ; Start 05/07/20 at 09:00; Stop 05/07/20 at 07:33; Status DC Midazolam HCl 100 ml @ 0 mls/hr CONT PRN IV SEE PROTOCOL Last administered on 05/14/20at 19:15; Start 05/07/20 at 00:30 Succinylcholine Chloride (Anectine) 200 mg 1X ONCE IV Last administered on 05/07/20at 00:37; Start 05/07/20 at 00:45; Stop 05/07/20 at 00:46; Status DC Etomidate (Amidate) 20 mg STK-MED ONCE IV ; Start 05/07/20 at 00:57; Stop 05/07/20 at 00:57; Status DC Vecuronium [place] (Norcuron Bolus) 10 mg 1X ONCE IV ; Start 05/07/20 at 01:15; Stop 05/07/20 at 01:16; Status DC Norepinephrine Bitartrate 8 mg/ Dextrose 258 ml @ 19.756 mls/ hr CONT PRN IV PER PROTOCOL Last administered on 05/07/20at 02:37; Start 05/07/20 at 02:15 Succinylcholine Chloride (Anectine) 200 mg STK-MED ONCE .ROUTE ; Start 05/07/20 at 01:00; Stop 05/07/20 at 08:46; Status DC Non-Formulary Medication 1 ea/ Sodium Chloride 210 ml @ 420 mls/hr 1X ONCE IV Last administered on 05/07/20at 15:07; Start 05/07/20 at 15:00; Stop 05/07/20 at 15:29; Status DC Non-Formulary Medication 1 ea/ Sodium Chloride 230 ml @ 460 mls/hr Q24H IV Last administered on 05/15/20at 09:35; Start 05/08/20 at 09:00; Stop 05/16/20 at 09:29 Dextrose/Sodium Chloride 1,000 ml @ 75 mls/hr [id number] IV Last administered on 05/12/20at 02:33; Start 05/08/20 at 12:30; Stop 05/13/20 at 15:52; Status DC Famotidine (Pepcid Vial) 20 mg BID IVP Last administered on 05/15/20at 08:08; Start 05/08/20 at 21:00 Insulin Human Lispro (HumaLOG) 0-5 UNITS Q6HRS SQ Last administered on 05/15/20at 12:47; Start 05/08/20 at 18:00 Dextrose (Dextrose 50%-Water Syringe) 12.5 gm PRN Q15MIN PRN IV SEE COMMENTS; Start 05/08/20 at 12:45 Enoxaparin Sodium (Lovenox 40mg Syringe) 40 mg BID SQ Last administered on 05/10/20at 08:50; Start 05/08/20 at 21:00; Stop 05/10/20 at 20:59; Status DC Heparin Sodium (Porcine) (Heparin Sodium) 8,000 unit 1X ONCE IV Last administered on 05/10/20at 21:22; Start 05/10/20 at 21:00; Stop 05/10/20 at 21:02; Status DC Heparin Sodium/ Dextrose 250 ml @ 16 mls/hr CONT PRN IV PER PROTOCOL Last administered on 05/15/20at 13:28; Start 05/10/20 at 21:00 Heparin Sodium (Porcine) (Heparin Sodium) 3,000 unit PRN Q6HRS PRN IV FOR UFH LEVEL LESS THAN 0.2; Start 05/10/20 at 21:00 Heparin Sodium (Porcine) (Heparin Sodium) 1,500 unit PRN Q6HRS PRN IV FOR UFH LEVEL 0.2 - 0.29; Start 05/10/20 at 21:00 Erythromycin Lactobionate 125 mg/Sodium Chloride 100 ml @ 100 mls/hr Q6HRS IV ; Start 05/12/20 at 18:00; Stop 05/12/20 at 18:40; Status DC Erythromycin Lactobionate 125 mg/Sodium Chloride 100 ml @ 100 mls/hr Q6HRS IV ; Start 05/13/20 at 20:00; Stop 05/12/20 at 18:41; Status DC Erythromycin Lactobionate 125 mg/Sodium Chloride 100 ml @ 100 mls/hr Q6HRS IV Last administered on 05/13/20 06:00; Start 05/12/20 at 19:30; Stop 05/13/20 at 09:41; Status DC Methylprednisolone Sodium Succinate (SOLU-Medrol 40MG VIAL) 40 mg Q8HRS IV Last administered on 05/15/20at 13:30; Start 05/13/20 at 09:45 Metoclopramide HCl (Reglan Vial) 10 mg QID IVP Last administered on 05/15/20at 13:02; Start 05/13/20 at 13:00 Sodium Chloride 1,000 ml @ 75 mls/hr [id number] IV Last administered on 05/15/20 08:10; Start 05/13/20 at 16:00 Potassium Chloride (Klor-Con) 20 meq 1X ONCE PO ; Start 05/13/20 at 16:00; Stop 05/13/20 at 16:01; Status Cancel Insulin Glargine (Lantus Syringe) 12 unit 1X ONCE SQ Last administered on 05/13/20at 16:14; Start 05/13/20 at 16:30; Stop 05/13/20 at 16:31; Status DC Potassium Bicarbonate (Potassium Effervescent Tablet) 20 meq 1X ONCE PO Last administered on 05/13/20at 16:13; Start 05/13/20 at 16:30; Stop 05/13/20 at 16:31; Status DC Sodium Chloride 1,000 ml @ 1,000 mls/hr 1X ONCE IV Last administered on 05/14/20at 13:25; Start 05/14/20 at 13:30; Stop 05/14/20 at 14:29; Status DC Dexmedetomidine HCl 400 mcg/ Sodium Chloride 100 ml @ 0 mls/hr CONT PRN IV sedation Last administered on 05/15/20at 09:35; Start 05/14/20 at 16:15 Sodium Chloride 500 ml @ 500 mls/hr 1X PRN PRN IV hypotention; Start 05/14/20 at 16:15 Atropine Sulfate (ATROPINE 0.5mg SYRINGE) 0.5 mg PRN Q5MIN PRN IV SEE COMMENTS; Start 05/14/20 at 16:15 Vitals/I & O Vital Sign - Last 24 Hours 05/14/20 05/14/20 05/14/2020 15:00 15:26 15:59 16:00 Pulse 72 Resp 20 B/P (MAP) 98/54 (69) Pulse Ox 91 96 93 O2 Delivery Ventilator Ventilator Mechanical Ventilator O2 Flow Rate 40.0 05/14/20 05/14/20 05/14/20 05/14/20 16:00 17:00 18:00 19:00 Temp 98.5 98.5 Pulse 72 76 67 65 Resp 20 20 20 22 B/P (MAP) 105/56 (72) 110/56 (74) 111/64 (80) 115/64 (81) Pulse Ox 93 93 94 94 O2 Delivery Ventilator Ventilator Ventilator Ventilator 05/14/20 05/14/20 05/14/20 05/14/20 19:38 20:00 20:00 21:00 Temp 98.7 98.7 Pulse 66 67 Resp B/P (MAP) 113/61 (78) 112/59 (76) Pulse Ox 95 96 95 O2 Delivery Ventilator Mechanical Ventilator Ventilator Ventilator 05/14/20 05/14/20 05/14/20 05/14/20 22:00 23:00 23:04 23:59 Temp 98.3 98.3 Pulse 66 70 66 Resp 28 B/P (MAP) 118/66 (83) 109/61 (77) 126/73 (90) Pulse Ox 95 95 95 96 O2 Delivery Ventilator Ventilator Ventilator Ventilator 05/14/20 05/15/20 05/15/20 05/15/20 23:59 01:00 02:00 02:02 Pulse 68 65 Resp B/P (MAP) 117/58 (77) 113/64 (80) Pulse Ox 95 96 95 O2 Delivery Mechanical Ventilator Ventilator Ventilator O2 Flow Rate 40.0 05/15/20 05/15/20 05/15/20 05/15/20 03:00 03:04 03:16 04:00 Temp 97.6 97.6 Pulse 65 63 Resp 27 B/P (MAP) 115/63 (80) 123/73 (90) Pulse Ox 97 96 96 96 O2 Delivery Ventilator Ventilator Ventilator O2 Flow Rate 40.0 05/15/20 05/15/20 05/15/20 05/15/20 04:00 05:00 06:00 07:00 Pulse 65 62 62 Resp 28 26 20 B/P (MAP) 121/74 (90) 121/74 (90) 122/69 (86) Pulse Ox 99 98 95 O2 Delivery Mechanical Ventilator Ventilator Ventilator Ventilator 05/15/20 05/15/20 05/15/20 05/15/20 07:44 08:00 08:00 09:00 Temp 98.4 98.4 Pulse 68 76 Resp 20 22 B/P (MAP) 105/61 (76) 102/54 (70) Pulse Ox 96 94 95 O2 Delivery Ventilator Ventilator Mechanical Ventilator Ventilator 05/15/20 05/15/20 05/15/20 05/15/20 10:00 11:00 11:45 12:00 Pulse 82 64 Resp 20 20 B/P (MAP) 96/55 (69) 110/64 (79) Pulse Ox 95 96 96 O2 Delivery Ventilator Ventilator Ventilator Mechanical Ventilator Intake and Output 05/14/20 05/14/20 05/15/20 15:00 23:00 07:00 Intake Total 1580 ml 2825 ml 2523 ml Output Total 550 ml 525 ml 750 ml Balance 1030 ml 2300 ml 1773 ml Justicifation of Admission Dx: Justifications for Admission: Justification of Admission Dx: Yes Comminuty Aquired Pneumonia: Hypoxemia GAUTAM FRITZ MD May 15, 2020 14:15
[2020-05-16] VITALS (24 sets, daily range): BP systolic 90–153; BP diastolic 59–88
[2020-05-16] MEDS: DEXMEDETOMIDINE 400 MCG in IV NORMAL SALINE 100ML 96 ML IV PRN ×3 (02:35→10:20)
[2020-05-16] MEDS: cefTRIAXone IV Push 1 GM VIAL. IVP SCH (04:06)
[2020-05-16] MEDS: AZITHROMYCIN 500 MG in IV NORMAL SALINE 250ML 250 ML IV SCH (04:06)
[2020-05-16] MEDS: INSULIN LISPRO 300 UNITS/3 ML VIAL. SQ SCH ×4 (05:33→23:30)
[2020-05-16] MEDS: methylPREDNISolone SOD SUCC PF 40 MG/ML VIAL. IV SCH ×3 (05:33→21:58)
[2020-05-16 06:12] LABS: HEMATOCRIT 39.7 % (39.0-53.0); HEMOGLOBIN 13.1 g/dL (13.0-17.5); RED BLOOD COUNT 4.56 x10^6/uL (4.30-5.70); WHITE BLOOD COUNT 19.2 x10^3/uL (4.0-11.0)
[2020-05-16 06:32] LABS: ALBUMIN 1.5 g/dL (3.4-5.0); ALBUMIN/GLOBULIN RATIO 0.5 (1.0-1.7); CALCIUM 6.9 mg/dL (8.5-10.1); CREATININE 0.8 mg/dL (0.7-1.3); GFR 104.5; POTASSIUM 3.7 mmol/L (3.5-5.1); TOTAL BILIRUBIN 0.4 mg/dL (0.2-1.0); TOTAL PROTEIN 4.6 g/dL (6.4-8.2)
[2020-05-16] MEDS: METOCLOPRAMIDE HCL 10 MG/2 ML VIAL. IVP SCH (08:06)
[2020-05-16] MEDS: FAMOTIDINE 20 MG/2 ML VIAL IVP SCH ×2 (08:06→21:02)
[2020-05-16] MEDS: NON FORMULARY ITEM 1 EA in IV NORMAL SALINE 250ML 230 ML IV SCH (08:12)
[2020-05-16 08:19] LABS: BASE EXCESS ABG 3 mmol/L (-3-3); HCO3 ABG 26 mmol/L (21-28); PCO2 ABG 35 mmHg (35-46); PO2 ABG 72 mmHg (75-108); SAT O2 ABG 95 % (92-99)
[2020-05-16 08:22] LABS: FIO2 ABG 50
--- NOTE | 2020-05-16 08:38 | PDOC ---
PULMONARY PROGRESS NOTES Subjective Patient seen on pressure support of 5 awake alert following commands no respiratory distress Vitals Vital Signs Date Time Temp Pulse Resp B/P (MAP) Pulse Ox O2 Delivery O2 Flow Rate FiO2 05/16/20 07:00 55 20 138/83 (101) 97 Ventilator 05/16/20 04:00 98.0 98.0 05/15/20 17:09 40.0 Comments Patient seen doing the , visual examination no respiratory distress in sync with the ventilator no significant edema Labs Laboratory Tests Test 05/14/20 10:00 05/14/20 13:41 05/14/20 17:29 05/14/20 23:06 Heparin Anti-Xa Act, Unfractionated 0.68 IU/mL (0.30-0.70) Glucose (Fingerstick) 216 mg/dL (70-99) 221 mg/dL (70-99) 210 mg/dL (70-99) Test 05/15/20 05:17 05/15/20 05:20 05/15/20 05:25 05/15/20 07:45 Glucose (Fingerstick) 192 mg/dL (70-99) Heparin Anti-Xa Act, Unfractionated 0.35 IU/mL (0.30-0.70) White Blood Count 20.6 x10^3/uL (4.0-11.0) Red Blood Count 4.55 x10^6/uL (4.30-5.70) Hemoglobin 13.2 g/dL (13.0-17.5) Hematocrit 39.6 % (39.0-53.0) Mean Corpuscular Volume 87 fL (79-100) Mean Corpuscular Hemoglobin 29 pg (25-35) Mean Corpuscular Hemoglobin Concent 33 g/dL (31-37) Red Cell Distribution Width 14.2 % (11.5-14.5) Platelet Count 381 x10^3/uL (140-400) Sodium Level 142 mmol/L (136-145) Potassium Level 3.7 mmol/L (3.5-5.1) Chloride Level 107 mmol/L (98-107) Carbon Dioxide Level 29 mmol/L (21-32) Anion Gap 6 (6-14) Blood Urea Nitrogen 21 mg/dL (8-26) Creatinine 0.8 mg/dL (0.7-1.3) Estimated GFR (Cockcroft-Gault) 104.5 BUN/Creatinine Ratio 26 (6-20) Glucose Level 222 mg/dL (70-99) Calcium Level 7.1 mg/dL (8.5-10.1) Total Bilirubin 0.4 mg/dL (0.2-1.0) Aspartate Amino Transf (AST/SGOT) 12 U/L (15-37) Alanine Aminotransferase (ALT/SGPT) 18 U/L (16-63) Alkaline Phosphatase 53 U/L (46-116) Total Protein 4.6 g/dL (6.4-8.2) Albumin 1.4 g/dL (3.4-5.0) Albumin/Globulin Ratio 0.4 (1.0-1.7) O2 Saturation 94 % (92-99) Arterial Blood pH 7.46 (7.35-7.45) Arterial Blood pCO2 at Patient Temp 37 mmHg (35-46) Arterial Blood pO2 at Patient Temp 73 mmHg (75-108) Arterial Blood HCO3 26 mmol/L (21-28) Arterial Blood Base Excess 3 mmol/L (-3-3) FiO2 50 Test 05/15/20 12:38 05/15/20 23:21 05/16/20 05:30 05/16/20 05:35 Glucose (Fingerstick) 231 mg/dL (70-99) 216 mg/dL (70-99) 212 mg/dL (70-99) Sodium Level 141 mmol/L (136-145) Potassium Level 3.7 mmol/L (3.5-5.1) Chloride Level 107 mmol/L (98-107) Carbon Dioxide Level 28 mmol/L (21-32) Anion Gap 6 (6-14) Blood Urea Nitrogen 21 mg/dL (8-26) Creatinine 0.8 mg/dL (0.7-1.3) Estimated GFR (Cockcroft-Gault) 104.5 BUN/Creatinine Ratio 26 (6-20) Glucose Level 225 mg/dL (70-99) Calcium Level 6.9 mg/dL (8.5-10.1) Total Bilirubin 0.4 mg/dL (0.2-1.0) Aspartate Amino Transf (AST/SGOT) 27 U/L (15-37) Alanine Aminotransferase (ALT/SGPT) 30 U/L (16-63) Alkaline Phosphatase 59 U/L (46-116) Total Protein 4.6 g/dL (6.4-8.2) Albumin 1.5 g/dL (3.4-5.0) Albumin/Globulin Ratio 0.5 (1.0-1.7) White Blood Count 19.2 x10^3/uL (4.0-11.0) Red Blood Count 4.56 x10^6/uL (4.30-5.70) Hemoglobin 13.1 g/dL (13.0-17.5) Hematocrit 39.7 % (39.0-53.0) Mean Corpuscular Volume 87 fL (79-100) Mean Corpuscular Hemoglobin 29 pg (25-35) Mean Corpuscular Hemoglobin Concent 33 g/dL (31-37) Red Cell Distribution Width 14.0 % (11.5-14.5) Platelet Count 271 x10^3/uL (140-400) Heparin Anti-Xa Act, Unfractionated < 0.10 IU/mL (0.30-0.70) Test 05/16/20 07:50 O2 Saturation 95 % (92-99) Arterial Blood pH 7.49 (7.35-7.45) Arterial Blood pCO2 at Patient Temp 35 mmHg (35-46) Arterial Blood pO2 at Patient Temp 72 mmHg (75-108) Arterial Blood HCO3 26 mmol/L (21-28) Arterial Blood Base Excess 3 mmol/L (-3-3) FiO2 50 Laboratory Tests Test 05/15/20 12:38 05/15/20 23:21 05/16/20 05:30 05/16/20 05:35 Glucose (Fingerstick) 231 mg/dL (70-99) 216 mg/dL (70-99) 212 mg/dL (70-99) Sodium Level 141 mmol/L (136-145) Potassium Level 3.7 mmol/L (3.5-5.1) Chloride Level 107 mmol/L (98-107) Carbon Dioxide Level 28 mmol/L (21-32) Anion Gap 6 (6-14) Blood Urea Nitrogen 21 mg/dL (8-26) Creatinine 0.8 mg/dL (0.7-1.3) Estimated GFR (Cockcroft-Gault) 104.5 BUN/Creatinine Ratio 26 (6-20) Glucose Level 225 mg/dL (70-99) Calcium Level 6.9 mg/dL (8.5-10.1) Total Bilirubin 0.4 mg/dL (0.2-1.0) Aspartate Amino Transf (AST/SGOT) 27 U/L (15-37) Alanine Aminotransferase (ALT/SGPT) 30 U/L (16-63) Alkaline Phosphatase 59 U/L (46-116) Total Protein 4.6 g/dL (6.4-8.2) Albumin 1.5 g/dL (3.4-5.0) Albumin/Globulin Ratio 0.5 (1.0-1.7) White Blood Count 19.2 x10^3/uL (4.0-11.0) Red Blood Count 4.56 x10^6/uL (4.30-5.70) Hemoglobin 13.1 g/dL (13.0-17.5) Hematocrit 39.7 % (39.0-53.0) Mean Corpuscular Volume 87 fL (79-100) Mean Corpuscular Hemoglobin 29 pg (25-35) Mean Corpuscular Hemoglobin Concent 33 g/dL (31-37) Red Cell Distribution Width 14.0 % (11.5-14.5) Platelet Count 271 x10^3/uL (140-400) Heparin Anti-Xa Act, Unfractionated < 0.10 IU/mL (0.30-0.70) Test 05/16/20 07:50 O2 Saturation 95 % (92-99) Arterial Blood pH 7.49 (7.35-7.45) Arterial Blood pCO2 at Patient Temp 35 mmHg (35-46) Arterial Blood pO2 at Patient Temp 72 mmHg (75-108) Arterial Blood HCO3 26 mmol/L (21-28) Arterial Blood Base Excess 3 mmol/L (-3-3) FiO2 50 Comments CXR 05/13/2020 IMPRESSION: 1. Stable patchy bilateral opacities. 2. Life support devices as above. Impression . 1. Acute Hypoxic Respiratory Failure 2. Fever--resolved 3. Pneumonia, CXR positive for Bilateral patch infiltrates consistent with COVID-19 4. elevated d-dimer, presumptive thromboembolic disease-- on heparin gtt 5. Tachycardia 6. Elevated CRP and ferrtin also consistent with COVID-19 infection 7. COVID-19 viral pneumonia 8. COVID-19 sepsis-- improved Plan . We will proceed with extubation Discussed with RN, avoid sedation Continue heparin drip for presumptive thromboembolic disease Status post convalescent serum on 05/08 Status post Remdesivir Cont Steroids Continue tube feeding for nutritional support GI/DVT prophylaxis Discussed with RN and RT CODE:FULL Total cumulative critical care time of 30 minutes reviewing data, labs, chest x- ray, YARELY PAULSON MD May 16, 2020 08:38
[2020-05-16] MEDS: ANTI-COAG MONITOR BY PHARMACY. MC PRN (09:30)
[2020-05-16 11:50] LABS: BASE EXCESS ABG 3 mmol/L (-3-3); HCO3 ABG 27 mmol/L (21-28); PCO2 ABG 39 mmHg (35-46); PO2 ABG 75 mmHg (75-108); SAT O2 ABG 95 % (92-99)
[2020-05-16 11:52] LABS: FIO2 ABG 50
--- NOTE | 2020-05-16 13:42 | PDOC ---
PROGRESS NOTES Chief Complaint Chief Complaint Acute Hypoxic Resp Failure secondary to COVID-19 Bilateral Infiltrates on cxr elevated D dimer// elevated inflammatory markers Leukocytosis ELEVATED FERRITIN // Elevated CRP and ferrtin also consistent with COVID-19 infection mild hypernatremia History of Present Illness History of Present Illness Mr Tipton is a 45-year-old male who presents to the Emergency Department overnight with complaints of shortness of breath, fever, chills for the last 4-5 days prior to admit on 05/06/2020. He reports that he has been self-isolating at home and treating his fevers with Tylenol and ibuprofen without any improvement of his symptoms. Upon arrival to the Emergency Department, he was found to be hypoxic with oxygen saturations of 70%. He was placed on 15 liters nonrebreather and was admitted to the hospital for further medical evaluation and treatment. He was treated with Rocephin and azithromycin in the Emergency Department and was tested for COVID-19 which returned positive. 24 hours after admission he became more hypoxic on the nursing unit and was transferred to the intensive care unit and a Pulmonary consultation was requested at that point in time. He was intubated overnight on 05/07/2020. 05/07-05/14: Treated with convalescent FFP and 9 doses of remdesivir. 05/15: we are trying to wake him up today, wean vent, will try to trail, he is fighting the vent as he wakes Seen on vent, improved today, and successfully extubated. Confused. Seen before and after extubation Plan: will give sq lantus x1, blood sugar high, change IV fluid, to NS IV abxm pulm following IV Rocephin and Azithro Steroids The patient was evaluated during the global COVID-19 pandemic, and that diagnosis was suspected/considered upon their initial presentation. CC time 78 minutes Vitals Vitals Vital Signs Date Time Temp Pulse Resp B/P (MAP) Pulse Ox O2 Delivery O2 Flow Rate FiO2 05/16/20 13:00 72 18 119/66 (83) 97 Venturi Mask 15.0 05/16/20 12:00 98.0 98.0 Physical Exam Physical Exam GENERAL: INTUBATED ON VENT, SEDATED HEENT: Head normocephalic, atraumatic. NECK: Supple LUNGS: Clear to auscultation. HEART: RRR, S1, S2 present, pulses intact ABDOMEN: Soft, positive bowel sounds. EXTREMITIES: No cyanosis or edema. SKIN: No ulceration. General: Other (sedated) Abdomen: Other (obese) Extremities: No cyanosis Skin: No breakdown Labs LABS Laboratory Tests Test 05/15/20 23:21 05/16/20 05:30 05/16/20 05:35 05/16/20 07:50 Glucose (Fingerstick) 216 mg/dL (70-99) 212 mg/dL (70-99) Sodium Level 141 mmol/L (136-145) Potassium Level 3.7 mmol/L (3.5-5.1) Chloride Level 107 mmol/L (98-107) Carbon Dioxide Level 28 mmol/L (21-32) Anion Gap 6 (6-14) Blood Urea Nitrogen 21 mg/dL (8-26) Creatinine 0.8 mg/dL (0.7-1.3) Estimated GFR (Cockcroft-Gault) 104.5 BUN/Creatinine Ratio 26 (6-20) Glucose Level 225 mg/dL (70-99) Calcium Level 6.9 mg/dL (8.5-10.1) Total Bilirubin 0.4 mg/dL (0.2-1.0) Aspartate Amino Transf (AST/SGOT) 27 U/L (15-37) Alanine Aminotransferase (ALT/SGPT) 30 U/L (16-63) Alkaline Phosphatase 59 U/L (46-116) Total Protein 4.6 g/dL (6.4-8.2) Albumin 1.5 g/dL (3.4-5.0) Albumin/Globulin Ratio 0.5 (1.0-1.7) White Blood Count 19.2 x10^3/uL (4.0-11.0) Red Blood Count 4.56 x10^6/uL (4.30-5.70) Hemoglobin 13.1 g/dL (13.0-17.5) Hematocrit 39.7 % (39.0-53.0) Mean Corpuscular Volume 87 fL (79-100) Mean Corpuscular Hemoglobin 29 pg (25-35) Mean Corpuscular Hemoglobin Concent 33 g/dL (31-37) Red Cell Distribution Width 14.0 % (11.5-14.5) Platelet Count 271 x10^3/uL (140-400) Heparin Anti-Xa Act, Unfractionated < 0.10 IU/mL (0.30-0.70) O2 Saturation 95 % (92-99) Arterial Blood pH 7.49 (7.35-7.45) Arterial Blood pCO2 at Patient Temp 35 mmHg (35-46) Arterial Blood pO2 at Patient Temp 72 mmHg (75-108) Arterial Blood HCO3 26 mmol/L (21-28) Arterial Blood Base Excess 3 mmol/L (-3-3) FiO2 50 Test 05/16/20 11:35 O2 Saturation 95 % (92-99) Arterial Blood pH 7.47 (7.35-7.45) Arterial Blood pCO2 at Patient Temp 39 mmHg (35-46) Arterial Blood pO2 at Patient Temp 75 mmHg (75-108) Arterial Blood HCO3 27 mmol/L (21-28) Arterial Blood Base Excess 3 mmol/L (-3-3) FiO2 50 Comment Review of Relevant I have reviewed the following items laura (where applicable) has been applied. Labs Laboratory Tests Test 05/14/20 13:41 05/14/20 17:29 05/14/20 23:06 05/15/20 05:17 Glucose (Fingerstick) 216 mg/dL (70-99) 221 mg/dL (70-99) 210 mg/dL (70-99) 192 mg/dL (70-99) Test 05/15/20 05:20 05/15/20 05:25 05/15/20 07:45 05/15/20 12:38 Heparin Anti-Xa Act, Unfractionated 0.35 IU/mL (0.30-0.70) White Blood Count 20.6 x10^3/uL (4.0-11.0) Red Blood Count 4.55 x10^6/uL (4.30-5.70) Hemoglobin 13.2 g/dL (13.0-17.5) Hematocrit 39.6 % (39.0-53.0) Mean Corpuscular Volume 87 fL (79-100) Mean Corpuscular Hemoglobin 29 pg (25-35) Mean Corpuscular Hemoglobin Concent 33 g/dL (31-37) Red Cell Distribution Width 14.2 % (11.5-14.5) Platelet Count 381 x10^3/uL (140-400) Sodium Level 142 mmol/L (136-145) Potassium Level 3.7 mmol/L (3.5-5.1) Chloride Level 107 mmol/L (98-107) Carbon Dioxide Level 29 mmol/L (21-32) Anion Gap 6 (6-14) Blood Urea Nitrogen 21 mg/dL (8-26) Creatinine 0.8 mg/dL (0.7-1.3) Estimated GFR (Cockcroft-Gault) 104.5 BUN/Creatinine Ratio 26 (6-20) Glucose Level 222 mg/dL (70-99) Calcium Level 7.1 mg/dL (8.5-10.1) Total Bilirubin 0.4 mg/dL (0.2-1.0) Aspartate Amino Transf (AST/SGOT) 12 U/L (15-37) Alanine Aminotransferase (ALT/SGPT) 18 U/L (16-63) Alkaline Phosphatase 53 U/L (46-116) Total Protein 4.6 g/dL (6.4-8.2) Albumin 1.4 g/dL (3.4-5.0) Albumin/Globulin Ratio 0.4 (1.0-1.7) O2 Saturation 94 % (92-99) Arterial Blood pH 7.46 (7.35-7.45) Arterial Blood pCO2 at Patient Temp 37 mmHg (35-46) Arterial Blood pO2 at Patient Temp 73 mmHg (75-108) Arterial Blood HCO3 26 mmol/L (21-28) Arterial Blood Base Excess 3 mmol/L (-3-3) FiO2 50 Glucose (Fingerstick) 231 mg/dL (70-99) Test 05/15/20 23:21 05/16/20 05:30 05/16/20 05:35 05/16/20 07:50 Glucose (Fingerstick) 216 mg/dL (70-99) 212 mg/dL (70-99) Sodium Level 141 mmol/L (136-145) Potassium Level 3.7 mmol/L (3.5-5.1) Chloride Level 107 mmol/L (98-107) Carbon Dioxide Level 28 mmol/L (21-32) Anion Gap 6 (6-14) Blood Urea Nitrogen 21 mg/dL (8-26) Creatinine 0.8 mg/dL (0.7-1.3) Estimated GFR (Cockcroft-Gault) 104.5 BUN/Creatinine Ratio 26 (6-20) Glucose Level 225 mg/dL (70-99) Calcium Level 6.9 mg/dL (8.5-10.1) Total Bilirubin 0.4 mg/dL (0.2-1.0) Aspartate Amino Transf (AST/SGOT) 27 U/L (15-37) Alanine Aminotransferase (ALT/SGPT) 30 U/L (16-63) Alkaline Phosphatase 59 U/L (46-116) Total Protein 4.6 g/dL (6.4-8.2) Albumin 1.5 g/dL (3.4-5.0) Albumin/Globulin Ratio 0.5 (1.0-1.7) White Blood Count 19.2 x10^3/uL (4.0-11.0) Red Blood Count 4.56 x10^6/uL (4.30-5.70) Hemoglobin 13.1 g/dL (13.0-17.5) Hematocrit 39.7 % (39.0-53.0) Mean Corpuscular Volume 87 fL (79-100) Mean Corpuscular Hemoglobin 29 pg (25-35) Mean Corpuscular Hemoglobin Concent 33 g/dL (31-37) Red Cell Distribution Width 14.0 % (11.5-14.5) Platelet Count 271 x10^3/uL (140-400) Heparin Anti-Xa Act, Unfractionated < 0.10 IU/mL (0.30-0.70) O2 Saturation 95 % (92-99) Arterial Blood pH 7.49 (7.35-7.45) Arterial Blood pCO2 at Patient Temp 35 mmHg (35-46) Arterial Blood pO2 at Patient Temp 72 mmHg (75-108) Arterial Blood HCO3 26 mmol/L (21-28) Arterial Blood Base Excess 3 mmol/L (-3-3) FiO2 50 Test 05/16/20 11:35 O2 Saturation 95 % (92-99) Arterial Blood pH 7.47 (7.35-7.45) Arterial Blood pCO2 at Patient Temp 39 mmHg (35-46) Arterial Blood pO2 at Patient Temp 75 mmHg (75-108) Arterial Blood HCO3 27 mmol/L (21-28) Arterial Blood Base Excess 3 mmol/L (-3-3) FiO2 50 Laboratory Tests Test 05/15/20 23:21 05/16/20 05:30 05/16/20 05:35 05/16/20 07:50 Glucose (Fingerstick) 216 mg/dL (70-99) 212 mg/dL (70-99) Sodium Level 141 mmol/L (136-145) Potassium Level 3.7 mmol/L (3.5-5.1) Chloride Level 107 mmol/L (98-107) Carbon Dioxide Level 28 mmol/L (21-32) Anion Gap 6 (6-14) Blood Urea Nitrogen 21 mg/dL (8-26) Creatinine 0.8 mg/dL (0.7-1.3) Estimated GFR (Cockcroft-Gault) 104.5 BUN/Creatinine Ratio 26 (6-20) Glucose Level 225 mg/dL (70-99) Calcium Level 6.9 mg/dL (8.5-10.1) Total Bilirubin 0.4 mg/dL (0.2-1.0) Aspartate Amino Transf (AST/SGOT) 27 U/L (15-37) Alanine Aminotransferase (ALT/SGPT) 30 U/L (16-63) Alkaline Phosphatase 59 U/L (46-116) Total Protein 4.6 g/dL (6.4-8.2) Albumin 1.5 g/dL (3.4-5.0) Albumin/Globulin Ratio 0.5 (1.0-1.7) White Blood Count 19.2 x10^3/uL (4.0-11.0) Red Blood Count 4.56 x10^6/uL (4.30-5.70) Hemoglobin 13.1 g/dL (13.0-17.5) Hematocrit 39.7 % (39.0-53.0) Mean Corpuscular Volume 87 fL (79-100) Mean Corpuscular Hemoglobin 29 pg (25-35) Mean Corpuscular Hemoglobin Concent 33 g/dL (31-37) Red Cell Distribution Width 14.0 % (11.5-14.5) Platelet Count 271 x10^3/uL (140-400) Heparin Anti-Xa Act, Unfractionated < 0.10 IU/mL (0.30-0.70) O2 Saturation 95 % (92-99) Arterial Blood pH 7.49 (7.35-7.45) Arterial Blood pCO2 at Patient Temp 35 mmHg (35-46) Arterial Blood pO2 at Patient Temp 72 mmHg (75-108) Arterial Blood HCO3 26 mmol/L (21-28) Arterial Blood Base Excess 3 mmol/L (-3-3) FiO2 50 Test 05/16/20 11:35 O2 Saturation 95 % (92-99) Arterial Blood pH 7.47 (7.35-7.45) Arterial Blood pCO2 at Patient Temp 39 mmHg (35-46) Arterial Blood pO2 at Patient Temp 75 mmHg (75-108) Arterial Blood HCO3 27 mmol/L (21-28) Arterial Blood Base Excess 3 mmol/L (-3-3) FiO2 50 Microbiology 05/08/20 Urine Culture - Final, Complete 05/06/20 Blood Culture - Final, Complete NO GROWTH AFTER 5 DAYS Medications Current Medications Acetaminophen (Tylenol) 650 mg 1X ONCE PO Last administered on 05/06/20at 03:54; Start 05/06/20 at 03:00; Stop 05/06/20 at 03:01; Status DC Sodium Chloride 1,000 ml @ 1,000 mls/hr 1X ONCE IV Last administered on 05/06/20at 03:53; Start 05/06/20 at 03:00; Stop 05/06/20 at 03:59; Status DC Ceftriaxone Sodium (Rocephin) 1 gm 1X ONCE IVP Last administered on 05/06/20at 03:54; Start 05/06/20 at 03:00; Stop 05/06/20 at 03:01; Status DC Azithromycin 250 ml @ 250 mls/hr 1X ONCE IV Last administered on 05/06/20at 03:00; Start 05/06/20 at 03:00; Stop 05/06/20 at 03:59; Status DC Hydralazine HCl (Apresoline) 25 mg PRN TID PRN PO for SBP greater than 180; Start 05/06/20 at 07:30 Enoxaparin Sodium (Lovenox Per Pharmacy Prophylaxis Dosing) 1 each PRN DAILY PRN MC SEE COMMENTS; Start 05/06/20 at 07:30; Stop 05/10/20 at 20:59; Status DC Ceftriaxone Sodium (Rocephin) 1 gm Q24H IVP Last administered on 05/16/20at 04:06; Start 05/07/20 at 04:00 Acetaminophen (Tylenol) 650 mg PRN Q6HRS PRN PO fever Last administered on 05/06/20at 15:51; Start 05/06/20 at 07:30 Azithromycin 500 mg/Sodium Chloride 250 ml @ 250 mls/hr Q24H IV Last administered on 05/16/20at 04:06; Start 05/07/20 at 04:00 Enoxaparin Sodium (Lovenox 60mg Syringe) 60 mg Q12HR SQ Last administered on 05/08/20at 08:16; Start 05/06/20 at 09:00; Stop 05/08/20 at 14:36; Status DC Nicotine (Nicoderm Cq 21mg) 1 patch PRN DAILY PRN TD SMOKING CESSATION; Start 05/06/20 at 08:30 Methylprednisolone Sodium Succinate (SOLU-Medrol 125MG VIAL) 60 mg Q8HRS IV Last administered on 05/13/20at 06:00; Start 05/06/20 at 14:00; Stop 05/13/20 at 09:37; Status DC Famotidine (Pepcid Vial) 20 mg BID IVP Last administered on 05/08/20at 08:15; Start 05/06/20 at 21:00; Stop 05/08/20 at 12:35; Status DC Sterile Water (WATER for RESP) 1,000 ml CONT PRN INH VIA VAPOTHERM DEVICE; Start 05/06/20 at 23:30; Stop 05/07/20 at 11:27; Status DC Fentanyl Citrate 30 ml @ 0 mls/hr CONT PRN IV SEE PROTOCOL Last administered on 05/15/20at 17:09; Start 05/07/20 at 00:30 Propofol 100 ml @ 0 mls/hr CONT PRN IV SEE PROTOCOL; Start 05/07/20 at 00:15 Chlorhexidine Gluconate (Peridex) 15 ml BID MM ; Start 05/07/20 at 09:00; Stop 05/07/20 at 07:33; Status DC Midazolam HCl 100 ml @ 0 mls/hr CONT PRN IV SEE PROTOCOL Last administered on 05/14/20at 19:15; Start 05/07/20 at 00:30 Succinylcholine Chloride (Anectine) 200 mg 1X ONCE IV Last administered on 05/07/20at 00:37; Start 05/07/20 at 00:45; Stop 05/07/20 at 00:46; Status DC Etomidate (Amidate) 20 mg STK-MED ONCE IV ; Start 05/07/20 at 00:57; Stop 05/07/20 at 00:57; Status DC Vecuronium [place] (Norcuron Bolus) 10 mg 1X ONCE IV ; Start 05/07/20 at 01:15; Stop 05/07/20 at 01:16; Status DC Norepinephrine Bitartrate 8 mg/ Dextrose 258 ml @ 19.756 mls/ hr CONT PRN IV PER PROTOCOL Last administered on 05/07/20at 02:37; Start 05/07/20 at 02:15 Succinylcholine Chloride (Anectine) 200 mg STK-MED ONCE .ROUTE ; Start 05/07/20 at 01:00; Stop 05/07/20 at 08:46; Status DC Non-Formulary Medication 1 ea/ Sodium Chloride 210 ml @ 420 mls/hr 1X ONCE IV Last administered on 05/07/20at 15:07; Start 05/07/20 at 15:00; Stop 05/07/20 at 15:29; Status DC Non-Formulary Medication 1 ea/ Sodium Chloride 230 ml @ 460 mls/hr Q24H IV Last administered on 05/16/20at 08:12; Start 05/08/20 at 09:00; Stop 05/16/20 at 09:29; Status DC Dextrose/Sodium Chloride 1,000 ml @ 75 mls/hr [id number] IV Last administered on 05/12/20at 02:33; Start 05/08/20 at 12:30; Stop 05/13/20 at 15:52; Status DC Famotidine (Pepcid Vial) 20 mg BID IVP Last administered on 05/16/20at 08:06; Start 05/08/20 at 21:00 Insulin Human Lispro (HumaLOG) 0-5 UNITS Q6HRS SQ Last administered on 05/16/20at 05:33; Start 05/08/20 at 18:00 Dextrose (Dextrose 50%-Water Syringe) 12.5 gm PRN Q15MIN PRN IV SEE COMMENTS; Start 05/08/20 at 12:45 Enoxaparin Sodium (Lovenox 40mg Syringe) 40 mg BID SQ Last administered on 05/10/20at 08:50; Start 05/08/20 at 21:00; Stop 05/10/20 at 20:59; Status DC Heparin Sodium (Porcine) (Heparin Sodium) 8,000 unit 1X ONCE IV Last administered on 05/10/20at 21:22; Start 05/10/20 at 21:00; Stop 05/10/20 at 21:02; Status DC Heparin Sodium/ Dextrose 250 ml @ 16 mls/hr CONT PRN IV PER PROTOCOL Last administered on 05/15/20at 13:28; Start 05/10/20 at 21:00 Heparin Sodium (Porcine) (Heparin Sodium) 3,000 unit PRN Q6HRS PRN IV FOR UFH LEVEL LESS THAN 0.2; Start 05/10/20 at 21:00 Heparin Sodium (Porcine) (Heparin Sodium) 1,500 unit PRN Q6HRS PRN IV FOR UFH LEVEL 0.2 - 0.29; Start 05/10/20 at 21:00 Erythromycin Lactobionate 125 mg/Sodium Chloride 100 ml @ 100 mls/hr Q6HRS IV ; Start 05/12/20 at 18:00; Stop 05/12/20 at 18:40; Status DC Erythromycin Lactobionate 125 mg/Sodium Chloride 100 ml @ 100 mls/hr Q6HRS IV ; Start 05/13/20 at 20:00; Stop 05/12/20 at 18:41; Status DC Erythromycin Lactobionate 125 mg/Sodium Chloride 100 ml @ 100 mls/hr Q6HRS IV Last administered on 05/13/20at 06:00; Start 05/12/20 at 19:30; Stop 05/13/20 at 09:41; Status DC Methylprednisolone Sodium Succinate (SOLU-Medrol 40MG VIAL) 40 mg Q8HRS IV Last administered on 05/16/20at 05:33; Start 05/13/20 at 09:45 Metoclopramide HCl (Reglan Vial) 10 mg QID IVP Last administered on 05/16/20at 08:06; Start 05/13/20 at 13:00 Sodium Chloride 1,000 ml @ 75 mls/hr [id number] IV Last administered on 05/15/20at 23:52; Start 05/13/20 at 16:00 Potassium Chloride (Klor-Con) 20 meq 1X ONCE PO ; Start 05/13/20 at 16:00; Stop 05/13/20 at 16:01; Status Cancel Insulin Glargine (Lantus Syringe) 12 unit 1X ONCE SQ Last administered on 05/13/20at 16:14; Start 05/13/20 at 16:30; Stop 05/13/20 at 16:31; Status DC Potassium Bicarbonate (Potassium Effervescent Tablet) 20 meq 1X ONCE PO Last administered on 05/13/20at 16:13; Start 05/13/20 at 16:30; Stop 05/13/20 at 16:31; Status DC Sodium Chloride 1,000 ml @ 1,000 mls/hr 1X ONCE IV Last administered on 05/14/20at 13:25; Start 05/14/20 at 13:30; Stop 05/14/20 at 14:29; Status DC Dexmedetomidine HCl 400 mcg/ Sodium Chloride 100 ml @ 0 mls/hr CONT PRN IV sedation Last administered on 05/16/20at 10:20; Start 05/14/20 at 16:15 Sodium Chloride 500 ml @ 500 mls/hr 1X PRN PRN IV hypotention; Start 05/14/20 at 16:15 Atropine Sulfate (ATROPINE 0.5mg SYRINGE) 0.5 mg PRN Q5MIN PRN IV SEE COMMENTS; Start 05/14/20 at 16:15 Info (Anti-Coagulation Monitoring By Pharmacy) 1 each PRN DAILY PRN MC SEE COMMENTS Last administered on 05/16/20at 09:30; Start 05/16/20 at 07:45 Insulin Glargine (Lantus Syringe) 10 unit QHS SQ ; Start 05/16/20 at 21:00 Vitals/I & O Vital Sign - Last 24 Hours 05/15/20 05/15/20 05/15/20 05/15/20 14:00 15:00 15:21 15:30 Pulse 110 108 Resp 22 24 B/P (MAP) 109/69 (82) 119/74 (89) Pulse Ox 95 93 96 O2 Delivery C-pap PS 12 C-pap PS 12 Ventilator Ventilator 05/15/20 05/15/20 05/15/20 05/15/20 16:00 16:00 17:00 17:09 Temp 98.4 98.4 Pulse 96 60 Resp 26 20 B/P (MAP) 131/77 (95) 121/73 (89) Pulse Ox 94 96 96 O2 Delivery C-pap PS 12 Mechanical Ventilator Ventilator O2 Flow Rate 40.0 05/15/20 05/15/20 05/15/20 05/15/20 18:00 18:20 19:00 19:59 Pulse 63 81 Resp 22 25 B/P (MAP) 123/70 (87) 135/79 (97) Pulse Ox 96 97 95 95 O2 Delivery Ventilator Ventilator Ventilator Ventilator 05/15/20 05/15/20 05/15/20 05/15/20 20:00 20:00 21:00 22:00 Temp 99.3 99.3 Pulse 88 85 77 Resp 27 28 21 B/P (MAP) 121/69 (86) 124/69 (87) 135/76 (95) Pulse Ox 94 95 94 O2 Delivery Ventilator Mechanical Ventilator Ventilator Ventilator 05/15/20 05/15/20 05/16/20 05/16/20 23:00 23:45 00:00 00:00 Temp 98.1 98.1 Pulse 56 53 Resp 20 20 B/P (MAP) 146/80 (102) 149/87 (107) Pulse Ox 96 99 96 O2 Delivery Ventilator Ventilator Mechanical Ventilator Ventilator 05/16/20 05/16/20 05/16/20 05/16/20 01:00 02:00 03:00 03:51 Pulse 56 58 59 Resp 20 20 20 B/P (MAP) 133/75 (94) 121/67 (85) 137/77 (97) Pulse Ox 95 96 96 95 O2 Delivery Ventilator Ventilator Ventilator Ventilator 05/16/20 05/16/20 05/16/20 05/16/20 04:00 04:00 05:00 06:00 Temp 98.0 98.0 Pulse 54 63 48 Resp 20 20 20 B/P (MAP) 141/85 (103) 137/77 (97) 153/88 (109) Pulse Ox 96 98 97 O2 Delivery Ventilator Mechanical Ventilator Ventilator Ventilator 05/16/20 05/16/20 05/16/20 05/16/20 07:00 07:50 08:00 08:00 Temp 98.0 98.0 Pulse 55 54 Resp 20 20 B/P (MAP) 138/83 (101) 141/85 (103) Pulse Ox 97 96 96 O2 Delivery Ventilator Ventilator Mechanical Ventilator Ventilator 05/16/20 05/16/20 05/16/20 05/16/20 09:00 10:00 10:50 11:00 Pulse 58 80 80 Resp 20 20 20 B/P (MAP) 123/74 (90) 124/80 (95) 102/68 (79) Pulse Ox 97 97 97 O2 Delivery Ventilator Ventilator Ventilator Ventilator 05/16/20 05/16/20 05/16/20 05/16/20 11:10 12:00 12:00 13:00 Temp 98.0 98.0 Pulse 76 72 Resp 20 18 B/P (MAP) 111/67 (82) 119/66 (83) Pulse Ox 95 96 97 O2 Delivery Ventilator Venturi Mask Venturi Mask Venturi Mask O2 Flow Rate 15.0 15.0 15.0 Intake and Output0 05/15/20 05/15/20 05/16/20 15:00 23:00 07:00 Intake Total 350 ml 1806 ml 4426 ml Output Total 600 ml 1190 ml 1100 ml Balance -250 ml 616 ml 3326 ml Justicifation of Admission Dx: Justifications for Admission: Justification of Admission Dx: Yes Comminuty Aquired Pneumonia: Hypoxemia MINH URBAN MD May 16, 2020 13:42
--- NOTE | 2020-05-16 13:46 | NUR ---
SS following up with discharge planning. SS reviewed pt chart and discussed with pt RN. Pt is currently on 50% venturi mask. Pt on Heparin drip, IV Azithromycin, and IV Rocephin. COVID19 positive. Pt self pay. SS will continue to follow for discharge planning.
[2020-05-16] MEDS ORDERED: SIMETHICONE 80 MG TAB.CHEW PO PRN (15:15)
[2020-05-16] MEDS: METOCLOPRAMIDE HCL 10 MG/2 ML VIAL. IVP PRN ×2 (15:35→21:03)
[2020-05-16] MEDS: IV NORMAL SALINE 1000ML BAG 1,000 ML IV SCH (15:36)
--- NOTE | 2020-05-16 18:30 | NUR ---
Pt had very good day today. Put on trial at beginning of this RN shifts, tolerated well, extubated at 12pm and put on 15L Venti mask. All VSS throughout shift, pt A&Ox4, no complaints of pain. Pt able to communicate thoroughly with [facility] tamara, also facetimed pt brother, Anthony while in room. Updated on pt status. Pt currently on 6L NC, tolerating well, all VSS.
[2020-05-16] MEDS: INSULIN GLARGINE SYRINGE. SQ SCH (21:07)
[2020-05-16] MEDS ORDERED: ACETAMINOPHEN 650 MG SUPP.RECT. PR PRN (23:30)
[2020-05-17] VITALS (20 sets, daily range): BP systolic 89–120; BP diastolic 59–74
[2020-05-17] MEDS: DEXMEDETOMIDINE 400 MCG in IV NORMAL SALINE 100ML 96 ML IV PRN (00:14)
[2020-05-17] MEDS: HEPARIN 25,000UTS/250ML PREMIX 250 ML IV PRN ×2 (01:01→17:34)
[2020-05-17] MEDS: cefTRIAXone IV Push 1 GM VIAL. IVP SCH (04:40)
[2020-05-17] MEDS: IV NORMAL SALINE 1000ML BAG 1,000 ML IV SCH ×3 (04:40→20:27)
[2020-05-17] MEDS: AZITHROMYCIN 500 MG in IV NORMAL SALINE 250ML 250 ML IV SCH (04:40)
[2020-05-17] MEDS: methylPREDNISolone SOD SUCC PF 40 MG/ML VIAL. IV SCH ×2 (05:49→20:27)
[2020-05-17] MEDS: INSULIN LISPRO 300 UNITS/3 ML VIAL. SQ SCH ×3 (06:00→18:00)
[2020-05-17] MEDS: FAMOTIDINE 20 MG/2 ML VIAL IVP SCH ×2 (07:32→20:27)
[2020-05-17] MEDS ORDERED: POLYVINYL ALCOHOL 1.4% OPHTH SOLUTION 15ML BOTTLE. OU PRN (07:45)
--- NOTE | 2020-05-17 08:16 | PDOC ---
PROGRESS NOTES Chief Complaint Chief Complaint Acute Hypoxic Resp Failure secondary to COVID-19 Bilateral Infiltrates on cxr elevated D dimer// elevated inflammatory markers Leukocytosis ELEVATED FERRITIN // Elevated CRP and ferrtin also consistent with COVID-19 infection mild hypernatremia History of Present Illness History of Present Illness Mr Tipton is a 45-year-old male who presents to the Emergency Department overnight with complaints of shortness of breath, fever, chills for the last 4-5 days prior to admit on 05/06/2020. He reports that he has been self-isolating at home and treating his fevers with Tylenol and ibuprofen without any improvement of his symptoms. Upon arrival to the Emergency Department, he was found to be hypoxic with oxygen saturations of 70%. He was placed on 15 liters nonrebreather and was admitted to the hospital for further medical evaluation and treatment. He was treated with Rocephin and azithromycin in the Emergency Department and was tested for COVID-19 which returned positive. 24 hours after admission he became more hypoxic on the nursing unit and was transferred to the intensive care unit and a Pulmonary consultation was requested at that point in time. He was intubated overnight on 05/07/2020. 05/07-05/14: Treated with convalescent FFP and 9 doses of remdesivir. 05/15: We are trying to wake him up today, wean vent, will try to trail, he is fighting the vent as he wakes 05/16: Extubated. Confused. C/o gas pain. WBC still elevated Afebrile overnight. Only confused to date today, but the date is wrong on his white board. Good urine output WBC 19.2 Hb 13.1, platelets 271. He is on 4 L of oxygen and does appear comfortable he had a very large bowel movement this morning. He is asking to speak with his brother. Plan: pulm following IV Rocephin and Azithro Steroids Okay to downgrade to COVID telemetry unit on 6 PT for ICU deconditioning The patient was evaluated during the global COVID-19 pandemic, and that diagnosis was suspected/considered upon their initial presentation. CC time 78 minutes Vitals Vitals Vital Signs Date Time Temp Pulse Resp B/P (MAP) Pulse Ox O2 Delivery O2 Flow Rate FiO2 05/17/20 07:00 81 21 114/68 (83) 95 Nasal Cannula 5.0 05/17/20 04:00 97.8 97.8 Physical Exam General: Alert, Oriented X3, Cooperative, mild distress Heart: Regular rate, Normal S1, Normal S2 Lungs: Crackles Abdomen: Normal bowel sounds, Soft, No tenderness, No hepatosplenomegaly, No masses Extremities: No clubbing, No cyanosis Skin: No rashes, No breakdown Labs LABS Laboratory Tests Test 05/16/20 11:35 05/16/20 12:55 05/16/20 17:59 05/16/20 20:40 O2 Saturation 95 % (92-99) Arterial Blood pH 7.47 (7.35-7.45) Arterial Blood pCO2 at Patient Temp 39 mmHg (35-46) Arterial Blood pO2 at Patient Temp 75 mmHg (75-108) Arterial Blood HCO3 27 mmol/L (21-28) Arterial Blood Base Excess 3 mmol/L (-3-3) FiO2 50 Heparin Anti-Xa Act, Unfractionated > 1.10 IU/mL (0.30-0.70) 0.38 IU/mL (0.30-0.70) Glucose (Fingerstick) 158 mg/dL (70-99) Test 05/16/20 21:12 05/16/20 23:26 05/17/20 03:00 05/17/20 05:55 Glucose (Fingerstick) 161 mg/dL (70-99) 187 mg/dL (70-99) 144 mg/dL (70-99) Heparin Anti-Xa Act, Unfractionated 0.32 IU/mL (0.30-0.70) Comment Review of Relevant I have reviewed the following items laura (where applicable) has been applied. Labs Laboratory Tests Test 05/15/20 12:38 05/15/20 23:21 05/16/20 05:30 05/16/20 05:35 Glucose (Fingerstick) 231 mg/dL (70-99) 216 mg/dL (70-99) 212 mg/dL (70-99) Sodium Level 141 mmol/L (136-145) Potassium Level 3.7 mmol/L (3.5-5.1) Chloride Level 107 mmol/L (98-107) Carbon Dioxide Level 28 mmol/L (21-32) Anion Gap 6 (6-14) Blood Urea Nitrogen 21 mg/dL (8-26) Creatinine 0.8 mg/dL (0.7-1.3) Estimated GFR (Cockcroft-Gault) 104.5 BUN/Creatinine Ratio 26 (6-20) Glucose Level 225 mg/dL (70-99) Calcium Level 6.9 mg/dL (8.5-10.1) Total Bilirubin 0.4 mg/dL (0.2-1.0) Aspartate Amino Transf (AST/SGOT) 27 U/L (15-37) Alanine Aminotransferase (ALT/SGPT) 30 U/L (16-63) Alkaline Phosphatase 59 U/L (46-116) Total Protein 4.6 g/dL (6.4-8.2) Albumin 1.5 g/dL (3.4-5.0) Albumin/Globulin Ratio 0.5 (1.0-1.7) White Blood Count 19.2 x10^3/uL (4.0-11.0) Red Blood Count 4.56 x10^6/uL (4.30-5.70) Hemoglobin 13.1 g/dL (13.0-17.5) Hematocrit 39.7 % (39.0-53.0) Mean Corpuscular Volume 87 fL (79-100) Mean Corpuscular Hemoglobin 29 pg (25-35) Mean Corpuscular Hemoglobin Concent 33 g/dL (31-37) Red Cell Distribution Width 14.0 % (11.5-14.5) Platelet Count 271 x10^3/uL (140-400) Heparin Anti-Xa Act, Unfractionated < 0.10 IU/mL (0.30-0.70) Test 05/16/20 07:50 05/16/20 11:35 05/16/20 12:55 05/16/20 17:59 O2 Saturation 95 % (92-99) 95 % (92-99) Arterial Blood pH 7.49 (7.35-7.45) 7.47 (7.35-7.45) Arterial Blood pCO2 at Patient Temp 35 mmHg (35-46) 39 mmHg (35-46) Arterial Blood pO2 at Patient Temp 72 mmHg (75-108) 75 mmHg (75-108) Arterial Blood HCO3 26 mmol/L (21-28) 27 mmol/L (21-28) Arterial Blood Base Excess 3 mmol/L (-3-3) 3 mmol/L (-3-3) FiO2 50 50 Heparin Anti-Xa Act, Unfractionated > 1.10 IU/mL (0.30-0.70) Glucose (Fingerstick) 158 mg/dL (70-99) Test 05/16/20 20:40 05/16/20 21:12 05/16/20 23:26 05/17/20 03:00 Heparin Anti-Xa Act, Unfractionated 0.38 IU/mL (0.30-0.70) 0.32 IU/mL (0.30-0.70) Glucose (Fingerstick) 161 mg/dL (70-99) 187 mg/dL (70-99) Test 05/17/20 05:55 Glucose (Fingerstick) 144 mg/dL (70-99) Laboratory Tests Test 05/16/20 11:35 05/16/20 12:55 05/16/20 17:59 05/16/20 20:40 O2 Saturation 95 % (92-99) Arterial Blood pH 7.47 (7.35-7.45) Arterial Blood pCO2 at Patient Temp 39 mmHg (35-46) Arterial Blood pO2 at Patient Temp 75 mmHg (75-108) Arterial Blood HCO3 27 mmol/L (21-28) Arterial Blood Base Excess 3 mmol/L (-3-3) FiO2 50 Heparin Anti-Xa Act, Unfractionated > 1.10 IU/mL (0.30-0.70) 0.38 IU/mL (0.30-0.70) Glucose (Fingerstick) 158 mg/dL (70-99) Test 05/16/20 21:12 05/16/20 23:26 05/17/20 03:00 05/17/20 05:55 Glucose (Fingerstick) 161 mg/dL (70-99) 187 mg/dL (70-99) 144 mg/dL (70-99) Heparin Anti-Xa Act, Unfractionated 0.32 IU/mL (0.30-0.70) Microbiology 05/08/20 Urine Culture - Final, Complete 05/06/20 Blood Culture - Final, Complete NO GROWTH AFTER 5 DAYS Medications Current Medications Acetaminophen (Tylenol) 650 mg 1X ONCE PO Last administered on 05/06/20at 03:54; Start 05/06/20 at 03:00; Stop 05/06/20 at 03:01; Status DC Sodium Chloride 1,000 ml @ 1,000 mls/hr 1X ONCE IV Last administered on 05/06/20at 03:53; Start 05/06/20 at 03:00; Stop 05/06/20 at 03:59; Status DC Ceftriaxone Sodium (Rocephin) 1 gm 1X ONCE IVP Last administered on 05/06/20at 03:54; Start 05/06/20 at 03:00; Stop 05/06/20 at 03:01; Status DC Azithromycin 250 ml @ 250 mls/hr 1X ONCE IV Last administered on 05/06/20at 03:00; Start 05/06/20 at 03:00; Stop 05/06/20 at 03:59; Status DC Hydralazine HCl (Apresoline) 25 mg PRN TID PRN PO for SBP greater than 180; Start 05/06/20 at 07:30 Enoxaparin Sodium (Lovenox Per Pharmacy Prophylaxis Dosing) 1 each PRN DAILY PRN MC SEE COMMENTS; Start 05/06/20 at 07:30; Stop 05/10/20 at 20:59; Status DC Ceftriaxone Sodium (Rocephin) 1 gm Q24H IVP Last administered on 05/17/20at 04:40; Start 05/07/20 at 04:00 Acetaminophen (Tylenol) 650 mg PRN Q6HRS PRN PO fever Last administered on 05/06/20at 15:51; Start 05/06/20 at 07:30 Azithromycin 500 mg/Sodium Chloride 250 ml @ 250 mls/hr Q24H IV Last administered on 05/17/20at 04:40; Start 05/07/20 at 04:00 Enoxaparin Sodium (Lovenox 60mg Syringe) 60 mg Q12HR SQ Last administered on 05/08/20at 08:16; Start 05/06/20 at 09:00; Stop 05/08/20 at 14:36; Status DC Nicotine (Nicoderm Cq 21mg) 1 patch PRN DAILY PRN TD SMOKING CESSATION; Start 05/06/20 at 08:30 Methylprednisolone Sodium Succinate (SOLU-Medrol 125MG VIAL) 60 mg Q8HRS IV Last administered on 05/13/20at 06:00; Start 05/06/20 at 14:00; Stop 05/13/20 at 09:37; Status DC Famotidine (Pepcid Vial) 20 mg BID IVP Last administered on 05/08/20at 08:15; Start 05/06/20 at 21:00; Stop 05/08/20 at 12:35; Status DC Sterile Water (WATER for RESP) 1,000 ml CONT PRN INH VIA VAPOTHERM DEVICE; Start 05/06/20 at 23:30; Stop 05/07/20 at 11:27; Status DC Fentanyl Citrate 30 ml @ 0 mls/hr CONT PRN IV SEE PROTOCOL Last administered on 05/15/20at 17:09; Start 05/07/20 at 00:30 Propofol 100 ml @ 0 mls/hr CONT PRN IV SEE PROTOCOL; Start 05/07/20 at 00:15 Chlorhexidine Gluconate (Peridex) 15 ml BID MM ; Start 05/07/20 at 09:00; Stop 05/07/20 at 07:33; Status DC Midazolam HCl 100 ml @ 0 mls/hr CONT PRN IV SEE PROTOCOL Last administered on 05/14/20at 19:15; Start 05/07/20 at 00:30 Succinylcholine Chloride (Anectine) 200 mg 1X ONCE IV Last administered on 05/07/20at 00:37; Start 05/07/20 at 00:45; Stop 05/07/20 at 00:46; Status DC Etomidate (Amidate) 20 mg STK-MED ONCE IV ; Start 05/07/20 at 00:57; Stop 05/07/20 at 00:57; Status DC Vecuronium [place] (Norcuron Bolus) 10 mg 1X ONCE IV ; Start 05/07/20 at 01:15; Stop 05/07/20 at 01:16; Status DC Norepinephrine Bitartrate 8 mg/ Dextrose 258 ml @ 19.756 mls/ hr CONT PRN IV PER PROTOCOL Last administered on 05/07/20at 02:37; Start 05/07/20 at 02:15 Succinylcholine Chloride (Anectine) 200 mg STK-MED ONCE .ROUTE ; Start 05/07/20 at 01:00; Stop 05/07/20 at 08:46; Status DC Non-Formulary Medication 1 ea/ Sodium Chloride 210 ml @ 420 mls/hr 1X ONCE IV Last administered on 05/07/20at 15:07; Start 05/07/20 at 15:00; Stop 05/07/20 at 15:29; Status DC Non-Formulary Medication 1 ea/ Sodium Chloride 230 ml @ 460 mls/hr Q24H IV Last administered on 05/16/20at 08:12; Start 05/08/20 at 09:00; Stop 05/16/20 at 09:29; Status DC Dextrose/Sodium Chloride 1,000 ml @ 75 mls/hr [id number] IV Last administered on 05/12/20at 02:33; Start 05/08/20 at 12:30; Stop 05/13/20 at 15:52; Status DC Famotidine (Pepcid Vial) 20 mg BID IVP Last administered on 05/17/20at 07:32; Start 05/08/20 at 21:00 Insulin Human Lispro (HumaLOG) 0-5 UNITS Q6HRS SQ Last administered on 05/16/20at 05:33; Start 05/08/20 at 18:00 Dextrose (Dextrose 50%-Water Syringe) 12.5 gm PRN Q15MIN PRN IV SEE COMMENTS; Start 05/08/20 at 12:45 Enoxaparin Sodium (Lovenox 40mg Syringe) 40 mg BID SQ Last administered on 05/10/20at 08:50; Start 05/08/20 at 21:00; Stop 05/10/20 at 20:59; Status DC Heparin Sodium (Porcine) (Heparin Sodium) 8,000 unit 1X ONCE IV Last administered on 05/10/20at 21:22; Start 05/10/20 at 21:00; Stop 05/10/20 at 21:02; Status DC Heparin Sodium/ Dextrose 250 ml @ 16 mls/hr CONT PRN IV PER PROTOCOL Last administered on 05/17/20at 01:01; Start 05/10/20 at 21:00 Heparin Sodium (Porcine) (Heparin Sodium) 3,000 unit PRN Q6HRS PRN IV FOR UFH LEVEL LESS THAN 0.2; Start 05/10/20 at 21:00 Heparin Sodium (Porcine) (Heparin Sodium) 1,500 unit PRN Q6HRS PRN IV FOR UFH LEVEL 0.2 - 0.29; Start 05/10/20 at 21:00 Erythromycin Lactobionate 125 mg/Sodium Chloride 100 ml @ 100 mls/hr Q6HRS IV ; Start 05/12/20 at 18:00; Stop 05/12/20 at 18:40; Status DC Erythromycin Lactobionate 125 mg/Sodium Chloride 100 ml @ 100 mls/hr Q6HRS IV ; Start 05/13/20 at 20:00; Stop 05/12/20 at 18:41; Status DC Erythromycin Lactobionate 125 mg/Sodium Chloride 100 ml @ 100 mls/hr Q6HRS IV Last administered on 05/13/20at 06:00; Start 05/12/20 at 19:30; Stop 05/13/20 at 09:41; Status DC Methylprednisolone Sodium Succinate (SOLU-Medrol 40MG VIAL) 40 mg Q8HRS IV Last administered on 05/17/20at 05:49; Start 05/13/20 at 09:45 Metoclopramide HCl (Reglan Vial) 10 mg QID IVP Last administered on 05/16/20at 08:06; Start 05/13/20 at 13:00; Stop 05/16/20 at 15:15; Status DC Sodium Chloride 1,000 ml @ 75 mls/hr [id number] IV Last administered on 05/17/20at 04:40; Start 05/13/20 at 16:00 Potassium Chloride (Klor-Con) 20 meq 1X ONCE PO ; Start 05/13/20 at 16:00; Stop 05/13/20 at 16:01; Status Cancel Insulin Glargine (Lantus Syringe) 12 unit 1X ONCE SQ Last administered on 05/13/20at 16:14; Start 05/13/20 at 16:30; Stop 05/13/20 at 16:31; Status DC Potassium Bicarbonate (Potassium Effervescent Tablet) 20 meq 1X ONCE PO Last administered on 05/13/20at 16:13; Start 05/13/20 at 16:30; Stop 05/13/20 at 16:31; Status DC Sodium Chloride 1,000 ml @ 1,000 mls/hr 1X ONCE IV Last administered on 05/14/20at 13:25; Start 05/14/20 at 13:30; Stop 05/14/20 at 14:29; Status DC Dexmedetomidine HCl 400 mcg/ Sodium Chloride 100 ml @ 0 mls/hr CONT PRN IV sedation Last administered on 05/17/20 00:14; Start 05/14/20 at 16:15 Sodium Chloride 500 ml @ 500 mls/hr 1X PRN PRN IV hypotention; Start 05/14/20 at 16:15 Atropine Sulfate (ATROPINE 0.5mg SYRINGE) 0.5 mg PRN Q5MIN PRN IV SEE COMMENTS; Start 05/14/20 at 16:15 Info (Anti-Coagulation Monitoring By Pharmacy) 1 each PRN DAILY PRN MC SEE COMMENTS Last administered on 05/16/20at 09:30; Start 05/16/20 at 07:45 Insulin Glargine (Lantus Syringe) 10 unit QHS SQ Last administered on 05/16/20 21:07; Start 05/16/20 at 21:00 Metoclopramide HCl (Reglan Vial) 10 mg PRN QID PRN IVP nausea/abdominal pain Last administered on 05/16/20 21:03; Start 05/16/20 at 15:15 Simethicone (Gas-X) 80 mg PRN AFTMEALHC PRN PO GAS / BLOATING; Start 05/16/20 at 15:15 Acetaminophen (Tylenol Supp) 650 mg PRN Q6HRS PRN NV MILD PAIN / TEMP > 100.3'F Last administered on 05/16/20 23:24; Start 05/16/20 at 23:30 Artificial Tears (Artificial Tears) 1 drop PRN Q15MIN PRN OU DRY EYE; Start 05/17/20 at 07:45 Vitals/I & O Vital Sign - Last 24 Hours 05/16/20 05/16/20 05/16/20 05/16/20 09:00 10:00 10:50 11:00 Pulse 58 80 80 Resp 20 20 20 B/P (MAP) 123/74 (90) 124/80 (95) 102/68 (79) Pulse Ox 97 97 97 O2 Delivery Ventilator Ventilator Ventilator Ventilator 05/16/20 05/16/20 05/16/20 05/16/20 11:10 12:00 12:00 13:00 Temp 98.0 98.0 Pulse 76 72 Resp 20 18 B/P (MAP) 111/67 (82) 119/66 (83) Pulse Ox 95 96 97 O2 Delivery Ventilator Venturi Mask Venturi Mask Venturi Mask O2 Flow Rate 15.0 15.0 15.0 05/16/20 05/16/20 05/16/20 05/16/20 14:00 15:00 16:00 16:00 Pulse 88 102 68 Resp 26 20 21 B/P (MAP) 132/75 (94) 141/68 (92) 119/73 (88) Pulse Ox 97 97 97 O2 Delivery Venturi Mask Venturi Mask Venturi Mask Venturi Mask O2 Flow Rate 15.0 15.0 15.0 15.0 05/16/20 05/16/20 05/16/20 05/16/20 17:00 18:00 19:00 20:00 Temp 97.9 97.9 Pulse 74 93 84 74 Resp 20 21 21 21 B/P (MAP) 117/69 (85) 117/73 (88) 127/59 (81) 107/66 (80) Pulse Ox 97 92 92 93 O2 Delivery Venturi Mask Nasal Cannula Nasal Cannula Nasal Cannula O2 Flow Rate 15.0 5.0 5.0 5.0 05/16/20 05/16/20 05/16/20 05/16/20 20:00 21:00 22:00 23:00 Pulse 74 77 80 Resp 21 23 27 B/P (MAP) 90/63 (72) 112/67 (82) 119/73 (88) Pulse Ox 93 91 92 O2 Delivery Nasal Cannula Nasal Cannula Nasal Cannula Nasal Cannula O2 Flow Rate 5.0 5.0 5.0 5.0 05/16/20 05/17/20 05/17/20 05/17/20 23:35 00:00 01:00 02:00 Temp 98.0 98.0 Pulse 65 74 74 Resp 18 18 22 B/P (MAP) 105/63 (77) 108/65 (79) 98/60 (73) Pulse Ox 96 95 96 O2 Delivery Nasal Cannula Nasal Cannula Nasal Cannula Nasal Cannula O2 Flow Rate 5.0 5.0 5.0 5.0 05/17/20 05/17/20 05/17/20 05/17/20 03:00 04:00 04:00 05:00 Temp 97.8 97.8 Pulse 77 70 74 Resp 18 18 21 B/P (MAP) 92/73 (79) 98/62 (74) 102/68 (79) Pulse Ox 95 94 92 O2 Delivery Nasal Cannula Nasal Cannula Nasal Cannula Nasal Cannula O2 Flow Rate 5.0 5.0 5.0 5.0 05/17/20 05/17/20 06:00 07:00 Pulse 77 81 Resp 27 21 B/P (MAP) 105/66 (79) 114/68 (83) Pulse Ox 93 95 O2 Delivery Nasal Cannula Nasal Cannula O2 Flow Rate 5.0 5.0 Intake and Output 05/16/20 05/16/20 05/17/20 15:00 23:00 07:00 Intake Total 350 ml 1259 ml 946 ml Output Total 1275 ml 1160 ml 1790 ml Balance -925 ml 99 ml -844 ml Justicifation of Admission Dx: Justifications for Admission: Justification of Admission Dx: Yes Comminuty Aquired Pneumonia: Hypoxemia MINH URBAN MD May 17, 2020 08:16
--- NOTE | 2020-05-17 08:40 | PDOC ---
PULMONARY PROGRESS NOTES Subjective Patient awake alert following commands no respiratory distress Vitals Vital Signs Date Time Temp Pulse Resp B/P (MAP) Pulse Ox O2 Delivery O2 Flow Rate FiO2 05/17/20 08:00 97.7 83 21 115/66 (82) 93 Nasal Cannula 5.0 97.7 ROS: No Nausea, No Chest Pain, No Abdominal Pain, No Increase Cough General: Alert Lungs: Clear Cardiovascular: S1, S2 Abdomen: Soft Neuro Exam: Alert Extremities: No Edema Skin: Warm Labs Laboratory Tests Test 05/15/20 12:38 05/15/20 23:21 05/16/20 05:30 05/16/20 05:35 Glucose (Fingerstick) 231 mg/dL (70-99) 216 mg/dL (70-99) 212 mg/dL (70-99) Sodium Level 141 mmol/L (136-145) Potassium Level 3.7 mmol/L (3.5-5.1) Chloride Level 107 mmol/L (98-107) Carbon Dioxide Level 28 mmol/L (21-32) Anion Gap 6 (6-14) Blood Urea Nitrogen 21 mg/dL (8-26) Creatinine 0.8 mg/dL (0.7-1.3) Estimated GFR (Cockcroft-Gault) 104.5 BUN/Creatinine Ratio 26 (6-20) Glucose Level 225 mg/dL (70-99) Calcium Level 6.9 mg/dL (8.5-10.1) Total Bilirubin 0.4 mg/dL (0.2-1.0) Aspartate Amino Transf (AST/SGOT) 27 U/L (15-37) Alanine Aminotransferase (ALT/SGPT) 30 U/L (16-63) Alkaline Phosphatase 59 U/L (46-116) Total Protein 4.6 g/dL (6.4-8.2) Albumin 1.5 g/dL (3.4-5.0) Albumin/Globulin Ratio 0.5 (1.0-1.7) White Blood Count 19.2 x10^3/uL (4.0-11.0) Red Blood Count 4.56 x10^6/uL (4.30-5.70) Hemoglobin 13.1 g/dL (13.0-17.5) Hematocrit 39.7 % (39.0-53.0) Mean Corpuscular Volume 87 fL (79-100) Mean Corpuscular Hemoglobin 29 pg (25-35) Mean Corpuscular Hemoglobin Concent 33 g/dL (31-37) Red Cell Distribution Width 14.0 % (11.5-14.5) Platelet Count 271 x10^3/uL (140-400) Heparin Anti-Xa Act, Unfractionated < 0.10 IU/mL (0.30-0.70) Test 05/16/20 07:50 05/16/20 11:35 05/16/20 12:55 05/16/20 17:59 O2 Saturation 95 % (92-99) 95 % (92-99) Arterial Blood pH 7.49 (7.35-7.45) 7.47 (7.35-7.45) Arterial Blood pCO2 at Patient Temp 35 mmHg (35-46) 39 mmHg (35-46) Arterial Blood pO2 at Patient Temp 72 mmHg (75-108) 75 mmHg (75-108) Arterial Blood HCO3 26 mmol/L (21-28) 27 mmol/L (21-28) Arterial Blood Base Excess 3 mmol/L (-3-3) 3 mmol/L (-3-3) FiO2 50 50 Heparin Anti-Xa Act, Unfractionated > 1.10 IU/mL (0.30-0.70) Glucose (Fingerstick) 158 mg/dL (70-99) Test 05/16/20 20:40 05/16/20 21:12 05/16/20 23:26 05/17/20 03:00 Heparin Anti-Xa Act, Unfractionated 0.38 IU/mL (0.30-0.70) 0.32 IU/mL (0.30-0.70) Glucose (Fingerstick) 161 mg/dL (70-99) 187 mg/dL (70-99) Test 05/17/20 05:55 Glucose (Fingerstick) 144 mg/dL (70-99) Laboratory Tests Test 05/16/20 11:35 05/16/20 12:55 05/16/20 17:59 05/16/20 20:40 O2 Saturation 95 % (92-99) Arterial Blood pH 7.47 (7.35-7.45) Arterial Blood pCO2 at Patient Temp 39 mmHg (35-46) Arterial Blood pO2 at Patient Temp 75 mmHg (75-108) Arterial Blood HCO3 27 mmol/L (21-28) Arterial Blood Base Excess 3 mmol/L (-3-3) FiO2 50 Heparin Anti-Xa Act, Unfractionated > 1.10 IU/mL (0.30-0.70) 0.38 IU/mL (0.30-0.70) Glucose (Fingerstick) 158 mg/dL (70-99) Test 05/16/20 21:12 05/16/20 23:26 05/17/20 03:00 05/17/20 05:55 Glucose (Fingerstick) 161 mg/dL (70-99) 187 mg/dL (70-99) 144 mg/dL (70-99) Heparin Anti-Xa Act, Unfractionated 0.32 IU/mL (0.30-0.70) Comments CXR 05/13/2020 IMPRESSION: 1. Stable patchy bilateral opacities. 2. Life support devices as above. Impression . 1. Acute Hypoxic Respiratory Failure/COVID-19/extubated 05/16 2. Fever--resolved 3. Pneumonia, CXR positive for Bilateral patch infiltrates consistent with COVID-19 4. elevated d-dimer, presumptive thromboembolic disease-- on heparin gtt 5. Tachycardia 6. Elevated CRP and ferrtin also consistent with COVID-19 infection 7. COVID-19 viral pneumonia/status post convalescent serum, Remdesivir 8. COVID-19 sepsis-- improved Plan . Advance diet, Patient able to lift his legs off the bed Up to chair Continue heparin drip Decrease steroid GI/DVT prophylaxis Discussed with RN and RT CODE:FULL Total cumulative critical care time of 30 minutes reviewing data, labs, chest x- ray, YARELY PAULSON MD May 17, 2020 08:40
[2020-05-17] MEDS: ANTI-COAG MONITOR BY PHARMACY. MC PRN (10:16)
--- NOTE | 2020-05-17 12:12 | NUR ---
SS following up with discharge planning. SS reviewed pt chart and discussed with pt RN. Pt on nasal canula oxygen. Pt COVID19 positive and remains on IV Azithromycin and Rocephin. PT/OT ordered. Pt is self pay. SS will continue to follow for discharge planning.
[2020-05-17] MEDS: traMADol 50 MG TABLET PO PRN (16:00)
[2020-05-17] MEDS: INSULIN GLARGINE SYRINGE. SQ SCH (20:29)
[2020-05-17] MEDS ORDERED: LACTOBACILLUS RHAMNOSUS GG 1 CAPSULE. PO SCH (21:00)
[2020-05-18] VITALS (28 sets, daily range): BP systolic 54–171; BP diastolic 25–94
[2020-05-18] MEDS: INSULIN LISPRO 300 UNITS/3 ML VIAL. SQ SCH ×4 (06:05→19:42)
[2020-05-18] MEDS: methylPREDNISolone SOD SUCC PF 40 MG/ML VIAL. IV SCH ×2 (08:19→21:11)
[2020-05-18] MEDS: FAMOTIDINE 20 MG/2 ML VIAL IVP SCH ×2 (08:20→21:12)
--- NOTE | 2020-05-18 08:38 | PDOC ---
PULMONARY PROGRESS NOTES Subjective Patient awake alert following commands no respiratory distress Vitals Vital Signs Date Time Temp Pulse Resp B/P (MAP) Pulse Ox O2 Delivery O2 Flow Rate FiO2 05/18/20 07:45 Nasal Cannula 5.0 05/18/20 04:00 98.3 80 19 96/58 (71) 98 98.3 ROS: No Nausea, No Chest Pain, No Abdominal Pain, No Increase Cough General: Alert Lungs: Clear Cardiovascular: S1, S2 Abdomen: Soft Neuro Exam: Alert Extremities: No Edema Skin: Warm Labs Laboratory Tests Test 05/16/20 11:35 05/16/20 12:55 05/16/20 17:59 05/16/20 20:40 O2 Saturation 95 % (92-99) Arterial Blood pH 7.47 (7.35-7.45) Arterial Blood pCO2 at Patient Temp 39 mmHg (35-46) Arterial Blood pO2 at Patient Temp 75 mmHg (75-108) Arterial Blood HCO3 27 mmol/L (21-28) Arterial Blood Base Excess 3 mmol/L (-3-3) FiO2 50 Heparin Anti-Xa Act, Unfractionated > 1.10 IU/mL (0.30-0.70) 0.38 IU/mL (0.30-0.70) Glucose (Fingerstick) 158 mg/dL (70-99) Test 05/16/20 21:12 05/16/20 23:26 05/17/20 03:00 05/17/20 05:55 Glucose (Fingerstick) 161 mg/dL (70-99) 187 mg/dL (70-99) 144 mg/dL (70-99) Heparin Anti-Xa Act, Unfractionated 0.32 IU/mL (0.30-0.70) Test 05/17/20 12:12 05/17/20 17:38 05/17/20 20:33 05/17/20 23:57 Glucose (Fingerstick) 161 mg/dL (70-99) 175 mg/dL (70-99) 164 mg/dL (70-99) 151 mg/dL (70-99) Test 05/18/20 05:10 05/18/20 05:38 Heparin Anti-Xa Act, Unfractionated 0.70 IU/mL (0.30-0.70) Glucose (Fingerstick) 166 mg/dL (70-99) Laboratory Tests Test 05/17/20 12:12 05/17/20 17:38 05/17/20 20:33 05/17/20 23:57 Glucose (Fingerstick) 161 mg/dL (70-99) 175 mg/dL (70-99) 164 mg/dL (70-99) 151 mg/dL (70-99) Test 05/18/20 05:10 05/18/20 05:38 Heparin Anti-Xa Act, Unfractionated 0.70 IU/mL (0.30-0.70) Glucose (Fingerstick) 166 mg/dL (70-99) Comments CXR 05/13/2020 IMPRESSION: 1. Stable patchy bilateral opacities. 2. Life support devices as above. Impression . 1. Acute Hypoxic Respiratory Failure/COVID-19/extubated 05/16 2. Fever--resolved 3. Pneumonia, CXR positive for Bilateral patch infiltrates consistent with COVID-19 4. elevated d-dimer, presumptive thromboembolic disease-- on heparin gtt 5. Tachycardia 6. Elevated CRP and ferrtin also consistent with COVID-19 infection 7. COVID-19 viral pneumonia/status post convalescent serum, Remdesivir 8. COVID-19 sepsis-- improved 9. Orthostatic hypotension Plan . Discussed with nurse, IV fluids, compressive stockings. Discussed with Dr. Crane, patient's albumin is low. May be contributing to his hypotension Patient able to lift his legs off the bed, continue physical Up to chair Continue heparin drip, full dose will switch to Lovenox sometime next week Decrease steroid GI/DVT prophylaxis Discussed with RN and RT CODE:FULL Total cumulative critical care time of 30 minutes reviewing data, labs, chest x- ray, YARELY PAULSON MD May 18, 2020 08:38
--- NOTE | 2020-05-18 09:23 | PDOC ---
PROGRESS NOTES Chief Complaint Chief Complaint Acute Hypoxic Resp Failure secondary to COVID-19 Bilateral Infiltrates on cxr elevated D dimer// elevated inflammatory markers Leukocytosis ELEVATED FERRITIN // Elevated CRP and ferrtin also consistent with COVID-19 infection mild hypernatremia History of Present Illness History of Present Illness Mr Tipton is a 45-year-old male who presents to the Emergency Department overnight with complaints of shortness of breath, fever, chills for the last 4-5 days prior to admit on 05/06/2020. He reports that he has been self-isolating at home and treating his fevers with Tylenol and ibuprofen without any improvement of his symptoms. Upon arrival to the Emergency Department, he was found to be hypoxic with oxygen saturations of 70%. He was placed on 15 liters nonrebreather and was admitted to the hospital for further medical evaluation and treatment. He was treated with Rocephin and azithromycin in the Emergency Department and was tested for COVID-19 which returned positive. 24 hours after admission he became more hypoxic on the nursing unit and was transferred to the intensive care unit and a Pulmonary consultation was requested at that point in time. He was intubated overnight on 05/07/2020. 05/07-05/14: Treated with convalescent FFP and 9 doses of remdesivir. 05/15: We are trying to wake him up today, wean vent, will try to trail, he is fighting the vent as he wakes 05/16: Extubated. Confused. C/o gas pain. WBC still elevated 05/17: Afebrile overnight. Only confused to date today, but the date is wrong on his white board. Good urine output WBC 19.2 Hb 13.1, platelets 271. He is on 4 L of oxygen and does appear comfortable he had a very large bowel movement this morning. He is asking to speak with his brother. Afebrile. 5 L O2. Still very weak. Worked with PT required full assistance but was able to use walker to get to the commode. Plan: pulm following IV Rocephin and Azithro Steroids Okay to downgrade to COVID telemetry unit on 6 PT for ICU deconditioning The patient was evaluated during the global COVID-19 pandemic, and that diagnosis was suspected/considered upon their initial presentation. CC time 78 minutes Vitals Vitals Vital Signs Date Time Temp Pulse Resp B/P (MAP) Pulse Ox O2 Delivery O2 Flow Rate FiO2 05/18/20 07:45 Nasal Cannula 5.0 05/18/20 04:00 98.3 80 19 96/58 (71) 98 98.3 Physical Exam General: Alert, Oriented X3, Cooperative, mild distress Heart: Regular rate, Normal S1, Normal S2 Lungs: Clear Abdomen: Normal bowel sounds, Soft, No tenderness, No hepatosplenomegaly, No masses Extremities: No clubbing, No cyanosis Skin: No rashes, No breakdown Labs LABS Laboratory Tests Test 05/17/20 12:12 05/17/20 17:38 05/17/20 20:33 05/17/20 23:57 Glucose (Fingerstick) 161 mg/dL (70-99) 175 mg/dL (70-99) 164 mg/dL (70-99) 151 mg/dL (70-99) Test 05/18/20 05:10 05/18/20 05:38 Heparin Anti-Xa Act, Unfractionated 0.70 IU/mL (0.30-0.70) Glucose (Fingerstick) 166 mg/dL (70-99) Comment Review of Relevant I have reviewed the following items laura (where applicable) has been applied. Labs Laboratory Tests Test 05/16/20 11:35 05/16/20 12:55 05/16/20 17:59 05/16/20 20:40 O2 Saturation 95 % (92-99) Arterial Blood pH 7.47 (7.35-7.45) Arterial Blood pCO2 at Patient Temp 39 mmHg (35-46) Arterial Blood pO2 at Patient Temp 75 mmHg (75-108) Arterial Blood HCO3 27 mmol/L (21-28) Arterial Blood Base Excess 3 mmol/L (-3-3) FiO2 50 Heparin Anti-Xa Act, Unfractionated > 1.10 IU/mL (0.30-0.70) 0.38 IU/mL (0.30-0.70) Glucose (Fingerstick) 158 mg/dL (70-99) Test 05/16/20 21:12 05/16/20 23:26 05/17/20 03:00 05/17/20 05:55 Glucose (Fingerstick) 161 mg/dL (70-99) 187 mg/dL (70-99) 144 mg/dL (70-99) Heparin Anti-Xa Act, Unfractionated 0.32 IU/mL (0.30-0.70) Test 05/17/20 12:12 05/17/20 17:38 05/17/20 20:33 05/17/20 23:57 Glucose (Fingerstick) 161 mg/dL (70-99) 175 mg/dL (70-99) 164 mg/dL (70-99) 151 mg/dL (70-99) Test 05/18/20 05:10 05/18/20 05:38 Heparin Anti-Xa Act, Unfractionated 0.70 IU/mL (0.30-0.70) Glucose (Fingerstick) 166 mg/dL (70-99) Laboratory Tests Test 05/17/20 12:12 05/17/20 17:38 05/17/20 20:33 05/17/20 23:57 Glucose (Fingerstick) 161 mg/dL (70-99) 175 mg/dL (70-99) 164 mg/dL (70-99) 151 mg/dL (70-99) Test 05/18/20 05:10 05/18/20 05:38 Heparin Anti-Xa Act, Unfractionated 0.70 IU/mL (0.30-0.70) Glucose (Fingerstick) 166 mg/dL (70-99) Microbiology 05/08/20 Urine Culture - Final, Complete 05/06/20 Blood Culture - Final, Complete NO GROWTH AFTER 5 DAYS Medications Current Medications Acetaminophen (Tylenol) 650 mg 1X ONCE PO Last administered on 05/06/20at 03:54; Start 05/06/20 at 03:00; Stop 05/06/20 at 03:01; Status DC Sodium Chloride 1,000 ml @ 1,000 mls/hr 1X ONCE IV Last administered on 05/06/20at 03:53; Start 05/06/20 at 03:00; Stop 05/06/20 at 03:59; Status DC Ceftriaxone Sodium (Rocephin) 1 gm 1X ONCE IVP Last administered on 05/06/20at 03:54; Start 05/06/20 at 03:00; Stop 05/06/20 at 03:01; Status DC Azithromycin 250 ml @ 250 mls/hr 1X ONCE IV Last administered on 05/06/20at 03:00; Start 05/06/20 at 03:00; Stop 05/06/20 at 03:59; Status DC Hydralazine HCl (Apresoline) 25 mg PRN TID PRN PO for SBP greater than 180; Start 05/06/20 at 07:30 Enoxaparin Sodium (Lovenox Per Pharmacy Prophylaxis Dosing) 1 each PRN DAILY PRN MC SEE COMMENTS; Start 05/06/20 at 07:30; Stop 05/10/20 at 20:59; Status DC Ceftriaxone Sodium (Rocephin) 1 gm Q24H IVP Last administered on 05/17/20at 04:40; Start 05/07/20 at 04:00; Stop 05/17/20 at 15:12; Status DC Acetaminophen (Tylenol) 650 mg PRN Q6HRS PRN PO fever Last administered on 05/06/20at 15:51; Start 05/06/20 at 07:30 Azithromycin 500 mg/Sodium Chloride 250 ml @ 250 mls/hr Q24H IV Last administered on 05/17/20at 04:40; Start 05/07/20 at 04:00; Stop 05/17/20 at 15:12; Status DC Enoxaparin Sodium (Lovenox 60mg Syringe) 60 mg Q12HR SQ Last administered on 05/08/20at 08:16; Start 05/06/20 at 09:00; Stop 05/08/20 at 14:36; Status DC Nicotine (Nicoderm Cq 21mg) 1 patch PRN DAILY PRN TD SMOKING CESSATION; Start 05/06/20 at 08:30 Methylprednisolone Sodium Succinate (SOLU-Medrol 125MG VIAL) 60 mg Q8HRS IV Last administered on 05/13/20at 06:00; Start 05/06/20 at 14:00; Stop 05/13/20 at 09:37; Status DC Famotidine (Pepcid Vial) 20 mg BID IVP Last administered on 05/08/20at 08:15; Start 05/06/20 at 21:00; Stop 05/08/20 at 12:35; Status DC Sterile Water (WATER for RESP) 1,000 ml CONT PRN INH VIA VAPOTHERM DEVICE; Start 05/06/20 at 23:30; Stop 05/07/20 at 11:27; Status DC Fentanyl Citrate 30 ml @ 0 mls/hr CONT PRN IV SEE PROTOCOL Last administered on 05/15/20at 17:09; Start 05/07/20 at 00:30 Propofol 100 ml @ 0 mls/hr CONT PRN IV SEE PROTOCOL; Start 05/07/20 at 00:15 Chlorhexidine Gluconate (Peridex) 15 ml BID MM ; Start 05/07/20 at 09:00; Stop 05/07/20 at 07:33; Status DC Midazolam HCl 100 ml @ 0 mls/hr CONT PRN IV SEE PROTOCOL Last administered on 05/14/20at 19:15; Start 05/07/20 at 00:30 Succinylcholine Chloride (Anectine) 200 mg 1X ONCE IV Last administered on 05/07/20at 00:37; Start 05/07/20 at 00:45; Stop 05/07/20 at 00:46; Status DC Etomidate (Amidate) 20 mg STK-MED ONCE IV ; Start 05/07/20 at 00:57; Stop 05/07/20 at 00:57; Status DC Vecuronium [place] (Norcuron Bolus) 10 mg 1X ONCE IV ; Start 05/07/20 at 01:15; Stop 05/07/20 at 01:16; Status DC Norepinephrine Bitartrate 8 mg/ Dextrose 258 ml @ 19.756 mls/ hr CONT PRN IV PER PROTOCOL Last administered on 05/07/20at 02:37; Start 05/07/20 at 02:15 Succinylcholine Chloride (Anectine) 200 mg STK-MED ONCE .ROUTE ; Start 05/07/20 at 01:00; Stop 05/07/20 at 08:46; Status DC Non-Formulary Medication 1 ea/ Sodium Chloride 210 ml @ 420 mls/hr 1X ONCE IV Last administered on 05/07/20at 15:07; Start 05/07/20 at 15:00; Stop 05/07/20 at 15:29; Status DC Non-Formulary Medication 1 ea/ Sodium Chloride 230 ml @ 460 mls/hr Q24H IV Last administered on 05/16/20at 08:12; Start 05/08/20 at 09:00; Stop 05/16/20 at 09:29; Status DC Dextrose/Sodium Chloride 1,000 ml @ 75 mls/hr [id number] IV Last administered on 05/12/20at 02:33; Start 05/08/20 at 12:30; Stop 05/13/20 at 15:52; Status DC Famotidine (Pepcid Vial) 20 mg BID IVP Last administered on 05/18/20at 08:20; Start 05/08/20 at 21:00 Insulin Human Lispro (HumaLOG) 0-5 UNITS Q6HRS SQ Last administered on 05/18/20at 06:05; Start 05/08/20 at 18:00 Dextrose (Dextrose 50%-Water Syringe) 12.5 gm PRN Q15MIN PRN IV SEE COMMENTS; Start 05/08/20 at 12:45 Enoxaparin Sodium (Lovenox 40mg Syringe) 40 mg BID SQ Last administered on 05/10/20at 08:50; Start 05/08/20 at 21:00; Stop 05/10/20 at 20:59; Status DC Heparin Sodium (Porcine) (Heparin Sodium) 8,000 unit 1X ONCE IV Last administered on 05/10/20at 21:22; Start 05/10/20 at 21:00; Stop 05/10/20 at 21:02; Status DC Heparin Sodium/ Dextrose 250 ml @ 16 mls/hr CONT PRN IV PER PROTOCOL Last administered on 05/17/20at 17:34; Start 05/10/20 at 21:00 Heparin Sodium (Porcine) (Heparin Sodium) 3,000 unit PRN Q6HRS PRN IV FOR UFH LEVEL LESS THAN 0.2; Start 05/10/20 at 21:00 Heparin Sodium (Porcine) (Heparin Sodium) 1,500 unit PRN Q6HRS PRN IV FOR UFH LEVEL 0.2 - 0.29; Start 05/10/20 at 21:00 Erythromycin Lactobionate 125 mg/Sodium Chloride 100 ml @ 100 mls/hr Q6HRS IV ; Start 05/12/20 at 18:00; Stop 05/12/20 at 18:40; Status DC Erythromycin Lactobionate 125 mg/Sodium Chloride 100 ml @ 100 mls/hr Q6HRS IV ; Start 05/13/20 at 20:00; Stop 05/12/20 at 18:41; Status DC Erythromycin Lactobionate 125 mg/Sodium Chloride 100 ml @ 100 mls/hr Q6HRS IV Last administered on 05/13/20at 06:00; Start 05/12/20 at 19:30; Stop 05/13/20 at 09:41; Status DC Methylprednisolone Sodium Succinate (SOLU-Medrol 40MG VIAL) 40 mg Q8HRS IV Last administered on 05/17/20at 05:49; Start 05/13/20 at 09:45; Stop 05/17/20 at 14:45; Status DC Metoclopramide HCl (Reglan Vial) 10 mg QID IVP Last administered on 05/16/20at 08:06; Start 05/13/20 at 13:00; Stop 05/16/20 at 15:15; Status DC Sodium Chloride 1,000 ml @ 75 mls/hr [id number] IV Last administered on 05/17/20at 20:27; Start 05/13/20 at 16:00 Potassium Chloride (Klor-Con) 20 meq 1X ONCE PO ; Start 05/13/20 at 16:00; Stop 05/13/20 at 16:01; Status Cancel Insulin Glargine (Lantus Syringe) 12 unit 1X ONCE SQ Last administered on 05/13/20at 16:14; Start 05/13/20 at 16:30; Stop 05/13/20 at 16:31; Status DC Potassium Bicarbonate (Potassium Effervescent Tablet) 20 meq 1X ONCE PO Last administered on 05/13/20at 16:13; Start 05/13/20 at 16:30; Stop 05/13/20 at 16:31; Status DC Sodium Chloride 1,000 ml @ 1,000 mls/hr 1X ONCE IV Last administered on 05/14/20at 13:25; Start 05/14/20 at 13:30; Stop 05/14/20 at 14:29; Status DC Dexmedetomidine HCl 400 mcg/ Sodium Chloride 100 ml @ 0 mls/hr CONT PRN IV sedation Last administered on 05/17/20at 00:14; Start 05/14/20 at 16:15 Sodium Chloride 500 ml @ 500 mls/hr 1X PRN PRN IV hypotention; Start 05/14/20 at 16:15 Atropine Sulfate (ATROPINE 0.5mg SYRINGE) 0.5 mg PRN Q5MIN PRN IV SEE COMMENTS; Start 05/14/20 at 16:15 Info (Anti-Coagulation Monitoring By Pharmacy) 1 each PRN DAILY PRN MC SEE COMMENTS Last administered on 05/17/20at 10:16; Start 05/16/20 at 07:45 Insulin Glargine (Lantus Syringe) 10 unit QHS SQ Last administered on 05/17/20at 20:29; Start 05/16/20 at 21:00 Metoclopramide HCl (Reglan Vial) 10 mg PRN QID PRN IVP nausea/abdominal pain Last administered on 05/16/20at 21:03; Start 05/16/20 at 15:15 Simethicone (Gas-X) 80 mg PRN AFTMEALHC PRN PO GAS / BLOATING; Start 05/16/20 at 15:15 Acetaminophen (Tylenol Supp) 650 mg PRN Q6HRS PRN [place] MILD PAIN / TEMP > 100.3'F Last administered on 05/16/20at 23:24; Start 05/16/20 at 23:30 Artificial Tears (Artificial Tears) 1 drop PRN Q15MIN PRN OU DRY EYE; Start 05/17/20 at 07:45 Lactobacillus Rhamnosus (Culturelle) 1 cap BID PO ; Start 05/17/20 at 21:00; Status Cancel Methylprednisolone Sodium Succinate (SOLU-Medrol 40MG VIAL) 40 mg Q12HR IV Last administered on 05/18/20at 08:19; Start 05/17/20 at 21:00 Tramadol HCl (Ultram) 50 mg PRN Q6HRS PRN PO PAIN Last administered on 05/17/20at 16:00; Start 05/17/20 at 15:45 Vitals/I & O Vital Sign - Last 24 Hours 05/17/20 05/17/20 05/17/20 05/17/20 10:00 11:00 12:00 12:00 Temp 97.7 97.7 Pulse 93 102 78 Resp 21 17 17 B/P (MAP) 120/74 (89) 117/66 (83) 105/62 (76) Pulse Ox 95 95 93 O2 Delivery Nasal Cannula Nasal Cannula Nasal Cannula Nasal Cannula O2 Flow Rate 5.0 5.0 5.0 5.0 05/17/20 05/17/20 05/17/20 05/17/20 13:00 14:00 15:00 16:00 Pulse 66 81 70 Resp 20 20 B/P (MAP) 114/70 (85) 109/66 (80) 113/69 (84) Pulse Ox 95 95 95 95 O2 Delivery Nasal Cannula Nasal Cannula Nasal Cannula Nasal Cannula O2 Flow Rate 5.0 5.0 5.0 5.0 05/17/20 05/17/20 05/17/20 05/17/20 16:00 16:00 17:00 17:00 Temp 98.2 98.2 Pulse 66 80 Resp 17 20 B/P (MAP) 110/70 (83) 98/59 (72) Pulse Ox 93 95 95 O2 Delivery Nasal Cannula Nasal Cannula Nasal Cannula Nasal Cannula O2 Flow Rate 5.0 5.0 5.0 5.0 05/17/20 05/17/20 05/17/20 05/18/20 18:00 20:00 20:00 00:00 Temp 98.0 98.1 98.0 98.1 Pulse 78 90 86 Resp 20 19 22 B/P (MAP) 89/59 (69) 100/62 (75) 109/61 (77) Pulse Ox 95 94 97 O2 Delivery Nasal Cannula Nasal Cannula Nasal Cannula Nasal Cannula O2 Flow Rate 5.0 5.0 5.0 5.0 05/18/20 05/18/20 04:00 07:45 Temp 98.3 98.3 Pulse 80 Resp 19 B/P (MAP) 96/58 (71) Pulse Ox 98 O2 Delivery Nasal Cannula Nasal Cannula O2 Flow Rate 5.0 5.0 Intake and Output 05/17/20 05/17/20 05/18/20 15:00 23:00 07:00 Intake Total 200 ml 100 ml 1548 ml Output Total 1300 ml 1300 ml 1000 ml Balance -1100 ml -1200 ml 548 ml Justicifation of Admission Dx: Justifications for Admission: Justification of Admission Dx: Yes Comminuty Aquired Pneumonia: Hypoxemia MINH URBAN MD May 18, 2020 09:23
[2020-05-18] MEDS: HEPARIN 25,000UTS/250ML PREMIX 250 ML IV PRN (11:13)
--- NOTE | 2020-05-18 12:03 | NUR ---
SS following up with discharge planning. SS reviewed pt chart and discussed with pt RN. Pt off IV antibiotics. Pt is currently requiring oxygen. COVID19 positive. Pt self pay. SS will continue to follow for discharge planning.
[2020-05-18] MEDS ORDERED: ALBUMIN HUMAN 5% 500 ML IV ONE (12:45)
[2020-05-18 12:46] LABS: BASO # 0.1 x10^3/uL (0.0-0.2); BASO % 0 % (0-3); EOS % 0 % (0-3); HEMATOCRIT 40.1 % (39.0-53.0); HEMOGLOBIN 13.2 g/dL (13.0-17.5); LYMPH # 0.7 x10^3/uL (1.0-4.8); LYMPH % 3 % (24-48); MEAN CORPUSCULAR HEMOGLOBIN 29 pg (25-35); MEAN CORPUSCULAR HGB CONC 33 g/dL (31-37); MEAN CORPUSCULAR VOLUME 89 fL (79-100); MONO # 1.5 x10^3/uL (0.0-1.1); MONO % 6 % (0-9); NEUT # 21.6 x10^3/uL (1.8-7.7); NEUT % 90 % (31-73); PLATELET COUNT 423 x10^3/uL (140-400); RED BLOOD COUNT 4.53 x10^6/uL (4.30-5.70); RED CELL DISTRIBUTION WIDTH 14.1 % (11.5-14.5); WHITE BLOOD COUNT 23.9 x10^3/uL (4.0-11.0)
[2020-05-18] MEDS: ANTI-COAG MONITOR BY PHARMACY. MC PRN (12:56)
[2020-05-18 13:09] LABS: ALBUMIN 1.8 g/dL (3.4-5.0); ALBUMIN/GLOBULIN RATIO 0.6 (1.0-1.7); CALCIUM 7.5 mg/dL (8.5-10.1); CREATININE 0.8 mg/dL (0.7-1.3); GFR 104.5; POTASSIUM 3.9 mmol/L (3.5-5.1); TOTAL BILIRUBIN 0.9 mg/dL (0.2-1.0); TOTAL PROTEIN 4.7 g/dL (6.4-8.2)
[2020-05-18 13:28] LABS: % BANDS 1 % (0-9); % LYMPHS 1 % (24-48); % MONOS 4 % (0-10); % SEGS 94 % (35-66); PLT ESTIMATE ADEQUATE (ADEQUATE)
[2020-05-18] MEDS: NOREPINEPHRINE VIAL 8 MG in IV DEXTROSE 5% 250 ML IV PRN ×2 (15:44→21:11)
[2020-05-18] MEDS: IV NORMAL SALINE 1000ML BAG 1,000 ML IV SCH (16:36)
[2020-05-18] MEDS: traMADol 50 MG TABLET PO PRN (16:59)
--- NOTE | 2020-05-18 18:06 | RAD ---
AP chest. HISTORY: Central line placement AP view was taken of the chest. There is a right jugular central line which extends to the right atrium. Comparison the study on May 13 the endotracheal tube has been removed. There is no longer an NG tube. The stomach is mildly distended. There are persistent bilateral infiltrates with little further change. IMPRESSION: 1. Central line extends to the right atrium. 2. Persistent infiltrates. Electronically signed by: Lamberto Mueller MD (05/18/2020 6:03 PM) [facility]
[2020-05-18] MEDS: INSULIN GLARGINE SYRINGE. SQ SCH (21:14)
[2020-05-18] MEDS ORDERED: IV NORMAL SALINE 1000ML BAG 1,000 ML IV ONE ×2 (23:00)
--- NOTE | 2020-05-18 23:28 | RAD ---
CHEST AP ONLY INDICATION: Reason: possible aspiration / Spl. Instructions: / History: . COMPARISON STUDY: 05/18/2020. FINDINGS: Life Support Devices: Stable right IJ central venous catheter. Lungs: Low lung volume. Slightly progressed patchy bilateral opacities. Pleura: No pleural effusion or pneumothorax. Heart and Mediastinum: Stable cardiomediastinal silhouette and great vessels. IMPRESSION: Patchy bilateral opacities have slightly progressed. Electronically signed by: Antelmo Blackwood MD (05/18/2020 11:25 PM) [facility]
[2020-05-18] MEDS: VASOPRESSIN 20 UNIT in IV DEXTROSE 5% 100ML 100 ML IV PRN (23:42)
[2020-05-18] MEDS: cefTRIAXone IV Push 1 GM VIAL. IVP SCH (23:42)
[2020-05-19 00:29] LABS: BASO % 0 % (0-3); EOS % 0 % (0-3); HEMATOCRIT 15.8 % (39.0-53.0); HEMOGLOBIN 4.9 g/dL (13.0-17.5); LYMPH # 1.6 x10^3/uL (1.0-4.8); LYMPH % 4 % (24-48); MEAN CORPUSCULAR HEMOGLOBIN 29 pg (25-35); MEAN CORPUSCULAR HGB CONC 31 g/dL (31-37); MEAN CORPUSCULAR VOLUME 93 fL (79-100); MONO # 2.7 x10^3/uL (0.0-1.1); MONO % 7 % (0-9); NEUT # 34.1 x10^3/uL (1.8-7.7); NEUT % 89 % (31-73); PLATELET COUNT 241 x10^3/uL (140-400); RED BLOOD COUNT 1.69 x10^6/uL (4.30-5.70); RED CELL DISTRIBUTION WIDTH 14.5 % (11.5-14.5); WHITE BLOOD COUNT 38.5 x10^3/uL (4.0-11.0)
[2020-05-19 00:31] LABS: CALCIUM 6.1 mg/dL (8.5-10.1); CREATININE 2.2 mg/dL (0.7-1.3); GFR 32.5; POTASSIUM 4.8 mmol/L (3.5-5.1)
[2020-05-19 01:00] VITALS: BP 82/70
[2020-05-19 01:14] LABS: BASO # 0.1 x10^3/uL (0.0-0.2); BASO % 0 % (0-3); EOS # 0.1 x10^3/uL (0.0-0.7); EOS % 0 % (0-3); LYMPH # 2.5 x10^3/uL (1.0-4.8); LYMPH % 7 % (24-48); MEAN CORPUSCULAR HEMOGLOBIN 30 pg (25-35); MEAN CORPUSCULAR HGB CONC 30 g/dL (31-37); MEAN CORPUSCULAR VOLUME 98 fL (79-100); MONO # 2.6 x10^3/uL (0.0-1.1); MONO % 7 % (0-9); NEUT # 31.3 x10^3/uL (1.8-7.7); NEUT % 86 % (31-73); PLATELET COUNT 169 x10^3/uL (140-400); RED BLOOD COUNT 2.09 x10^6/uL (4.30-5.70); RED CELL DISTRIBUTION WIDTH 15.1 % (11.5-14.5); WHITE BLOOD COUNT 36.6 x10^3/uL (4.0-11.0)
[2020-05-19 01:15] VITALS: BP 85/63
[2020-05-19 01:15] LABS: HEMATOCRIT 20.4 % (39.0-53.0); HEMOGLOBIN 6.2 g/dL (13.0-17.5)
[2020-05-19 01:31] LABS: ALBUMIN 0.8 g/dL (3.4-5.0); ALBUMIN/GLOBULIN RATIO 0.7 (1.0-1.7); CREATININE 2.3 mg/dL (0.7-1.3); GFR 30.9; POTASSIUM 5.7 mmol/L (3.5-5.1); TOTAL BILIRUBIN 0.6 mg/dL (0.2-1.0)
[2020-05-19 01:34] LABS: CALCIUM 5.9 mg/dL (8.5-10.1)
[2020-05-19 02:32] LABS: BASE EXCESS ABG -24 mmol/L (-3-3); HCO3 ABG 8 mmol/L (21-28); PCO2 ABG 49 mmHg (35-46); PO2 ABG 144 mmHg (75-108); SAT O2 ABG 96 % (92-99)
--- NOTE | 2020-05-19 02:41 | RAD ---
CHEST AP ONLY INDICATION: INTUBATION, ETT TUBE, OG TUBE, POST COMPARISON STUDY: 05/18/2020. FINDINGS: Life Support Devices: Endotracheal tube terminates 3.5 cm above the mattie. Enteric tube courses into the proximal stomach. Stable right IJ central venous catheter. Lungs: Low lung. Stable diffuse bilateral heterogeneous opacities. Pleura: No pleural effusion or pneumothorax. Heart and Mediastinum: Stable cardiomediastinal silhouette and great vessels. IMPRESSION: 1. Life-support devices as above. 2. Stable diffuse bilateral heterogeneous opacities. Electronically signed by: Antelmo Blackwood MD (05/19/2020 2:38 AM) [facility]
[2020-05-19 02:56] LABS: FIO2 ABG 100
[2020-05-19] MEDS ORDERED: PANTOPRAZOLE SODIUM IV DRIP 80 MG in IV NORMAL SALINE 100ML 100 ML IV SCH (03:00)
--- NOTE | 2020-05-19 04:42 | NUR ---
Code blue. Patient unresponsive with CPR in progress on arrival. Patient was treated per ACLS protocal. Please see code sheet for medications. Patient intubated with glide scope- 7.5 cuffed tube. Tube visualized passing cord Positive color change Increasing/stable o2 states Chest xray reviewed-- stable position. Patient with ROSC. Patient recieved 2 units of blood. Labs reviewed-- patient noted to have elevated k+ Hyperkalema orders placed-- Insulin, Glucose, Calcium, Bicard
[2020-05-19] MEDS ORDERED: DEXTROSE 50% 25 GM / 50ML DISP.SYRIN. IV ONE ×2 (04:45→08:47)
[2020-05-19] MEDS ORDERED: SODIUM BICARB ADULT 8.4% 50 MEQ/50 ML DISP.SYRIN. IV ONE ×3 (04:45→10:00)
[2020-05-19] MEDS ORDERED: CALCIUM GLUCONATE 1,000 MG/10 ML VIAL. IVP ONE (04:45)
[2020-05-19] MEDS ORDERED: INSULIN REGULAR 100 UNIT/ML 3ML VIAL. IV ONE ×3 (04:45→11:00)
[2020-05-19] MEDS: NOREPINEPHRINE VIAL 32 MG in IV DEXTROSE 5% 218 ML IV PRN ×4 (05:19→22:46)
[2020-05-19] MEDS: IV NORMAL SALINE 1000ML BAG 1,000 ML IV SCH (05:20)
[2020-05-19 06:00] VITALS: BP 101/65
[2020-05-19] MEDS: INSULIN LISPRO 300 UNITS/3 ML VIAL. SQ SCH ×5 (06:00→23:29)
--- NOTE | 2020-05-19 07:00 | NUR ---
Pt BP low at beginning of shift manager. Pt a/oX4, Lebanese speaking. Used tamara on phone to help with translation of needs. Pt reported RLQ abdominal pain at beginning of shift. Difficulty with using urinal, place vasquez catheter without difficulty. Notified Dr. Velasco approximately 2300 of low BP and pt almost maxed out on Levophed. Received new orders including Vasopressin and to draw labs. Received call at approximately 2340 that hgb had significantly dropped from early am result. Enter room at approximately 23:50 to redraw CBC, pt found unresponsive, SR on the monitor but no pulse was found. CPR and code Blue initiated. See Code blue record. Brother Anthony notified of change in condition and came to hospital to see patient. Provided education to brother on potential complications associated with code/CPR and not having any reflexes. Brother states that he would like for pt to remain a full code. Dr Velasco notified of code and follow up HGB of 6 after two units of blood. Received orders for additional 2 units of PRBC, consult Dr. Fritz and start Protonix gtt. Spoke with Dr. Fritz, agrees with protonix gtt. Would like a CT of abdomen without contrast when patient is stable to complete exam. Update given to brother at 6am. Notified brother that there is no change in condition. Pt continues to be intubated, needing medications to maintain blood pressure and is unresponsive with no cough, gag or pupil reflex.
[2020-05-19] MEDS: VASOPRESSIN 20 UNIT in IV DEXTROSE 5% 100ML 100 ML IV PRN ×3 (07:36→23:48)
[2020-05-19] MEDS ORDERED: EPINEPHrine SYRINGE 1 MG/10 ML SYRINGE ONE ×2 (08:47→12:00)
[2020-05-19] MEDS ORDERED: SODIUM BICARB ADULT 8.4% 50 MEQ/50 ML DISP.SYRIN. ONE ×3 (08:47→12:00)
[2020-05-19] MEDS: methylPREDNISolone SOD SUCC PF 40 MG/ML VIAL. IV SCH ×2 (08:49→20:49)
[2020-05-19] MEDS: cefTRIAXone IV Push 1 GM VIAL. IVP SCH ×2 (08:49→20:49)
[2020-05-19] MEDS ORDERED: ALBUMIN HUMAN 5% 500 ML IV ONE (09:15)
[2020-05-19 09:32] LABS: BASE EXCESS ABG -28 mmol/L (-3-3); CORRECTED PCO2 ABG 39 mmHg; CORRECTED PO2 ABG 82 mmHg; HCO3 ABG 6 mmol/L (21-28); SAT O2 ABG 89 % (92-99)
[2020-05-19 09:33] LABS: PCO2 ABG 41 mmHg (35-46); PO2 ABG 88 mmHg (75-108)
--- NOTE | 2020-05-19 09:44 | PDOC ---
PROGRESS NOTES Chief Complaint Chief Complaint Acute Hypoxic Resp Failure secondary to COVID-19 Acute blood loss anemia Transaminitis, shock liver Lactic acidosis Status post cardiopulmonary arrest Bilateral Infiltrates on cxr elevated D dimer// elevated inflammatory markers Leukocytosis ELEVATED FERRITIN // Elevated CRP and ferrtin also consistent with COVID-19 infection mild hypernatremia History of Present Illness History of Present Illness Mr Tipton is a 45-year-old male who presents to the Emergency Department overnight with complaints of shortness of breath, fever, chills for the last 4-5 days prior to admit on 05/06/2020. He reports that he has been self-isolating at home and treating his fevers with Tylenol and ibuprofen without any improvement of his symptoms. Upon arrival to the Emergency Department, he was found to be hypoxic with oxygen saturations of 70%. He was placed on 15 liters nonrebreather and was admitted to the hospital for further medical evaluation and treatment. He was treated with Rocephin and azithromycin in the Emergency Department and was tested for COVID-19 which returned positive. 24 hours after admission he became more hypoxic on the nursing unit and was transferred to the intensive care unit and a Pulmonary consultation was requested at that point in time. He was intubated overnight on 05/07/2020. 05/07-05/14: Treated with convalescent FFP and 9 doses of remdesivir. 05/15: We are trying to wake him up today, wean vent, will try to trail, he is fighting the vent as he wakes 05/16: Extubated. Confused. C/o gas pain. WBC still elevated 05/17: Afebrile overnight. Only confused to date today, but the date is wrong on his white board. Good urine output WBC 19.2 Hb 13.1, platelets 271. He is on 4 L of oxygen and does appear comfortable he had a very large bowel movement this morning. He is asking to speak with his brother. 05/18: Afebrile. 5 L O2. Still very weak. Able to use walker to get to the c ommode. Blood pressure dropped in the afternoon on 05/18/2020 given albumin and fluids with no good effect central line placed around 5 PM with good placement and started on levophed. By 2299 levophed was maxed and vasopressin added. He began complaining of right lower quadrant pain, and noted he was feeling strange repeat labs were drawn. Hemoglobin noted at 4.9 from 13.4 just 10 hours earlier. BUN 34 creatinine 2.2 up from normal also 10 hours earlier lactate 15.6 up from lactate 3.4 earlier WBC up to 38.5 from 20 earlier. Patient was unresponsive just a few minutes later CODE BLUE called, no pulse found CPR initiated, intubated with 7.5, ROSC achieved. Chest x-ray with good tube position and right IJ in good position. Brother called bedside to see his family. 4 units of blood ordered started on Protonix gtt. This morning seen intubated temperature 95.6, unresponsive no cough no gag no pupillary light reflexes. Not sedated. Plan: Likely etiology of his cardiac arrest was hemorrhagic shock. Unclear where his blood loss is Arterial line for central BP monitoring CT head, CT chest/abdomen/pelvis - possible retroperitoneal bleed. Was on heparin for COVID/DVT ppx ICU Grim prognosis. Unfortunate given that he seemed to be improving from COVID-19 The patient was evaluated during the global COVID-19 pandemic, and that diagnosis was suspected/considered upon their initial presentation. CC time 96 minutes Vitals Vitals Vital Signs Date Time Temp Pulse Resp B/P (MAP) Pulse Ox O2 Delivery O2 Flow Rate FiO2 05/19/20 08:00 95.7 88 25 100 Ventilator 95.7 05/18/20 23:59 4.0 Physical Exam General: Other (Unresponsive, no gag no pupillary light reflex) Heart: Regular rate, Normal S1, Normal S2 Lungs: Crackles Abdomen: Other (No bowel sounds, very distended) Extremities: Other (Cyanotic, pulse was only found by Doppler) Skin: No rashes, No breakdown Labs LABS Laboratory Tests Test 05/18/20 12:27 05/18/20 13:00 05/18/20 19:00 05/18/20 23:20 Glucose (Fingerstick) 201 mg/dL (70-99) Lactic Acid Level 3.4 mmol/L (0.4-2.0) 3.9 mmol/L (0.4-2.0) 15.6 mmol/L (0.4-2.0) Ammonia 29 mcmol/L (11-34) White Blood Count 38.5 x10^3/uL (4.0-11.0) Red Blood Count 1.69 x10^6/uL (4.30-5.70) Hemoglobin 4.9 g/dL (13.0-17.5) Hematocrit 15.8 % (39.0-53.0) Mean Corpuscular Volume 93 fL (79-100) Mean Corpuscular Hemoglobin 29 pg (25-35) Mean Corpuscular Hemoglobin Concent 31 g/dL (31-37) Red Cell Distribution Width 14.5 % (11.5-14.5) Platelet Count 241 x10^3/uL (140-400) Neutrophils (%) (Auto) 89 % (31-73) Lymphocytes (%) (Auto) 4 % (24-48) Monocytes (%) (Auto) 7 % (0-9) Eosinophils (%) (Auto) 0 % (0-3) Basophils (%) (Auto) 0 % (0-3) Neutrophils # (Auto) 34.1 x10^3/uL (1.8-7.7) Lymphocytes # (Auto) 1.6 x10^3/uL (1.0-4.8) Monocytes # (Auto) 2.7 x10^3/uL (0.0-1.1) Eosinophils # (Auto) 0.0 x10^3/uL (0.0-0.7) Basophils # (Auto) 0.0 x10^3/uL (0.0-0.2) Sodium Level 142 mmol/L (136-145) Potassium Level 4.8 mmol/L (3.5-5.1) Chloride Level 108 mmol/L (98-107) Carbon Dioxide Level 11 mmol/L (21-32) Anion Gap 23 (6-14) Blood Urea Nitrogen 34 mg/dL (8-26) Creatinine 2.2 mg/dL (0.7-1.3) Estimated GFR (Cockcroft-Gault) 32.5 Glucose Level 287 mg/dL (70-99) Calcium Level 6.1 mg/dL (8.5-10.1) Test 05/18/20 23:59 05/19/20 00:50 05/19/20 02:29 05/19/20 06:17 Glucose (Fingerstick) 217 mg/dL (70-99) 154 mg/dL (70-99) White Blood Count 36.6 x10^3/uL (4.0-11.0) Red Blood Count 2.09 x10^6/uL (4.30-5.70) Hemoglobin 6.2 g/dL (13.0-17.5) Hematocrit 20.4 % (39.0-53.0) Mean Corpuscular Volume 98 fL (79-100) Mean Corpuscular Hemoglobin 30 pg (25-35) Mean Corpuscular Hemoglobin Concent 30 g/dL (31-37) Red Cell Distribution Width 15.1 % (11.5-14.5) Platelet Count 169 x10^3/uL (140-400) Neutrophils (%) (Auto) 86 % (31-73) Lymphocytes (%) (Auto) 7 % (24-48) Monocytes (%) (Auto) 7 % (0-9) Eosinophils (%) (Auto) 0 % (0-3) Basophils (%) (Auto) 0 % (0-3) Neutrophils # (Auto) 31.3 x10^3/uL (1.8-7.7) Lymphocytes # (Auto) 2.5 x10^3/uL (1.0-4.8) Monocytes # (Auto) 2.6 x10^3/uL (0.0-1.1) Eosinophils # (Auto) 0.1 x10^3/uL (0.0-0.7) Basophils # (Auto) 0.1 x10^3/uL (0.0-0.2) Heparin Anti-Xa Act, Unfractionated 0.15 IU/mL (0.30-0.70) Sodium Level 147 mmol/L (136-145) Potassium Level 5.7 mmol/L (3.5-5.1) Chloride Level 110 mmol/L (98-107) Carbon Dioxide Level 12 mmol/L (21-32) Anion Gap 25 (6-14) Blood Urea Nitrogen 33 mg/dL (8-26) Creatinine 2.3 mg/dL (0.7-1.3) Estimated GFR (Cockcroft-Gault) 30.9 BUN/Creatinine Ratio 14 (6-20) Glucose Level 296 mg/dL (70-99) Calcium Level 5.9 mg/dL (8.5-10.1) Total Bilirubin 0.6 mg/dL (0.2-1.0) Aspartate Amino Transf (AST/SGOT) 1562 U/L (15-37) Alanine Aminotransferase (ALT/SGPT) 1560 U/L (16-63) Alkaline Phosphatase 48 U/L (46-116) Total Protein 2.0 g/dL (6.4-8.2) Albumin 0.8 g/dL (3.4-5.0) Albumin/Globulin Ratio 0.7 (1.0-1.7) O2 Saturation 96 % (92-99) Arterial Blood pH 6.85 (7.35-7.45) Arterial Blood pCO2 at Patient Temp 49 mmHg (35-46) Arterial Blood pO2 at Patient Temp 144 mmHg (75-108) Arterial Blood HCO3 8 mmol/L (21-28) Arterial Blood Base Excess -24 mmol/L (-3-3) FiO2 100 Test 05/19/20 08:15 Heparin Anti-Xa Act, Unfractionated < 0.10 IU/mL (0.30-0.70) Comment Review of Relevant I have reviewed the following items laura (where applicable) has been applied. Labs Laboratory Tests Test 05/17/20 12:12 05/17/20 17:38 05/17/20 20:33 05/17/20 23:57 Glucose (Fingerstick) 161 mg/dL (70-99) 175 mg/dL (70-99) 164 mg/dL (70-99) 151 mg/dL (70-99) Test 05/18/20 05:10 05/18/20 05:38 05/18/20 12:27 05/18/20 13:00 White Blood Count 23.9 x10^3/uL (4.0-11.0) Red Blood Count 4.53 x10^6/uL (4.30-5.70) Hemoglobin 13.2 g/dL (13.0-17.5) Hematocrit 40.1 % (39.0-53.0) Mean Corpuscular Volume 89 fL (79-100) Mean Corpuscular Hemoglobin 29 pg (25-35) Mean Corpuscular Hemoglobin Concent 33 g/dL (31-37) Red Cell Distribution Width 14.1 % (11.5-14.5) Platelet Count 423 x10^3/uL (140-400) Neutrophils (%) (Auto) 90 % (31-73) Lymphocytes (%) (Auto) 3 % (24-48) Monocytes (%) (Auto) 6 % (0-9) Eosinophils (%) (Auto) 0 % (0-3) Basophils (%) (Auto) 0 % (0-3) Neutrophils # (Auto) 21.6 x10^3/uL (1.8-7.7) Lymphocytes # (Auto) 0.7 x10^3/uL (1.0-4.8) Monocytes # (Auto) 1.5 x10^3/uL (0.0-1.1) Eosinophils # (Auto) 0.0 x10^3/uL (0.0-0.7) Basophils # (Auto) 0.1 x10^3/uL (0.0-0.2) Segmented Neutrophils % 94 % (35-66) Band Neutrophils % 1 % (0-9) Lymphocytes % 1 % (24-48) Monocytes % 4 % (0-10) Platelet Estimate Adequate (ADEQUATE) Heparin Anti-Xa Act, Unfractionated 0.70 IU/mL (0.30-0.70) Sodium Level 141 mmol/L (136-145) Potassium Level 3.9 mmol/L (3.5-5.1) Chloride Level 105 mmol/L (98-107) Carbon Dioxide Level 32 mmol/L (21-32) Anion Gap 4 (6-14) Blood Urea Nitrogen 20 mg/dL (8-26) Creatinine 0.8 mg/dL (0.7-1.3) Estimated GFR (Cockcroft-Gault) 104.5 BUN/Creatinine Ratio 25 (6-20) Glucose Level 179 mg/dL (70-99) Calcium Level 7.5 mg/dL (8.5-10.1) Total Bilirubin 0.9 mg/dL (0.2-1.0) Aspartate Amino Transf (AST/SGOT) 56 U/L (15-37) Alanine Aminotransferase (ALT/SGPT) 119 U/L (16-63) Alkaline Phosphatase 61 U/L (46-116) Lactate Dehydrogenase 293 U/L (85-227) Total Protein 4.7 g/dL (6.4-8.2) Albumin 1.8 g/dL (3.4-5.0) Albumin/Globulin Ratio 0.6 (1.0-1.7) Glucose (Fingerstick) 166 mg/dL (70-99) 201 mg/dL (70-99) Lactic Acid Level 3.4 mmol/L (0.4-2.0) Ammonia 29 mcmol/L (11-34) Test 05/18/20 19:00 05/18/20 23:20 05/18/20 23:59 05/19/20 00:50 Lactic Acid Level 3.9 mmol/L (0.4-2.0) 15.6 mmol/L (0.4-2.0) White Blood Count 38.5 x10^3/uL (4.0-11.0) 36.6 x10^3/uL (4.0-11.0) Red Blood Count 1.69 x10^6/uL (4.30-5.70) 2.09 x10^6/uL (4.30-5.70) Hemoglobin 4.9 g/dL (13.0-17.5) 6.2 g/dL (13.0-17.5) Hematocrit 15.8 % (39.0-53.0) 20.4 % (39.0-53.0) Mean Corpuscular Volume 93 fL (79-100) 98 fL (79-100) Mean Corpuscular Hemoglobin 29 pg (25-35) 30 pg (25-35) Mean Corpuscular Hemoglobin Concent 31 g/dL (31-37) 30 g/dL (31-37) Red Cell Distribution Width 14.5 % (11.5-14.5) 15.1 % (11.5-14.5) Platelet Count 241 x10^3/uL (140-400) 169 x10^3/uL (140-400) Neutrophils (%) (Auto) 89 % (31-73) 86 % (31-73) Lymphocytes (%) (Auto) 4 % (24-48) 7 % (24-48) Monocytes (%) (Auto) 7 % (0-9) 7 % (0-9) Eosinophils (%) (Auto) 0 % (0-3) 0 % (0-3) Basophils (%) (Auto) 0 % (0-3) 0 % (0-3) Neutrophils # (Auto) 34.1 x10^3/uL (1.8-7.7) 31.3 x10^3/uL (1.8-7.7) Lymphocytes # (Auto) 1.6 x10^3/uL (1.0-4.8) 2.5 x10^3/uL (1.0-4.8) Monocytes # (Auto) 2.7 x10^3/uL (0.0-1.1) 2.6 x10^3/uL (0.0-1.1) Eosinophils # (Auto) 0.0 x10^3/uL (0.0-0.7) 0.1 x10^3/uL (0.0-0.7) Basophils # (Auto) 0.0 x10^3/uL (0.0-0.2) 0.1 x10^3/uL (0.0-0.2) Sodium Level 142 mmol/L (136-145) 147 mmol/L (136-145) Potassium Level 4.8 mmol/L (3.5-5.1) 5.7 mmol/L (3.5-5.1) Chloride Level 108 mmol/L (98-107) 110 mmol/L (98-107) Carbon Dioxide Level 11 mmol/L (21-32) 12 mmol/L (21-32) Anion Gap 23 (6-14) 25 (6-14) Blood Urea Nitrogen 34 mg/dL (8-26) 33 mg/dL (8-26) Creatinine 2.2 mg/dL (0.7-1.3) 2.3 mg/dL (0.7-1.3) Estimated GFR (Cockcroft-Gault) 32.5 30.9 Glucose Level 287 mg/dL (70-99) 296 mg/dL (70-99) Calcium Level 6.1 mg/dL (8.5-10.1) 5.9 mg/dL (8.5-10.1) Glucose (Fingerstick) 217 mg/dL (70-99) Heparin Anti-Xa Act, Unfractionated 0.15 IU/mL (0.30-0.70) BUN/Creatinine Ratio 14 (6-20) Total Bilirubin 0.6 mg/dL (0.2-1.0) Aspartate Amino Transf (AST/SGOT) 1562 U/L (15-37) Alanine Aminotransferase (ALT/SGPT) 1560 U/L (16-63) Alkaline Phosphatase 48 U/L (46-116) Total Protein 2.0 g/dL (6.4-8.2) Albumin 0.8 g/dL (3.4-5.0) Albumin/Globulin Ratio 0.7 (1.0-1.7) Test 05/19/20 02:29 05/19/20 06:17 05/19/20 08:15 O2 Saturation 96 % (92-99) Arterial Blood pH 6.85 (7.35-7.45) Arterial Blood pCO2 at Patient Temp 49 mmHg (35-46) Arterial Blood pO2 at Patient Temp 144 mmHg (75-108) Arterial Blood HCO3 8 mmol/L (21-28) Arterial Blood Base Excess -24 mmol/L (-3-3) FiO2 100 Glucose (Fingerstick) 154 mg/dL (70-99) Heparin Anti-Xa Act, Unfractionated < 0.10 IU/mL (0.30-0.70) Laboratory Tests Test 05/18/20 12:27 05/18/20 13:00 05/18/20 19:00 05/18/20 23:20 Glucose (Fingerstick) 201 mg/dL (70-99) Lactic Acid Level 3.4 mmol/L (0.4-2.0) 3.9 mmol/L (0.4-2.0) 15.6 mmol/L (0.4-2.0) Ammonia 29 mcmol/L (11-34) White Blood Count 38.5 x10^3/uL (4.0-11.0) Red Blood Count 1.69 x10^6/uL (4.30-5.70) Hemoglobin 4.9 g/dL (13.0-17.5) Hematocrit 15.8 % (39.0-53.0) Mean Corpuscular Volume 93 fL (79-100) Mean Corpuscular Hemoglobin 29 pg (25-35) Mean Corpuscular Hemoglobin Concent 31 g/dL (31-37) Red Cell Distribution Width 14.5 % (11.5-14.5) Platelet Count 241 x10^3/uL (140-400) Neutrophils (%) (Auto) 89 % (31-73) Lymphocytes (%) (Auto) 4 % (24-48) Monocytes (%) (Auto) 7 % (0-9) Eosinophils (%) (Auto) 0 % (0-3) Basophils (%) (Auto) 0 % (0-3) Neutrophils # (Auto) 34.1 x10^3/uL (1.8-7.7) Lymphocytes # (Auto) 1.6 x10^3/uL (1.0-4.8) Monocytes # (Auto) 2.7 x10^3/uL (0.0-1.1) Eosinophils # (Auto) 0.0 x10^3/uL (0.0-0.7) Basophils # (Auto) 0.0 x10^3/uL (0.0-0.2) Sodium Level 142 mmol/L (136-145) Potassium Level 4.8 mmol/L (3.5-5.1) Chloride Level 108 mmol/L (98-107) Carbon Dioxide Level 11 mmol/L (21-32) Anion Gap 23 (6-14) Blood Urea Nitrogen 34 mg/dL (8-26) Creatinine 2.2 mg/dL (0.7-1.3) Estimated GFR (Cockcroft-Gault) 32.5 Glucose Level 287 mg/dL (70-99) Calcium Level 6.1 mg/dL (8.5-10.1) Test 05/18/20 23:59 05/19/20 00:50 05/19/20 02:29 05/19/20 06:17 Glucose (Fingerstick) 217 mg/dL (70-99) 154 mg/dL (70-99) White Blood Count 36.6 x10^3/uL (4.0-11.0) Red Blood Count 2.09 x10^6/uL (4.30-5.70) Hemoglobin 6.2 g/dL (13.0-17.5) Hematocrit 20.4 % (39.0-53.0) Mean Corpuscular Volume 98 fL (79-100) Mean Corpuscular Hemoglobin 30 pg (25-35) Mean Corpuscular Hemoglobin Concent 30 g/dL (31-37) Red Cell Distribution Width 15.1 % (11.5-14.5) Platelet Count 169 x10^3/uL (140-400) Neutrophils (%) (Auto) 86 % (31-73) Lymphocytes (%) (Auto) 7 % (24-48) Monocytes (%) (Auto) 7 % (0-9) Eosinophils (%) (Auto) 0 % (0-3) Basophils (%) (Auto) 0 % (0-3) Neutrophils # (Auto) 31.3 x10^3/uL (1.8-7.7) Lymphocytes # (Auto) 2.5 x10^3/uL (1.0-4.8) Monocytes # (Auto) 2.6 x10^3/uL (0.0-1.1) Eosinophils # (Auto) 0.1 x10^3/uL (0.0-0.7) Basophils # (Auto) 0.1 x10^3/uL (0.0-0.2) Heparin Anti-Xa Act, Unfractionated 0.15 IU/mL (0.30-0.70) Sodium Level 147 mmol/L (136-145) Potassium Level 5.7 mmol/L (3.5-5.1) Chloride Level 110 mmol/L (98-107) Carbon Dioxide Level 12 mmol/L (21-32) Anion Gap 25 (6-14) Blood Urea Nitrogen 33 mg/dL (8-26) Creatinine 2.3 mg/dL (0.7-1.3) Estimated GFR (Cockcroft-Gault) 30.9 BUN/Creatinine Ratio 14 (6-20) Glucose Level 296 mg/dL (70-99) Calcium Level 5.9 mg/dL (8.5-10.1) Total Bilirubin 0.6 mg/dL (0.2-1.0) Aspartate Amino Transf (AST/SGOT) 1562 U/L (15-37) Alanine Aminotransferase (ALT/SGPT) 1560 U/L (16-63) Alkaline Phosphatase 48 U/L (46-116) Total Protein 2.0 g/dL (6.4-8.2) Albumin 0.8 g/dL (3.4-5.0) Albumin/Globulin Ratio 0.7 (1.0-1.7) O2 Saturation 96 % (92-99) Arterial Blood pH 6.85 (7.35-7.45) Arterial Blood pCO2 at Patient Temp 49 mmHg (35-46) Arterial Blood pO2 at Patient Temp 144 mmHg (75-108) Arterial Blood HCO3 8 mmol/L (21-28) Arterial Blood Base Excess -24 mmol/L (-3-3) FiO2 100 Test 05/19/20 08:15 Heparin Anti-Xa Act, Unfractionated < 0.10 IU/mL (0.30-0.70) Microbiology 05/08/20 Urine Culture - Final, Complete 05/06/20 Blood Culture - Final, Complete NO GROWTH AFTER 5 DAYS Medications Current Medications Acetaminophen (Tylenol) 650 mg 1X ONCE PO Last administered on 05/06/20at 03:54; Start 05/06/20 at 03:00; Stop 05/06/20 at 03:01; Status DC Sodium Chloride 1,000 ml @ 1,000 mls/hr 1X ONCE IV Last administered on 05/06/20at 03:53; Start 05/06/20 at 03:00; Stop 05/06/20 at 03:59; Status DC Ceftriaxone Sodium (Rocephin) 1 gm 1X ONCE IVP Last administered on 05/06/20at 03:54; Start 05/06/20 at 03:00; Stop 05/06/20 at 03:01; Status DC Azithromycin 250 ml @ 250 mls/hr 1X ONCE IV Last administered on 05/06/20at 03:00; Start 05/06/20 at 03:00; Stop 05/06/20 at 03:59; Status DC Hydralazine HCl (Apresoline) 25 mg PRN TID PRN PO for SBP greater than 180; Start 05/06/20 at 07:30 Enoxaparin Sodium (Lovenox Per Pharmacy Prophylaxis Dosing) 1 each PRN DAILY PRN MC SEE COMMENTS; Start 05/06/20 at 07:30; Stop 05/10/20 at 20:59; Status DC Ceftriaxone Sodium (Rocephin) 1 gm Q24H IVP Last administered on 05/17/20at 04:40; Start 05/07/20 at 04:00; Stop 05/17/20 at 15:12; Status DC Acetaminophen (Tylenol) 650 mg PRN Q6HRS PRN PO fever Last administered on 05/06/20at 15:51; Start 05/06/20 at 07:30 Azithromycin 500 mg/Sodium Chloride 250 ml @ 250 mls/hr Q24H IV Last administered on 05/17/20at 04:40; Start 05/07/20 at 04:00; Stop 05/17/20 at 15:12; Status DC Enoxaparin Sodium (Lovenox 60mg Syringe) 60 mg Q12HR SQ Last administered on 05/08/20at 08:16; Start 05/06/20 at 09:00; Stop 05/08/20 at 14:36; Status DC Nicotine (Nicoderm Cq 21mg) 1 patch PRN DAILY PRN TD SMOKING CESSATION; Start 05/06/20 at 08:30 Methylprednisolone Sodium Succinate (SOLU-Medrol 125MG VIAL) 60 mg Q8HRS IV Last administered on 05/13/20at 06:00; Start 05/06/20 at 14:00; Stop 05/13/20 at 09:37; Status DC Famotidine (Pepcid Vial) 20 mg BID IVP Last administered on 05/08/20at 08:15; Start 05/06/20 at 21:00; Stop 05/08/20 at 12:35; Status DC Sterile Water (WATER for RESP) 1,000 ml CONT PRN INH VIA VAPOTHERM DEVICE; Start 05/06/20 at 23:30; Stop 05/07/20 at 11:27; Status DC Fentanyl Citrate 30 ml @ 0 mls/hr CONT PRN IV SEE PROTOCOL Last administered on 05/15/20at 17:09; Start 05/07/20 at 00:30 Propofol 100 ml @ 0 mls/hr CONT PRN IV SEE PROTOCOL; Start 05/07/20 at 00:15 Chlorhexidine Gluconate (Peridex) 15 ml BID MM ; Start 05/07/20 at 09:00; Stop 05/07/20 at 07:33; Status DC Midazolam HCl 100 ml @ 0 mls/hr CONT PRN IV SEE PROTOCOL Last administered on 05/14/20at 19:15; Start 05/07/20 at 00:30 Succinylcholine Chloride (Anectine) 200 mg 1X ONCE IV Last administered on 05/07/20at 00:37; Start 05/07/20 at 00:45; Stop 05/07/20 at 00:46; Status DC Etomidate (Amidate) 20 mg STK-MED ONCE IV ; Start 05/07/20 at 00:57; Stop 05/07/20 at 00:57; Status DC Vecuronium [place] (Norcuron Bolus) 10 mg 1X ONCE IV ; Start 05/07/20 at 01:15; Stop 05/07/20 at 01:16; Status DC Norepinephrine Bitartrate 8 mg/ Dextrose 258 ml @ 19.756 mls/ hr CONT PRN IV PER PROTOCOL Last administered on 05/18/20at 21:11; Start 05/07/20 at 02:15; Stop 05/18/20 at 23:00; Status DC Succinylcholine Chloride (Anectine) 200 mg STK-MED ONCE .ROUTE ; Start 05/07/20 at 01:00; Stop 05/07/20 at 08:46; Status DC Non-Formulary Medication 1 ea/ Sodium Chloride 210 ml @ 420 mls/hr 1X ONCE IV Last administered on 05/07/20at 15:07; Start 05/07/20 at 15:00; Stop 05/07/20 at 15:29; Status DC Non-Formulary Medication 1 ea/ Sodium Chloride 230 ml @ 460 mls/hr Q24H IV Last administered on 05/16/20at 08:12; Start 05/08/20 at 09:00; Stop 05/16/20 at 09:29; Status DC Dextrose/Sodium Chloride 1,000 ml @ 75 mls/hr [id number] IV Last administered on 05/12/20at 02:33; Start 05/08/20 at 12:30; Stop 05/13/20 at 15:52; Status DC Famotidine (Pepcid Vial) 20 mg BID IVP Last administered on 05/18/20at 21:12; Start 05/08/20 at 21:00; Stop 05/19/20 at 02:54; Status DC Insulin Human Lispro (HumaLOG) 0-5 UNITS Q6HRS SQ Last administered on 05/18/20at 19:42; Start 05/08/20 at 18:00 Dextrose (Dextrose 50%-Water Syringe) 12.5 gm PRN Q15MIN PRN IV SEE COMMENTS; Start 05/08/20 at 12:45 Enoxaparin Sodium (Lovenox 40mg Syringe) 40 mg BID SQ Last administered on 05/10/20at 08:50; Start 05/08/20 at 21:00; Stop 05/10/20 at 20:59; Status DC Heparin Sodium (Porcine) (Heparin Sodium) 8,000 unit 1X ONCE IV Last administered on 05/10/20at 21:22; Start 05/10/20 at 21:00; Stop 05/10/20 at 21:02; Status DC Heparin Sodium/ Dextrose 250 ml @ 16 mls/hr CONT PRN IV PER PROTOCOL Last administered on 05/18/20at 11:13; Start 05/10/20 at 21:00 Heparin Sodium (Porcine) (Heparin Sodium) 3,000 unit PRN Q6HRS PRN IV FOR UFH LEVEL LESS THAN 0.2; Start 05/10/20 at 21:00 Heparin Sodium (Porcine) (Heparin Sodium) 1,500 unit PRN Q6HRS PRN IV FOR UFH LEVEL 0.2 - 0.29; Start 05/10/20 at 21:00 Erythromycin Lactobionate 125 mg/Sodium Chloride 100 ml @ 100 mls/hr Q6HRS IV ; Start 05/12/20 at 18:00; Stop 05/12/20 at 18:40; Status DC Erythromycin Lactobionate 125 mg/Sodium Chloride 100 ml @ 100 mls/hr Q6HRS IV ; Start 05/13/20 at 20:00; Stop 05/12/20 at 18:41; Status DC Erythromycin Lactobionate 125 mg/Sodium Chloride 100 ml @ 100 mls/hr Q6HRS IV Last administered on 05/13/20at 06:00; Start 05/12/20 at 19:30; Stop 05/13/20 at 09:41; Status DC Methylprednisolone Sodium Succinate (SOLU-Medrol 40MG VIAL) 40 mg Q8HRS IV Last administered on 05/17/20at 05:49; Start 05/13/20 at 09:45; Stop 05/17/20 at 14:45; Status DC Metoclopramide HCl (Reglan Vial) 10 mg QID IVP Last administered on 05/16/20at 08:06; Start 05/13/20 at 13:00; Stop 05/16/20 at 15:15; Status DC Sodium Chloride 1,000 ml @ 75 mls/hr [id number] IV Last administered on 05/18/20at 16:36; Start 7/5/20 at 16:00 Potassium Chloride (Klor-Con) 20 meq 1X ONCE PO ; Start 05/13/20 at 16:00; Stop 05/13/20 at 16:01; Status Cancel Insulin Glargine (Lantus Syringe) 12 unit 1X ONCE SQ Last administered on 05/13/20at 16:14; Start 05/13/20 at 16:30; Stop 05/13/20 at 16:31; Status DC Potassium Bicarbonate (Potassium Effervescent Tablet) 20 meq 1X ONCE PO Last administered on 05/13/20at 16:13; Start 05/13/20 at 16:30; Stop 05/13/20 at 16:31; Status DC Sodium Chloride 1,000 ml @ 1,000 mls/hr 1X ONCE IV Last administered on 05/14/20at 13:25; Start 05/14/20 at 13:30; Stop 05/14/20 at 14:29; Status DC Dexmedetomidine HCl 400 mcg/ Sodium Chloride 100 ml @ 0 mls/hr CONT PRN IV sed ation Last administered on 05/17/20at 00:14; Start 05/14/20 at 16:15 Sodium Chloride 500 ml @ 500 mls/hr 1X PRN PRN IV hypotention; Start 05/14/20 at 16:15 Atropine Sulfate (ATROPINE 0.5mg SYRINGE) 0.5 mg PRN Q5MIN PRN IV SEE COMMENTS; Start 05/14/20 at 16:15 Info (Anti-Coagulation Monitoring By Pharmacy) 1 each PRN DAILY PRN MC SEE COMMENTS Last administered on 05/18/20at 12:56; Start 05/16/20 at 07:45 Insulin Glargine (Lantus Syringe) 10 unit QHS SQ Last administered on 05/18/20at 21:14; Start 05/16/20 at 21:00 Metoclopramide HCl (Reglan Vial) 10 mg PRN QID PRN IVP nausea/abdominal pain Last administered on 05/16/20at 21:03; Start 05/16/20 at 15:15 Simethicone (Gas-X) 80 mg PRN AFTMEALHC PRN PO GAS / BLOATING; Start 05/16/20 at 15:15 Acetaminophen (Tylenol Supp) 650 mg PRN Q6HRS PRN UT MILD PAIN / TEMP > 100.3'F Last administered on 05/16/20at 23:24; Start 05/16/20 at 23:30 Artificial Tears (Artificial Tears) 1 drop PRN Q15MIN PRN OU DRY EYE; Start 05/17/20 at 07:45 Lactobacillus Rhamnosus (Culturelle) 1 cap BID PO ; Start 05/17/20 at 21:00; Status Cancel Methylprednisolone Sodium Succinate (SOLU-Medrol 40MG VIAL) 40 mg Q12HR IV Last administered on 05/19/20at 08:49; Start 05/17/20 at 21:00 Tramadol HCl (Ultram) 50 mg PRN Q6HRS PRN PO PAIN Last administered on 16:59; Start 05/17/20 at 15:45 Albumin Human 500 ml @ 125 mls/hr 1X ONCE IV Last administered on 05/18/20at 13:51; Start 05/18/20 at 12:45; Stop 05/18/20 at 16:44; Status DC Sodium Chloride 1,000 ml @ 1,000 mls/hr 1X ONCE IV Last administered on 05/18/20at 23:03; Start 05/18/20 at 23:00; Stop 05/18/20 at 23:59; Status DC Sodium Chloride 1,000 ml @ 1,000 mls/hr 1X ONCE IV Last administered on 05/18/20at 23:41; Start 05/18/20 at 23:00; Stop 05/18/20 at 23:59; Status DC Norepinephrine Bitartrate 32 mg/ Dextrose 250 ml @ 40 mls/hr CONT PRN IV PER PROTOCOL Last administered on 05/19/20at 05:19; Start 05/18/20 at 23:00 Vasopressin 20 unit/Dextrose 101 ml @ 12 mls/hr CONT PRN IV SEE I/O RECORD Last administered on 05/19/20at 07:36; Start 05/18/20 at 23:30 Ceftriaxone Sodium (Rocephin) 1 gm Q12HR IVP Last administered on 05/19/20at 08:49; Start 05/18/20 at 23:30 Pantoprazole Sodium 80 mg/ Sodium Chloride 100 ml @ 10 mls/hr Q10H IV Last administered on 05/19/20at 03:45; Start 05/19/20 at 03:00 Calcium Gluconate (Calcium Gluconate) 1,000 mg 1X ONCE IVP Last administered on 05/19/20at 04:57; Start 05/19/20 at 04:45; Stop 05/19/20 at 04:47; Status DC Sodium Bicarbonate (Sodium Bicarb Adult 8.4% Syr) 50 meq 1X ONCE IV Last administered on 05/19/20at 04:58; Start 05/19/20 at 04:45; Stop 05/19/20 at 04:47; Status DC Dextrose (Dextrose 50%-Water Syringe) 25 gm 1X ONCE IV Last administered on 05/19/20at 04:57; Start 05/19/20 at 04:45; Stop 05/19/20 at 04:47; Status DC Insulin Human Regular (HumuLIN R VIAL) 10 unit 1X ONCE IV Last administered on 05/19/20at 05:29; Start 05/19/20 at 04:45; Stop 05/19/20 at 04:47; Status DC Albumin Human 500 ml @ 125 mls/hr 1X ONCE IV ; Start 05/19/20 at 09:15; Stop 05/19/20 at 13:14 Vitals/I & O Vital Sign - Last 24 Hours 05/18/20 05/18/20 05/18/20 05/18/20 12:00 13:00 13:30 14:00 Temp 98.5 98.5 Pulse 90 122 126 104 Resp 22 31 39 26 B/P (MAP) 84/58 (67) 66/57 (60) 84/60 (68) 69/53 (58) Pulse Ox 90 94 90 87 O2 Delivery Nasal Cannula Nasal Cannula Nasal Cannula Nasal Cannula O2 Flow Rate 5.0 7.0 7.0 7.0 05/18/20 05/18/20 05/18/20 05/18/20 14:30 15:00 15:30 15:45 Pulse 106 110 102 110 Resp 25 31 28 29 B/P (MAP) 86/48 (61) 80/48 (59) 65/52 (56) 71/58 (62) Pulse Ox 98 96 99 99 O2 Delivery Nasal Cannula Nasal Cannula Nasal Cannula Nasal Cannula O2 Flow Rate 7.0 7.0 6.0 6.0 05/18/20 05/18/20 05/18/20 05/18/20 16:00 16:00 16:15 16:30 Temp 98.7 98.7 Pulse 106 102 92 Resp 35 37 29 B/P (MAP) 62/54 (57) 68/47 (54) 68/53 (58) Pulse Ox 99 97 99 O2 Delivery Nasal Cannula Nasal Cannula Nasal Cannula Nasal Cannula O2 Flow Rate 6.0 7.0 6.0 5.0 05/18/20 05/18/20 05/18/20 05/18/20 16:59 17:00 17:15 17:30 Pulse 110 74 98 Resp 36 35 35 B/P (MAP) 59/41 (47) 69/44 (52) 79/42 (54) Pulse Ox 100 98 99 93 O2 Delivery Nasal Cannula Nasal Cannula Nasal Cannula Nasal Cannula O2 Flow Rate 8.0 5.0 5.0 5.0 05/18/20 05/18/20 05/18/20 05/18/20 17:45 18:00 18:15 19:00 Pulse 112 132 116 114 Resp 35 40 39 33 B/P (MAP) 64/35 (45) 171/59 (96) 108/94 (99) Pulse Ox 97 94 94 94 O2 Delivery Nasal Cannula Nasal Cannula Nasal Cannula Nasal Cannula O2 Flow Rate 5.0 5.0 4.0 4.0 05/18/20 05/18/20 05/18/20 05/18/20 19:30 19:33 19:45 19:55 Pulse 94 Resp 39 B/P (MAP) 81/46 (58) 59/49 (52) 75/55 (62) Pulse Ox 94 94 O2 Delivery Nasal Cannula Nasal Cannula O2 Flow Rate 4.0 4.0 05/18/20 05/18/20 05/18/20 05/18/20 20:00 20:00 20:15 20:30 Temp 97.9 97.9 Pulse 98 100 112 Resp 33 33 43 B/P (MAP) 81/63 (69) 80/55 (63) 91/56 (68) Pulse Ox 94 95 84 O2 Delivery Nasal Cannula Nasal Cannula Nasal Cannula Nasal Cannula O2 Flow Rate 5.0 4.0 4.0 4.0 05/18/20 05/18/20 05/18/20 05/18/20 20:45 21:00 21:15 21:30 Pulse 112 122 118 136 Resp 43 43 37 37 B/P (MAP) 54/25 (35) Pulse Ox 89 89 89 89 O2 Delivery Nasal Cannula Nasal Cannula Nasal Cannula Nasal Cannula O2 Flow Rate 4.0 4.0 4.0 4.0 05/18/20 05/18/20 05/18/20 05/18/20 21:45 23:30 23:45 23:59 Pulse 144 134 110 0 Resp 37 37 34 B/P (MAP) 54/25 (35) Pulse Ox 89 96 97 97 O2 Delivery Nasal Cannula Nasal Cannula Nasal Cannula Nasal Cannula O2 Flow Rate 4.0 4.0 4.0 4.0 05/19/20 05/19/20 05/19/20 05/19/20 00:30 01:00 01:15 01:30 Pulse 108 104 104 B/P (MAP) 82/70 (74) 85/63 (70) Pulse Ox 99 98 98 99 O2 Delivery Ventilator Ventilator Ventilator Ventilator 05/19/20 05/19/20 05/19/20 05/19/20 01:45 02:00 03:00 03:00 Pulse 106 108 114 B/P (MAP) Pulse Ox 100 100 74 99 O2 Delivery Ventilator Ventilator Ventilator Ventilator 05/19/20 05/19/20 05/19/20 05/19/20 04:00 04:00 04:20 05:00 Temp 93.3 94.0 93.3 94.0 Pulse 100 88 92 Resp 26 B/P (MAP) Pulse Ox 99 98 O2 Delivery Ventilator Mechanical Ventilator Ventilator 05/19/20 05/19/20 05/19/20 05/19/20 06:00 07:00 07:50 08:00 Pulse 92 95 Resp 27 B/P (MAP) 101/65 (77) Pulse Ox 100 100 99 O2 Delivery Ventilator Ventilator Ventilator Mechanical Ventilator 05/19/20 08:00 Temp 95.7 95.7 Pulse 88 Resp 25 B/P (MAP) Pulse Ox 100 O2 Delivery Ventilator Intake and Output 05/18/20 05/18/20 05/19/20 15:00 23:00 07:00 Intake Total 600 ml 600 ml 4257.4 ml Output Total 550 ml 0 ml 400 ml Balance 50 ml 600 ml 3857.4 ml Justicifation of Admission Dx: Justifications for Admission: Justification of Admission Dx: Yes Comminuty Aquired Pneumonia: Hypoxemia MINH URBAN MD May 19, 2020 09:44
--- NOTE | 2020-05-19 09:45 | NUR ---
PLANNING AND ANALYSIS MANAGER, RT were at bedside for placement of arterial line when doppler indicated no pluses noted in femoral, radial, carotid arteries, CPR initiated, Code called. Dr. Crane responded. Achieved ROSC at 0958.
[2020-05-19 09:46] LABS: PROTHROMBIN TIME PATIENT 79.3 SEC (11.7-14.0)
[2020-05-19 09:47] LABS: BASO # 0.1 x10^3/uL (0.0-0.2); BASO % 0 % (0-3); EOS # 0.1 x10^3/uL (0.0-0.7); EOS % 0 % (0-3); HEMATOCRIT 33.7 % (39.0-53.0); HEMOGLOBIN 10.6 g/dL (13.0-17.5); LYMPH # 3.7 x10^3/uL (1.0-4.8); LYMPH % 6 % (24-48); MEAN CORPUSCULAR HEMOGLOBIN 30 pg (25-35); MEAN CORPUSCULAR HGB CONC 31 g/dL (31-37); MEAN CORPUSCULAR VOLUME 96 fL (79-100); MONO # 2.1 x10^3/uL (0.0-1.1); MONO % 3 % (0-9); NEUT # 57.8 x10^3/uL (1.8-7.7); NEUT % 91 % (31-73); PLATELET COUNT 197 x10^3/uL (140-400); RED BLOOD COUNT 3.51 x10^6/uL (4.30-5.70); RED CELL DISTRIBUTION WIDTH 14.7 % (11.5-14.5)
[2020-05-19 09:56] LABS: WHITE BLOOD COUNT 63.9 x10^3/uL (4.0-11.0)
[2020-05-19 10:07] LABS: ALBUMIN 1.1 g/dL (3.4-5.0); ALBUMIN/GLOBULIN RATIO 0.5 (1.0-1.7); GFR 22.7; TOTAL BILIRUBIN 1.6 mg/dL (0.2-1.0); TOTAL PROTEIN 3.2 g/dL (6.4-8.2)
--- NOTE | 2020-05-19 10:30 | NUR ---
Patient was being monitored by doppler for loss of pulse, continued to try to obtain BP via arterial line or NIBP without success, again patient was pulseless, CPR started again. Rivka Gallardo from and myself participated within the room with GISSELL Lucio charting and handing medications from outside the room. Family was called to bedside. Discussions were had with brother Anthony, who in turn called family in [place]. Final decision was to make Jaleel DNR. Patient is resting comfortably at this time with a pulse, still unable to obtain a BP via NIBP, Artline.
[2020-05-19 10:58] LABS: CALCIUM 5.9 mg/dL (8.5-10.1)
[2020-05-19] MEDS ORDERED: EPINEPHrine 1 MG/ML VIAL ONE (11:06)
[2020-05-19 11:30] VITALS: BP 46/28
--- NOTE | 2020-05-19 11:52 | PDOC2 ---
GI CONSULT Reason For Consult: Acute anemia HPI: HPI: 45 y/o male originally admitted with coronavirus illness. Developed ARF and intubated. Received convalescent plasma and antiviral and seemed to be improving and was extubated. Yesterday afternoon developed hypotension; recheck of hemoglobin showed level of 4, down from 13 earlier. Staff noted no overt GI bleeding. Had been receiving heparin drip empirically for elevated d-dimer; did not have imaging due to the COVID infection. Last evening had arrest and re- intubated. Currently no brainstem reflexes and comatose. No apparent prior GI issues. Today multiple hematologic, coagulation and biochemical abnormalities. PMH: PMH: Prior knee arthroscopy, otherwise negative per chart. FH: Family History: Other (Unavailable) Social History: Smoke: Quit ALCOHOL: none Drugs: None ROS: Unobtainable. Vitals: Vitals: Vital Signs Date Time Temp Pulse Resp B/P (MAP) Pulse Ox O2 Delivery O2 Flow Rate FiO2 05/19/20 08:00 95.7 88 25 100 Ventilator 95.7 05/18/20 23:59 4.0 Labs: Labs: Laboratory Tests Test 05/18/20 12:27 05/18/20 13:00 05/18/20 19:00 05/18/20 23:20 Glucose (Fingerstick) 201 mg/dL (70-99) Lactic Acid Level 3.4 mmol/L (0.4-2.0) 3.9 mmol/L (0.4-2.0) 15.6 mmol/L (0.4-2.0) Ammonia 29 mcmol/L (11-34) White Blood Count 38.5 x10^3/uL (4.0-11.0) Red Blood Count 1.69 x10^6/uL (4.30-5.70) Hemoglobin 4.9 g/dL (13.0-17.5) Hematocrit 15.8 % (39.0-53.0) Mean Corpuscular Volume 93 fL (79-100) Mean Corpuscular Hemoglobin 29 pg (25-35) Mean Corpuscular Hemoglobin Concent 31 g/dL (31-37) Red Cell Distribution Width 14.5 % (11.5-14.5) Platelet Count 241 x10^3/uL (140-400) Neutrophils (%) (Auto) 89 % (31-73) Lymphocytes (%) (Auto) 4 % (24-48) Monocytes (%) (Auto) 7 % (0-9) Eosinophils (%) (Auto) 0 % (0-3) Basophils (%) (Auto) 0 % (0-3) Neutrophils # (Auto) 34.1 x10^3/uL (1.8-7.7) Lymphocytes # (Auto) 1.6 x10^3/uL (1.0-4.8) Monocytes # (Auto) 2.7 x10^3/uL (0.0-1.1) Eosinophils # (Auto) 0.0 x10^3/uL (0.0-0.7) Basophils # (Auto) 0.0 x10^3/uL (0.0-0.2) Sodium Level 142 mmol/L (136-145) Potassium Level 4.8 mmol/L (3.5-5.1) Chloride Level 108 mmol/L (98-107) Carbon Dioxide Level 11 mmol/L (21-32) Anion Gap 23 (6-14) Blood Urea Nitrogen 34 mg/dL (8-26) Creatinine 2.2 mg/dL (0.7-1.3) Estimated GFR (Cockcroft-Gault) 32.5 Glucose Level 287 mg/dL (70-99) Calcium Level 6.1 mg/dL (8.5-10.1) Test 05/18/20 23:59 05/19/20 00:50 05/19/20 02:29 05/19/20 06:17 Glucose (Fingerstick) 217 mg/dL (70-99) 154 mg/dL (70-99) White Blood Count 36.6 x10^3/uL (4.0-11.0) Red Blood Count 2.09 x10^6/uL (4.30-5.70) Hemoglobin 6.2 g/dL (13.0-17.5) Hematocrit 20.4 % (39.0-53.0) Mean Corpuscular Volume 98 fL (79-100) Mean Corpuscular Hemoglobin 30 pg (25-35) Mean Corpuscular Hemoglobin Concent 30 g/dL (31-37) Red Cell Distribution Width 15.1 % (11.5-14.5) Platelet Count 169 x10^3/uL (140-400) Neutrophils (%) (Auto) 86 % (31-73) Lymphocytes (%) (Auto) 7 % (24-48) Monocytes (%) (Auto) 7 % (0-9) Eosinophils (%) (Auto) 0 % (0-3) Basophils (%) (Auto) 0 % (0-3) Neutrophils # (Auto) 31.3 x10^3/uL (1.8-7.7) Lymphocytes # (Auto) 2.5 x10^3/uL (1.0-4.8) Monocytes # (Auto) 2.6 x10^3/uL (0.0-1.1) Eosinophils # (Auto) 0.1 x10^3/uL (0.0-0.7) Basophils # (Auto) 0.1 x10^3/uL (0.0-0.2) Heparin Anti-Xa Act, Unfractionated 0.15 IU/mL (0.30-0.70) Sodium Level 147 mmol/L (136-145) Potassium Level 5.7 mmol/L (3.5-5.1) Chloride Level 110 mmol/L (98-107) Carbon Dioxide Level 12 mmol/L (21-32) Anion Gap 25 (6-14) Blood Urea Nitrogen 33 mg/dL (8-26) Creatinine 2.3 mg/dL (0.7-1.3) Estimated GFR (Cockcroft-Gault) 30.9 BUN/Creatinine Ratio 14 (6-20) Glucose Level 296 mg/dL (70-99) Calcium Level 5.9 mg/dL (8.5-10.1) Total Bilirubin 0.6 mg/dL (0.2-1.0) Aspartate Amino Transf (AST/SGOT) 1562 U/L (15-37) Alanine Aminotransferase (ALT/SGPT) 1560 U/L (16-63) Alkaline Phosphatase 48 U/L (46-116) Total Protein 2.0 g/dL (6.4-8.2) Albumin 0.8 g/dL (3.4-5.0) Albumin/Globulin Ratio 0.7 (1.0-1.7) O2 Saturation 96 % (92-99) Arterial Blood pH 6.85 (7.35-7.45) Arterial Blood pCO2 at Patient Temp 49 mmHg (35-46) Arterial Blood pO2 at Patient Temp 144 mmHg (75-108) Arterial Blood HCO3 8 mmol/L (21-28) Arterial Blood Base Excess -24 mmol/L (-3-3) FiO2 100 Test 05/19/20 08:15 05/19/20 09:20 White Blood Count 63.9 x10^3/uL (4.0-11.0) Red Blood Count 3.51 x10^6/uL (4.30-5.70) Hemoglobin 10.6 g/dL (13.0-17.5) Hematocrit 33.7 % (39.0-53.0) Mean Corpuscular Volume 96 fL (79-100) Mean Corpuscular Hemoglobin 30 pg (25-35) Mean Corpuscular Hemoglobin Concent 31 g/dL (31-37) Red Cell Distribution Width 14.7 % (11.5-14.5) Platelet Count 197 x10^3/uL (140-400) Neutrophils (%) (Auto) 91 % (31-73) Lymphocytes (%) (Auto) 6 % (24-48) Monocytes (%) (Auto) 3 % (0-9) Eosinophils (%) (Auto) 0 % (0-3) Basophils (%) (Auto) 0 % (0-3) Neutrophils # (Auto) 57.8 x10^3/uL (1.8-7.7) Lymphocytes # (Auto) 3.7 x10^3/uL (1.0-4.8) Monocytes # (Auto) 2.1 x10^3/uL (0.0-1.1) Eosinophils # (Auto) 0.1 x10^3/uL (0.0-0.7) Basophils # (Auto) 0.1 x10^3/uL (0.0-0.2) Prothrombin Time 79.3 SEC (11.7-14.0) Prothromb Time International Ratio 9.4 (0.8-1.1) Activated Partial Thromboplast Time 101 SEC (24-38) Heparin Anti-Xa Act, Unfractionated < 0.10 IU/mL (0.30-0.70) Sodium Level 144 mmol/L (136-145) Potassium Level 6.0 mmol/L (3.5-5.1) Chloride Level 109 mmol/L (98-107) Carbon Dioxide Level 14 mmol/L (21-32) Anion Gap 21 (6-14) Blood Urea Nitrogen 35 mg/dL (8-26) Creatinine 3.0 mg/dL (0.7-1.3) Estimated GFR (Cockcroft-Gault) 22.7 BUN/Creatinine Ratio 12 (6-20) Glucose Level 137 mg/dL (70-99) Calcium Level 5.9 mg/dL (8.5-10.1) Total Bilirubin 1.6 mg/dL (0.2-1.0) Aspartate Amino Transf (AST/SGOT) 96696 U/L (15-37) Alanine Aminotransferase (ALT/SGPT) 20767 U/L (16-63) Alkaline Phosphatase 148 U/L (46-116) Lactate Dehydrogenase 18380 U/L (85-227) Total Protein 3.2 g/dL (6.4-8.2) Albumin 1.1 g/dL (3.4-5.0) Albumin/Globulin Ratio 0.5 (1.0-1.7) O2 Saturation 89 % (92-99) Arterial Blood pH 6.79 (7.35-7.45) Arterial Blood pH (Temp corrected) 6.80 Arterial Blood pCO2 at Patient Temp 41 mmHg (35-46) Arterial Blood pCO2 (Temp correct) 39 mmHg Arterial Blood pO2 at Patient Temp 88 mmHg (75-108) Arterial Blood pO2 (Temp corrected) 82 mmHg Arterial Blood HCO3 6 mmol/L (21-28) Arterial Blood Base Excess -28 mmol/L (-3-3) INR way out. Platelets lower but still normal. Hemoglobin up after transfusion. Marked leukocytosis. LFT's markedly up (normal to minimally elevated before). Allergies: Coded Allergies: No Known Drug Allergies (Unverified , 05/06/20) Medications: Current Medications Medications (Trade) Dose Ordered Sig/Shira Route PRN Reason Start Time Stop Time Status Last Admin Dose Admin Albumin Human 500 ml @ 125 mls/hr 1X ONCE IV 05/18/20 12:45 05/18/20 16:44 DC 05/18/20 13:51 Sodium Chloride 1,000 ml @ 1,000 mls/hr 1X ONCE IV 05/18/20 23:00 05/18/20 23:59 DC 05/18/20 23:03 Sodium Chloride 1,000 ml @ 1,000 mls/hr 1X ONCE IV 05/18/20 23:00 05/18/20 23:59 DC 05/18/20 23:41 Norepinephrine Bitartrate 32 mg/ Dextrose 250 ml @ 40 mls/hr CONT PRN IV PER PROTOCOL 05/18/20 23:00 05/19/20 05:19 Vasopressin 20 unit/Dextrose 101 ml @ 12 mls/hr CONT PRN IV SEE I/O RECORD 05/18/20 23:30 05/19/20 07:36 Ceftriaxone Sodium (Rocephin) 1 gm Q12HR IVP 05/18/20 23:30 05/19/20 08:49 Pantoprazole Sodium 80 mg/ Sodium Chloride 100 ml @ 10 mls/hr Q10H IV 05/19/20 03:00 05/19/20 03:45 Calcium Gluconate (Calcium Gluconate) 1,000 mg 1X ONCE IVP 05/19/20 04:45 05/19/20 04:47 DC 05/19/20 04:57 Sodium Bicarbonate (Sodium Bicarb Adult 8.4% Syr) 50 meq 1X ONCE IV 05/19/20 04:45 05/19/20 04:47 DC 05/19/20 04:58 Dextrose (Dextrose 50%-Water Syringe) 25 gm 1X ONCE IV 05/19/20 04:45 05/19/20 04:47 DC 05/19/20 04:57 Insulin Human Regular (HumuLIN R VIAL) 10 unit 1X ONCE IV 05/19/20 04:45 05/19/20 04:47 DC 05/19/20 05:29 Imaging: Imaging: Chest/abdomen films reviewed. PE: GEN: Obtunded on ventilator. HEENT: Intubated. OG tube with thin red drainage. LUNGS: Coarse HEART: RRR, no murmurs ABD: Distended. SKIN: No rashes, no jaundice NEURO/PSYCH: Unresponsive. A/P: A/P: IMP: Acute drop in hemoglobin w/o overt bleeding in patient on anticoagulation. Would be concerned re: compartmental bleeding (retroperitoneal, psoas, rarely intraperitoneal bleeding). 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 Recovery questionable. What blood in OG not sufficient to be source of acute massive hemoglobin drop and no melena, hematocheza with normal stools yesterday. Also has been on GI prophylaxis since admit. Shock liver, lactic acidosis post arrest. Could have developed DIC after code. REC: Continue support, PPI, holding heparin. Hopefully will recover. Consider CT A/P if/when able. Consider checking fibrinogen level, but probably academic. ALLA DONATO MD May 19, 2020 11:52
[2020-05-19] MEDS ORDERED: CALCIUM CHLORIDE 1,000 MG/10 ML DISP.SYRIN ONE (12:00)
[2020-05-19] MEDS ORDERED: ATROPINE 0.5 MG/5 ML DISP.SYRINGE. ONE (12:00)
--- NOTE | 2020-05-19 12:17 | PDOC ---
PULMONARY PROGRESS NOTES Subjective on vent, on epi, vaso, levo, coded multiple times, hb 4.5, s/p prbc, Vitals Vital Signs Date Time Temp Pulse Resp B/P (MAP) Pulse Ox O2 Delivery O2 Flow Rate FiO2 05/19/20 12:13 Ventilator 05/19/20 08:00 95.7 88 25 100 95.7 05/18/20 23:59 4.0 Comments on vent no response Lungs: Crackles Cardiovascular: S1, S2 Abdomen: Soft, Other (distended) Extremities: No Edema Skin: Warm Labs Laboratory Tests Test 05/17/20 17:38 05/17/20 20:33 05/17/20 23:57 05/18/20 05:10 Glucose (Fingerstick) 175 mg/dL (70-99) 164 mg/dL (70-99) 151 mg/dL (70-99) White Blood Count 23.9 x10^3/uL (4.0-11.0) Red Blood Count 4.53 x10^6/uL (4.30-5.70) Hemoglobin 13.2 g/dL (13.0-17.5) Hematocrit 40.1 % (39.0-53.0) Mean Corpuscular Volume 89 fL (79-100) Mean Corpuscular Hemoglobin 29 pg (25-35) Mean Corpuscular Hemoglobin Concent 33 g/dL (31-37) Red Cell Distribution Width 14.1 % (11.5-14.5) Platelet Count 423 x10^3/uL (140-400) Neutrophils (%) (Auto) 90 % (31-73) Lymphocytes (%) (Auto) 3 % (24-48) Monocytes (%) (Auto) 6 % (0-9) Eosinophils (%) (Auto) 0 % (0-3) Basophils (%) (Auto) 0 % (0-3) Neutrophils # (Auto) 21.6 x10^3/uL (1.8-7.7) Lymphocytes # (Auto) 0.7 x10^3/uL (1.0-4.8) Monocytes # (Auto) 1.5 x10^3/uL (0.0-1.1) Eosinophils # (Auto) 0.0 x10^3/uL (0.0-0.7) Basophils # (Auto) 0.1 x10^3/uL (0.0-0.2) Segmented Neutrophils % 94 % (35-66) Band Neutrophils % 1 % (0-9) Lymphocytes % 1 % (24-48) Monocytes % 4 % (0-10) Platelet Estimate Adequate (ADEQUATE) Heparin Anti-Xa Act, Unfractionated 0.70 IU/mL (0.30-0.70) Sodium Level 141 mmol/L (136-145) Potassium Level 3.9 mmol/L (3.5-5.1) Chloride Level 105 mmol/L (98-107) Carbon Dioxide Level 32 mmol/L (21-32) Anion Gap 4 (6-14) Blood Urea Nitrogen 20 mg/dL (8-26) Creatinine 0.8 mg/dL (0.7-1.3) Estimated GFR (Cockcroft-Gault) 104.5 BUN/Creatinine Ratio 25 (6-20) Glucose Level 179 mg/dL (70-99) Calcium Level 7.5 mg/dL (8.5-10.1) Total Bilirubin 0.9 mg/dL (0.2-1.0) Aspartate Amino Transf (AST/SGOT) 56 U/L (15-37) Alanine Aminotransferase (ALT/SGPT) 119 U/L (16-63) Alkaline Phosphatase 61 U/L (46-116) Lactate Dehydrogenase 293 U/L (85-227) Total Protein 4.7 g/dL (6.4-8.2) Albumin 1.8 g/dL (3.4-5.0) Albumin/Globulin Ratio 0.6 (1.0-1.7) Test 05/18/20 05:38 05/18/20 12:27 05/18/20 13:00 05/18/20 19:00 Glucose (Fingerstick) 166 mg/dL (70-99) 201 mg/dL (70-99) Lactic Acid Level 3.4 mmol/L (0.4-2.0) 3.9 mmol/L (0.4-2.0) Ammonia 29 mcmol/L (11-34) Test 05/18/20 23:20 05/18/20 23:59 05/19/20 00:50 05/19/20 02:29 White Blood Count 38.5 x10^3/uL (4.0-11.0) 36.6 x10^3/uL (4.0-11.0) Red Blood Count 1.69 x10^6/uL (4.30-5.70) 2.09 x10^6/uL (4.30-5.70) Hemoglobin 4.9 g/dL (13.0-17.5) 6.2 g/dL (13.0-17.5) Hematocrit 15.8 % (39.0-53.0) 20.4 % (39.0-53.0) Mean Corpuscular Volume 93 fL (79-100) 98 fL (79-100) Mean Corpuscular Hemoglobin 29 pg (25-35) 30 pg (25-35) Mean Corpuscular Hemoglobin Concent 31 g/dL (31-37) 30 g/dL (31-37) Red Cell Distribution Width 14.5 % (11.5-14.5) 15.1 % (11.5-14.5) Platelet Count 241 x10^3/uL (140-400) 169 x10^3/uL (140-400) Neutrophils (%) (Auto) 89 % (31-73) 86 % (31-73) Lymphocytes (%) (Auto) 4 % (24-48) 7 % (24-48) Monocytes (%) (Auto) 7 % (0-9) 7 % (0-9) Eosinophils (%) (Auto) 0 % (0-3) 0 % (0-3) Basophils (%) (Auto) 0 % (0-3) 0 % (0-3) Neutrophils # (Auto) 34.1 x10^3/uL (1.8-7.7) 31.3 x10^3/uL (1.8-7.7) Lymphocytes # (Auto) 1.6 x10^3/uL (1.0-4.8) 2.5 x10^3/uL (1.0-4.8) Monocytes # (Auto) 2.7 x10^3/uL (0.0-1.1) 2.6 x10^3/uL (0.0-1.1) Eosinophils # (Auto) 0.0 x10^3/uL (0.0-0.7) 0.1 x10^3/uL (0.0-0.7) Basophils # (Auto) 0.0 x10^3/uL (0.0-0.2) 0.1 x10^3/uL (0.0-0.2) Sodium Level 142 mmol/L (136-145) 147 mmol/L (136-145) Potassium Level 4.8 mmol/L (3.5-5.1) 5.7 mmol/L (3.5-5.1) Chloride Level 108 mmol/L (98-107) 110 mmol/L (98-107) Carbon Dioxide Level 11 mmol/L (21-32) 12 mmol/L (21-32) Anion Gap 23 (6-14) 25 (6-14) Blood Urea Nitrogen 34 mg/dL (8-26) 33 mg/dL (8-26) Creatinine 2.2 mg/dL (0.7-1.3) 2.3 mg/dL (0.7-1.3) Estimated GFR (Cockcroft-Gault) 32.5 30.9 Glucose Level 287 mg/dL (70-99) 296 mg/dL (70-99) Lactic Acid Level 15.6 mmol/L (0.4-2.0) Calcium Level 6.1 mg/dL (8.5-10.1) 5.9 mg/dL (8.5-10.1) Glucose (Fingerstick) 217 mg/dL (70-99) Heparin Anti-Xa Act, Unfractionated 0.15 IU/mL (0.30-0.70) BUN/Creatinine Ratio 14 (6-20) Total Bilirubin 0.6 mg/dL (0.2-1.0) Aspartate Amino Transf (AST/SGOT) 1562 U/L (15-37) Alanine Aminotransferase (ALT/SGPT) 1560 U/L (16-63) Alkaline Phosphatase 48 U/L (46-116) Total Protein 2.0 g/dL (6.4-8.2) Albumin 0.8 g/dL (3.4-5.0) Albumin/Globulin Ratio 0.7 (1.0-1.7) O2 Saturation 96 % (92-99) Arterial Blood pH 6.85 (7.35-7.45) Arterial Blood pCO2 at Patient Temp 49 mmHg (35-46) Arterial Blood pO2 at Patient Temp 144 mmHg (75-108) Arterial Blood HCO3 8 mmol/L (21-28) Arterial Blood Base Excess -24 mmol/L (-3-3) FiO2 100 Test 05/19/20 06:17 05/19/20 08:15 05/19/20 09:20 Glucose (Fingerstick) 154 mg/dL (70-99) White Blood Count 63.9 x10^3/uL (4.0-11.0) Red Blood Count 3.51 x10^6/uL (4.30-5.70) Hemoglobin 10.6 g/dL (13.0-17.5) Hematocrit 33.7 % (39.0-53.0) Mean Corpuscular Volume 96 fL (79-100) Mean Corpuscular Hemoglobin 30 pg (25-35) Mean Corpuscular Hemoglobin Concent 31 g/dL (31-37) Red Cell Distribution Width 14.7 % (11.5-14.5) Platelet Count 197 x10^3/uL (140-400) Neutrophils (%) (Auto) 91 % (31-73) Lymphocytes (%) (Auto) 6 % (24-48) Monocytes (%) (Auto) 3 % (0-9) Eosinophils (%) (Auto) 0 % (0-3) Basophils (%) (Auto) 0 % (0-3) Neutrophils # (Auto) 57.8 x10^3/uL (1.8-7.7) Lymphocytes # (Auto) 3.7 x10^3/uL (1.0-4.8) Monocytes # (Auto) 2.1 x10^3/uL (0.0-1.1) Eosinophils # (Auto) 0.1 x10^3/uL (0.0-0.7) Basophils # (Auto) 0.1 x10^3/uL (0.0-0.2) Prothrombin Time 79.3 SEC (11.7-14.0) Prothromb Time International Ratio 9.4 (0.8-1.1) Activated Partial Thromboplast Time 101 SEC (24-38) Heparin Anti-Xa Act, Unfractionated < 0.10 IU/mL (0.30-0.70) Sodium Level 144 mmol/L (136-145) Potassium Level 6.0 mmol/L (3.5-5.1) Chloride Level 109 mmol/L (98-107) Carbon Dioxide Level 14 mmol/L (21-32) Anion Gap 21 (6-14) Blood Urea Nitrogen 35 mg/dL (8-26) Creatinine 3.0 mg/dL (0.7-1.3) Estimated GFR (Cockcroft-Gault) 22.7 BUN/Creatinine Ratio 12 (6-20) Glucose Level 137 mg/dL (70-99) Calcium Level 5.9 mg/dL (8.5-10.1) Total Bilirubin 1.6 mg/dL (0.2-1.0) Aspartate Amino Transf (AST/SGOT) 50131 U/L (15-37) Alanine Aminotransferase (ALT/SGPT) 96291 U/L (16-63) Alkaline Phosphatase 148 U/L (46-116) Lactate Dehydrogenase 88841 U/L (85-227) Total Protein 3.2 g/dL (6.4-8.2) Albumin 1.1 g/dL (3.4-5.0) Albumin/Globulin Ratio 0.5 (1.0-1.7) O2 Saturation 89 % (92-99) Arterial Blood pH 6.79 (7.35-7.45) Arterial Blood pH (Temp corrected) 6.80 Arterial Blood pCO2 at Patient Temp 41 mmHg (35-46) Arterial Blood pCO2 (Temp correct) 39 mmHg Arterial Blood pO2 at Patient Temp 88 mmHg (75-108) Arterial Blood pO2 (Temp corrected) 82 mmHg Arterial Blood HCO3 6 mmol/L (21-28) Arterial Blood Base Excess -28 mmol/L (-3-3) Laboratory Tests Test 05/18/20 12:27 05/18/20 13:00 05/18/20 19:00 05/18/20 23:20 Glucose (Fingerstick) 201 mg/dL (70-99) Lactic Acid Level 3.4 mmol/L (0.4-2.0) 3.9 mmol/L (0.4-2.0) 15.6 mmol/L (0.4-2.0) Ammonia 29 mcmol/L (11-34) White Blood Count 38.5 x10^3/uL (4.0-11.0) Red Blood Count 1.69 x10^6/uL (4.30-5.70) Hemoglobin 4.9 g/dL (13.0-17.5) Hematocrit 15.8 % (39.0-53.0) Mean Corpuscular Volume 93 fL (79-100) Mean Corpuscular Hemoglobin 29 pg (25-35) Mean Corpuscular Hemoglobin Concent 31 g/dL (31-37) Red Cell Distribution Width 14.5 % (11.5-14.5) Platelet Count 241 x10^3/uL (140-400) Neutrophils (%) (Auto) 89 % (31-73) Lymphocytes (%) (Auto) 4 % (24-48) Monocytes (%) (Auto) 7 % (0-9) Eosinophils (%) (Auto) 0 % (0-3) Basophils (%) (Auto) 0 % (0-3) Neutrophils # (Auto) 34.1 x10^3/uL (1.8-7.7) Lymphocytes # (Auto) 1.6 x10^3/uL (1.0-4.8) Monocytes # (Auto) 2.7 x10^3/uL (0.0-1.1) Eosinophils # (Auto) 0.0 x10^3/uL (0.0-0.7) Basophils # (Auto) 0.0 x10^3/uL (0.0-0.2) Sodium Level 142 mmol/L (136-145) Potassium Level 4.8 mmol/L (3.5-5.1) Chloride Level 108 mmol/L (98-107) Carbon Dioxide Level 11 mmol/L (21-32) Anion Gap 23 (6-14) Blood Urea Nitrogen 34 mg/dL (8-26) Creatinine 2.2 mg/dL (0.7-1.3) Estimated GFR (Cockcroft-Gault) 32.5 Glucose Level 287 mg/dL (70-99) Calcium Level 6.1 mg/dL (8.5-10.1) Test 05/18/20 23:59 05/19/20 00:50 05/19/20 02:29 05/19/20 06:17 Glucose (Fingerstick) 217 mg/dL (70-99) 154 mg/dL (70-99) White Blood Count 36.6 x10^3/uL (4.0-11.0) Red Blood Count 2.09 x10^6/uL (4.30-5.70) Hemoglobin 6.2 g/dL (13.0-17.5) Hematocrit 20.4 % (39.0-53.0) Mean Corpuscular Volume 98 fL (79-100) Mean Corpuscular Hemoglobin 30 pg (25-35) Mean Corpuscular Hemoglobin Concent 30 g/dL (31-37) Red Cell Distribution Width 15.1 % (11.5-14.5) Platelet Count 169 x10^3/uL (140-400) Neutrophils (%) (Auto) 86 % (31-73) Lymphocytes (%) (Auto) 7 % (24-48) Monocytes (%) (Auto) 7 % (0-9) Eosinophils (%) (Auto) 0 % (0-3) Basophils (%) (Auto) 0 % (0-3) Neutrophils # (Auto) 31.3 x10^3/uL (1.8-7.7) Lymphocytes # (Auto) 2.5 x10^3/uL (1.0-4.8) Monocytes # (Auto) 2.6 x10^3/uL (0.0-1.1) Eosinophils # (Auto) 0.1 x10^3/uL (0.0-0.7) Basophils # (Auto) 0.1 x10^3/uL (0.0-0.2) Heparin Anti-Xa Act, Unfractionated 0.15 IU/mL (0.30-0.70) Sodium Level 147 mmol/L (136-145) Potassium Level 5.7 mmol/L (3.5-5.1) Chloride Level 110 mmol/L (98-107) Carbon Dioxide Level 12 mmol/L (21-32) Anion Gap 25 (6-14) Blood Urea Nitrogen 33 mg/dL (8-26) Creatinine 2.3 mg/dL (0.7-1.3) Estimated GFR (Cockcroft-Gault) 30.9 BUN/Creatinine Ratio 14 (6-20) Glucose Level 296 mg/dL (70-99) Calcium Level 5.9 mg/dL (8.5-10.1) Total Bilirubin 0.6 mg/dL (0.2-1.0) Aspartate Amino Transf (AST/SGOT) 1562 U/L (15-37) Alanine Aminotransferase (ALT/SGPT) 1560 U/L (16-63) Alkaline Phosphatase 48 U/L (46-116) Total Protein 2.0 g/dL (6.4-8.2) Albumin 0.8 g/dL (3.4-5.0) Albumin/Globulin Ratio 0.7 (1.0-1.7) O2 Saturation 96 % (92-99) Arterial Blood pH 6.85 (7.35-7.45) Arterial Blood pCO2 at Patient Temp 49 mmHg (35-46) Arterial Blood pO2 at Patient Temp 144 mmHg (75-108) Arterial Blood HCO3 8 mmol/L (21-28) Arterial Blood Base Excess -24 mmol/L (-3-3) FiO2 100 Test 05/19/20 08:15 05/19/20 09:20 White Blood Count 63.9 x10^3/uL (4.0-11.0) Red Blood Count 3.51 x10^6/uL (4.30-5.70) Hemoglobin 10.6 g/dL (13.0-17.5) Hematocrit 33.7 % (39.0-53.0) Mean Corpuscular Volume 96 fL (79-100) Mean Corpuscular Hemoglobin 30 pg (25-35) Mean Corpuscular Hemoglobin Concent 31 g/dL (31-37) Red Cell Distribution Width 14.7 % (11.5-14.5) Platelet Count 197 x10^3/uL (140-400) Neutrophils (%) (Auto) 91 % (31-73) Lymphocytes (%) (Auto) 6 % (24-48) Monocytes (%) (Auto) 3 % (0-9) Eosinophils (%) (Auto) 0 % (0-3) Basophils (%) (Auto) 0 % (0-3) Neutrophils # (Auto) 57.8 x10^3/uL (1.8-7.7) Lymphocytes # (Auto) 3.7 x10^3/uL (1.0-4.8) Monocytes # (Auto) 2.1 x10^3/uL (0.0-1.1) Eosinophils # (Auto) 0.1 x10^3/uL (0.0-0.7) Basophils # (Auto) 0.1 x10^3/uL (0.0-0.2) Prothrombin Time 79.3 SEC (11.7-14.0) Prothromb Time International Ratio 9.4 (0.8-1.1) Activated Partial Thromboplast Time 101 SEC (24-38) Heparin Anti-Xa Act, Unfractionated < 0.10 IU/mL (0.30-0.70) Sodium Level 144 mmol/L (136-145) Potassium Level 6.0 mmol/L (3.5-5.1) Chloride Level 109 mmol/L (98-107) Carbon Dioxide Level 14 mmol/L (21-32) Anion Gap 21 (6-14) Blood Urea Nitrogen 35 mg/dL (8-26) Creatinine 3.0 mg/dL (0.7-1.3) Estimated GFR (Cockcroft-Gault) 22.7 BUN/Creatinine Ratio 12 (6-20) Glucose Level 137 mg/dL (70-99) Calcium Level 5.9 mg/dL (8.5-10.1) Total Bilirubin 1.6 mg/dL (0.2-1.0) Aspartate Amino Transf (AST/SGOT) 99189 U/L (15-37) Alanine Aminotransferase (ALT/SGPT) 09760 U/L (16-63) Alkaline Phosphatase 148 U/L (46-116) Lactate Dehydrogenase 25940 U/L (85-227) Total Protein 3.2 g/dL (6.4-8.2) Albumin 1.1 g/dL (3.4-5.0) Albumin/Globulin Ratio 0.5 (1.0-1.7) O2 Saturation 89 % (92-99) Arterial Blood pH 6.79 (7.35-7.45) Arterial Blood pH (Temp corrected) 6.80 Arterial Blood pCO2 at Patient Temp 41 mmHg (35-46) Arterial Blood pCO2 (Temp correct) 39 mmHg Arterial Blood pO2 at Patient Temp 88 mmHg (75-108) Arterial Blood pO2 (Temp corrected) 82 mmHg Arterial Blood HCO3 6 mmol/L (21-28) Arterial Blood Base Excess -28 mmol/L (-3-3) Comments CXR reviewed 1. Life-support devices as above. 2. Stable diffuse bilateral heterogeneous opacities. Impression . 1. Acute Hypoxic Respiratory Failure/COVID-19/extubated 05/16, coded reintubated early am 05/19 2. Fever--resolved 3. Pneumonia, CXR positive for Bilateral patch infiltrates consistent with COVID-19 4. anemia, ? etiology, ? gi bleed, ?dic 5. Tachycardia 6. Elevated CRP and ferrtin also consistent with COVID-19 infection 7. COVID-19 viral pneumonia/status post convalescent serum, Remdesivir 8. COVID-19 sepsis-- improved 9. foster 10. s/p cp arrest, hypovolemic/hemorrhagic shock 11. shock liver Plan . cont vent support will do abg, change setting per abg will give ffp, s/p prbc protonix gtt cont steroid off hep SCDs pressors to keep map>65 Discussed with RN and RT, dr smart prognosis poor DNR critically ill. Total cumulative critical care time of 30 minutes reviewing data, labs, chest x-ray, no overlap MATTHEW GARCIA MD May 19, 2020 12:17
[2020-05-19 13:07] LABS: % BANDS 28 % (0-9); % LYMPHS 10 % (24-48); % METAS 5 % (0-0); % MONOS 1 % (0-10); % MYELOS 3 % (0-0); % SEGS 53 % (35-66); PLT ESTIMATE ADEQUATE (ADEQUATE)
[2020-05-19 13:08] LABS: ANISOCYTOSIS SLIGHT
[2020-05-19] MEDS ORDERED: ALBUMIN HUMAN 5% 500 ML IV PRN (13:15)
[2020-05-19] MEDS: PANTOPRAZOLE IV PUSH 40 MG VIAL. IVP SCH ×2 (13:24→20:49)
[2020-05-19] MEDS: EPINEPHrine VIAL 5 MG in IV NORMAL SALINE 250ML 250 ML IV PRN ×4 (13:58→22:46)
[2020-05-19 18:06] LABS: HCO3 ABG 10 mmol/L (21-28)
[2020-05-19 18:53] LABS: BASE EXCESS ABG -20 mmol/L (-3-3); FIO2 ABG 100% VENT; PCO2 ABG 35 mmHg (35-46); PO2 ABG 85 mmHg (75-108); SAT O2 ABG 92 % (92-99)
[2020-05-19] MEDS: INSULIN GLARGINE SYRINGE. SQ SCH (21:00)
[2020-05-20] MEDS: EPINEPHrine VIAL 5 MG in IV NORMAL SALINE 250ML 250 ML IV PRN ×2 (01:05→03:54)
[2020-05-20] MEDS: NOREPINEPHRINE VIAL 32 MG in IV DEXTROSE 5% 218 ML IV PRN (03:53)
--- NOTE | 2020-05-20 04:14 | NUR ---
patient is being monitoring by pulse checks via doppler. unable to obtain bp per art line or NIBP without success. Addendum: 05/20/20 at 0609 by CÉSAR LUNA RN [id number]- noted change in Heart rhythm. patient without pulse. confirmed by 2nd RN. Yohan called, to come and see patient. Dr. Crane notified
--- NOTE | 2020-05-20 07:39 | PDOC3 ---
Discharge Summary Visit Information Date of Admission: May 06, 2020 Date of Discharge: May 20, 2020 Admitting Diagnosis: Hypoxic respiratory failure Final Diagnosis COVID 19 pneumonia with sepsis Brief Hospital Course Allergies Allergies Coded Allergies Type Severity Reaction Last Updated Verified No Known Drug Allergies 05/06/20 No Vital Signs Vital Signs Date Time Temp Pulse Resp B/P (MAP) Pulse Ox O2 Delivery O2 Flow Rate FiO2 05/20/20 05:00 100 26 Ventilator 05/19/20 17:00 99 05/19/20 08:00 95.7 95.7 05/18/20 23:59 4.0 Lab Results Laboratory Tests Test 05/18/20 12:27 05/18/20 13:00 05/18/20 19:00 05/18/20 23:20 Glucose (Fingerstick) 201 mg/dL (70-99) Lactic Acid Level 3.4 mmol/L (0.4-2.0) 3.9 mmol/L (0.4-2.0) 15.6 mmol/L (0.4-2.0) Ammonia 29 mcmol/L (11-34) White Blood Count 38.5 x10^3/uL (4.0-11.0) Red Blood Count 1.69 x10^6/uL (4.30-5.70) Hemoglobin 4.9 g/dL (13.0-17.5) Hematocrit 15.8 % (39.0-53.0) Mean Corpuscular Volume 93 fL (79-100) Mean Corpuscular Hemoglobin 29 pg (25-35) Mean Corpuscular Hemoglobin Concent 31 g/dL (31-37) Red Cell Distribution Width 14.5 % (11.5-14.5) Platelet Count 241 x10^3/uL (140-400) Neutrophils (%) (Auto) 89 % (31-73) Lymphocytes (%) (Auto) 4 % (24-48) Monocytes (%) (Auto) 7 % (0-9) Eosinophils (%) (Auto) 0 % (0-3) Basophils (%) (Auto) 0 % (0-3) Neutrophils # (Auto) 34.1 x10^3/uL (1.8-7.7) Lymphocytes # (Auto) 1.6 x10^3/uL (1.0-4.8) Monocytes # (Auto) 2.7 x10^3/uL (0.0-1.1) Eosinophils # (Auto) 0.0 x10^3/uL (0.0-0.7) Basophils # (Auto) 0.0 x10^3/uL (0.0-0.2) Sodium Level 142 mmol/L (136-145) Potassium Level 4.8 mmol/L (3.5-5.1) Chloride Level 108 mmol/L (98-107) Carbon Dioxide Level 11 mmol/L (21-32) Anion Gap 23 (6-14) Blood Urea Nitrogen 34 mg/dL (8-26) Creatinine 2.2 mg/dL (0.7-1.3) Estimated GFR (Cockcroft-Gault) 32.5 Glucose Level 287 mg/dL (70-99) Calcium Level 6.1 mg/dL (8.5-10.1) Test 05/18/20 23:59 05/19/20 00:50 05/19/20 02:29 05/19/20 06:17 Glucose (Fingerstick) 217 mg/dL (70-99) 154 mg/dL (70-99) White Blood Count 36.6 x10^3/uL (4.0-11.0) Red Blood Count 2.09 x10^6/uL (4.30-5.70) Hemoglobin 6.2 g/dL (13.0-17.5) Hematocrit 20.4 % (39.0-53.0) Mean Corpuscular Volume 98 fL (79-100) Mean Corpuscular Hemoglobin 30 pg (25-35) Mean Corpuscular Hemoglobin Concent 30 g/dL (31-37) Red Cell Distribution Width 15.1 % (11.5-14.5) Platelet Count 169 x10^3/uL (140-400) Neutrophils (%) (Auto) 86 % (31-73) Lymphocytes (%) (Auto) 7 % (24-48) Monocytes (%) (Auto) 7 % (0-9) Eosinophils (%) (Auto) 0 % (0-3) Basophils (%) (Auto) 0 % (0-3) Neutrophils # (Auto) 31.3 x10^3/uL (1.8-7.7) Lymphocytes # (Auto) 2.5 x10^3/uL (1.0-4.8) Monocytes # (Auto) 2.6 x10^3/uL (0.0-1.1) Eosinophils # (Auto) 0.1 x10^3/uL (0.0-0.7) Basophils # (Auto) 0.1 x10^3/uL (0.0-0.2) Heparin Anti-Xa Act, Unfractionated 0.15 IU/mL (0.30-0.70) Sodium Level 147 mmol/L (136-145) Potassium Level 5.7 mmol/L (3.5-5.1) Chloride Level 110 mmol/L (98-107) Carbon Dioxide Level 12 mmol/L (21-32) Anion Gap 25 (6-14) Blood Urea Nitrogen 33 mg/dL (8-26) Creatinine 2.3 mg/dL (0.7-1.3) Estimated GFR (Cockcroft-Gault) 30.9 BUN/Creatinine Ratio 14 (6-20) Glucose Level 296 mg/dL (70-99) Calcium Level 5.9 mg/dL (8.5-10.1) Total Bilirubin 0.6 mg/dL (0.2-1.0) Aspartate Amino Transf (AST/SGOT) 1562 U/L (15-37) Alanine Aminotransferase (ALT/SGPT) 1560 U/L (16-63) Alkaline Phosphatase 48 U/L (46-116) Total Protein 2.0 g/dL (6.4-8.2) Albumin 0.8 g/dL (3.4-5.0) Albumin/Globulin Ratio 0.7 (1.0-1.7) O2 Saturation 96 % (92-99) Arterial Blood pH 6.85 (7.35-7.45) Arterial Blood pCO2 at Patient Temp 49 mmHg (35-46) Arterial Blood pO2 at Patient Temp 144 mmHg (75-108) Arterial Blood HCO3 8 mmol/L (21-28) Arterial Blood Base Excess -24 mmol/L (-3-3) FiO2 100 Test 05/19/20 08:15 05/19/20 09:20 05/19/20 13:28 05/19/20 18:03 White Blood Count 63.9 x10^3/uL (4.0-11.0) Red Blood Count 3.51 x10^6/uL (4.30-5.70) Hemoglobin 10.6 g/dL (13.0-17.5) Hematocrit 33.7 % (39.0-53.0) Mean Corpuscular Volume 96 fL (79-100) Mean Corpuscular Hemoglobin 30 pg (25-35) Mean Corpuscular Hemoglobin Concent 31 g/dL (31-37) Red Cell Distribution Width 14.7 % (11.5-14.5) Platelet Count 197 x10^3/uL (140-400) Neutrophils (%) (Auto) 91 % (31-73) Lymphocytes (%) (Auto) 6 % (24-48) Monocytes (%) (Auto) 3 % (0-9) Eosinophils (%) (Auto) 0 % (0-3) Basophils (%) (Auto) 0 % (0-3) Neutrophils # (Auto) 57.8 x10^3/uL (1.8-7.7) Lymphocytes # (Auto) 3.7 x10^3/uL (1.0-4.8) Monocytes # (Auto) 2.1 x10^3/uL (0.0-1.1) Eosinophils # (Auto) 0.1 x10^3/uL (0.0-0.7) Basophils # (Auto) 0.1 x10^3/uL (0.0-0.2) Segmented Neutrophils % 53 % (35-66) Band Neutrophils % 28 % (0-9) Lymphocytes % 10 % (24-48) Monocytes % 1 % (0-10) Metamyelocytes % 5 % (0-0) Myelocytes % 3 % (0-0) Platelet Estimate Adequate (ADEQUATE) Large Platelets Few Anisocytosis Slight Prothrombin Time 79.3 SEC (11.7-14.0) Prothromb Time International Ratio 9.4 (0.8-1.1) Activated Partial Thromboplast Time 101 SEC (24-38) Heparin Anti-Xa Act, Unfractionated < 0.10 IU/mL (0.30-0.70) Sodium Level 144 mmol/L (136-145) Potassium Level 6.0 mmol/L (3.5-5.1) Chloride Level 109 mmol/L (98-107) Carbon Dioxide Level 14 mmol/L (21-32) Anion Gap 21 (6-14) Blood Urea Nitrogen 35 mg/dL (8-26) Creatinine 3.0 mg/dL (0.7-1.3) Estimated GFR (Cockcroft-Gault) 22.7 BUN/Creatinine Ratio 12 (6-20) Glucose Level 137 mg/dL (70-99) Calcium Level 5.9 mg/dL (8.5-10.1) Total Bilirubin 1.6 mg/dL (0.2-1.0) Aspartate Amino Transf (AST/SGOT) 05981 U/L (15-37) Alanine Aminotransferase (ALT/SGPT) 33311 U/L (16-63) Alkaline Phosphatase 148 U/L (46-116) Lactate Dehydrogenase 52991 U/L (85-227) Total Protein 3.2 g/dL (6.4-8.2) Albumin 1.1 g/dL (3.4-5.0) Albumin/Globulin Ratio 0.5 (1.0-1.7) O2 Saturation 89 % (92-99) Arterial Blood pH 6.79 (7.35-7.45) Arterial Blood pH (Temp corrected) 6.80 Arterial Blood pCO2 at Patient Temp 41 mmHg (35-46) Arterial Blood pCO2 (Temp correct) 39 mmHg Arterial Blood pO2 at Patient Temp 88 mmHg (75-108) Arterial Blood pO2 (Temp corrected) 82 mmHg Arterial Blood HCO3 6 mmol/L (21-28) Arterial Blood Base Excess -28 mmol/L (-3-3) Glucose (Fingerstick) 126 mg/dL (70-99) 96 mg/dL (70-99) Test 05/19/20 18:40 05/19/20 21:01 05/19/20 23:24 O2 Saturation 92 % (92-99) Arterial Blood pH 7.05 (7.35-7.45) Arterial Blood pCO2 at Patient Temp 35 mmHg (35-46) Arterial Blood pO2 at Patient Temp 85 mmHg (75-108) Arterial Blood HCO3 10 mmol/L (21-28) Arterial Blood Base Excess -20 mmol/L (-3-3) FiO2 100% vent Glucose (Fingerstick) 82 mg/dL (70-99) 79 mg/dL (70-99) Laboratory Tests Test 05/19/20 08:15 05/19/20 09:20 05/19/20 13:28 05/19/20 18:03 White Blood Count 63.9 x10^3/uL (4.0-11.0) Red Blood Count 3.51 x10^6/uL (4.30-5.70) Hemoglobin 10.6 g/dL (13.0-17.5) Hematocrit 33.7 % (39.0-53.0) Mean Corpuscular Volume 96 fL (79-100) Mean Corpuscular Hemoglobin 30 pg (25-35) Mean Corpuscular Hemoglobin Concent 31 g/dL (31-37) Red Cell Distribution Width 14.7 % (11.5-14.5) Platelet Count 197 x10^3/uL (140-400) Neutrophils (%) (Auto) 91 % (31-73) Lymphocytes (%) (Auto) 6 % (24-48) Monocytes (%) (Auto) 3 % (0-9) Eosinophils (%) (Auto) 0 % (0-3) Basophils (%) (Auto) 0 % (0-3) Neutrophils # (Auto) 57.8 x10^3/uL (1.8-7.7) Lymphocytes # (Auto) 3.7 x10^3/uL (1.0-4.8) Monocytes # (Auto) 2.1 x10^3/uL (0.0-1.1) Eosinophils # (Auto) 0.1 x10^3/uL (0.0-0.7) Basophils # (Auto) 0.1 x10^3/uL (0.0-0.2) Segmented Neutrophils % 53 % (35-66) Band Neutrophils % 28 % (0-9) Lymphocytes % 10 % (24-48) Monocytes % 1 % (0-10) Metamyelocytes % 5 % (0-0) Myelocytes % 3 % (0-0) Platelet Estimate Adequate (ADEQUATE) Large Platelets Few Anisocytosis Slight Prothrombin Time 79.3 SEC (11.7-14.0) Prothromb Time International Ratio 9.4 (0.8-1.1) Activated Partial Thromboplast Time 101 SEC (24-38) Heparin Anti-Xa Act, Unfractionated < 0.10 IU/mL (0.30-0.70) Sodium Level 144 mmol/L (136-145) Potassium Level 6.0 mmol/L (3.5-5.1) Chloride Level 109 mmol/L (98-107) Carbon Dioxide Level 14 mmol/L (21-32) Anion Gap 21 (6-14) Blood Urea Nitrogen 35 mg/dL (8-26) Creatinine 3.0 mg/dL (0.7-1.3) Estimated GFR (Cockcroft-Gault) 22.7 BUN/Creatinine Ratio 12 (6-20) Glucose Level 137 mg/dL (70-99) Calcium Level 5.9 mg/dL (8.5-10.1) Total Bilirubin 1.6 mg/dL (0.2-1.0) Aspartate Amino Transf (AST/SGOT) 59515 U/L (15-37) Alanine Aminotransferase (ALT/SGPT) 34113 U/L (16-63) Alkaline Phosphatase 148 U/L (46-116) Lactate Dehydrogenase 23491 U/L (85-227) Total Protein 3.2 g/dL (6.4-8.2) Albumin 1.1 g/dL (3.4-5.0) Albumin/Globulin Ratio 0.5 (1.0-1.7) O2 Saturation 89 % (92-99) Arterial Blood pH 6.79 (7.35-7.45) Arterial Blood pH (Temp corrected) 6.80 Arterial Blood pCO2 at Patient Temp 41 mmHg (35-46) Arterial Blood pCO2 (Temp correct) 39 mmHg Arterial Blood pO2 at Patient Temp 88 mmHg (75-108) Arterial Blood pO2 (Temp corrected) 82 mmHg Arterial Blood HCO3 6 mmol/L (21-28) Arterial Blood Base Excess -28 mmol/L (-3-3) Glucose (Fingerstick) 126 mg/dL (70-99) 96 mg/dL (70-99) Test 05/19/20 18:40 05/19/20 21:01 05/19/20 23:24 O2 Saturation 92 % (92-99) Arterial Blood pH 7.05 (7.35-7.45) Arterial Blood pCO2 at Patient Temp 35 mmHg (35-46) Arterial Blood pO2 at Patient Temp 85 mmHg (75-108) Arterial Blood HCO3 10 mmol/L (21-28) Arterial Blood Base Excess -20 mmol/L (-3-3) FiO2 100% vent Glucose (Fingerstick) 82 mg/dL (70-99) 79 mg/dL (70-99) Brief Hospital Course Mr Tipton is a 45-year-old male who presents to the Emergency Department overnight with complaints of shortness of breath, fever, chills for the last 4-5 days prior to admit on 05/06/2020. He reports that he has been self-isolating at home and treating his fevers with Tylenol and ibuprofen without any improvement of his symptoms. Upon arrival to the Emergency Department, he was found to be hypoxic with oxygen saturations of 70%. He was placed on 15 liters nonrebreather and was admitted to the hospital for further medical evaluation and treatment. He was treated with Rocephin and azithromycin in the Emergency Department and was tested for COVID-19 which returned positive. 24 hours after admission he became more hypoxic on the nursing unit and was tr ansferred to the intensive care unit and a Pulmonary consultation was requested at that point in time. He was intubated overnight on 05/07/2020. 05/07-05/14: Treated with convalescent FFP and 9 doses of remdesivir. 05/15: We are trying to wake him up today, wean vent, will try to trail, he is fighting the vent as he wakes 05/16: Extubated. Confused. C/o gas pain. WBC still elevated 05/17: Afebrile overnight. Only confused to date today, but the date is wrong on his white board. Good urine output WBC 19.2 Hb 13.1, platelets 271. He is on 4 L of oxygen and does appear comfortable he had a very large bowel movement this morning. He is asking to speak with his brother. 05/18: Afebrile. 5 L O2. Still very weak. Able to use walker to get to the commode. 05/19: Blood pressure dropped in the afternoon on 05/18/2020 given albumin and fluids with no good effect central line placed around 5 PM with good placement and started on levophed. By 2299 levophed was maxed and vasopressin added. He began complaining of right lower quadrant pain, and noted he was feeling strange repeat labs were drawn. Hemoglobin noted at 4.9 from 13.4 just 10 hours earlier. BUN 34 creatinine 2.2 up from normal also 10 hours earlier lactate 15.6 up from lactate 3.4 earlier WBC up to 38.5 from 20 earlier. Patient was unresponsive just a few minutes later CODE BLUE called, no pulse found CPR initiated, intubated with 7.5, ROSC achieved. Chest x-ray with good tube position and right IJ in good position. Brother called bedside to see his family. 4 units of blood ordered started on Protonix gtt and 2u FFP Seen intubated temperature 95.6, unresponsive no cough no gag no pupillary light reflexes. Not sedated. At 0527 on 05/20/2020 noted with PEA to bradycardia and no spontaneous respiratory activity. Per family wishes patient peacefully. Consults: Pulm, cardiology, GI Problem List: Acute Hypoxic Respiratory Failure/COVID-19/extubated 05/16, coded reintubated early am 05/19 Sepsis Acute blood loss anemia Transaminitis, shock liver Lactic acidosis Status post cardiopulmonary arrest Bilateral Infiltrates on cxr elevated D dimer elevated inflammatory markers Leukocytosis mild hypernatremia Pneumonia, CXR positive for Bilateral patch infiltrates consistent with COVID-19 COVID-19 viral pneumonia/status post convalescent serum, Remdesivir foster s/p cp arrest, hypovolemic/hemorrhagic shock Greater than 30 minutes spent on care on day of patient expiration Discharge Information Condition at Discharge: / Disposition/Orders: Justicifation of Admission Dx: Justifications for Admission: Justification of Admission Dx: Yes Comminuty Aquired Pneumonia: Hypoxemia MINH URBAN MD May 20, 2020 07:39
--- NOTE | 2020-05-20 09:07 | NUR ---
Patient's family had family say goodbyes this morning at 0730. Patient's vasquez and ET tube removed, patient was tagged and placed in double bag [place] [facility] [place] 0900. [place] [facility] [place] this RN and Security.
== END 2020-05-20 05:27 | disposition expired | DRG 870 ==
LOC: ER 01:51 → OBSVTOIN 05:27 → 6 SOUTH 05:27 → 1 WEST ICU 09:30
PROVIDERS: ADMIT Internal Medicine; ATTEND Internal Medicine
PROC: 5A1955Z Respiratory Ventilation, Greater than 96 Consecutive Hours (ICD-10-PCS; principal; 2020-05-07)
PROC: 0BH17EZ Insertion of Endotracheal Airway into Trachea, Via Natural or Artificial Opening (ICD-10-PCS; 2020-05-07)
PROC: 30233K1 Transfusion of Nonautologous Frozen Plasma into Peripheral Vein, Percutaneous Approach (ICD-10-PCS; 2020-05-08)
PROC: 30233N1 Transfusion of Nonautologous Red Blood Cells into Peripheral Vein, Percutaneous Approach (ICD-10-PCS; 2020-05-08)
PROC: 02H633Z Insertion of Infusion Device into Right Atrium, Percutaneous Approach (ICD-10-PCS; 2020-05-10)
PROC: 5A1935Z Respiratory Ventilation, Less than 24 Consecutive Hours (ICD-10-PCS; 2020-05-19)
DX: A41.89 Other specified sepsis (principal); I50.31 Acute diastolic (congestive) heart failure; J12.89 Other viral pneumonia; J96.01 Acute respiratory failure with hypoxia; U07.1 COVID-19; K72.00 Acute and subacute hepatic failure without coma; E87.0 Hyperosmolality and hypernatremia; D62 Acute posthemorrhagic anemia; N17.9 Acute kidney failure, unspecified; I46.9 Cardiac arrest, cause unspecified; K31.89 Other diseases of stomach and duodenum; Z79.899 Other long term (current) drug therapy; R74.0 Nonspecific elevation of levels of transaminase and lactic acid dehydrogenase [LDH]; Z66 Do not resuscitate; I95.1 Orthostatic hypotension
CPT/HCPCS: 36415; 36600; 71045; 74018; 80048; 80053; 80061; 80076; 80307; 81001; 82140; 82728; 82805; 82962; 83605; 83615; 83735; 84484; 85007; 85025; 85027; 85379; 85520; 85610; 85730; 86140; 86850; 86900; 86901; 86920; 86927; 87040; 87086; 93005; 94002; 94003; 94760; 96365; 96366; 96375; C9113; J0171; J0330; J0456; J0461; J0610; J0696; J1364; J1644; J1650; J1815; J2250; J2765; J2920; J2930; J3010; J3490; J7030; J7042; J7050; J7060; P9016; P9017; P9045; 97530-GP; 99285-25; G0378; U0003-CS